=== PATIENT | female | born 1965 | race Caucasian/White ===

== ENCOUNTER 2019-04-05 12:36 | Observation (INO) | payer BC, SELFPAY | END 2019-04-06 22:50 | disposition home or self-care (01) | PROVIDERS: Admitting Provider Family Medicine; Emergency Provider Emergency Medicine; Family Provider Nurse Practitioner Family; Visit Provider Family Medicine | DX: I10 Essential (primary) hypertension (principal); J45.909 Unspecified asthma, uncomplicated; E78.5 Hyperlipidemia, unspecified; G47.00 Insomnia, unspecified; F17.210 Nicotine dependence, cigarettes, uncomplicated; R07.9 Chest pain, unspecified; E03.9 Hypothyroidism, unspecified; E11.42 Type 2 diabetes mellitus with diabetic polyneuropathy; Z79.4 Long term (current) use of insulin; K21.9 Gastro-esophageal reflux disease without esophagitis; Z95.1 Presence of aortocoronary bypass graft; Z95.0 Presence of cardiac pacemaker; Z95.820 Peripheral vascular angioplasty status with implants and grafts; Z82.49 Family history of ischemic heart disease and other diseases of the circulatory system; Z83.3 Family history of diabetes mellitus; E66.9 Obesity, unspecified; Z68.41 Body mass index [BMI] 40.0-44.9, adult; M19.90 Unspecified osteoarthritis, unspecified site | CPT/HCPCS: 36415 ×2; 36416 ×7; 71045; 78452; 80053 ×2; 80061; 80307; 81001; 82962 ×6; 83036; 83721; 84443; 84484 ×3; 85025 ×2; 90732; 93005 ×3; 93017; 93454; 96360; 96361; 99285; A9500; G0378 ×122; J1644; J2001; J2250 ×2; J2785; J3490; Q9967 ==

== ENCOUNTER → 2019-09-30 10:53 | Outpatient (BNVA) | payer BC, SELFPAY | PROVIDERS: Visit Provider Nurse Practitioner Family | DX: I50.9 Heart failure, unspecified (principal); J40 Bronchitis, not specified as acute or chronic | CPT/HCPCS: 71046 ==

== ENCOUNTER → 2019-10-31 09:46 | Outpatient (BNVA) | payer BC, SELFPAY | PROVIDERS: Visit Provider Family Medicine | DX: E03.9 Hypothyroidism, unspecified (principal); I10 Essential (primary) hypertension; E11.9 Type 2 diabetes mellitus without complications; E55.9 Vitamin D deficiency, unspecified | CPT/HCPCS: 80053; 80061; 82306; 83036; 84443; 85025 ==

== ENCOUNTER 2020-02-27 13:39 | Outpatient (CLI) | payer BC, SELFPAY ==
--- NOTE | 2020-02-27 13:46 | XR_ITS ---
WS: [id number] Right foot, 3 views, 02/27/2020 Clinical Data: foot pain Comparison: None. Findings: No fractures or dislocations are seen. No bone destruction or erosion is noted. The joint spaces and soft tissues are normal. XR/XR foot RT min 3V* [id number] Impression: Negative right foot.
--- NOTE | 2020-02-27 13:46 | XR_ITS ---
WS: [id number] Left foot, 3 views, 02/27/2020 Clinical Data: foot pain Comparison: Left foot, 03/01/2015. Findings: No fractures or dislocations are seen. No bone destruction or erosion is noted. The joint spaces and soft tissues are normal. XR/XR foot LT min 3V* [id number] Impression: Negative left foot.
== END 2020-02-27 13:40 | disposition home or self-care (01) ==
LOC: RAD 13:44
PROVIDERS: PCP Family Medicine; Visit Provider Podiatrist Foot & Ankle Surgery
DX: M79.672 Pain in left foot (principal); M79.671 Pain in right foot
CPT/HCPCS: 73630

== ENCOUNTER → 2020-05-24 12:10 | Outpatient (BNVA) | payer BC, OTHER, SELFPAY | PROVIDERS: PCP Family Medicine; Visit Provider Family Medicine | DX: M79.671 Pain in right foot (principal); Z12.31 Encounter for screening mammogram for malignant neoplasm of breast; Z23 Encounter for immunization; I10 Essential (primary) hypertension; E03.9 Hypothyroidism, unspecified; Z79.4 Long term (current) use of insulin; E11.65 Type 2 diabetes mellitus with hyperglycemia; E11.42 Type 2 diabetes mellitus with diabetic polyneuropathy; E78.5 Hyperlipidemia, unspecified | CPT/HCPCS: 73630; 80053; 80061; 83036; 84443 ==

== ENCOUNTER → 2020-06-08 11:55 | Outpatient (BNVA) | payer BC, OTHER, SELFPAY | PROVIDERS: PCP Family Medicine | DX: Z11.59 Encounter for screening for other viral diseases (principal); Z20.828 Contact with and (suspected) exposure to other viral communicable diseases | CPT/HCPCS: 87635 ==

== ENCOUNTER 2020-08-31 17:11 | Emergency (ER) | payer SELFPAY ==
[2020-08-31] VITALS (8 sets, daily range): BP systolic 113–143; BP diastolic 72–80; PULSE 67–88; RESP 17–19; TEMP 36.8; O2SAT 95–97; BMI 37.9
--- NOTE | 2020-08-31 17:22 | ECG_ITS ---
[facility] Test Date: 2020-08-31 Pat Name: Adriana Velasquez Department: Room: Gender: Female Admin Secretary: : 1965 Requested By: Isabela Ba Order Number: [id number] Tiara MD: Geri Díaz M.D. Measurements Intervals [place] Rate: 68 P: 52 WV: 175 QRS: 46 QRSD: 99 T: 50 QT: 387 QTc: 413 Interpretive Statements SINUS RHYTHM LOW QRS VOLTAGE IN PRECORDIAL LEADS [QRS DEFLECTION < 1.0 mV IN CHEST LEADS] Compared to ECG 04/05/2019 20:20:32 Sinus bradycardia no longer present Electronically Signed On 09-02-2020 9:14:33 ED EDUCATIONAL AIDE by Geri Díaz M.D. [id number]
--- NOTE | 2020-08-31 17:29 | W.ED.ABDPA2 ---
HPI - Abdominal Pain General: Chief Complaint: Abdominal Pain Stated Complaint: ABDOMINAL PAIN Time Seen by Provider: 08/31/20 17:12 History of Present Illness: HPI narrative: This patient is a 54-year-old female who presents today with left upper quadrant pain. She said she has been having abdominal pain off and on since before . Its not there every day. This episode started yesterday and has not gone away. It kept her up during the night last night. She said it gets worse when she eats. Nothing makes it better. She has not had any vomiting or diarrhea. She denies fevers. She does feel short of breath when the pain is severe because she cannot take a deep breath. She has a chronic cough. She has had a hysterectomy and a hernia repair surgery. She still has her appendix and gallbladder. She is diabetic, hypertensive. MD elicited complaint: abdominal pain Pertinent past history: none Onset (ago): month(s) (1) Pain Consistency: intermittent Location: LUQ Severity: severe Quality: cramping and sharp Radiation: none Migration to: no migration Exacerbating factors: eating Relieving factors: nothing Associated Symptoms: Denies change in bowel habits, constipation, diarrhea, dysuria and fever(s) Review of Systems General: Reports: 10 or more systems reviewed and unremarkable except in HPI and below Const: Denies: fever(s) Eyes: Denies: change in vision ENMT: Denies: odynophagia Card: Denies: chest pain or swelling of feet/ankles Resp: Denies: dyspnea, productive cough or non-productive cough GI: Denies: diarrhea, constipation or change in bowel habits : Denies: dysuria Musc: Denies: neck pain or back pain Skin/Breast: Denies: rash Neuro: Denies: headache(s), numbness in extremities or weakness in extremities Shreyas/Lymph: Denies: easy bruising or easy bleeding PFS ED PFSH: Medical History (Updated 08/31/20 @ 22:47 by Isabela Andres MD) Adult hypothyroidism Anxiety and depression Chronic migraine COPD (chronic obstructive pulmonary disease) CPAP (continuous positive airway pressure) dependence Diabetic neuropathy Dyslipidemia GERD (gastroesophageal reflux disease) Hypertension Narcolepsy Reflux esophagitis RLS (restless legs syndrome) Smoking Type 2 diabetes mellitus Vitamin D deficiency Surgical History History of back surgery Hx of hemorrhoidectomy Hx of hernia repair Hx of hysterectomy Hx of tonsillectomy Family History Other Diabetes Hypertension Social History Smoking and tobacco status: current every day smoker cigarettes Packs smoked per day: 1 Years cigarettes smoked: 35 Alcohol intake: never Lives independently: Yes Household members: family Marital status: Current occupational status: retired History of recent travel: No Current gender identity: Female Physical Exam Const: COMMON NORMALS: no acute distress, patient oriented x3, no limitations and alert GENERAL APPEARANCE: cooperative and comfortable HENMT: HEAD & SCALP: normal to inspection FACE & SINUS: normal facial exam Eye: GENERAL EYE: appearance normal, both eyes and all related structures Neck/C-Spine: COMMON NORMALS: supple, no meningeal signs and no JVD Chest: COMMONS NORMALS: normal inspection of the chest Resp: COMMON NORMALS: normal respiratory effort, No use of accessory muscles and clear to auscultation bilaterally AUSCULTATION: clear to auscultation bilaterally Cardio: COMMON NORMALS: no JVD, regular rate, regular rhythm and No murmurs present (Cardio) RATE: regular rate RHYTHM: regular rhythm GI: COMMON NORMALS: Normal to inspection, nondistended, normoactive bowel sounds present and No hepatosplenomegaly present INSPECTION: Yes normal to inspection and Yes striae AUSCULTATION: Yes normoactive bowel sounds PALPATION: Yes Tenderness to palpation present (GI) Details: LUQ and RUQ, Yes No hepatosplenomegaly present and No Rebound tenderness present PERCUSSION: normal to percussion Back/Pelvis: COMMON NORMALS: thoracic and lumbar spine normal to inspection Extremity: COMMON NORMALS: normal to inspection Neuro: COMMON NORMALS: patient oriented x3, moves all extremities, no focal motor deficits and no sensory deficits noted SENSORIUM/ORIENTATION: Yes alert MENINGEAL SIGNS: Yes no meningeal signs Psych: COMMON NORMALS: mental status grossly normal, cooperative and normal affect Skin: COMMON NORMALS: no rashes or lesions noted and turgor normal GENERAL SKIN EXAM: no rashes or lesions noted and turgor normal Course ED course: Patient was fairly comfortable when in the department. When I went back to reevaluate her after her CT she was sitting up on the bed, leaning forward and on her phone. The CT and labs were within normal limits. Her symptoms to me suggest possibly slow gastric emptying and I suggested we try some Reglan. She also could have gastritis or gastric ulcer disease. We will start some Pepcid. She has a primary care doctor and I suggested that she might follow-up with her given that her symptoms have been going on for a while. Vital Signs: Vital signs: Vital Signs Temperature 98.3 F 08/31/20 17:14 Pulse Rate 68 08/31/20 21:11 Respiratory Rate 17 08/31/20 21:11 Blood Pressure 124/72 08/31/20 21:11 Pulse Oximetry 96 08/31/20 21:11 MDM - Abdominal Pain MDM Narrative: Medical decision making narrative: Gastroparesis, slow gastric emptying, gastric ulcer disease, gastritis, colitis, renal disease. Lab Data: Labs: Lab Results 08/31/20 08/31/20 08/31/20 Range/Units 17:25 17:25 17:25 WBC 8.5 (4.0-10.0) 10^3/ uL RBC 4.95 (4.1-5.3) 10^6/u L Hgb 14.6 (11.5-15.3) g/dL Hct 44.7 (37.0-47.0) % MCV 90.3 (81-99) fL MCH 29.5 (28.0-34.0) pg MCHC 32.7 (30.0-36.0) g/dL RDW 12.6 (12.1-15.1) % Plt Count 229 (130-400) 10^3/c mm MPV 10.3 (7.4-10.4) fL Neut % (Auto) 58.7 % Lymph % (Auto) 33.4 % [place] % (Auto) 5.1 % Eos % (Auto) 2.0 % Baso % (Auto) 0.6 % Neut # (Auto) 4.98 (1.8-7.7) 10^3/u L Lymph # (Auto) 2.8 (0.8-4.8) 10^3/u L [place] # (Auto) 0.4 (0.2-0.9) 10^3/u L Eos # (Auto) 0.2 (0.0-0.8) 10^3/u L Baso # (Auto) 0.1 (0.0-0.1) 10^3/u L Nucleated RBC % (a uto) 0 % Nucleated RBCs # 0.0 /100WBC Sodium 142 (136-145) mmol/L Potassium 4.0 (3.5-5.1) mmol/L Chloride 103 (98-107) mmol/L Carbon Dioxide 30 H (22-29) mmol/L Anion Gap 13.0 (5-19) BUN 10 (6-20) mg/dL Creatinine 0.7 (0.5-0.9) mg/dL GFR Calculation 87.9 L (90-130) mL/min Glucose 160 H (65-115) mg/dL Calculated Osmolal ity 296 H (285-295) mOsm/k g Lactic Acid 1.6 (0.5-2.2) mmol/L Calcium 9.8 (8.5-10.5) mg/dL Total Bilirubin 0.4 (0.15-1.2) mg/dL AST 19 (0-32) U/L ALT 16 (0-33) U/L Alkaline Phosphata se 104 (35-105) IU/L Total Protein 6.9 (6.6-8.7) g/dL Albumin 4.2 (3.5-5.2) g/dL Globulin 2.7 (1.3-4.6) g/dL Lipase 45 (13-60) U/L Urine Color (Yellow) Urine Appearance (CLEAR) Urine pH (5-7) Ur Specific Gravit y (1.005-1.030) Urine Protein (Negative) Urine Glucose (UA) (Normal) Urine Ketones (Negative) Urine Blood (Negative) Urine Nitrate (Negative) Urine Bilirubin (Negative) Urine Urobilinogen (Negative) mg/dL Ur Leukocyte Brianne ase (Negative) 08/31/20 Range/Units 18:14 WBC (4.0-10.0) 10^3/ uL RBC (4.1-5.3) 10^6/u L Hgb (11.5-15.3) g/dL Hct (37.0-47.0) % MCV (81-99) fL MCH (28.0-34.0) pg MCHC (30.0-36.0) g/dL RDW (12.1-15.1) % Plt Count (130-400) 10^3/c mm MPV (7.4-10.4) fL Neut % (Auto) % Lymph % (Auto) % [place] % (Auto) % Eos % (Auto) % Baso % (Auto) % Neut # (Auto) (1.8-7.7) 10^3/u L Lymph # (Auto) (0.8-4.8) 10^3/u L [place] # (Auto) (0.2-0.9) 10^3/u L Eos # (Auto) (0.0-0.8) 10^3/u L Baso # (Auto) (0.0-0.1) 10^3/u L Nucleated RBC % (a uto) % Nucleated RBCs # /100WBC Sodium (136-145) mmol/L Potassium (3.5-5.1) mmol/L Chloride (98-107) mmol/L Carbon Dioxide (22-29) mmol/L Anion Gap (5-19) BUN (6-20) mg/dL Creatinine (0.5-0.9) mg/dL GFR Calculation (90-130) mL/min Glucose (65-115) mg/dL Calculated Osmolal ity (285-295) mOsm/k g Lactic Acid (0.5-2.2) mmol/L Calcium (8.5-10.5) mg/dL Total Bilirubin (0.15-1.2) mg/dL AST (0-32) U/L ALT (0-33) U/L Alkaline Phosphata se (35-105) IU/L Total Protein (6.6-8.7) g/dL Albumin (3.5-5.2) g/dL Globulin (1.3-4.6) g/dL Lipase (13-60) U/L Urine Color Yellow (Yellow) Urine Appearance Clear (CLEAR) Urine pH 5 (5-7) Ur Specific Gravit y 1.025 (1.005-1.030) Urine Protein Neg (Negative) Urine Glucose (UA) Norm (Normal) Urine Ketones Negative (Negative) Urine Blood Neg (Negative) Urine Nitrate Negative (Negative) Urine Bilirubin 1+ H (Negative) Urine Urobilinogen 4 H (Negative) mg/dL Ur Leukocyte Brianne ase Negative (Negative) Discharge Plan Discharge Patient Disposition: Home Clinical Impression: Abdominal pain Qualifiers: Abdominal location: left upper quadrant Qualified Code(s): R10.12 - Left upper quadrant pain Type 2 diabetes mellitus Qualifiers: 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 insulin use: unspecified care home insulin use status Diabetes mellitus complication status: with other specified complication Qualified Code(s): E11.69 - Type 2 diabetes mellitus with other specified complication Condition: Stable Prescriptions: New metoclopramide HCl 10 mg tablet 10 mg PO Q6H PRN (Reason: abdominal discomfort) Qty: 14 RF: 0 Pepcid 40 mg tablet 40 mg PO BID 56 Days Qty: 112 RF: 0 No Action albuterol sulfate 2.5 mg /3 mL (0.083 %) solution for nebulization 2.5 mg INHALATION Q4H PRN (Reason: Shortness Of Breath) RF: 0 Bevespi Aerosphere 9-4.8 mcg HFA aerosol inhaler 2 puff INHALATION Q12H PRN (Reason: Shortness Of Breath) RF: 0 rizatriptan [Maxalt] 10 mg tablet See Rx Instructions PO .COMPLEX Qty: 14 RF: 5 gabapentin 600 mg tablet 600 mg PO TID Qty: 90 RF: 1 Novolin R Regular U-100 Insuln 100 unit/mL solution See Rx Instructions SUBCUT .COMPLEX Qty: 10 RF: 2 amitriptyline 25 mg tablet 25 mg PO BEDTIME@20 RF: 0 metformin 1,000 mg tablet 1,000 mg PO BID@08,20 RF: 0 levothyroxine 125 mcg tablet 125 mcg PO DAILY@08 RF: 0 ropinirole 4 mg tablet 4 mg PO BEDTIME@20 RF: 0 metoprolol tartrate 25 mg tablet 25 mg PO Q12H RF: 0 fenofibrate 160 mg tablet 160 mg PO DAILY@08 RF: 0 cholecalciferol (vitamin D3) 3,000 unit tablet 6,000 unit PO DAILY@08 RF: 0 Aimovig Autoinjector 140 mg/mL auto-injector 140 mg SUBCUT Q30D RF: 0 Discharge Orders: Discharge ED (Routine); Ordered 08/31/20 Ordered By: Isabela Andres Referrals: Daksha Killian MD [Primary Care Provider] - Discharge Diet: Usual diet Discharge Activity: Resume usual activity Patient Instructions: Abdominal Pain (ED) Activity Restrictions/Additional Instructions: Try taking the metaclopramide before meals to see if it helps prevent the pain. Take the pepcid daily as prescribed. Follow up with your doctor. Coding Level of Care Code ED Audio Video Mechanic for Maddison Fwd Exam Comprehensive
[2020-08-31] MEDS: morphine 4 mg/mL SDV 1 mL IVP (17:49)
[2020-08-31] MEDS: ondansetron 2 mg/ML SDV 2 mL 4 MG IVP (17:49)
[2020-08-31 18:12] LABS: Basophils # 0.1 10^3/uL (0.0-0.1); Basophils % 0.6 %; Eosinophils # 0.2 10^3/uL (0.0-0.8); Hematocrit 44.7 % (37.0-47.0); Hemoglobin 14.6 g/dL (11.5-15.3); Lymphocytes # 2.8 10^3/uL (0.8-4.8); Lymphocytes % 33.4 %; Mean Corpuscular HGB Conc 32.7 g/dL (30.0-36.0); Mean Corpuscular Hemoglobin 29.5 pg (28.0-34.0); Mean Corpuscular Volume 90.3 fL (81-99); Mean Platelet Volume 10.3 fL (7.4-10.4); Monocytes # 0.4 10^3/uL (0.2-0.9); Monocytes % 5.1 %; Neutrophils # 4.98 10^3/uL (1.8-7.7); Neutrophils % 58.7 %; Nucleated Red Blood Cells % 0 %; Platelet Count 229 10^3/cmm (130-400); Red Blood Count 4.95 10^6/uL (4.1-5.3); Red Cell Distribution Width 12.6 % (12.1-15.1); White Blood Count 8.5 10^3/uL (4.0-10.0)
[2020-08-31 18:22] LABS: Add Urine Microscopic? NO
[2020-08-31 18:23] LABS: Lactic Sepsis W/Reflex 1.6 mmol/L (0.5-2.2)
[2020-08-31 18:25] LABS: Bilirubin Urine 1+ (Negative); Blood Urine Neg (Negative); Glucose Urine UA Norm (Normal); Ketones Urine Negative (Negative); Leukocyte Esterase Urine Negative (Negative); Nitrate Urine Negative (Negative); Protein Urine Neg (Negative); Specific Gravity, Urine 1.025 (1.005-1.030); Urine Appearance Clear (CLEAR); Urine Color Yellow (Yellow); Urobilinogen Urine 4 mg/dL (Negative); pH Urine 5 (5-7)
[2020-08-31 18:31] LABS: Alanine Aminotransferase 16 U/L (0-33); Albumin Level 4.2 g/dL (3.5-5.2); Alkaline Phosphatase 104 IU/L (35-105); Blood Urea Nitrogen 10 mg/dL (6-20); Calcium 9.8 mg/dL (8.5-10.5); Carbon Dioxide 30 mmol/L (22-29); Chloride 103 mmol/L (98-107); Globulin 2.7 g/dL (1.3-4.6); Glomerular Filtration Rate 87.9 mL/min (90-130); Glucose 160 mg/dL (65-115); Lipase 45 U/L (13-60); Osmolality Calculated 296 mOsm/kg (285-295); Sodium 142 mmol/L (136-145); Total Bilirubin 0.4 mg/dL (0.15-1.2); Total Protein 6.9 g/dL (6.6-8.7)
[2020-08-31 18:33] LABS: Aspartate Amino Transferase 19 U/L (0-32)
--- NOTE | 2020-08-31 19:13 | PC.NURSE ---
report received from Le BAUM, care transferred to BAUTISTA Aviles
--- NOTE | 2020-08-31 19:22 | CTR_ITS ---
PROCEDURE INFORMATION: Exam: CT Abdomen And Pelvis With Contrast Exam date and time: 08/31/2020 7:45 PM Age: 54 years old Clinical indication: Abdominal pain; Localized; Left upper quadrant (luq); Prior surgery; Surgery type: Hernia repair. Hysterectomy. ; Patient HX: Luq pain. ; Additional info: Abdominal pain, luq TECHNIQUE: Imaging protocol: Computed tomography of the abdomen and pelvis with intravenous contrast. Radiation optimization: All CT scans at this facility use at least one of these dose optimization techniques: automated exposure control; mA and/or kV adjustment per patient size (includes targeted exams where dose is matched to clinical indication); or iterative reconstruction. Contrast material: OMNI 300; Contrast volume: 95 ml; Contrast route: INTRAVENOUS (IV); COMPARISON: CR Hip 2-3v RIGHT wwo Pelv* [id number] 10/29/2018 4:36 PM RADIATION DOSE METRICS: Total DLP (mGy-cm): 1412.41 FINDINGS: Liver: Normal. No mass. Gallbladder and bile ducts: Normal. No calcified stones. No ductal dilation. Pancreas: Normal. No ductal dilation. Spleen: Normal. No splenomegaly. Adrenal glands: Normal. No mass. Kidneys and ureters: Normal. No hydronephrosis. Stomach and bowel: Unremarkable. No obstruction. No mucosal thickening. Appendix: The appendix is visualized and is normal. Intraperitoneal space: Unremarkable. No free air. No significant fluid collection. Vasculature: Unremarkable. No abdominal aortic aneurysm. Lymph nodes: Unremarkable. No enlarged lymph nodes. Urinary bladder: Unremarkable as visualized. Reproductive: The uterus and ovaries are absent. Bones/joints: Unremarkable. No acute fracture. Soft tissues: Unremarkable. CT/CT abdomen pelvis w con* [id number] IMPRESSION: 1. No acute abnormality identified in the abdomen or pelvis. Radiation Dose CTDIVOL = (mGy): DLP = 1412.41 (mGy-cm)
[2020-08-31] MEDS: iohexol 300 mg/mL 100 mL Btl IV (20:26)
== END 2020-08-31 23:22 | disposition home or self-care (01) ==
PROVIDERS: Emergency Provider Emergency Medicine; PCP Family Medicine
DX: R10.12 Left upper quadrant pain (principal); E11.69 Type 2 diabetes mellitus with other specified complication; Z79.4 Long term (current) use of insulin; J44.9 Chronic obstructive pulmonary disease, unspecified; E11.40 Type 2 diabetes mellitus with diabetic neuropathy, unspecified; E78.5 Hyperlipidemia, unspecified; I10 Essential (primary) hypertension; F17.210 Nicotine dependence, cigarettes, uncomplicated
CPT/HCPCS: 12345; 74177; 80053; 81003; 83605; 83690; 85025; 93005; 96374; 96375; 99282; 99283; J2270; J2405; Q9967

== ENCOUNTER 2020-10-09 20:18 | Emergency (ER) | payer OTHER, SELFPAY ==
[2020-10-09 20:27] VITALS: BP 175/102; PULSE 86; RESP 18; TEMP 36.8; O2SAT 96; BMI 38.0
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
[2020-10-09] MEDS: ibuprofen 800 mg tablet PO (22:14)
[2020-10-09 22:16] VITALS: BP 132/95; PULSE 86; RESP 16; O2SAT 97
[2020-10-09 23:00] VITALS: BP 134/95; PULSE 64; RESP 16; O2SAT 95
== END 2020-10-09 23:01 | disposition home or self-care (01) ==
PROVIDERS: Emergency Provider Family Medicine; PCP Family Medicine
DX: T14.8XXA Other injury of unspecified body region, initial encounter (principal); Y04.2XXA Assault by strike against or bumped into by another person, initial encounter; J44.9 Chronic obstructive pulmonary disease, unspecified; E11.40 Type 2 diabetes mellitus with diabetic neuropathy, unspecified; E78.5 Hyperlipidemia, unspecified; I10 Essential (primary) hypertension; F17.210 Nicotine dependence, cigarettes, uncomplicated; Z79.4 Long term (current) use of insulin
CPT/HCPCS: 70450; 71045; 71100; 72040; 73562; 99283

== ENCOUNTER → 2020-11-02 10:13 | Outpatient (BNVA) | payer OTHER, SELFPAY | PROVIDERS: PCP Family Medicine; Visit Provider Family Medicine | DX: E03.9 Hypothyroidism, unspecified (principal); E11.69 Type 2 diabetes mellitus with other specified complication; I10 Essential (primary) hypertension | CPT/HCPCS: 80053; 80061; 83036; 84443; 85025 ==

== ENCOUNTER → 2020-11-12 14:08 | Outpatient (BNVA) | payer OTHER, SELFPAY | PROVIDERS: PCP Family Medicine; Visit Provider Nurse Practitioner Family | DX: R30.0 Dysuria (principal); R31.29 Other microscopic hematuria; N39.0 Urinary tract infection, site not specified | CPT/HCPCS: 74018; 80053; 81003; 85025; 87077; 87086; 87184 ==

== ENCOUNTER → 2021-01-31 10:06 | Outpatient (BNVA) | payer OTHER, SELFPAY | PROVIDERS: PCP Family Medicine; Visit Provider Family Medicine | DX: M79.671 Pain in right foot (principal) | CPT/HCPCS: 73630 ==

== ENCOUNTER 2021-02-01 13:54 | Emergency (ER) | payer OTHER, SELFPAY ==
[2021-02-01 14:23] VITALS: BP 131/78; PULSE 78; RESP 18; TEMP 36.7; O2SAT 95; BMI 39.6
--- NOTE | 2021-02-01 14:46 | W.ED.EXTPRO ---
HPI - Extremity Problem General: Chief complaint: Extremity Problem,Nontraumatic Stated complaint: LLE swelling Time Seen by Provider: 02/01/21 14:28 History of Present Illness: HPI Narrative: Patient complains about right foot pain for the last couple days. Says his neuropathy is acting up. Said it hurts to put weight on. Denies any injury thinks it swells at times. Complaint: extremity pain Onset (ago): day(s) Pain Consistency: constant Location: right and lower extremity Quality: aching Radiation: proximal Relieving factors: immobilization Exacerbating factors: weight bearing Associated symptoms: Reports no associated symptoms; Deny chest pain, fever(s) or rash Review of Systems Const: Denies: fever(s), chills or body aches Eyes: Denies: change in vision or blurry vision ENMT: Denies: throat pain or nasal congestion Card: Denies: chest pain or dyspnea on exertion Resp: Denies: dyspnea, productive cough or non-productive cough GI: Denies: abdominal pain, nausea or vomiting Musc: Reports: extremity pain (Right foot is been painful for the last 2 or 3 days seen her primary care x); Denies: extremity swelling Skin/Breast: Denies: rash Neuro: Denies: headache(s) Psych: Denies: anxiety or depression Shreyas/Lymph: Denies: easy bruising PFSH ED PFSH: Medical History (Updated 02/01/21 @ 14:42 by KASANDRA Parada) Adult hypothyroidism Anxiety and depression Chronic migraine COPD (chronic obstructive pulmonary disease) CPAP (continuous positive airway pressure) dependence Diabetic neuropathy Dyslipidemia GERD (gastroesophageal reflux disease) Hypertension Narcolepsy Reflux esophagitis RLS (restless legs syndrome) Smoking Type 2 diabetes mellitus Vitamin D deficiency Surgical History History of back surgery Hx of hemorrhoidectomy Hx of hernia repair Hx of hysterectomy Hx of tonsillectomy Family History Other Diabetes Hypertension Social History Smoking and tobacco status: current every day smoker cigarettes Packs smoked per day: 1 Years cigarettes smoked: 35 Alcohol intake: never Lives independently: Yes Household members: family Marital status: Current occupational status: retired History of recent travel: No Current gender identity: Female Physical Exam Const: COMMON NORMALS: no acute distress Extremity: COMMON NORMALS: normal to inspection, capillary refill normal, no calf tenderness and no pedal edema RIGHT LOWER EXTREMITY: Yes foot & digits (Tender everywhere i touch, no erythema no swelling noted no calf tenderness) Psych: COMMON NORMALS: mental status grossly normal Course Vital Signs: Vital signs: Vital Signs Temperature 98.1 F 02/01/21 14:23 Pulse Rate 78 02/01/21 14:23 Respiratory Rate 18 02/01/21 14:23 Blood Pressure 131/78 02/01/21 14:23 Pulse Oximetry 95 02/01/21 14:23 MDM - Extremity (Nontraumatic) MDM Narrative: Medical decision making narrative: Foot appears normal exam calf is normal. Patient has a history neuropathy and feels maybe it is flaring up. Is allergic to a lot of the pain type medications. Patient instructed follow-up primary care provider try medication as prescribed Epson salt soaks might be of benefit. Discharge Plan Discharge Patient Disposition: Home Clinical Impression: Right foot pain Condition: Stable Prescriptions: New Celebrex 100 mg capsule 100 mg PO BID Qty: 20 RF: 0 Voltaren 1 % gel 4 g topical QID Qty: 100 RF: 0 Discontinued ibuprofen 600 mg tablet 600 mg PO Q6H PRN (Reason: pain) Qty: 30 RF: 0 No Action albuterol sulfate 2.5 mg /3 mL (0.083 %) solution for nebulization 2.5 mg INHALATION Q4H PRN (Reason: Shortness Of Breath) RF: 0 Bevespi Aerosphere 9-4.8 mcg HFA aerosol inhaler 2 puff INHALATION Q12H PRN (Reason: Shortness Of Breath) RF: 0 rizatriptan [Maxalt] 10 mg tablet See Rx Instructions PO .COMPLEX Qty: 14 RF: 5 amitriptyline 25 mg tablet 25 mg PO BEDTIME@20 Qty: 30 RF: 3 cholecalciferol (vitamin D3) 75 mcg (3,000 unit) tablet 6,000 unit PO DAILY@08 Qty: 30 RF: 3 Aimovig Autoinjector 140 mg/mL auto-injector 140 mg SUBCUT Q30D Qty: 1 RF: 4 gabapentin 600 mg tablet 600 mg PO TID Qty: 90 RF: 1 fenofibrate 160 mg tablet 160 mg PO DAILY@08 Qty: 30 RF: 4 levothyroxine 125 mcg tablet 125 mcg PO DAILY@08 Qty: 30 RF: 4 metformin 1,000 mg tablet 1,000 mg PO BID@08,20 Qty: 30 RF: 4 metoprolol tartrate 25 mg tablet 25 mg PO Q12H Qty: 60 RF: 3 ropinirole 4 mg tablet 4 mg PO BEDTIME@20 Qty: 30 RF: 4 Novolin R Regular U-100 Insuln 100 unit/mL solution See Rx Instructions SUBCUT .COMPLEX Qty: 10 RF: 2 metoclopramide HCl 10 mg tablet 10 mg PO Q6H PRN (Reason: abdominal discomfort) Qty: 14 RF: 0 Discharge Orders: Discharge ED (Routine); Ordered 02/01/21 Ordered By: Nathan Bahena Referrals: Daksha Killian MD [Primary Care Provider] - Discharge Diet: Usual diet Discharge Activity: Increase activity as tolerated Patient Instructions: Diabetic Neuropathy (ED) Activity Restrictions/Additional Instructions: Follow-up with medical provider as directed. Take medications as prescribed. Return to the ER or your medical provider if condition worsens. Please read and understand discharge instructions. If any questions ask please. Stand Alone Forms: Work/School Release Coding Level of Care Code ED Supervisor Model Making for Maddison Fwd Exam Expanded Problem Focused
== END 2021-02-01 15:05 | disposition home or self-care (01) ==
PROVIDERS: Emergency Provider Nurse Practitioner Family; PCP Family Medicine
DX: M79.671 Pain in right foot (principal); Z79.4 Long term (current) use of insulin; J44.9 Chronic obstructive pulmonary disease, unspecified; E11.40 Type 2 diabetes mellitus with diabetic neuropathy, unspecified; E78.5 Hyperlipidemia, unspecified; I10 Essential (primary) hypertension; F17.210 Nicotine dependence, cigarettes, uncomplicated
CPT/HCPCS: 99282

== ENCOUNTER 2021-03-29 10:17 | Outpatient (CLI) | payer MEDICAID, SELFPAY ==
--- NOTE | 2021-03-29 10:30 | MM_ITS ---
WS: [id number] Bilateral screening digital mammogram, 03/29/2021 Clinical Data: screening mammogram Comparison: [id number] 01/19/2015, 01/05/2015, 01/21/2012, 05/25/2008. Findings: The breast parenchymal pattern shows fibroglandular tissue No spiculated masses or clustered calcific ations are seen. There are no secondary signs of carcinoma. MM/[place] [id number] Impression: 1. Negative bilateral mammogram unchanged. 2. Recommend annual screening mammograms. BIRADS: 1-Negative FOLLOW UP: 1 Year Follow-up The CAD formula checker was used.
== END 2021-03-29 10:18 | disposition home or self-care (01) ==
LOC: RADSHAW 10:21
PROVIDERS: PCP Family Medicine; Visit Provider Family Medicine
DX: Z12.31 Encounter for screening mammogram for malignant neoplasm of breast (principal)
CPT/HCPCS: 77067

== ENCOUNTER 2021-03-30 15:26 | Emergency (ER) | payer MEDICAID, SELFPAY ==
[2021-03-30 15:40] VITALS: BP 126/79; PULSE 89; RESP 18; TEMP 37.5; O2SAT 97
--- NOTE | 2021-03-30 15:50 | XRR_ITS ---
PROCEDURE INFORMATION: Exam: XR Left Ankle Exam date and time: 03/30/2021 3:50 PM Age: 55 years old Clinical indication: Injury or trauma; Fall; Blunt trauma; Ankle; Left TECHNIQUE: Imaging protocol: XR Left ankle. Views: 3 or more views. COMPARISON: No relevant prior studies available. FINDINGS: Bones/joints: Normal. Soft tissues: Unremarkable. XR/XR ankle LT min 3V* [id number] IMPRESSION: No acute findings.
--- NOTE | 2021-03-30 15:50 | XRR_ITS ---
PROCEDURE INFORMATION: Exam: XR Left Foot Exam date and time: 03/30/2021 3:50 PM Age: 55 years old Clinical indication: Injury or trauma; Fall; Blunt trauma; Foot; Left TECHNIQUE: Imaging protocol: XR Left foot. Views: 3 or more views. COMPARISON: No relevant prior studies available. FINDINGS: Bones/joints: Normal. Soft tissues: Normal. XR/XR foot LT min 3V* [id number] IMPRESSION: No acute findings.
--- NOTE | 2021-03-30 15:50 | W.ED.EXTPRO ---
HPI - Extremity Problem General: Chief complaint: Extremity Injury, Lower Stated complaint: FALL LEFT FOOT INJURY BACK AND LEFT SHOULDER PAIN Time Seen by Provider: 03/30/21 15:46 History of Present Illness: HPI Narrative: Patient states she fell on some stairs last night landing on top of her left foot she has pain in her left foot with swelling. Also had pain in the left upper arm area but she is moving arm fine without any difficulty. Patient is able to ambulate MD Complaint: extremity pain and extremity swelling Onset (ago): day(s) Pain Consistency: constant Location: left and lower extremity Severity scale (1-10): 2 Quality: aching Radiation: none Relieving factors: immobilization Exacerbating factors: weight bearing Associated symptoms: Reports no associated symptoms; Deny chest pain, fever(s) or rash Review of Systems Const: Denies: fever(s), chills or body aches Eyes: Denies: change in vision or blurry vision ENMT: Denies: throat pain or nasal congestion Card: Denies: chest pain or dyspnea on exertion Resp: Denies: dyspnea, productive cough or non-productive cough GI: Denies: abdominal pain, nausea or vomiting Musc: Reports: extremity pain (Left foot and ankle and left upper arm) Skin/Breast: Denies: rash Neuro: Denies: headache(s) Psych: Denies: anxiety or depression Shreyas/Lymph: Denies: easy bruising PFSH ED PFSH: Medical History (Updated 02/01/21 @ 14:42 by KASANDRA Parada) Adult hypothyroidism Anxiety and depression Chronic migraine COPD (chronic obstructive pulmonary disease) CPAP (continuous positive airway pressure) dependence Diabetic neuropathy Dyslipidemia GERD (gastroesophageal reflux disease) Hypertension Narcolepsy Reflux esophagitis RLS (restless legs syndrome) Smoking Type 2 diabetes mellitus Vitamin D deficiency Surgical History History of back surgery Hx of hemorrhoidectomy Hx of hernia repair Hx of hysterectomy Hx of tonsillectomy Family History Other Diabetes Hypertension Social History Smoking and tobacco status: current every day smoker cigarettes Packs smoked per day: 1 Years cigarettes smoked: 35 Alcohol intake: never Lives independently: Yes Household members: family Marital status: Current occupational status: retired History of recent travel: No Current gender identity: Female Physical Exam Const: COMMON NORMALS: no acute distress, average body habitus and patient oriented x3 HENMT: COMMON NORMALS: normocephalic HEAD & SCALP: normal to inspection and normocephalic FACE & SINUS: normal facial exam Eye: COMMON NORMALS: conjunctivae normal GENERAL EYE: appearance normal, both eyes and all related structures CONJUNCTIVA: Yes conjunctivae normal Neck/C-Spine: COMMON NORMALS: no JVD Chest: COMMONS NORMALS: normal inspection of the chest Resp: COMMON NORMALS: normal respiratory effort and clear to auscultation bilaterally AUSCULTATION: clear to auscultation bilaterally Cardio: COMMON NORMALS: no JVD, regular rate and regular rhythm RATE: regular rate RHYTHM: regular rhythm GI: COMMON NORMALS: Normal to inspection, nondistended, normoactive bowel sounds present Extremity: COMMON NORMALS: normal to inspection and full ROM LEFT UPPER EXTREMITY: Yes shoulder joint (Appears okay full range of motion) and Yes upper arm (Tenderness to the upper part of the humerus but no swelling has full range ) LEFT LOWER EXTREMITY: Yes ankle joint (Swelling to the left lateral aspect of the ankle and to the midfoot. Neuro) and Yes foot & digits Neuro: COMMON NORMALS: patient oriented x3 Course Vital Signs: Vital signs: Vital Signs Temperature 99.5 F 03/30/21 15:40 Pulse Rate 89 03/30/21 15:40 Respiratory Rate 18 03/30/21 15:40 Blood Pressure 126/79 03/30/21 15:40 Pulse Oximetry 97 03/30/21 15:40 Discharge Plan Discharge Prescriptions: No Action albuterol sulfate 2.5 mg /3 mL (0.083 %) solution for nebulization 2.5 mg INHALATION Q4H PRN (Reason: Shortness Of Breath) RF: 0 Bevespi Aerosphere 9-4.8 mcg HFA aerosol inhaler 2 puff INHALATION Q12H PRN (Reason: Shortness Of Breath) RF: 0 rizatriptan [Maxalt] 10 mg tablet See Rx Instructions PO .COMPLEX Qty: 14 RF: 5 amitriptyline 25 mg tablet 25 mg PO BEDTIME@20 Qty: 30 RF: 3 cholecalciferol (vitamin D3) 75 mcg (3,000 unit) tablet 6,000 unit PO DAILY@08 Qty: 30 RF: 3 Aimovig Autoinjector 140 mg/mL auto-injector 140 mg SUBCUT Q30D Qty: 1 RF: 4 gabapentin 600 mg tablet 600 mg PO TID Qty: 90 RF: 1 fenofibrate 160 mg tablet 160 mg PO DAILY@08 Qty: 30 RF: 4 levothyroxine 125 mcg tablet 125 mcg PO DAILY@08 Qty: 30 RF: 4 metformin 1,000 mg tablet 1,000 mg PO BID@08,20 Qty: 30 RF: 4 metoprolol tartrate 25 mg tablet 25 mg PO Q12H Qty: 60 RF: 3 ropinirole 4 mg tablet 4 mg PO BEDTIME@20 Qty: 30 RF: 4 Novolin R Regular U-100 Insuln 100 unit/mL solution See Rx Instructions SUBCUT .COMPLEX Qty: 10 RF: 2 metoclopramide HCl 10 mg tablet 10 mg PO Q6H PRN (Reason: abdominal discomfort) Qty: 14 RF: 0 Celebrex 100 mg capsule 100 mg PO BID Qty: 20 RF: 0 Voltaren 1 % gel 4 g topical QID Qty: 100 RF: 0 Coding Level of Care Code ED Reliability Technicians for Chg Fwd
[2021-03-30 16:42] VITALS: BP 125/68; PULSE 90; RESP 16; O2SAT 98
== END 2021-03-30 16:43 | disposition home or self-care (01) ==
PROVIDERS: Emergency Provider Nurse Practitioner Family; PCP Family Medicine
DX: M79.672 Pain in left foot (principal); M25.512 Pain in left shoulder; R22.42 Localized swelling, mass and lump, left lower limb; E03.9 Hypothyroidism, unspecified; J44.9 Chronic obstructive pulmonary disease, unspecified; E11.40 Type 2 diabetes mellitus with diabetic neuropathy, unspecified; E78.5 Hyperlipidemia, unspecified; I10 Essential (primary) hypertension; F17.210 Nicotine dependence, cigarettes, uncomplicated; Z79.84 Long term (current) use of oral hypoglycemic drugs
CPT/HCPCS: 73610; 73630; 99282

== ENCOUNTER 2021-04-15 11:22 | Emergency (ER) | payer MEDICAID, SELFPAY ==
[2021-04-15 11:26] VITALS: BP 150/100; PULSE 100; RESP 18; TEMP 36.7; O2SAT 98; BMI 39.6
--- NOTE | 2021-04-15 11:57 | US_ITS ---
WS: [id number] ULTRASOUND SOFT TISSUES labia. HISTORY: R labial abscess COMPARISON: None available. TECHNIQUE: 2-D and color Doppler imaging is submitted. There is soft tissue edema through the RIGHT labia. There is no discrete well-formed abscess. Mild ph legmonous changes infiltrating the soft tissues. There are additional mildly prominent lymph nodes. T hese lymph nodes are at the RIGHT groin. US/US soft tissue/extremity [id number] IMPRESSION: Phlegmonous changes in the RIGHT labia. No discrete abscess.
--- NOTE | 2021-04-15 12:01 | ED_ITS ---
HPI - Skin/Abscess/Foreign Bdy General: Chief complaint: Skin/Abscess/Foreign Body Stated complaint: Bite on Vagina Time Seen by Provider: 04/15/21 11:33 History of Present Illness: HPI narrative: 55-year-old female who presents to the emergency room with complaint of a labial swelling and pain redness and erythema began over the last couple of days. On the labia majora on the right she had an area that became painful she expressed some purulent material from was continued to get more erythematous and inflamed. She is not had any fever sweats or chills. She does practice some personal shaving of the genitalia. MD complaint: abscess/boil Onset (ago): day(s) Tetanus up to date: no Location: genitals Severity: mild Quality: sharp Pain Consistency: constant Relieving factors: rest Exacerbating factors: movement Associated symptoms: Deny arthralgias, chills, cough, fever(s), itching, myalgias, nausea, rigidity, short of breath or vomiting Treatments prior to arrival: none Review of Systems Const: Denies: fever(s) or chills ENMT: Denies: throat pain, ear or mastoid pain, nasal discharge or nasal congestion Card: Denies: chest pain, edema, dyspnea on exertion or orthopnea Resp: Denies: dyspnea, productive cough or non-productive cough GI: Denies: nausea or vomiting : Denies: flank pain, difficulty voiding, dysuria, urinary frequency or u rinary urgency Skin/Breast: Denies: rash or pruritus PFSH ED PFSH: Medical History (Updated 04/15/21 @ 13:44 by Ulysses Peguero DO) Adult hypothyroidism Anxiety and depression Chronic migraine COPD (chronic obstructive pulmonary disease) CPAP (continuous positive airway pressure) dependence Diabetic neuropathy Dyslipidemia GERD (gastroesophageal reflux disease) Hypertension Narcolepsy Reflux esophagitis RLS (restless legs syndrome) Smoking Type 2 diabetes mellitus Vitamin D deficiency Surgical History History of back surgery Hx of hemorrhoidectomy Hx of hernia repair Hx of hysterectomy Hx of tonsillectomy Family History Other Diabetes Hypertension Social History Smoking and tobacco status: current every day smoker cigarettes Packs smoked per day: 1 Years cigarettes smoked: 35 Alcohol intake: never Lives independently: Yes Household members: family Marital status: Current occupational status: retired History of recent travel: No Current gender identity: Female Physical Exam Const: COMMON NORMALS: no acute distress GENERAL APPEARANCE: cooperative and comfortable ORIENTATION/CONSCIOUSNESS: Yes awake, Yes oriented to person, Yes oriented to place and Yes oriented to time HENMT: COMMON NORMALS: normocephalic, atraumatic and hearing grossly normal bilaterally HEAD & SCALP: normocephalic and atraumatic Neck/C-Spine: COMMON NORMALS: no JVD Resp: COMMON NORMALS: normal respiratory effort, No retractions, No use of accessory muscles and clear to auscultation bilaterally AUSCULTATION: clear to auscultation bilaterally Cardio: COMMON NORMALS: no JVD, regular rate, regular rhythm and No murmurs present (Cardio) RATE: regular rate RHYTHM: regular rhythm GI: COMMON NORMALS: Soft to palpation and No hepatosplenomegaly present AUSCULTATION: Yes normoactive bowel sounds PALPATION: Yes Soft to palpation, No Tenderness to palpation present (GI), No Guarding due to palpation present (GI) and Yes No hepatosplenomegaly present Extremity: COMMON NORMALS: normal to inspection, capillary refill normal, no clubbing, cyanosis or edema, no calf tenderness and no pedal edema Neuro: SENSORIUM/ORIENTATION: Yes oriented to person, Yes oriented to place and Yes oriented to time Course Vital Signs: Vital signs: Vital Signs Temperature 98.1 F 04/15/21 11:26 Pulse Rate 100 04/15/21 11:26 Respiratory Rate 18 04/15/21 11:26 Blood Pressure 150/100 04/15/21 11:26 Pulse Oximetry 98 04/15/21 11:26 MDM - Skin/Abscess/Foreign Bdy MDM Narrative: Medical decision making narrative: Labs and imaging reviewed with the patient. There is a phlegmon but no identifiable abscess to drain will start on oral antibiotics pain medications follow-up with [facility] neurosurgery in the next few days to reevaluate Lab Data: Labs: Lab Results 04/15/21 Range/Units 12:25 WBC 11.5 H (4.0-10.0) 10^3/ uL RBC 4.63 (4.1-5.3) 10^6/u L Hgb 13.5 (11.5-15.3) g/dL Hct 41.0 (37.0-47.0) % MCV 88.6 (81-99) fl MCH 29.2 (28.0-34.0) pg MCHC 32.9 (30.0-36.0) g/dL RDW 12.5 (12.1-15.1) % Plt Count 203 (130-400) 10^3/c mm MPV 9.8 (7.4-10.4) fL Neut % (Auto) 70.4 % Lymph % (Auto) 21.5 % [place] % (Auto) 5.9 % Eos % (Auto) 1.5 % Baso % (Auto) 0.4 % Neut # (Auto) 8.10 H (1.8-7.7) 10^3/u L Lymph # (Auto) 2.5 (0.8-4.8) 10^3/u L [place] # (Auto) 0.7 (0.2-0.9) 10^3/u L Eos # (Auto) 0.2 (0.0-0.8) 10^3/u L Baso # (Auto) 0.1 (0.0-0.1) 10^3/u L Nucleated RBC % (a uto) 0 % Nucleated RBCs # 0.0 /100WBC Discharge Plan Discharge Patient Disposition: Home Clinical Impression: Abscess of genital labia Condition: Stable Prescriptions: New Bactrim DS 800-160 mg tablet 1 tab PO BID Qty: 20 RF: 0 hydrocodone-acetaminophen 5-325 mg tablet 1 tab PO Q6H PRN (Reason: pain) Qty: 20 RF: 0 No Action albuterol sulfate 2.5 mg /3 mL (0.083 %) solution for nebulization 2.5 mg INHALATION Q4H PRN (Reason: Shortness Of Breath) RF: 0 amitriptyline 25 mg tablet 25 mg PO BEDTIME@20 Qty: 30 RF: 3 cholecalciferol (vitamin D3) 75 mcg (3,000 unit) tablet 6,000 unit PO DAILY@08 Qty: 30 RF: 3 gabapentin 600 mg tablet 600 mg PO TID Qty: 90 RF: 1 fenofibrate 160 mg tablet 160 mg PO DAILY@08 Qty: 30 RF: 4 levothyroxine 125 mcg tablet 125 mcg PO DAILY@08 Qty: 30 RF: 4 metformin 1,000 mg tablet 1,000 mg PO BID@08,20 Qty: 30 RF: 4 metoprolol tartrate 25 mg tablet 25 mg PO Q12H Qty: 60 RF: 3 ropinirole 4 mg tablet 4 mg PO BEDTIME@20 Qty: 30 RF: 4 Voltaren 1 % gel 4 g topical QID PRN (Reason: Pain) RF: 0 Aimovig Autoinjector 140 mg/mL auto-injector 140 mg SUBCUT Q30D RF: 0 ibuprofen 600 mg tablet 600 mg PO Q6H PRN (Reason: Pain) RF: 0 ProAir HFA 90 mcg/actuation Hfa Aerosol Inhaler 2 puff INHALATION Q4H PRN (Reason: Shortness Of Breath) RF: 0 Discharge Orders: Discharge ED (Routine); Ordered 04/15/21 Ordered By: Ulysses Peguero Referrals: Daksha Killian MD [Primary Care Provider] - Discharge Diet: Usual diet Discharge Activity: Limit activity as instructed Patient Instructions: Opioid Safety Activity Restrictions/Additional Instructions: Rustic Fence Builder will make arrangements for follow-up with gynecology or general surgery in 2 days Coding Level of Care Code ED Continuum Of Care Manager for Chg Fwd Exam Detailed
[2021-04-15] MEDS: HYDROcodone-acetaminophen 5-325 mg Tablet 1 TAB PO (12:06)
[2021-04-15] MEDS: diphenhydrAMINE 50 mg/mL SDV 1mL 25 MG IM (12:06)
[2021-04-15] MEDS: tetanus-dipt-pertussis 0.5 mL SDV IM (12:06)
[2021-04-15 12:39] LABS: Basophils # 0.1 10^3/uL (0.0-0.1); Basophils % 0.4 %; Eosinophils # 0.2 10^3/uL (0.0-0.8); Eosinophils % 1.5 %; Hemoglobin 13.5 g/dL (11.5-15.3); Lymphocytes # 2.5 10^3/uL (0.8-4.8); Lymphocytes % 21.5 %; Mean Corpuscular HGB Conc 32.9 g/dL (30.0-36.0); Mean Corpuscular Hemoglobin 29.2 pg (28.0-34.0); Mean Corpuscular Volume 88.6 fl (81-99); Mean Platelet Volume 9.8 fL (7.4-10.4); Monocytes # 0.7 10^3/uL (0.2-0.9); Monocytes % 5.9 %; Neutrophils % 70.4 %; Nucleated Red Blood Cells % 0 %; Platelet Count 203 10^3/cmm (130-400); Red Blood Count 4.63 10^6/uL (4.1-5.3); Red Cell Distribution Width 12.5 % (12.1-15.1); White Blood Count 11.5 10^3/uL (4.0-10.0)
--- NOTE | 2021-04-15 13:01 | PC.PHAR ---
pt states she takes care of her own medications-pt states she hasnt had the aimovig injection in 3-4 months-pt states she use to be on novolin r but states the dr green pt states she hasnt had in 5 months-notes are made in the pharmacy comments
== END 2021-04-15 13:50 | disposition home or self-care (01) ==
PROVIDERS: Emergency Provider Family Medicine; PCP Family Medicine
DX: N76.4 Abscess of vulva (principal); E03.9 Hypothyroidism, unspecified; J44.9 Chronic obstructive pulmonary disease, unspecified; E11.40 Type 2 diabetes mellitus with diabetic neuropathy, unspecified; E78.5 Hyperlipidemia, unspecified; I10 Essential (primary) hypertension; F17.210 Nicotine dependence, cigarettes, uncomplicated; Z79.84 Long term (current) use of oral hypoglycemic drugs
CPT/HCPCS: 76882; 85025; 87040; 90471; 90715; 96372; 99283; J1200

== ENCOUNTER 2021-04-17 22:28 | Emergency (ER) | payer MEDICAID, SELFPAY ==
[2021-04-17 22:36] VITALS: BP 110/69; PULSE 86; RESP 18; TEMP 36.9; O2SAT 94; BMI 39.6
--- NOTE | 2021-04-17 22:57 | ED_ITS ---
HPI - Skin/Abscess/Foreign Bdy General: Chief complaint: Skin/Abscess/Foreign Body Stated complaint: Pain on Absess or spider bite Time Seen by Provider: 04/17/21 22:32 History of Present Illness: HPI narrative: Patient is a 55-year-old female comes to the ED with abscess already draining. Patient was seen here in the ED on ThursdayApril 15 for same complaint. She was discharged home on some antibiotics and pain meds. Patient says the pain and swelling have gotten worse. Lesion on vagina started as a small sore red bump on right labia. She also reports some ulceration of the skin tissue as well around the right labia. She has been taking her prescribed antibiotics since yesterday. Denies any drainage. She rates the pain a 10 out of 10 and says it hurts for her to walk or move around due to be swelling and pressure down in her vagina. Associated symptoms: Deny chills, fever(s), nausea or vomiting Review of Systems Const: Denies: fever(s), chills or fatigue Eyes: Denies: change in vision or eye discomfort ENMT: Denies: throat pain, odynophagia, nasal discharge or nasal congestion Card: Denies: chest pain, palpitations, edema, swelling of feet/ankles, dyspnea on exertion or orthopnea Resp: Denies: dyspnea, productive cough or non-productive cough GI: Denies: abdominal pain, nausea, vomiting, diarrhea, constipation or hematochezia : Reports: genital lesions (Right labia swelling and ulcer); Denies: flank pain, dysuria or hematuria Musc: Denies: neck pain, back pain or extremity swelling Skin/Breast: Denies: rash or new lesions Neuro: Denies: headache(s), numbness in extremities or weakness in extremities PFS ED PFSH: Medical History Adult hypothyroidism Anxiety and depression Chronic migraine COPD (chronic obstructive pulmonary disease) CPAP (continuous positive airway pressure) dependence Diabetic neuropathy Dyslipidemia GERD (gastroesophageal reflux disease) Hypertension Narcolepsy Reflux esophagitis RLS (restless legs syndrome) Smoking Type 2 diabetes mellitus Vitamin D deficiency Surgical History History of back surgery Hx of hemorrhoidectomy Hx of hernia repair Hx of hysterectomy Hx of tonsillectomy Family History Other Diabetes Hypertension Social History Smoking and tobacco status: current every day smoker cigarettes Packs smoked per day: 1 Years cigarettes smoked: 35 Alcohol intake: never Lives independently: Yes Household members: family Marital status: Current occupational status: retired History of recent travel: No Current gender identity: Female Physical Exam Const: COMMON NORMALS: no acute distress, patient oriented x3 and alert GENERAL APPEARANCE: cooperative and comfortable NUTRITIONAL APPEARANCE: overweight HENMT: COMMON NORMALS: normocephalic HEAD & SCALP: normocephalic MOUTH: Normal oral and palatal mucosa present THROAT: posterior oropharynx normal and uvula midline Neck/C-Spine: COMMON NORMALS: supple GENERAL: Yes normal visual inspection Resp: COMMON NORMALS: normal respiratory effort, No retractions, No use of accessory muscles and clear to auscultation bilaterally AUSCULTATION: clear to auscultation bilaterally Cardio: COMMON NORMALS: regular rate, regular rhythm, S1 normal heart sound present, S2 normal heart sound present, No gallops present (Cardio), No clicks present (Cardio), No murmurs present (Cardio) and Peripheral pulses 2+ throughout RATE: regular rate RHYTHM: regular rhythm HEART SOUNDS: S1 normal heart sound present and S2 normal heart sound present PERIPHERAL PULSES: Peripheral pulses 2+ throughout GI: COMMON NORMALS: Normal to inspection, nondistended, normoactive bowel sounds present, Soft to palpation, non-tender and no masses PALPATION: Yes Soft to palpation : COMMON NORMALS: Yes no CVA tenderness BLADDER/KIDNEY EXAM: Yes no CVA tenderness EXTERNAL FEMALE EXAM: Yes erythema (right labia), Yes externally tender (right labia), Yes external swelling (right labia) and Yes lesion right labial nodule and ulcer 3 cm OTHER: External vaginal exam was done while female nurse Brittany was chaperoning in the room with me. Back/Pelvis: COMMON NORMALS: no CVA tenderness Extremity: COMMON NORMALS: normal to inspection Neuro: COMMON NORMALS: patient oriented x3 and moves all extremities SENSORIUM/ORIENTATION: Yes alert Skin: GENERAL SKIN EXAM: dry skin Procedures Abscess I/D Site: other (vagina-Right labia) Side (if applicable): right Local Anesthetic: lidocaine 1% and with epi Amount of anesthesia used (mL): 10 Technique: incised with #11 blade Amount of fluid expressed (mL): 1 (Bloody purulent drainage.) Irrigation: No Packing used?: none Complications: pain Course Vital Signs: Vital signs: Vital Signs Temperature 98.5 F 04/17/21 22:36 Pulse Rate 75 04/18/21 02:38 Respiratory Rate 20 H 04/18/21 02:38 Blood Pressure 115/73 04/18/21 02:38 Pulse Oximetry 96 04/18/21 02:38 MDM - Skin/Abscess/Foreign Bdy MDM Narrative: Medical decision making narrative: Patient is a 55-year-old female comes to the ED with right labial abscess. She was seen here in the ED for same complaint back on April 15. CBC, CMP and UA were unremarkable. CT abdomen pelvis showed some inflammatory soft tissue changes in the right labia with mild right inguinal and right external iliac chain lymphadenopathy. Here in the ED patient was given IV Rocephin and then lidocaine with epi was used then abscess I&D was performed. There was minimal bloody purulent drainage. Abscess culture was obtained. Patient was told to continue taking the previously prescribed Bactrim and hydrocodone for pain. I placed order with case management for patient referred to wound care clinic for further evaluation. She was also told to follow-up with her PCP in 3 to 5 days for reevaluation. Return to ED precautions given. Patient understood and agree with plan. Lab Data: Attestation: I reviewed the patient's lab results. Labs: Lab Results 04/18/21 04/18/21 04/18/21 Range/Units 00:20 00:20 00:20 WBC 10.7 H (4.0-10.0) 10^3/ uL RBC 4.44 (4.1-5.3) 10^6/u L Hgb 13.2 (11.5-15.3) g/dL Hct 39.3 (37.0-47.0) % MCV 88.5 (81-99) fl MCH 29.7 (28.0-34.0) pg MCHC 33.6 (30.0-36.0) g/dL RDW 12.6 (12.1-15.1) % Plt Count 245 (130-400) 10^3/c mm MPV 9.9 (7.4-10.4) fL Neut % (Auto) 66.4 % Lymph % (Auto) 23.8 % [place] % (Auto) 6.3 % Eos % (Auto) 2.5 % Baso % (Auto) 0.7 % Neut # (Auto) 7.11 (1.8-7.7) 10^3/u L Lymph # (Auto) 2.6 (0.8-4.8) 10^3/u L [place] # (Auto) 0.7 (0.2-0.9) 10^3/u L Eos # (Auto) 0.3 (0.0-0.8) 10^3/u L Baso # (Auto) 0.1 (0.0-0.1) 10^3/u L Nucleated RBC % (a uto) 0 % Nucleated RBCs # 0.0 /100WBC Sodium 138 (136-145) mmol/L Potassium 4.1 (3.5-5.1) mmol/L Chloride 100 (98-107) mmol/L Carbon Dioxide 26 (22-29) mmol/L Anion Gap 16.1 (5-19) BUN 9 (6-20) mg/dL Creatinine 0.7 (0.5-0.9) mg/dL GFR Calculation 87.5 L (90-130) mL/min Glucose 229 H (65-115) mg/dL Calculated Osmolal ity 292 (285-295) mOsm/k g Calcium 9.4 (8.5-10.5) mg/dL Total Bilirubin 0.3 (0.15-1.2) mg/dL AST 19 (0-32) U/L ALT 16 (0-33) U/L Alkaline Phosphata se 101 (35-105) IU/L Total Protein 6.5 L (6.6-8.7) g/dL Albumin 3.9 (3.5-5.2) g/dL Globulin 2.6 (1.3-4.6) g/dL Urine Color Yellow (Yellow) Urine Appearance Clear (CLEAR) Urine pH 5 (5-7) Ur Specific Gravit y 1.020 (1.005-1.030) Urine Protein Neg (Negative) Urine Glucose (UA) 1+ H (Normal) Urine Ketones Negative (Negative) Urine Blood 2+ H (Negative) Urine Nitrate Negative (Negative) Urine Bilirubin 1+ H (Negative) Urine Urobilinogen 4 H (Negative) mg/dL Ur Leukocyte Brianne ase Trace H (Negative) Urine RBC 5-10 H (0-2) /hpf Urine WBC 0-4 H (0-5) /hpf Ur Squamous Epith Cells 0-4 H (0-5) /hpf Amorphous Sediment 1+ /hpf Urine Bacteria Trace (NONE) /hpf Urine Mucus 3+ /hpf Imaging Data^: CT Abd/Pel: Attestation: I personally reviewed and interpreted this imaging study as follows: Radiologist's impression: Radiology report?inflammatory soft tissue changes in the right labia. Some fluid in superficial soft tissues. Mild right inguinal and right external iliac chain lymphadenopathy. Discharge Plan Discharge Patient Disposition: Home Clinical Impression: Abscess of genital labia Condition: Stable Prescriptions: No Action albuterol sulfate 2.5 mg /3 mL (0.083 %) solution for nebulization 2.5 mg INHALATION Q4H PRN (Reason: Shortness Of Breath) RF: 0 amitriptyline 25 mg tablet 25 mg PO BEDTIME@20 Qty: 30 RF: 3 cholecalciferol (vitamin D3) 75 mcg (3,000 unit) tablet 6,000 unit PO DAILY@08 Qty: 30 RF: 3 gabapentin 600 mg tablet 600 mg PO TID Qty: 90 RF: 1 fenofibrate 160 mg tablet 160 mg PO DAILY@08 Qty: 30 RF: 4 levothyroxine 125 mcg tablet 125 mcg PO DAILY@08 Qty: 30 RF: 4 metformin 1,000 mg tablet 1,000 mg PO BID@08,20 Qty: 30 RF: 4 metoprolol tartrate 25 mg tablet 25 mg PO Q12H Qty: 60 RF: 3 ropinirole 4 mg tablet 4 mg PO BEDTIME@20 Qty: 30 RF: 4 Voltaren 1 % gel 4 g topical QID PRN (Reason: Pain) RF: 0 Aimovig Autoinjector 140 mg/mL auto-injector 140 mg SUBCUT Q30D RF: 0 ibuprofen 600 mg tablet 600 mg PO Q6H PRN (Reason: Pain) RF: 0 ProAir HFA 90 mcg/actuation Hfa Aerosol Inhaler 2 puff INHALATION Q4H PRN (Reason: Shortness Of Breath) RF: 0 Bactrim DS 800-160 mg tablet 1 tab PO BID Qty: 20 RF: 0 hydrocodone-acetaminophen 5-325 mg tablet 1 tab PO Q6H PRN (Reason: pain) Qty: 20 RF: 0 Discharge Orders: Discharge ED (Routine); Ordered 04/18/21 Ordered By: Sinan Gregg Referrals: Daksha Killian MD [Primary Care Provider] - Discharge Diet: Regular Discharge Activity: Increase activity as tolerated Patient Instructions: Abscess (ED), Opioid Safety Activity Restrictions/Additional Instructions: Follow-up with PCP as directed in 3 to 5 days for reevaluation. Case management should be contacting you in the next several days to set up an appointment with wound care. Take medications as prescribed. Return to the ER or your medical provider if condition worsens. Please read and understand discharge instructions. Thank you for choosing [facility] for your healthcare needs today. Please realize this is an emergency room and that we are providing you with a medical screening exam and this may not be complete and all inclusive of all the testing and or work up that you may need to determine your ailment or severity of your illness. It is very important that you follow up as instructed or that you return to the Emergency Department should you have concerns or if your condition changes or worsens in any way. Stand Alone Forms: Work/School Release Coding Level of Care Code ED Sole Conditioner for Maddison Fwd Exam Comprehensive
--- NOTE | 2021-04-18 | CTR_ITS ---
PROCEDURE INFORMATION: Exam: CT Abdomen And Pelvis With Contrast Exam date and time: 04/18/2021 12:00 AM Age: 55 years old Clinical indication: Other: Abcess on right labia; Prior surgery; Surgery type: Hyst, hernia; Additional info: Abscess on right labia TECHNIQUE: Imaging protocol: Computed tomography of the abdomen and pelvis with contrast. Radiation optimization: All CT scans at this facility use at least one of these dose optimization techniques: automated exposure control; mA and/or kV adjustment per patient size (includes targeted exams where dose is matched to clinical indication); or iterative reconstruction. Contrast material: OMNI 300; Contrast volume: 95 ml; Contrast route: INTRAVENOUS (IV); COMPARISON: CT abdomen pelvis w con* [id number] 08/31/2020 8:11 PM RADIATION DOSE METRICS: Total DLP (mGy-cm): 2248.53 FINDINGS: Liver: Normal. No mass. Gallbladder and bile ducts: Normal. No calcified stones. No ductal dilation. Pancreas: Normal. No ductal dilation. Spleen: Normal. No splenomegaly. Adrenal glands: Normal. No mass. Kidneys and ureters: Normal. No hydronephrosis. Stomach and bowel: Unremarkable. No obstruction. No mucosal thickening. Appendix: Normal appendix. Intraperitoneal space: Unremarkable. No free air. No significant fluid collection. Vasculature: Vascular structures are patent. Scattered atherosclerosis. No aneurysm. Lymph nodes: Mild severity reactive right inguinal lymphadenopathy. Mildly enlarged right external iliac chain lymph node measures 2.5 cm x 1.8 cm. Urinary bladder: Unremarkable as visualized. Reproductive: Hysterectomy. Bones/joints: Unremarkable. No acute fracture. Soft tissues: Inflammatory soft tissue changes of the right labia. Generalized soft tissue edema and some fluid in superficial soft tissues. No soft tissue gas. Ventral abdominal wall hernia repair in the upper abdomen stable in appearance from prior. CT/CT abdomen pelvis w con* [id number] IMPRESSION: 1. Inflammatory soft tissue changes of the right labia. 2. Mild right inguinal and right external iliac chain lymphadenopathy. Radiation Dose CTDIVOL = (mGy): DLP = 2248.53 (mGy-cm)
[2021-04-18 00:27] VITALS: BP 130/86; PULSE 89; RESP 21; O2SAT 93
[2021-04-18] MEDS: iohexol 300 mg/mL 100 mL Btl IV (00:36)
[2021-04-18 00:42] LABS: Basophils # 0.1 10^3/uL (0.0-0.1); Basophils % 0.7 %; Eosinophils # 0.3 10^3/uL (0.0-0.8); Eosinophils % 2.5 %; Hematocrit 39.3 % (37.0-47.0); Hemoglobin 13.2 g/dL (11.5-15.3); Lymphocytes # 2.6 10^3/uL (0.8-4.8); Lymphocytes % 23.8 %; Mean Corpuscular HGB Conc 33.6 g/dL (30.0-36.0); Mean Corpuscular Hemoglobin 29.7 pg (28.0-34.0); Mean Corpuscular Volume 88.5 fl (81-99); Mean Platelet Volume 9.9 fL (7.4-10.4); Monocytes # 0.7 10^3/uL (0.2-0.9); Monocytes % 6.3 %; Neutrophils # 7.11 10^3/uL (1.8-7.7); Neutrophils % 66.4 %; Nucleated Red Blood Cells % 0 %; Platelet Count 245 10^3/cmm (130-400); Red Blood Count 4.44 10^6/uL (4.1-5.3); Red Cell Distribution Width 12.6 % (12.1-15.1); White Blood Count 10.7 10^3/uL (4.0-10.0)
[2021-04-18 00:46] LABS: Bilirubin Urine 1+ (Negative); Blood Urine 2+ (Negative); Glucose Urine UA 1+ (Normal); Ketones Urine Negative (Negative); Leukocyte Esterase Urine Trace (Negative); Nitrate Urine Negative (Negative); Protein Urine Neg (Negative); Urine Appearance Clear (CLEAR); Urine Color Yellow (Yellow); Urobilinogen Urine 4 mg/dL (Negative); pH Urine 5 (5-7)
[2021-04-18 00:47] LABS: Add Urine Culture? No; Amorphous Sediment Urine 1+ /hpf; Bacteria Urine TRACE /hpf; Mucus Urine 3+ /hpf; Squamous Epithelial Cell Urine 0-4 /hpf (0-5); WBC Urine 0-4 /hpf (0-5)
[2021-04-18 01:00] LABS: Alanine Aminotransferase 16 U/L (0-33); Albumin Level 3.9 g/dL (3.5-5.2); Alkaline Phosphatase 101 IU/L (35-105); Anion Gap 16.1 (5-19); Aspartate Amino Transferase 19 U/L (0-32); Blood Urea Nitrogen 9 mg/dL (6-20); Calcium 9.4 mg/dL (8.5-10.5); Carbon Dioxide 26 mmol/L (22-29); Chloride 100 mmol/L (98-107); Globulin 2.6 g/dL (1.3-4.6); Glomerular Filtration Rate 87.5 mL/min (90-130); Glucose 229 mg/dL (65-115); Osmolality Calculated 292 mOsm/kg (285-295); Potassium 4.1 mmol/L (3.5-5.1); Sodium 138 mmol/L (136-145); Total Bilirubin 0.3 mg/dL (0.15-1.2); Total Protein 6.5 g/dL (6.6-8.7)
[2021-04-18] MEDS: sodium chloride 0.9% 500 ML 999 ML IV (01:06)
[2021-04-18] MEDS: cefTRIAXone 1,000 MG in sodium chloride 0.9% (plus) 50 ML 100 MG IV (01:44)
[2021-04-18] MEDS: diphenhydrAMINE 50 mg/mL SDV 1mL 25 MG IVP (01:59)
[2021-04-18 02:00] VITALS: RESP 18; O2SAT 93
[2021-04-18] MEDS: HYDROmorphone 1 mg/mL INJ 1 mL IVP (02:00)
[2021-04-18 02:38] VITALS: BP 115/73; PULSE 75; RESP 20; O2SAT 96
--- NOTE | 2021-04-18 02:39 | PC.NURSE ---
Patient placed on O2 nasal cannula 2L Patient's O2 dropped to 88% on room air while sleeping. Patient stated that she wears a Cpap at home at night.
[2021-04-18 03:09] VITALS: BP 115/73; PULSE 83; O2SAT 96
--- NOTE | 2021-04-24 09:34 | DCPLANNER ---
trade manager had message to schedule a follow up appointment for patient with Wound Care. trade manager called the Wound Care clinic, spoke with Dot, gave clinic patients information. A follow up appointment is scheduled for , April 25, 2021 at 10:[address] Woods. Clinic will call patient with appointment information.
--- NOTE | 2021-05-10 08:30 | DCPLANNER ---
Patient had a follow up appointment scheduled for 04.25.21 with Wound Care - patient did attend appointment.
== END 2021-04-18 03:05 | disposition home or self-care (01) ==
PROVIDERS: Emergency Provider Physician Assistant; PCP Family Medicine
DX: N76.4 Abscess of vulva (principal); Z79.84 Long term (current) use of oral hypoglycemic drugs; J44.9 Chronic obstructive pulmonary disease, unspecified; E11.40 Type 2 diabetes mellitus with diabetic neuropathy, unspecified; E78.5 Hyperlipidemia, unspecified; I10 Essential (primary) hypertension; F17.210 Nicotine dependence, cigarettes, uncomplicated
CPT/HCPCS: 56405; 74177; 80053; 81001; 85025; 87040; 96365; 96375; 99284; J0696; J1170; J1200; J7040; Q9967

== ENCOUNTER 2021-04-25 09:06 | Outpatient (CLI) | payer MEDICAID, SELFPAY | END 2021-04-25 09:07 | disposition home or self-care (01) | LOC: WOUND 09:07 | PROVIDERS: PCP Family Medicine; Visit Provider Emergency Medicine | DX: N76.4 Abscess of vulva (principal); F17.210 Nicotine dependence, cigarettes, uncomplicated; E11.9 Type 2 diabetes mellitus without complications | CPT/HCPCS: 11042; 87070; 87176; 87205; G0463 ==

== ENCOUNTER 2021-05-06 10:52 | Outpatient (CLI) | payer MEDICAID, SELFPAY | END 2021-05-06 10:53 | disposition home or self-care (01) | LOC: WOUND 10:52 | PROVIDERS: PCP Family Medicine; Visit Provider Emergency Medicine | DX: Z09 Encounter for follow-up examination after completed treatment for conditions other than malignant neoplasm (principal); F17.210 Nicotine dependence, cigarettes, uncomplicated | CPT/HCPCS: 99212 ==

== ENCOUNTER 2021-07-21 15:02 | Observation (INO) | payer MEDICAID, SELFPAY ==
[2021-07-21] VITALS (10 sets, daily range): BP systolic 92–127; BP diastolic 49–82; PULSE 68–81; RESP 16–19; TEMP 36.4–37.1; O2SAT 83–95; BMI 47.6; BMI 32.0
--- NOTE | 2021-07-21 15:41 | ECG_ITS ---
[facility] Test Date: 2021-07-21 Pat Name: Adriana Velasquez Department: Room: Gender: Female Nanotechnology Engineering Technician: : 1965 Requested By: Adán Soliman Order Number: [id number] Tiara MD: Pancho Vega M.D. Measurements Intervals [place] Rate: 77 P: 62 WA: 189 QRS: 53 QRSD: 102 T: 50 QT: 396 QTc: 449 Interpretive Statements SINUS RHYTHM LOW QRS VOLTAGE IN PRECORDIAL LEADS [QRS DEFLECTION < 1.0 mV IN CHEST LEADS] Compared to ECG 08/31/2020 17:47:09 No significant changes Electronically Signed On 07-22-2021 16:59:55 MOBILE LAB TECHNICIAN by Pancho Vega M.D. [id number]
--- NOTE | 2021-07-21 15:41 | XRR_ITS ---
PROCEDURE INFORMATION: Exam: XR Chest Exam date and time: 07/21/2021 3:41 PM Age: 55 years old Clinical indication: Pain; Left-sided; Patient HX: C/O L sided cp; Additional info: Chest pain TECHNIQUE: Imaging protocol: XR of the chest. Views: 1 view. COMPARISON: CR XR chest 1V portable [id number] 10/09/2020 9:59 PM FINDINGS: Lungs: Unremarkable. No consolidation. Pleural spaces: Unremarkable. No pleural effusion. No pneumothorax. Heart/Mediastinum: Unremarkable. No cardiomegaly. Bones/joints: Unremarkable. XR/XR chest 1V portable [id number] IMPRESSION: No acute findings. Radiation Dose CTDIVOL = (mGy): DLP = (mGy-cm)
--- NOTE | 2021-07-21 15:42 | W.ED.GENADLT ---
HPI - General Adult General: Chief complaint: General Medical Stated complaint: JOLT THRU HEAD 2 DAYS AGO/NOW PAIN ACROSS UPPER Time Seen by Provider: 07/21/21 15:24 History of Present Illness: HPI narrative: CC: Chest Pain HPI: This is a [54] yo patient hx of DM, HTN, smoking presenting to the ED complaining of acute sudden onset intermittent b/l chest pressure and arm pressure x 2 days. Tells me that she has been feeling more short of breath for the last 3 days. Yesterday, patient noticed tingling pressure and numbness in the right arm that has been progressed to the right chest and later today to the left chest and left arm. Patient says that she felt lightheaded during this episode of chest pressure lasting for a few minutes at a time. Pain is not tearing in nature and does not radiate to the back. Pain not associated with vomiting or PO intake. Denies any recent sympathomimetic drug use. Patient denies any cough. Denies palpitations, dysphagia, diaphoresis, radiation of pain to bilateral arms, jaw. Denies F/N/V/D. Patient denies any recent immobility, surgery, unilateral leg swelling, or prior PE. Patient denies any orthopnea. Onset: 2 days of chest pressures Duration: ongoing for the last 2 days Location: home Severity: mild/moderate Review of Systems Narrative: Constitutional: No fever, no chills. HEENT: No vision changes, no sore throat. CV: +chest pain, no palpitations. PULM: No cough, +dyspnea. GI: No abdominal pain, no N/V/D. : No dysuria, no frequency, no hematuria. MSKEL: No arthralgias, no edema. SKIN: No new rashes, no lesions. NEURO: No headache, no focal weakness. HEME: No easy bleeding or bruising. PSYCH: No change in mood or affect. COUNTS INCLUDE 234 BEDS AT THE [facility] ED PFSH: Medical History (Updated 07/23/21 @ 00:01 by ) Adult hypothyroidism Anxiety and depression Arm numbness Bronchitis Chronic migraine COPD (chronic obstructive pulmonary disease) CPAP (continuous positive airway pressure) dependence Diabetic foot Diabetic neuropathy Diabetic peripheral neuropathy associated with type 2 diabetes mellitus Dyslipidemia GERD (gastroesophageal reflux disease) Hypertension Narcolepsy Reflux esophagitis Right foot pain RLS (restless legs syndrome) Smoking Type 2 diabetes mellitus Vitamin D deficiency Surgical History History of back surgery Hx of hemorrhoidectomy Hx of hernia repair Hx of hysterectomy Hx of tonsillectomy Family History Other Diabetes Hypertension Social History Smoking and tobacco status: current every day smoker cigarettes Packs smoked per day: 1 Years cigarettes smoked: 35 Alcohol intake: never Lives independently: Yes Household members: family Marital status: Current occupational status: retired History of recent travel: No Current gender identity: Female Physical Exam Narrative: EXAM NARRATIVE: Head: Atraumatic, normocephalic Eyes: PERRL, EOMI, conjunctiva without injection ENT: Throat without erythema, lesions or exudate, MMM NECK: Supple, trachea midline, no JVD LUNGS: LCTA CV: RRR, S1,S2, no murmurs, rubs, gallops. 2+ peripheral pulses in UEs ABDOMEN: Soft, nontender, nondistended, BS x4, no rigidity, no guarding, no rebound EXTREMITY: Normal ROM, no pitting edema, no calf tenderness to palpation SKIN: No rash or erythema NEURO: Awake and alert. No focal motor deficits. PSYCH: Normal mood and affect. Course Vital Signs: Vital signs: Vital Signs Temperature 98.5 F 07/22/21 15:19 Pulse Rate 77 07/22/21 17:48 Respiratory Rate 16 07/22/21 17:48 Blood Pressure 135/81 07/22/21 15:19 Pulse Oximetry 97 07/22/21 17:48 MDM - General Adult MDM Narrative: Medical decision making narrative: [55]yo patient w/ hx of smoking, DM, HTN presenting to the ED with evaluation of new onset of chest pressure x 2 days. HDS, pulse 2+ radially bilaterally, no signs of fluid overload, AAOx3, neuro exam intact. Given History and Exam today I have no suspicion for ACS, Pneumothorax, Pneumonia, Pulmonary Embolus, Tamponade, Aortic Dissection or other emergent problems as a cause for this presentation. Workup: ECG, CXR, CBC, BMP, Troponin Interventions: ASA, nitro Findings: ECG: No overt evidence of STEMI, hyperacute T waves, localizable STD or T wave inversions. No evidence of Brugada?s sign, delta wave, epsilon wave, significantly prolonged QTc, or malignant arrhythmia. No Q waves. Other Labs unremarkable for emergent problems. CXR: Without PTX, PNA, or widened mediastinum Last Stress Test: never Last Heart Catheterization: never HEART Score: 4 [4:30pm] Given elevated heart score and pressure like chest pressure, patient will be admitted for chest pain workup. Disposition: Admisiosn Lab Data: Labs: Lab Results 07/21/21 07/21/21 07/21/21 15:30 15:30 15:30 WBC 8.6 10^3/uL 10^3/ uL (4.0-10.0) RBC 4.62 10^6/uL 10^6 /uL (4.1-5.3) Hgb 13.6 g/dL g/dL (11.5-15.3) Hct 41.1 % % (37.0-47.0) MCV 89.0 fl fl (81-99) MCH 29.4 pg pg (28.0-34.0) MCHC 33.1 g/dL g/dL (30.0-36.0) RDW 12.7 % % (12.1-15.1) Plt Count 194 10^3/cmm 10^3 /cmm (130-400) MPV 10.6 fL H fL (7.4-10.4) Neut % (Auto) 58.4 % % Lymph % (Auto) 32.4 % % Long % (Auto) 5.9 % % Eos % (Auto) 2.3 % % Baso % (Auto) 0.7 % % Neut # (Auto) 5.04 10^3/uL 10^3 /uL (1.8-7.7) Lymph # (Auto) 2.8 10^3/uL 10^3/ uL (0.8-4.8) Long # (Auto) 0.5 10^3/uL 10^3/ uL (0.2-0.9) Eos # (Auto) 0.2 10^3/uL 10^3/ uL (0.0-0.8) Baso # (Auto) 0.1 10^3/uL 10^3/ uL (0.0-0.1) Nucleated RBC % (a uto) 0 % % Nucleated RBCs # 0.0 /100WBC /100W BC D-Dimer Sodium 143 mmol/L mmol/L (136-145) Potassium 3.8 mmol/L mmol/L (3.5-5.1) Chloride 104 mmol/L mmol/L (98-107) Carbon Dioxide 25 mmol/L mmol/L (22-29) Anion Gap 17.8 (5-19) BUN 13 mg/dL mg/dL (6-20) Creatinine 0.8 mg/dL mg/dL (0.5-0.9) GFR Calculation 75.0 mL/min L mL/ min (90-130) Glucose 239 mg/dL H mg/dL (65-115) Calculated Osmolal ity 304 mOsm/kg H mOs m/kg (285-295) Calcium 9.1 mg/dL mg/dL (8.5-10.5) Iron TIBC % Saturation Unsat Iron Binding Troponin T Baselin e 6 ng/L ng/L (0-10) NT-Pro-B Natriuret Pep TSH 07/21/21 07/21/21 07/21/21 15:30 15:30 15:30 WBC RBC Hgb Hct MCV MCH MCHC RDW Plt Count MPV Neut % (Auto) Lymph % (Auto) Long % (Auto) Eos % (Auto) Baso % (Auto) Neut # (Auto) Lymph # (Auto) Long # (Auto) Eos # (Auto) Baso # (Auto) Nucleated RBC % (a uto) Nucleated RBCs # D-Dimer 0.29 ug/mIFEU ug/ mIFEU (0-0.59) Sodium Potassium Chloride Carbon Dioxide Anion Gap BUN Creatinine GFR Calculation Glucose Calculated Osmolal ity Calcium Iron 62 ug/dL ug/dL (37-145) TIBC 293 mcg/dl mcg/dl % Saturation 21.1 % % (20-50) Unsat Iron Binding 231 ug/dL ug/dL (112-347) Troponin T Baselin e NT-Pro-B Natriuret Pep 42 pg/mL pg/mL (0-125) TSH 2.23 uIU/mL uIU/m L (0.27-4.20) Imaging Data^: Other Imaging: Radiologist's impression: [address] [id number] ReportSigned Patient: Adriana Velasquez #: [id number]: 1965Acct#:[id number]/Sex: 55 / FADM Date: 07/21/21Loc: ERRoom/Bed:Attending Dr: Ordering Provider/Ordering MD: Adán Soliman MD Date of Service: 07/21/21 Procedure(s): XR chest 1V portable [id number] Accession Number(s): [id number] Report Number: [id number] PROCEDURE INFORMATION: Exam: XR Chest Exam date and time: 07/21/2021 3:41 PM Age: 55 years old Clinical indication: Pain; Left-sided; Patient HX: C/O L sided cp; Additional info: Chest pain TECHNIQUE: Imaging protocol: XR of the chest. Views: 1 view. COMPARISON: CR XR chest 1V portable [id number] 10/09/2020 9:59 PM FINDINGS: Lungs: Unremarkable. No consolidation. Pleural spaces: Unremarkable. No pleural effusion. No pneumothorax. Heart/Mediastinum: Unremarkable. No cardiomegaly. Bones/joints: Unremarkable. XR/XR chest 1V portable [id number] IMPRESSION: No acute findings. Radiation Dose CTDIVOL = (mGy): DLP = (mGy-cm) Dictated By:Maikol Murray DOSigned By:Maikol Murray DOSigned Date/Time:07/21/21 1626DD/ 1541 Discharge Plan Discharge Patient Disposition: Admitted As Inpatient Admit Provider: Timur Price Clinical Impression: Chest pain, Chest heaviness, Arm numbness Condition: Stable Discharge Diet: Cardiac Discharge Activity: Increase activity as tolerated Coding Level of Care Code ED Photo Tube Assembler for Maddison Martinez
[2021-07-21 16:12] LABS: Troponin(5th) Baseline 6 ng/L (0-10)
[2021-07-21] MEDS: aspirin 325 mg Tablet PO (16:12)
[2021-07-21] MEDS: nitroglycerin 0.4 mg sublingual Tablet SUBLINGUAL (16:14)
[2021-07-21 16:27] LABS: Basophils # 0.1 10^3/uL (0.0-0.1); Basophils % 0.7 %; Eosinophils # 0.2 10^3/uL (0.0-0.8); Eosinophils % 2.3 %; Hematocrit 41.1 % (37.0-47.0); Hemoglobin 13.6 g/dL (11.5-15.3); Lymphocytes # 2.8 10^3/uL (0.8-4.8); Lymphocytes % 32.4 %; Mean Corpuscular HGB Conc 33.1 g/dL (30.0-36.0); Mean Corpuscular Hemoglobin 29.4 pg (28.0-34.0); Mean Platelet Volume 10.6 fL (7.4-10.4); Monocytes # 0.5 10^3/uL (0.2-0.9); Monocytes % 5.9 %; Neutrophils # 5.04 10^3/uL (1.8-7.7); Neutrophils % 58.4 %; Nucleated Red Blood Cells % 0 %; Platelet Count 194 10^3/cmm (130-400); Red Blood Count 4.62 10^6/uL (4.1-5.3); Red Cell Distribution Width 12.7 % (12.1-15.1); White Blood Count 8.6 10^3/uL (4.0-10.0)
[2021-07-21 16:35] LABS: Anion Gap 17.8 (5-19); Blood Urea Nitrogen 13 mg/dL (6-20); Calcium 9.1 mg/dL (8.5-10.5); Carbon Dioxide 25 mmol/L (22-29); Chloride 104 mmol/L (98-107); Glucose 239 mg/dL (65-115); Osmolality Calculated 304 mOsm/kg (285-295); Potassium 3.8 mmol/L (3.5-5.1); Sodium 143 mmol/L (136-145)
--- NOTE | 2021-07-21 16:38 | PC.NURSE ---
Pt stated she is not allergic to Dilualid and wants Dilualid instead of Morphine. Notified provider, received Verbal order for Dilualid IVP 0.5mg now
--- NOTE | 2021-07-21 17:01 | PM.HP ---
Providers/Chief Complaint Primary Care Provider: Daksha Killian MD Chief Complaint: JOLT THRU HEAD 2 DAYS AGO/NOW PAIN ACROSS UPPER History of Present Illness Adriana Velasquez is a 55 year old female mellitus, hypothyroidism, hypertension, active smoker, neuropathy secondary to type 2 diabetes mellitus, restless leg syndrome presented to the ED complaining of acute sudden onset intermittent b/l chest pressure and arm pressure x 2 days. Yesterday, patient noticed tingling pressure and numbness in the right arm that has been progressed to the right chest and later today to the left chest and left arm. Patient says that she felt lightheaded during this episode of chest pressure lasting for a few minutes at a time Hospital service was requested for admission for echocardiogram. Blood work in the ER showed a white count of 8.6, hemoglobin of 13.6, platelet of 194, chemistry showing a sodium 143, creatinine of 0.8, blood glucose of 239. Review of Systems General: Reports: 10 or more systems reviewed and unremarkable except in HPI and below Const: Denies: fever(s), chills, body aches, change in appetite, change in weight, malaise, night sweats, diaphoresis, change in sleep pattern, daytime sleepiness or snoring Eyes: Denies: change in vision, blurry vision, photophobia, eye discomfort or eye discharge ENMT: Denies: throat pain, enlarged tonsils, hoarseness, mouth pain, oral sores, dry mouth, tinnitus, nasal congestion or post nasal drip Card: Denies: chest pain, palpitations, irregular heart rhythm, edema, swelling of feet/ankles, lightheadedness, syncope, pre-syncope, dyspnea on exertion, orthopnea, leg pain with exertion or acrocyanosis Resp: Denies: dyspnea, productive cough, non-productive cough, wheezing, stridor, pain on inspiration, change in phlegm color, hemoptysis or chest congestion GI: Denies: abdominal pain, nausea, vomiting, hematemesis, coffee ground emesis, dysphagia, heartburn, diarrhea, constipation, bloating, GI cramping, change in bowel habits, pain on defecation, hematochezia or melena : Denies: flank pain, dysuria, urinary frequency, urinary urgency, urinary hesitancy, nocturia or hematuria Musc: Denies: neck pain, back pain, extremity pain, joint pain, joint swelling, joint redness, joint stiffness or limited range of motion Neuro: Denies: headache(s), numbness in extremities, weakness in extremities, sensory changes, lack of coordination, difficulty walking, frequent falls, dizziness, vertigo, confusion, Slurred speech present, difficulty communicating thoughts or seizure-like activity Psych: Denies: anxiety, depression, mood swings, panic attacks, hopelessness or irritability Endo: Denies: polyuria, polydipsia, tired all the time, cold intolerance, excessive sweating, flushing or heat intolerance Shreyas/Lymph: Denies: easy bruising or easy bleeding All/Imm: Denies: tongue swelling, facial swelling or acute wheezing Medications/Allergies Home Medications Medication Instructions Recorded Confirmed Last Taken Type albuterol sulfate 2.5 mg INHALATION Q4H PRN 09/06/19 07/21/21 Unknown History amitriptyline 25 mg tablet 25 mg PO BEDTIME@20 #30 tab 01/31/21 07/21/21 07/20/21 Rx cholecalciferol (vitamin D3) 75 6,000 unit PO DAILY@08 #30 tab 01/31/21 07/21/21 07/20/21 Rx mcg (3,000 unit) tablet fenofibrate 160 mg tablet 160 mg PO DAILY@08 #30 tab 01/31/21 07/21/21 07/21/21 Rx levothyroxine 125 mcg tablet 125 mcg PO DAILY@08 #30 tab 01/31/21 07/21/21 07/21/21 Rx metformin 1,000 mg tablet 1,000 mg PO BID@08,20 #30 tab 01/31/21 07/21/21 07/21/21 Rx metoprolol tartrate 25 mg tablet 25 mg PO Q12H #60 tab 01/31/21 07/21/21 07/21/21 Rx diclofenac sodium [Voltaren] 4 g TOPICAL QID PRN 04/15/21 07/21/21 Unknown History ibuprofen 600 mg PO Q6H PRN 04/15/21 07/21/21 Unknown History gabapentin See Rx Instructions .ROUTE .COMPLEX 07/21/21 07/21/21 07/21/21 History ropinirole 4 mg PO BEDTIME PRN 07/21/21 07/21/21 Unknown History Allergies Allergy/AdvReac Type Severity Reaction Status Date / Time acetaminophen [From [place]] Allergy Unknown Verified 07/21/21 15:21 aspirin Allergy Unknown Verified 07/21/21 15:21 codeine Allergy ADR-Itching Verified 07/21/21 15:21 hydrocodone [From [place]] Allergy Unknown Verified 07/21/21 15:21 morphine Allergy Unknown Verified 07/21/21 15:21 oxycodone Allergy Unknown Verified 07/21/21 15:21 tetracycline Allergy Unknown Verified 07/21/21 15:21 topiramate [From Topamax] Allergy ADR-Itching Verified 07/21/21 15:21 tramadol [From Ultram] Allergy Unknown Verified 07/21/21 15:21 PFSH Acute PFSH: Medical History (Updated 07/21/21 @ 17:03 by Timur Price MD) Adult hypothyroidism Anxiety and depression Arm numbness Bronchitis Chronic migraine COPD (chronic obstructive pulmonary disease) CPAP (continuous positive airway pressure) dependence Diabetic foot Diabetic neuropathy Diabetic peripheral neuropathy associated with type 2 diabetes mellitus Dyslipidemia GERD (gastroesophageal reflux disease) Hypertension Narcolepsy Reflux esophagitis Right foot pain RLS (restless legs syndrome) Smoking Type 2 diabetes mellitus Vitamin D deficiency Surgical History History of back surgery Hx of hemorrhoidectomy Hx of hernia repair Hx of hysterectomy Hx of tonsillectomy Family History Other Diabetes Hypertension Social History Smoking and tobacco status: current every day smoker cigarettes Packs smoked per day: 1 Years cigarettes smoked: 35 Alcohol intake: never Lives independently: Yes Household members: family Marital status: Current occupational status: retired History of recent travel: No Current gender identity: Female Vitals/I&O/Wt Last Vital Signs Temp 98.7 F 07/21/21 15:21 Pulse 81 07/21/21 16:00 Resp 18 07/21/21 16:00 BP 127/78 07/21/21 16:00 Pulse Ox 95 07/21/21 16:00 Weight last 48 hrs Weight 122.016 kg Physical Exam Narrative: EXAM NARRATIVE: General: No acute distress, AO x3, morbidly obese HEENT: PERRLA, pupils bilaterally equal and reactive Chest: Normal vesicular breath sounds, no added sounds, equal good air entry bilaterally CVS: S1-S2 regular, no murmurs, no tachycardia, no gallops, no rubs Abdomen: Soft, nontender, no organomegaly, bowel sounds present Neuro: No focal deficits, no facial deformity, AO x3, power 5/5 in all limbs Data : 07/21/21 15:30 07/21/21 15:30 Other Labs: Laboratory Results WBC 8.6 10^3/uL (4.0-10.0) 07/21/21 15:30 RBC 4.62 10^6/uL (4.1-5.3) 07/21/21 15:30 Hgb 13.6 g/dL (11.5-15.3) 07/21/21 15:30 Hct 41.1 % (37.0-47.0) 07/21/21 15:30 MCV 89.0 fl (81-99) 07/21/21 15:30 MCH 29.4 pg (28.0-34.0) 07/21/21 15:30 MCHC 33.1 g/dL (30.0-36.0) 07/21/21 15:30 RDW 12.7 % (12.1-15.1) 07/21/21 15:30 Plt Count 194 10^3/cmm (130-400) 07/21/21 15:30 MPV 10.6 fL (7.4-10.4) H 07/21/21 15:30 Neut % (Auto) 58.4 % 07/21/21 15:30 Lymph % (Auto) 32.4 % 07/21/21 15:30 [place] % (Auto) 5.9 % 07/21/21 15:30 Eos % (Auto) 2.3 % 07/21/21 15:30 Baso % (Auto) 0.7 % 07/21/21 15:30 Neut # (Auto) 5.04 10^3/uL (1.8-7.7) 07/21/21 15:30 Lymph # (Auto) 2.8 10^3/uL (0.8-4.8) 07/21/21 15:30 [place] # (Auto) 0.5 10^3/uL (0.2-0.9) 07/21/21 15:30 Eos # (Auto) 0.2 10^3/uL (0.0-0.8) 07/21/21 15:30 Baso # (Auto) 0.1 10^3/uL (0.0-0.1) 07/21/21 15:30 Nucleated RBC % (auto) 0 % 07/21/21 15:30 Nucleated RBCs # 0.0 /100WBC 07/21/21 15:30 Sodium 143 mmol/L (136-145) 07/21/21 15:30 Potassium 3.8 mmol/L (3.5-5.1) 07/21/21 15:30 Chloride 104 mmol/L (98-107) 07/21/21 15:30 Carbon Dioxide 25 mmol/L (22-29) 07/21/21 15:30 Anion Gap 17.8 (5-19) 07/21/21 15:30 BUN 13 mg/dL (6-20) 07/21/21 15:30 Creatinine 0.8 mg/dL (0.5-0.9) 07/21/21 15:30 GFR Calculation 75.0 mL/min (90-130) L 07/21/21 15:30 Glucose 239 mg/dL (65-115) H 07/21/21 15:30 Calculated Osmolality 304 mOsm/kg (285-295) H 07/21/21 15:30 Calcium 9.1 mg/dL (8.5-10.5) 07/21/21 15:30 Troponin T Baseline 6 ng/L (0-10) 07/21/21 15:30 Impressions Chest X-Ray 07/21/21 15:41 IMPRESSION: No acute findings. 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 Pt does have h/o diabetic neuropathy and rest less leg syndrome Status: Acute Additional A&P Information Chest discomfort under evaluation: History of diabetes, chronic smoker, hypertension. Patient is at high risk for CAD. Check HbA1c, lipid panel, D-dimer. If D-dimer elevated will do CTA. Aspirin, statin, beta-lisa. Morphine 1 mg as needed every 4 hours for pain. Could be secondary to mild COPD exacerbation. DuoNebs every 6 hour. Continue with home dose of fenofibrate. Hypertension: Goal blood pressure less than 140/90 mmHg. Continue other chronic medications. Full code. SCDs. Famotidine for PUD prophylaxis. Attestations Medical Necessity Statement*: Under observation for management and evaluation of chest discomfort and rule out CAD Time Spent in Patient Care: Greater than 35 minutes (>than 50% of time spent in counselling and/or direct pt care on unit). Coding Level of Care Code Acute Salon Designer for Maddison Fwd Diagnoses Chest heaviness R07.89 Hypertension I10 Hypertension type: essential hypertension Type 2 diabetes mellitus E11.69 Diabetes mellitus complication status: with other specified complication Diabetes mellitus [facility] insulin use: unspecified [facility] insulin use status COPD (chronic obstructive pulmonary disease) J44.9 Adult hypothyroidism E03.9 Smoking F17.200 Arm numbness R20.0
[2021-07-21 17:15] LABS: D Dimer 0.29 ug/mIFEU (0-0.59)
--- NOTE | 2021-07-21 17:19 | XRR_ITS ---
PROCEDURE INFORMATION: Exam: XR Spine; Cervical Exam date and time: 07/21/2021 5:19 PM Age: 55 years old Clinical indication: Pain: Jolt thru my head, pain down RT side of head and RT shoulder; Additional info: Arm radiculopathy TECHNIQUE: Imaging protocol: XR of the spine. Exam focused on the cervical spine. Views: 1 view. COMPARISON: CR XR cervical spine 3V* [id number] 10/09/2020 9:59 PM FINDINGS: Bones/joints: Normal. No acute fracture. Normal alignment. Soft tissues: Normal. XR/XR cervical spine 1V [id number] IMPRESSION: No acute findings. Radiation Dose CTDIVOL = (mGy): DLP = (mGy-cm)
[2021-07-21] MEDS: HYDROmorphone 1 mg/mL INJ 1 mL 0.5 MG IVP (17:24)
[2021-07-21] MEDS: famotidine 20 mg Tablet PO (17:24)
[2021-07-21 17:41] LABS: Iron 62 ug/dL (37-145); NT Pro B Type Natriuretic Pept 42 pg/mL (0-125); Percent Saturation 21.1 % (20-50); Total Iron Binding Capacity 293 mcg/dl; Unsaturated Iron Binding 231 ug/dL (112-347)
--- NOTE | 2021-07-21 17:41 | ECG_ITS ---
[facility] Test Date: 2021-07-21 Pat Name: Adriana Velasquez Department: Room: 276 Gender: Female Privacy Officer: : 1965 Requested By: Adán Soliman Order Number: [id number] Tiara MD: Pancho Vega M.D. Measurements Intervals Cost Rate: 69 P: 64 IA: 164 QRS: 61 QRSD: 95 T: 60 QT: 399 QTc: 430 Interpretive Statements SINUS RHYTHM LOW QRS VOLTAGE IN PRECORDIAL LEADS [QRS DEFLECTION < 1.0 mV IN CHEST LEADS] Compared to ECG 07/21/2021 15:57:21 No significant changes Electronically Signed On 07-22-2021 17:10:45 INFORMATION CLERK by Pancho Vega M.D. [id number]
[2021-07-21 17:47] LABS: Thyroid Stimulating Hormone 2.23 uIU/mL (0.27-4.20)
[2021-07-21 18:25] LABS: Troponin 5 2HR Delta 0 ABS# (0-10)
--- NOTE | 2021-07-21 18:36 | ECG_ITS ---
[facility] Test Date: 2021-07-22 Pat Name: Adriana Velasquez Department: Room: 276 Gender: Female Make Ready Mechanic: : 1965 Requested By: Timur Price Order Number: [id number] Tiara MD: Pancho Vega M.D. Interpretive Statements NAME OF STUDY: LEXISCAN SESTAMIBI STRESS TEST INDICATION: [Chest Pain] Procedure: At the baseline, the blood pressure was 121/91 mmHg with a heart rate of 53 bpm. The electrocardiogram showed normal sinus rhythm, normal axis with normal ST and T's. The Lexiscan was infused over a period of 20 seconds. A total of 0.4 mg of Lexiscan was infused. The stress phase was continued for a total of 5 minutes. Heart rate was at the end of stress phase was 91 bpm and a blood pressure of 137/89 mmHg. The EKG at the peak infusion revealed normal sinus rhythm with no significant ST-T wave changes. Sestamibi was injected 20 seconds after the Lexiscan infusion. Blood pressure at the end of recovery phase was 120/82 mmHg with a heart rate of 80 bpm. Conclusion: 1. Normal EKG response to Lexiscan infusion 2. No Lexiscan induced chest pain or cardiac arrhythmia. 3. Normal blood pressure and heart rate response. 4. Sestamibi/sestamibi perfusion scan pending; see separate report. Electronically Signed On 08-10-2021 12:34:00 HAND TIRE TRIMMER by Pancho Vega M.D. [id number]
[2021-07-21 18:44] LABS: Glucose Point of Care 260 mg/dL (70-110)
[2021-07-21] MEDS: insulin lispro 100 unit/1 mL SUBCUT ×2 (19:31→21:39)
[2021-07-21 20:33] LABS: Glucose Point of Care 281 mg/dL (70-110)
[2021-07-21] MEDS: ipratropium-albuterol 3 mL Neb INHALATION (21:20)
[2021-07-21] MEDS: ropinirole 2 mg Tablet 4 MG PO (21:39)
[2021-07-21] MEDS: gabapentin 300 mg Capsule 600 MG PO (21:39)
[2021-07-21] MEDS: atorvastatin 40 mg Tablet PO (21:39)
--- NOTE | 2021-07-21 21:41 | ECG_ITS ---
[facility] Test Date: 2021-07-21 Pat Name: Adriana Velasquez Department: Room: 276 Gender: Female Atmospheric Physicist: : 1965 Requested By: Adán Soliman Order Number: [id number] Tiara MD: Pancho Vega M.D. Measurements Intervals Anna Rate: 60 P: 53 MT: 184 QRS: 49 QRSD: 104 T: 49 QT: 414 QTc: 416 Interpretive Statements SINUS RHYTHM WITH SINUS ARRHYTHMIA Compared to ECG 07/21/2021 17:37:34 No significant changes Electronically Signed On 07-22-2021 17:07:29 PUNCH OPERATOR by Pancho Vega M.D. [id number]
[2021-07-21 21:42] LABS: Troponin 5 6HR Delta 0 ng/L (0-12)
[2021-07-22] VITALS (13 sets, daily range): BP systolic 111–135; BP diastolic 69–82; PULSE 60–80; RESP 16–20; TEMP 36.6–36.9; O2SAT 88–97
[2021-07-22] MEDS: acetaminophen 325 mg Tablet 650 MG PO ×2 (00:04→15:45)
[2021-07-22] MEDS: ipratropium-albuterol 3 mL Neb INHALATION ×3 (02:29→15:20)
[2021-07-22 03:10] LABS: Basophils # 0.1 10^3/uL (0.0-0.1); Basophils % 0.8 %; Eosinophils # 0.3 10^3/uL (0.0-0.8); Eosinophils % 3.6 %; Hematocrit 39.3 % (37.0-47.0); Lymphocytes # 2.8 10^3/uL (0.8-4.8); Lymphocytes % 38.3 %; Mean Corpuscular HGB Conc 33.1 g/dL (30.0-36.0); Mean Corpuscular Hemoglobin 29.7 pg (28.0-34.0); Mean Corpuscular Volume 89.9 fl (81-99); Mean Platelet Volume 9.8 fL (7.4-10.4); Monocytes # 0.5 10^3/uL (0.2-0.9); Monocytes % 6.4 %; Neutrophils # 3.68 10^3/uL (1.8-7.7); Neutrophils % 50.5 %; Nucleated Red Blood Cells % 0 %; Platelet Count 157 10^3/cmm (130-400); Red Blood Count 4.37 10^6/uL (4.1-5.3); Red Cell Distribution Width 12.7 % (12.1-15.1); White Blood Count 7.3 10^3/uL (4.0-10.0)
[2021-07-22 03:32] LABS: Alanine Aminotransferase 30 U/L (0-33); Albumin Level 3.9 g/dL (3.5-5.2); Alkaline Phosphatase 83 IU/L (35-105); Anion Gap 14.8 (5-19); Aspartate Amino Transferase 37 U/L (0-32); Blood Urea Nitrogen 12 mg/dL (6-20); Calcium 8.5 mg/dL (8.5-10.5); Carbon Dioxide 25 mmol/L (22-29); Chloride 105 mmol/L (98-107); Chol HDL Ratio 6.44 mg/dL (0.0-4.40); Cholesterol 161 mg/dL (0-200); Glomerular Filtration Rate 104.6 mL/min (90-130); Glucose 165 mg/dL (65-115); HDL Cholesterol 25 mg/dL (60-100); LDL Cholesterol Calculated 92 mg/dL (50-129); LDL HDL Ratio 3.68 RATIO (0.00-3.22); Osmolality Calculated 295 mOsm/kg (285-295); Potassium 3.8 mmol/L (3.5-5.1); Sodium 141 mmol/L (136-145); Total Bilirubin 0.4 mg/dL (0.15-1.2); Total Protein 5.9 g/dL (6.6-8.7); Triglycerides 221 mg/dL (0-150)
[2021-07-22 03:34] LABS: Estmated Average Glucose 200; Hemoglobin A1C 8.6 % (4.0-6.0)
[2021-07-22 06:42] LABS: Glucose Point of Care 213 mg/dL (70-110)
[2021-07-22] MEDS: regadenoson 0.4 Mg/5 ml Syringe IVP (07:53)
[2021-07-22] MEDS: aspirin 81 mg EC Tablet PO (09:19)
[2021-07-22] MEDS: gabapentin 300 mg Capsule 600 MG PO ×2 (09:19→15:45)
[2021-07-22] MEDS: metoprolol tartrate 25 mg Tablet PO (09:19)
[2021-07-22] MEDS: famotidine 20 mg Tablet PO (09:20)
[2021-07-22] MEDS: levothyroxine 125 mcg Tablet PO (09:20)
[2021-07-22] MEDS: insulin lispro 100 unit/1 mL SUBCUT ×2 (09:20→13:06)
--- NOTE | 2021-07-22 10:06 | PC.CHAP ---
Pastoral Care Encounter/Spiritual Assessment Type of Contact [] Declined turret press operator visit [] Patient/Family/Request visit [] Outpatient visit [] Follow-up visit [] Physician referral [] Code/Alert [x] Routine visit [] Staff referral [] Actively dying [] Patient sleeping [] Family support [] [] Out of room [] Palliative care [] [] Receiving care in room [] Pre-surgical visit [] Trauma [] Long length of stay [] ICU visit [] Other: Relational/Emotional Strength [x] Patient feels connected with others/family/visitors/staff [x] Distress [] Loneliness/isolation [] Abandonment Spirituality of Patient [x] Person of Nita [] Attends Confucianism of their Nita [x Believes in Prayer [] Reads Bible or Judaism materials [] There are Spiritual issues to be addressed Tiger Machine Operator Interventions []x Prayer [x] Active listening [] Non-anxious presence [x] Spiritual/emotional support [] Crisis/trauma care [x] Spiritual counseling [] Bereavement support [] Provided bereavement packet [] Provided Bible/devotional materials [] Provided toy/stuffed animal, coloring book to patient or family member [] Provided Communion [] Anointing/Pennock [] Salvation [x] Completed spiritual assessment [] Other: Impact on Illness or Injury [] Angry [] Fearful [] Anxious [] Often cries [] Exhaustion [] Unable to work [] Unable to attend voodoo [] Unable to walk/stand [] Unable to read [] Unable to drive [] Unable to eat/drink [] Unable to sleep [] Unable to be with family [] Patient intubated [] Other: Summary Time spent with patient 15 min
[2021-07-22 11:09] LABS: Glucose Point of Care 272 mg/dL (70-110)
--- NOTE | 2021-07-22 15:37 | P.DS_ITS ---
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: unspecified [facility] insulin use status Diabetes mellitus complication status: with other specified complication Qualified Code(s): E11.69 - Type 2 diabetes mellitus with other specified complication (4) COPD (chronic obstructive pulmonary disease): Status: Acute (5) Adult hypothyroidism: Status: Acute (6) Smoking: Status: Acute (7) Arm numbness: Status: Acute Reason for Visit Reason for Visit: JOLT THRU HEAD 2 DAYS AGO/NOW PAIN ACROSS UPPER Hospital Course Hospital Course Pleasant 55-year-old lady with history of diabetes, hypertension, current smoker, HLD, among other conditions, was hospitalized for assessment due to chest heaviness, as well as numbness of the right arm, progressed to the right chest, later left chest and left arm. At presentation troponin series and EKG not suggestive of acute [place]. D-dimer normal. With cardiovascular risk factors underwent additional assessment by stress testing which showed small area of ischemia in apical inferior wall, attenuation artifact of anterior wall, no ischemia anterior wall present. She is currently pain-free. She is counseled on close management of cardiovascular risk factors. We discussed smoking cessation for 4 minutes, she states she is feeling well not smoking in the hospital and intends not to smoke any further. Declines nicotine patches or other aids. Discussed continue optimization of control of diabetes, hypertension, HLD. Discussed with her statin, and as per discussion we will change for now from fenofibrate to atorvastatin. She is not aware of statin intolerance. She is asked to further discuss the change with her primary doctor. We will continue on aspirin, beta- lisa. Nitroglycerin as needed. Of note she is also complaining of left upper quadrant discomfort which has been going on for possibly a year. She occasionally takes ibuprofen for headaches. Also has diclofenac gel listed. Discussed with her to avoid NSAIDs. She has had previous endoscopy although none recently, given persistent dyspepsia discussed with her to further seek referral for endoscopic evaluation to exclude malignancy or other causes of dyspepsia and left upper quadrant pain. She is started on PPI. Again emphasized importance of stopping smoking. She does get intermittent neck pain as well, and with numbness of her arms, discussed with her in case of recurrence may benefit from additional assessment by MRI of the neck. Cervical spine x-ray was nonacute. Physical Exam Const: COMMON NORMALS: no acute distress, patient oriented x3 and alert GENERAL APPEARANCE: cooperative and comfortable ORIENTATION/CONSCIOUSNESS: Yes awake OTHER: Denies current pain or discomfort apart from leg cramping she had at night. HENMT: COMMON NORMALS: oropharynx normal Neck/C-Spine: COMMON NORMALS: no JVD Resp: COMMON NORMALS: normal respiratory effort and clear to auscultation bilaterally AUSCULTATION: clear to auscultation bilaterally Cardio: COMMON NORMALS: no JVD, regular rhythm, S1 normal heart sound present, S2 normal heart sound present and No murmurs present (Cardio) RHYTHM: regular rhythm HEART SOUNDS: S1 normal heart sound present and S2 normal heart sound present GI: COMMON NORMALS: Normal to inspection, nondistended, normoactive bowel sounds present, Soft to palpation and non-tender PALPATION: Yes Soft to palpation Extremity: COMMON NORMALS: no joint enlargement and no pedal edema Neuro: COMMON NORMALS: patient oriented x3 and moves all extremities SENSORIUM/ORIENTATION: Yes alert Skin: COMMON NORMALS: no rashes or lesions noted GENERAL SKIN EXAM: no rashes or lesions noted Discharge Data Data Completed and Pending: Completed Studies During Hospitalization Category Date Time Status Sestamibi Stress Test Request Karen ne Exams 07/21/21 18:36 Draft XR cervical spine 1V [id number] Routine Exams 07/21/21 17:19 Completed XR chest 1V prabha ble [id number] Urgent Exams 07/21/21 15:41 Completed NM renetta perf SPECT r/s* [id number] Routin e Nuc Med 07/22/21 18:36 Completed Labs from last 24 hours 07/22/21 07/22/21 07/22/21 10:52 06:33 02:57 WBC RBC Hgb Hct MCV MCH MCHC RDW Plt Count MPV Neut % (Auto) Lymph % (Auto) [place] % (Auto) Eos % (Auto) Baso % (Auto) Neut # (Auto) Lymph # (Auto) [place] # (Auto) Eos # (Auto) Baso # (Auto) Nucleated RBC % (a uto) Nucleated RBCs # D-Dimer Sodium Potassium Chloride Carbon Dioxide Anion Gap BUN Creatinine GFR Calculation Glucose POC Glucose 272 H 213 H Estimat Average Gl ucose 200 Hemoglobin A1c 8.6 H Calculated Osmolal ity Calcium Iron TIBC % Saturation Unsat Iron Binding Total Bilirubin AST ALT Alkaline Phosphata se Troponin T Baselin e Troponin T 120 Min [place] Delta Troponin T Troponin T Hi Sens 6Hr Troponin T Hi Sens 6Hr Delta NT-Pro-B Natriuret Pep Total Protein Albumin Globulin Triglycerides Cholesterol LDL Cholesterol, C alc HDL Cholesterol LDL/HDL Ratio Cholesterol/HDL Ra willian TSH 07/22/21 07/22/21 07/22/21 02:57 02:57 02:57 WBC 7.3 RBC 4.37 Hgb 13.0 Hct 39.3 MCV 89.9 MCH 29.7 MCHC 33.1 RDW 12.7 Plt Count 157 MPV 9.8 Neut % (Auto) 50.5 Lymph % (Auto) 38.3 [place] % (Auto) 6.4 Eos % (Auto) 3.6 Baso % (Auto) 0.8 Neut # (Auto) 3.68 Lymph # (Auto) 2.8 [place] # (Auto) 0.5 Eos # (Auto) 0.3 Baso # (Auto) 0.1 Nucleated RBC % (a uto) 0 Nucleated RBCs # 0.0 D-Dimer Sodium Cancelled 141 Potassium Cancelled 3.8 Chloride Cancelled 105 Carbon Dioxide Cancelled 25 Anion Gap Cancelled 14.8 BUN Cancelled 12 Creatinine Cancelled 0.6 GFR Calculation Cancelled 104.6 Glucose Cancelled 165 H POC Glucose Estimat Average Gl ucose Hemoglobin A1c Calculated Osmolal ity Cancelled 295 Calcium Cancelled 8.5 Iron TIBC % Saturation Unsat Iron Binding Total Bilirubin Cancelled 0.4 AST Cancelled 37 H ALT Cancelled 30 Alkaline Phosphata se Cancelled 83 Troponin T Baselin e Troponin T 120 Min [place] Delta Troponin T Troponin T Hi Sens 6Hr Troponin T Hi Sens 6Hr Delta NT-Pro-B Natriuret Pep Total Protein Cancelled 5.9 L Albumin Cancelled 3.9 Globulin Cancelled 2.0 Triglycerides 221 H Cholesterol 161 LDL Cholesterol, C alc 92 HDL Cholesterol 25 L LDL/HDL Ratio 3.68 H Cholesterol/HDL Ra willian 6.44 H TSH 07/21/21 07/21/21 07/21/21 21:16 20:26 18:41 WBC RBC Hgb Hct MCV MCH MCHC RDW Plt Count MPV Neut % (Auto) Lymph % (Auto) [place] % (Auto) Eos % (Auto) Baso % (Auto) Neut # (Auto) Lymph # (Auto) [place] # (Auto) Eos # (Auto) Baso # (Auto) Nucleated RBC % (a uto) Nucleated RBCs # D-Dimer Sodium Potassium Chloride Carbon Dioxide Anion Gap BUN Creatinine GFR Calculation Glucose POC Glucose 281 H 260 H Estimat Average Gl ucose Hemoglobin A1c Calculated Osmolal ity Calcium Iron TIBC % Saturation Unsat Iron Binding Total Bilirubin AST ALT Alkaline Phosphata se Troponin T Baselin e Troponin T 120 Min [place] Delta Troponin T Troponin T Hi Sens 6Hr 6.00 Troponin T Hi Sens 6Hr Delta 0 NT-Pro-B Natriuret Pep Total Protein Albumin Globulin Triglycerides Cholesterol LDL Cholesterol, C alc HDL Cholesterol LDL/HDL Ratio Cholesterol/HDL Ra willian TSH 07/21/21 07/21/21 07/21/21 17:38 15:30 15:30 WBC RBC Hgb Hct MCV MCH MCHC RDW Plt Count MPV Neut % (Auto) Lymph % (Auto) [place] % (Auto) Eos % (Auto) Baso % (Auto) Neut # (Auto) Lymph # (Auto) [place] # (Auto) Eos # (Auto) Baso # (Auto) Nucleated RBC % (a uto) Nucleated RBCs # D-Dimer 0.29 Sodium Potassium Chloride Carbon Dioxide Anion Gap BUN Creatinine GFR Calculation Glucose POC Glucose Estimat Average Gl ucose Hemoglobin A1c Calculated Osmolal ity Calcium Iron TIBC % Saturation Unsat Iron Binding Total Bilirubin AST ALT Alkaline Phosphata se Troponin T Baselin e Troponin T 120 Min [place] 6.00 Delta Troponin T 0 Troponin T Hi Sens 6Hr Troponin T Hi Sens 6Hr Delta NT-Pro-B Natriuret Pep Total Protein Albumin Globulin Triglycerides Cholesterol LDL Cholesterol, C alc HDL Cholesterol LDL/HDL Ratio Cholesterol/HDL Ra willian TSH 2.23 07/21/21 07/21/21 07/21/21 15:30 15:30 15:30 WBC 8.6 RBC 4.62 Hgb 13.6 Hct 41.1 MCV 89.0 MCH 29.4 MCHC 33.1 RDW 12.7 Plt Count 194 MPV 10.6 H Neut % (Auto) 58.4 Lymph % (Auto) 32.4 [place] % (Auto) 5.9 Eos % (Auto) 2.3 Baso % (Auto) 0.7 Neut # (Auto) 5.04 Lymph # (Auto) 2.8 [place] # (Auto) 0.5 Eos # (Auto) 0.2 Baso # (Auto) 0.1 Nucleated RBC % (a uto) 0 Nucleated RBCs # 0.0 D-Dimer Sodium 143 Potassium 3.8 Chloride 104 Carbon Dioxide 25 Anion Gap 17.8 BUN 13 Creatinine 0.8 GFR Calculation 75.0 L Glucose 239 H POC Glucose Estimat Average Gl ucose Hemoglobin A1c Calculated Osmolal ity 304 H Calcium 9.1 Iron 62 TIBC 293 % Saturation 21.1 Unsat Iron Binding 231 Total Bilirubin AST ALT Alkaline Phosphata se Troponin T Baselin e Troponin T 120 Min [place] Delta Troponin T Troponin T Hi Sens 6Hr Troponin T Hi Sens 6Hr Delta NT-Pro-B Natriuret Pep 42 Total Protein Albumin Globulin Triglycerides Cholesterol LDL Cholesterol, C alc HDL Cholesterol LDL/HDL Ratio Cholesterol/HDL Ra willian TSH 07/21/21 15:30 WBC RBC Hgb Hct MCV MCH MCHC RDW Plt Count MPV Neut % (Auto) Lymph % (Auto) [place] % (Auto) Eos % (Auto) Baso % (Auto) Neut # (Auto) Lymph # (Auto) [place] # (Auto) Eos # (Auto) Baso # (Auto) Nucleated RBC % (a uto) Nucleated RBCs # D-Dimer Sodium Potassium Chloride Carbon Dioxide Anion Gap BUN Creatinine GFR Calculation Glucose POC Glucose Estimat Average Gl ucose Hemoglobin A1c Calculated Osmolal ity Calcium Iron TIBC % Saturation Unsat Iron Binding Total Bilirubin AST ALT Alkaline Phosphata se Troponin T Baselin e 6 Troponin T 120 Min [place] Troponin T Troponin T Hi Sens 6Hr Troponin T Hi Sens 6Hr [place] NT-Pro-B Natriuret Pep Total Protein Albumin Globulin Triglycerides Cholesterol LDL Cholesterol, C alc HDL Cholesterol LDL/HDL Ratio Cholesterol/HDL Ra willian TSH Vitals: Last Vital Signs Temp 98.5 F 07/22/21 15:19 Pulse 77 07/22/21 15:30 Resp 16 07/22/21 15:30 BP 135/81 07/22/21 15:19 Pulse Ox 97 07/22/21 15:30 Discharge Plan Discharge Patient Disposition: Home Condition: Stable Prescriptions: New aspirin 81 mg Tablet,Delayed Release (Dr/Ec) 81 mg PO DAILY Qty: 90 RF: 0 nitroglycerin 0.4 mg Tablet, Sublingual 0.4 mg sublingual Q5M PRN (Reason: Chest Pain) Qty: 25 RF: 0 pantoprazole 40 mg tablet,delayed release (DR/EC) 40 mg PO DAILY 42 Days Qty: 45 RF: 0 atorvastatin 40 mg Tablet 40 mg PO BEDTIME Qty: 90 RF: 0 Continued albuterol sulfate 2.5 mg /3 mL (0.083 %) solution for nebulization 2.5 mg INHALATION Q4H PRN (Reason: Shortness Of Breath) RF: 0 amitriptyline 25 mg tablet 25 mg PO BEDTIME@20 Qty: 30 RF: 3 cholecalciferol (vitamin D3) 75 mcg (3,000 unit) tablet 6,000 unit PO DAILY@08 Qty: 30 RF: 3 fenofibrate 160 mg tablet 160 mg PO DAILY@08 Qty: 30 RF: 4 levothyroxine 125 mcg tablet 125 mcg PO DAILY@08 Qty: 30 RF: 4 metformin 1,000 mg tablet 1,000 mg PO BID@08,20 Qty: 30 RF: 4 metoprolol tartrate 25 mg tablet 25 mg PO Q12H Qty: 60 RF: 3 gabapentin 600 mg tablet See Rx Instructions .ROUTE .COMPLEX RF: 0 ropinirole 4 mg tablet 4 mg PO BEDTIME PRN (Reason: RESTLESS LEG SYNDROME) RF: 0 Discontinued diclofenac sodium [Voltaren] 1 % gel 4 g topical QID PRN (Reason: Pain) RF: 0 ibuprofen 600 mg tablet 600 mg PO Q6H PRN (Reason: Pain) RF: 0 Referrals: Daksha Killian MD [Primary Care Provider] - 4-7 days Discharge Diet: Cardiac Discharge Activity: Increase activity as tolerated Patient Instructions: Atorvastatin (By mouth), Coronary Artery Disease (GEN), How to Stop Smoking (GEN), Cigarette Smoking and Your Health (GEN), Opioid Safety Activity Restrictions/Additional Instructions: Please note small area of ischemia noted in the apical inferior wall, not large enough at this time for intervention, however, in case you experience recurrence of chest pain and gets no relief from nitroglycerin, please seek medical atte ntion immediately. Additionally attenuation artifact of anterior wall is seen without ischemia seen in the anterior wall. Please work with your primary doctor to continue to optimize risk factors of cardiovascular disease which exposes to risk of heart attack, stroke, etc. Please stop smoking. Continue to optimize diabetes control. Please note that we are changing from fenofibrate to atorvastatin to help reduce your cardiovascular risk. Continue to monitor blood pressures closely, target blood pressure 120/80 if possible. Write down blood pressures to bring to your appointment. Please discuss further with your primary doctor. Please discuss with your primary doctor referral for endoscopic evaluation due to dyspepsia, with history of smoking elevated risk of gastric cancer, requiring assessment to exclude concerning findings or other causes of dyspepsia like gastritis, or ulcer. Please avoid ibuprofen or other NSAIDs. In case of recurrence of tingling in your arm, neck pain, please discuss with your primary doctor referral for MRI of your neck. 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
[2021-07-22 17:47] LABS: Glucose Point of Care 184 mg/dL (70-110)
--- NOTE | 2021-07-22 18:36 | NMCV_ITS ---
NM renetta perf SPECT r/s* [id number] Adriana Velasquez Age: 55 Gender: F : 1965 Exam Date: 07/22/2021 18:36 Ordering Phys: Timur Price MD Technologist: DUC Watkins Exam Location: [facility] Indications: CHEST PAIN STRESS TEST [facility] IMAGE PROTOCOL Rest/Stress 1 Lexiscan Day Radiopharmaceutical Dose (mCi) Administration Site Administered by Rest: Tc-99m 10.8 IV DUC Cui Sestamibi Stress:Tc-99m 32.7 IV DUC Cui Sestamibi Rest: 22-Jul-2021 60 Discovery 630 Stress: 22-Jul-2021 30 Discovery 630 0.4mg Lexiscan. Images obtained in supine and prone position. SPECT RESULTS Technical Quality: Excellent Raw Data Analysis: Normal Image Corrections: No attenuation or motion correction applied Summed Stress Score: 1 Summed Rest Score: 3 Summed Difference Score: 1 PERFUSION FINDINGS There is decreased radiotracer uptake in the anterior wall that improves on stress. Likely secondary to attenuation artifact. Small area of reversible perfusion defect in apical inferior wall. This may represent small area of ischemia. FUNCTIONAL RESULTS (calculated via Gated SPECT) Stress Image LV EF (%): 69 Stress EDV (mL):103 TID: 1.12 Stress ESV (mL):32 FUNCTIONAL FINDINGS: There is normal left ventricular systolic function. IMPRESSIONS 1. Small area of ischemia is noted in apical inferior wall. Attenuation artifact of anterior wall is noted. No ischemia of anterior wall present. 2. LV systolic function is normal. Pancho Vega MD (Electronically Signed) Final Date: 22 July 2021 12:41 S
--- NOTE | 2021-07-24 14:37 | PC.SOCIAL ---
discharge follow up call made to patient. pt is currently caring for her elderly mother. pt seems stressed due to having to care for her mother. she reports she can't get any rest due to caring for her mother. discussed options of HH with her mother. pt states she is unable to get HH due to insurance. offered [facility] number for [facility], pt declined. states she has tried everything. writers number provided incase pt changes her mind.
== END 2021-07-22 17:49 | disposition home or self-care (01) ==
LOC: ER 16:56 → MEDSURG 17:07
PROVIDERS: Admitting Provider Student in an Organized Health Care Education/Training Program; Emergency Provider Emergency Medicine; PCP Family Medicine; Visit Provider Internal Medicine
DX: R07.89 Other chest pain (principal); I10 Essential (primary) hypertension; E11.69 Type 2 diabetes mellitus with other specified complication; J44.9 Chronic obstructive pulmonary disease, unspecified; E03.9 Hypothyroidism, unspecified; R20.0 Anesthesia of skin; F17.200 Nicotine dependence, unspecified, uncomplicated; Z79.84 Long term (current) use of oral hypoglycemic drugs
CPT/HCPCS: 36415; 36416; 71045; 72020; 78452; 80048; 80053; 80061; 82962; 83036; 83540; 83550; 83880; 84443; 84484; 85025; 85378; 93005; 93017; 94640; 96372; 96374; 99285; A9500; G0378; J1170; J1815; J2785

== ENCOUNTER → 2021-09-16 11:15 | Outpatient (BNVA) | payer MEDICAID, SELFPAY | PROVIDERS: PCP Family Medicine; Visit Provider Nurse Practitioner | DX: R10.12 Left upper quadrant pain (principal); G43.709 Chronic migraine without aura, not intractable, without status migrainosus | CPT/HCPCS: 82150; 83690 ==

== ENCOUNTER → 2021-10-24 08:01 | Outpatient (BNVA) | payer MEDICAID, SELFPAY | PROVIDERS: PCP Family Medicine; Visit Provider Nurse Practitioner | DX: E03.9 Hypothyroidism, unspecified (principal); E11.65 Type 2 diabetes mellitus with hyperglycemia | CPT/HCPCS: 80053; 80061; 83036; 84443 ==

== ENCOUNTER → 2021-12-12 14:55 | Outpatient (BNVA) | payer MEDICAID, SELFPAY | PROVIDERS: PCP Family Medicine; Visit Provider Nurse Practitioner Family | DX: R42 Dizziness and giddiness (principal) | CPT/HCPCS: 80053; 82962; 85025 ==

== ENCOUNTER → 2022-01-20 10:47 | Outpatient (BNVA) | payer MEDICAID, SELFPAY | PROVIDERS: PCP Family Medicine; Visit Provider Nurse Practitioner | DX: E11.65 Type 2 diabetes mellitus with hyperglycemia (principal); Z79.4 Long term (current) use of insulin; G47.10 Hypersomnia, unspecified; E55.9 Vitamin D deficiency, unspecified; E11.40 Type 2 diabetes mellitus with diabetic neuropathy, unspecified; E03.9 Hypothyroidism, unspecified; I10 Essential (primary) hypertension; G25.81 Restless legs syndrome; L29.9 Pruritus, unspecified | CPT/HCPCS: 80053; 83036 ==

== ENCOUNTER → 2022-02-03 11:14 | Outpatient (BNVA) | payer MEDICAID, SELFPAY | PROVIDERS: PCP Family Medicine; Visit Provider Nurse Practitioner Family | DX: Z20.822 Contact with and (suspected) exposure to COVID-19 (principal); R11.2 Nausea with vomiting, unspecified | CPT/HCPCS: 87635 ==

== ENCOUNTER → 2022-02-26 15:24 | Outpatient (BNVA) | payer MEDICAID, SELFPAY | PROVIDERS: PCP Family Medicine; Visit Provider Nurse Practitioner | DX: M25.562 Pain in left knee (principal); M54.2 Cervicalgia; R20.0 Anesthesia of skin; M25.561 Pain in right knee; G89.29 Other chronic pain; M17.12 Unilateral primary osteoarthritis, left knee | CPT/HCPCS: 72040; 73562 ==

== ENCOUNTER 2022-03-05 22:50 | Emergency (ER) | payer MEDICAID, SELFPAY ==
[2022-03-05 22:58] VITALS: BP 153/97; PULSE 96; RESP 16; TEMP 37.1; O2SAT 96; BMI 38.0
--- NOTE | 2022-03-05 23:43 | ED_ITS ---
HPI - Back Pain/Injury General: Chief Complaint: Back Pain/Injury Stated Complaint: back pain Time Seen by Provider: 03/05/22 23:43 History of Present Illness: 56-year-old female comes in today with complaints of low back pain on both sides of the lower back increased on the right. Maria Dolores durán reports about 1 week ago she had slid off the side of her bed after falling asleep while sitting on the side. Patient had no significant pain after the injury but 2 days later she started having some increasing back discomfort. Patient appears nontoxic. Patient appears in moderate pain. Review of Systems General: Reports: 10 or more systems reviewed and unremarkable except in HPI and below Musc: Reports: back pain PFSH ED PFSH: Medical History (Updated 03/05/22 @ 23:54 by KASANDRA Jerome) Adult hypothyroidism Anxiety and depression Arm numbness Bronchitis Chronic migraine COPD (chronic obstructive pulmonary disease) CPAP (continuous positive airway pressure) dependence Diabetes mellitus with hyperglycemia, with long-term current use of insulin Diabetic foot Diabetic neuropathy Diabetic peripheral neuropathy associated with type 2 diabetes mellitus Dyslipidemia GERD (gastroesophageal reflux disease) Hypertension Narcolepsy Reflux esophagitis Right foot pain RLS (restless legs syndrome) Smoking Type 2 diabetes mellitus Vitamin D deficiency Surgical History History of back surgery Hx of hemorrhoidectomy Hx of hernia repair Hx of hysterectomy Hx of tonsillectomy Family History Other Diabetes Hypertension Social History Smoking and tobacco status: current every day smoker cigarettes Packs smoked per day: 1 Years cigarettes smoked: 35 Second hand smoke exposure: No Smoking risk assessment/counseling performed?: Yes Alcohol intake: unknown Desire information about alcohol rehabilitation?: No Counseling given: No Desire information about substance/drug rehabilitation?: No Counseling given: No Adopted: No Caregiver/support person: No Lives independently: Yes Household members: family Marital status: Number of children: 5 service: No Current occupational status: unemployed Current occupational exposures/hazards: No Pets and animals: Yes History of recent travel: No Current gender identity: Female Physical Exam Const: COMMON NORMALS: alert HENMT: COMMON NORMALS: atraumatic HEAD & SCALP: atraumatic Neck/C-Spine: COMMON NORMALS: full ROM Resp: COMMON NORMALS: normal respiratory effort and clear to auscultation bilaterally AUSCULTATION: clear to auscultation bilaterally Cardio: COMMON NORMALS: regular rate RATE: regular rate Back/Pelvis: THORACIC SPINE/UPPER BACK: No thoracic spinal tenderness LUMBAR SPINE/LOWER BACK: Yes paraspinal muscle tenderness Lumbar paraspinal muscle tenderness: bilateral Extremity: COMMON NORMALS: full ROM Neuro: SENSORIUM/ORIENTATION: Yes alert Skin: COMMON NORMALS: no rashes or lesions noted GENERAL SKIN EXAM: no rashes or lesions noted Course Vital Signs: Vital signs: Vital Signs Temperature 98.7 F 03/05/22 22:58 Pulse Rate 96 03/05/22 22:58 Respiratory Rate 16 03/05/22 22:58 Blood Pressure 153/97 03/05/22 22:58 Pulse Oximetry 96 03/05/22 22:58 MDM - Back Pain/Injury Medical Decision Making 56-year-old female comes in today with complaints of low back pain. On exam patient has muscle tenderness in bilateral low back increased on the right ve rsus the left. No midline pain is noted. Patient moves slowly. No CVA tenderness. Vital signs are normal. Differential diagnosis includes intervertebral disc disease, facet arthropathy, lumbar strain. No sign of cauda equina syndrome noted. Patient was given a dose of Toradol IM along with orphenadrine for acute pain. Patient was continued on Celebrex and methocarbamol for further pain relief. Recommended patient follow-up with primary care for further instruction and return to ER for worsening symptoms or new concerns. Discharge Plan Discharge Patient Disposition: Home Clinical Impression: Low back pain Qualifiers: Chronicity: acute Back pain laterality: unspecified Sciatica presence: without sciatica Qualified Code(s): M54.50 - Low back pain, unspecified Condition: Stable Prescriptions: New Celebrex 200 mg capsule 200 mg PO BID Qty: 20 0RF methocarbamol 750 mg tablet 750 mg PO Q6H PRN (Reason: back pain) Qty: 30 0RF No Action (DME) pen needle, diabetic 33 gauge x 5/32 needle See Rx Instructions .ROUTE .MEDSUPPLY Qty: 100 5RF Rx Instructions: 4 time day (DME) blood-glucose meter [OneTouch Ultra2 Meter] Kit See Rx Instructions .Route Qty: 1 0RF Rx Instructions: As directed (DME) OneTouch Ultra Test Strip See Rx Instructions .Route Qty: 100 0RF Rx Instructions: use 3 times day Ozempic 0.25 mg or 0.5 mg(2 mg/1.5 mL) pen injector 0.25 mg SUBCUT .weekly Qty: 1.5 2RF atorvastatin 40 mg tablet 40 mg PO BEDTIME Qty: 90 0RF cholecalciferol (vitamin D3) 75 mcg (3,000 unit) tablet 6,000 unit PO DAILY@08 Qty: 60 2RF gabapentin 600 mg tablet See Rx Instructions .ROUTE .COMPLEX Qty: 90 2RF Rx Instructions: TAKE 600 MG IN THE MORNING/ 1200 MG IN THE EVENING; insulin aspart U-100 [Novolog Flexpen U-100 Insulin] 100 unit/mL (3 mL) insulin pen See Rx Instructions SUBCUT TID Qty: 15 2RF Rx Instructions: 3-24 U SUBCUT three times daily; Sliding Scale 110-129= 3U 130-150= 6U 151-200= 9U 201-250= 12U 251-300=15U 301-350=18U 351-400=21U >400=24U Levemir FlexTouch U-100 Insuln 100 unit/mL (3 mL) insulin pen 35 unit SUBCUT DAILY Qty: 15 2RF levothyroxine 125 mcg tablet 125 mcg PO DAILY@08 Qty: 30 2RF metoprolol tartrate 25 mg tablet 25 mg PO Q12H Qty: 60 2RF Rx Instructions: at 0800,2000 ropinirole 4 mg tablet 4 mg PO BEDTIME Qty: 30 2RF triamcinolone acetonide 0.1 % cream 1 applic topical BID Qty: 30 0RF meclizine 25 mg tablet 25 mg PO TID Qty: 21 0RF sucralfate [Carafate] 1 gram tablet 1 g PO TID Qty: 90 1RF Zenpep 3,000-10,000 -14,000-unit capsule,delayed release(DR/EC) 2 cap PO TID Qty: 180 1RF Rx Instructions: do not exceed 10,000 unit/kg lipase per 24 hrs aspirin 81 mg Tablet,Delayed Release (Dr/Ec) 81 mg PO DAILY Qty: 90 0RF nitroglycerin 0.4 mg Tablet, Sublingual 0.4 mg sublingual Q5M PRN (Reason: Chest Pain) Qty: 25 0RF Discharge Orders: Discharge ED (Routine); Ordered 03/05/22 Ordered By: Brandon Norwood Referrals: Daksha Killian MD [Primary Care Provider] - Discharge Diet: Usual diet Discharge Activity: Increase activity as tolerated Patient Instructions: Back Pain (ED) Activity Restrictions/Additional Instructions: Increase activity as tolerated. Use Celebrex 200 mg 2 times a day for 10 days for pain and inflammation. Use acetaminophen for further pain relief. Use methocarbamol as needed for severe muscle pain or spasm. Follow-up with primary care in 1 week for recheck. Return to ER for new concerns or worsening symptoms. Stand Alone Forms: Work/School Release Coding Level of Care Code ED Electric Furnace Operator for Maddison Martinez
[2022-03-06] MEDS: orphenadrine 30 mg/mL Inj 2 mL 60 MG IM
[2022-03-06] MEDS: ketorolac 30 mg/mL INJ IM
== END 2022-03-06 00:06 | disposition home or self-care (01) ==
PROVIDERS: Emergency Provider Nurse Practitioner Family; PCP Family Medicine
DX: M54.50 Low back pain, unspecified (principal); Z79.4 Long term (current) use of insulin; Z79.82 Long term (current) use of aspirin; J44.9 Chronic obstructive pulmonary disease, unspecified; E11.9 Type 2 diabetes mellitus without complications; E78.5 Hyperlipidemia, unspecified; I10 Essential (primary) hypertension; F17.210 Nicotine dependence, cigarettes, uncomplicated
CPT/HCPCS: 96372; 99284; J1885; J2360

== ENCOUNTER → 2022-03-07 10:20 | Outpatient (BNVA) | payer MEDICAID, SELFPAY | PROVIDERS: PCP Family Medicine; Visit Provider Orthopaedic Surgery | DX: M25.562 Pain in left knee (principal); M25.561 Pain in right knee; G89.29 Other chronic pain | CPT/HCPCS: 99203 ==

== ENCOUNTER 2022-04-07 11:25 | Outpatient (CLI) | payer MEDICAID, SELFPAY ==
--- NOTE | 2022-04-07 11:29 | MM_ITS ---
WS: [id number] BILATERAL SCREENING DIGITAL TOMOSYNTHESIS MAMMOGRAM WITH CAD HISTORY: SCREENING COMPARISON: 03/29/2021 and 04/02/2019 Bilateral CC and MLO views with tomosynthesis and synthetic mammography submitted. Computer aided det ection analyzed. Breast composition: There are scattered areas of fibroglandular density. No suspicious masses, microc alcifications or architectural distortion. MM/[place] [id number] IMPRESSION: BI-RADS: 1-Negative FOLLOW UP: 1 Year Follow-up
== END 2022-04-07 11:26 | disposition home or self-care (01) ==
PROVIDERS: PCP Family Medicine; Visit Provider Nurse Practitioner
DX: Z12.31 Encounter for screening mammogram for malignant neoplasm of breast (principal)
CPT/HCPCS: 77063; 77067

== ENCOUNTER 2022-04-18 21:40 | Emergency (ER) | payer MEDICAID, SELFPAY ==
[2022-04-18 21:44] VITALS: BP 143/78; PULSE 93; RESP 16; TEMP 36.1; O2SAT 96
--- NOTE | 2022-04-18 22:29 | XRR_ITS ---
PROCEDURE INFORMATION: Exam: XR Abdomen Exam date and time: 04/18/2022 10:40 PM Age: 56 years old Clinical indication: Abdominal pain; Additional info: Abdominal pain; Constipation TECHNIQUE: Imaging protocol: Radiologic exam of the abdomen. Views: 2 Views. Upright and supine views. COMPARISON: CT abdomen pelvis w con* [id number] 04/18/2021 12:31 AM FINDINGS: Gastrointestinal tract: Constipation without bowel dilation to indicate obstruction. Intraperitoneal space: Normal. No free air. Bones/joints: Unremarkable for age. XR/XR abdomen min 2V [id number] IMPRESSION: Constipation without bowel dilation to indicate obstruction.
[2022-04-18 22:46] LABS: Basophils # 0.1 10^3/uL (0.0-0.1); Basophils % 0.5 %; Eosinophils # 0.2 10^3/uL (0.0-0.8); Hematocrit 43.2 % (37.0-47.0); Hemoglobin 14.4 g/dL (11.5-15.3); Lymphocytes # 3.5 10^3/uL (0.8-4.8); Mean Corpuscular HGB Conc 33.3 g/dL (30.0-36.0); Mean Corpuscular Hemoglobin 29.4 pg (28.0-34.0); Mean Corpuscular Volume 88.3 fl (81-99); Mean Platelet Volume 9.4 fL (7.4-10.4); Monocytes # 0.5 10^3/uL (0.2-0.9); Monocytes % 4.3 %; Neutrophils # 6.59 10^3/uL (1.8-7.7); Neutrophils % 60.8 %; Nucleated Red Blood Cells % 0 %; Platelet Count 222 10^3/cmm (130-400); Red Blood Count 4.89 10^6/uL (4.1-5.3); Red Cell Distribution Width 12.9 % (12.1-15.1); White Blood Count 10.8 10^3/uL (4.0-10.0)
[2022-04-18 23:06] LABS: Alanine Aminotransferase 26 U/L (0-33); Albumin Level 3.9 g/dL (3.5-5.2); Alkaline Phosphatase 91 U/L (35-105); Anion Gap 12.7 (5-19); Aspartate Amino Transferase 16 U/L (0-32); Blood Urea Nitrogen 11 mg/dL (6-20); Calcium 9.3 mg/dL (8.5-10.5); Carbon Dioxide 31 mmol/L (22-29); Chloride 100 mmol/L (98-107); Globulin 2.1 g/dL (1.3-4.6); Glomerular Filtration Rate 87.2 mL/min (90-130); Glucose 149 mg/dL (65-115); Lipase 57 U/L (13-60); Osmolality Calculated 292 mOsm/kg (285-295); Potassium 3.7 mmol/L (3.5-5.1); Sodium 140 mmol/L (136-145); Total Bilirubin 0.4 mg/dL (0.15-1.2)
--- NOTE | 2022-04-18 23:31 | ED_ITS ---
Documented by User: RASHAAD Dotson 04/19/22 01:39 HPI - Nausea/Vomiting/Diarrhea General: Chief complaint: Nausea/Vomiting/Diarrhea Stated complaint: Dizzy\N\Headache Time Seen by Provider: 04/18/22 22:20 History of Present Illness: 56-year-old female in today reporting that she has been feeling bad for months. She reports that she has been seeing a couple of doctors regarding headaches and migraines. She reports that she has been having ongoing nausea and sometimes vomiting. She reports that this has been going on for a while but today she actually felt nauseous and shaky and dizzy so she decided to come to the ER. She denies any fever, chills. She denies any chest pain or shortness of breath. Patient also reports that she has an infected scab on her bottom Associated nausea: Yes Associated symtoms: Reports nausea; Denies chest pain, dysuria or palpitations Review of Systems Const: Denies: fever(s), chills or body aches ENMT: Reports: nasal congestion; Denies: throat pain Card: Denies: chest pain, palpitations or irregular heart rhythm Resp: Denies: dyspnea, productive cough or non-productive cough GI: Reports: abdominal pain (Generalized abdominal tenderness intermittent.), nausea, vomiting and constipation : Denies: flank pain, difficulty voiding, dysuria, urinary frequency, urinary urgency or urinary hesitancy Skin/Breast: Reports: sores (On her buttocks) [facility] ED PFSH: Medical History Adult hypothyroidism Anxiety and depression Arm numbness Bronchitis Chronic migraine COPD (chronic obstructive pulmonary disease) CPAP (continuous positive airway pressure) dependence Diabetes mellitus with hyperglycemia, with long-term current use of insulin Diabetic foot Diabetic neuropathy Diabetic peripheral neuropathy associated with type 2 diabetes mellitus Dyslipidemia GERD (gastroesophageal reflux disease) Hypertension Narcolepsy Reflux esophagitis Right foot pain RLS (restless legs syndrome) Smoking Type 2 diabetes mellitus Vitamin D deficiency Surgical History History of back surgery Hx of hemorrhoidectomy Hx of hernia repair Hx of hysterectomy Hx of tonsillectomy Family History Other Diabetes Hypertension Social History Smoking and tobacco status: current every day smoker cigarettes Packs smoked per day: 1 Years cigarettes smoked: 35 Second hand smoke exposure: No Smoking risk assessment/counseling performed?: Yes Alcohol intake: unknown Desire information about alcohol rehabilitation?: No Counseling given: No Desire information about substance/drug rehabilitation?: No Counseling given: No Adopted: No Caregiver/support person: No Lives independently: Yes Household members: family Marital status: Number of children: 5 service: No Current occupational status: unemployed Current occupational exposures/hazards: No Pets and animals: Yes History of recent travel: No Current gender identity: Female Physical Exam Const: COMMON NORMALS: no acute distress, patient oriented x3 and alert NUTRITIONAL APPEARANCE: obese HENMT: THROAT: posterior oropharynx normal and postnasal drainage Resp: COMMON NORMALS: normal respiratory effort, No retractions, No use of accessory muscles and clear to auscultation bilaterally AUSCULTATION: clear to auscultation bilaterally Cardio: COMMON NORMALS: regular rate, regular rhythm, S1 normal heart sound present and S2 normal heart sound present RATE: regular rate RHYTHM: regular rhythm HEART SOUNDS: S1 normal heart sound present and S2 normal heart sound present GI: INSPECTION: Yes normal to inspection AUSCULTATION: Yes Hypoactive bowel sounds present PALPATION: Yes Tenderness to palpation present (GI) (Generalized tenderness without guarding) : COMMON NORMALS: Yes no CVA tenderness BLADDER/KIDNEY EXAM: Yes no CVA tenderness Back/Pelvis: COMMON NORMALS: no CVA tenderness Extremity: COMMON NORMALS: no pedal edema Neuro: COMMON NORMALS: patient oriented x3 SENSORIUM/ORIENTATION: Yes alert Skin: NARRATIVE SKIN EXAM: Patient has scabbed lesions at the gluteal cleft which have minimal surrounding erythema. No abscess or drainage appreciated Course Vital Signs: Vital signs: Vital Signs Temperature 97.0 F L 04/18/22 21:44 Pulse Rate 93 04/18/22 21:44 Respiratory Rate 16 04/18/22 21:44 Blood Pressure 143/78 04/18/22 21:44 Pulse Oximetry 96 04/18/22 21:44 Oxygen Delivery Me thod 04/18/22 21:44 MDM - Nausea/Vomiting/Diarrhea Medical Decision Making This is a 56-year-old female who is in tonight for seemingly chronic complaint of intermittent nausea and vomiting. She does report she has not had a bowel movement in 6 days. She denies any urinary symptoms. She does have her gallbladder and her appendix. Her abdominal exam revealed generalized tenderness without any guarding or rebound tenderness. Slightly more tender in the left lower quadrant abdomen. Labs reveal a minimally elevated white blood cell count, ALT and ALT and lipase within normal limits. Lactate within normal limits. X-ray shows moderate constipation without obstruction. UA dip normal. I discussed with patient at that we have hydrated her and I will treat her for constipation. I would like her to follow-up with her primary care provider on the longstanding intermittent nausea and vomiting as she may need further evaluation of her gallbladder. I did advise that she is not demonstrating any signs of gallbladder obstruction or infection at this time. Outpatient follow- up is appropriate. Advised patient to return to the ER for any new or worsening symptoms, increased pain, inability to hold down p.o. intake, inability to have a bowel movement despite MiraLAX, fever, chills. Lab Data : 04/18/22 22:40 04/18/22 22:40 Radiology Impressions Abdomen X-Ray 04/18/22 22:29 IMPRESSION: Constipation without bowel dilation to indicate obstruction. Laboratory Results WBC 10.8 10^3/uL (4.0-10.0) H 04/18/22 22:40 RBC 4.89 10^6/uL (4.1-5.3) 04/18/22 22:40 Hgb 14.4 g/dL (11.5-15.3) 04/18/22 22:40 Hct 43.2 % (37.0-47.0) 04/18/22 22:40 MCV 88.3 fl (81-99) 04/18/22 22:40 MCH 29.4 pg (28.0-34.0) 04/18/22 22:40 MCHC 33.3 g/dL (30.0-36.0) 04/18/22 22:40 RDW 12.9 % (12.1-15.1) 04/18/22 22:40 Plt Count 222 10^3/cmm (130-400) 04/18/22 22:40 MPV 9.4 fL (7.4-10.4) 04/18/22 22:40 Neut % (Auto) 60.8 % 04/18/22 22:40 Lymph % (Auto) 32.0 % 04/18/22 22:40 [place] % (Auto) 4.3 % 04/18/22 22:40 Eos % (Auto) 2.0 % 04/18/22 22:40 Baso % (Auto) 0.5 % 04/18/22 22:40 Neut # (Auto) 6.59 10^3/uL (1.8-7.7) 04/18/22 22:40 Lymph # (Auto) 3.5 10^3/uL (0.8-4.8) 04/18/22 22:40 [place] # (Auto) 0.5 10^3/uL (0.2-0.9) 04/18/22 22:40 Eos # (Auto) 0.2 10^3/uL (0.0-0.8) 04/18/22 22:40 Baso # (Auto) 0.1 10^3/uL (0.0-0.1) 04/18/22 22:40 Nucleated RBC % (auto) 0 % 04/18/22 22:40 Nucleated RBCs # 0.0 /100WBC 04/18/22 22:40 Sodium 140 mmol/L (136-145) 04/18/22 22:40 Potassium 3.7 mmol/L (3.5-5.1) 04/18/22 22:40 Chloride 100 mmol/L (98-107) 04/18/22 22:40 Carbon Dioxide 31 mmol/L (22-29) H 04/18/22 22:40 Anion Gap 12.7 (5-19) 04/18/22 22:40 BUN 11 mg/dL (6-20) 04/18/22 22:40 Creatinine 0.7 mg/dL (0.5-0.9) 04/18/22 22:40 GFR Calculation 87.2 mL/min (90-130) L 04/18/22 22:40 Glucose 149 mg/dL (65-115) H 04/18/22 22:40 Calculated Osmolality 292 mOsm/kg (285-295) 04/18/22 22:40 Lactate 2.0 mmol/L (0.5-2.2) 04/18/22 22:40 Calcium 9.3 mg/dL (8.5-10.5) 04/18/22 22:40 Total Bilirubin 0.4 mg/dL (0.15-1.2) 04/18/22 22:40 AST 16 U/L (0-32) 04/18/22 22:40 ALT 26 U/L (0-33) 04/18/22 22:40 Alkaline Phosphatase 91 U/L (35-105) 04/18/22 22:40 Total Protein 6.0 g/dL (6.6-8.7) L 04/18/22 22:40 Albumin 3.9 g/dL (3.5-5.2) 04/18/22 22:40 Globulin 2.1 g/dL (1.3-4.6) 04/18/22 22:40 Lipase 57 U/L (13-60) 04/18/22 22:40 Urine Color Yellow (Yellow) 04/18/22 23:50 Urine Appearance Clear (CLEAR) 04/18/22 23:50 Urine pH 6 (5-7) 04/18/22 23:50 Ur Specific [place] 1.020 (1.005-1.030) 04/18/22 23:50 Urine Protein Neg (Negative) 04/18/22 23:50 Urine Glucose (UA) Norm (Normal) 04/18/22 23:50 Urine Ketones Negative (Negative) 04/18/22 23:50 Urine Blood Neg (Negative) 04/18/22 23:50 Urine Nitrate Negative (Negative) 04/18/22 23:50 Urine Bilirubin Neg (Negative) 04/18/22 23:50 Urine Urobilinogen Neg mg/dL (Negative) 04/18/22 23:50 Ur Leukocyte Esterase Negative (Negative) 04/18/22 23:50 Discharge Plan Discharge Patient Disposition: Home Clinical Impression: Constipation, Nausea & vomiting, Skin lesion, infected Condition: Stable Prescriptions: New Miralax 17 gram powder in packet 17 g PO DAILY PRN (Reason: constipation) Qty: 14 0RF mupirocin 2 % ointment 1 applic topical BID Qty: 22 0RF No Action (DME) pen needle, diabetic 33 gauge x 5/32 needle See Rx Instructions .ROUTE .MEDSUPPLY Qty: 100 5RF Rx Instructions: 4 time day (DME) blood-glucose meter [OneTouch Ultra2 Meter] Kit See Rx Instructions .Route Qty: 1 0RF Rx Instructions: As directed (DME) OneTouch Ultra Test Strip See Rx Instructions .Route Qty: 100 0RF Rx Instructions: use 3 times day Ozempic 0.25 mg or 0.5 mg(2 mg/1.5 mL) pen injector 0.25 mg SUBCUT .weekly Qty: 1.5 2RF atorvastatin 40 mg tablet 40 mg PO BEDTIME Qty: 90 0RF cholecalciferol (vitamin D3) 75 mcg (3,000 unit) tablet 6,000 unit PO DAILY@08 Qty: 60 2RF gabapentin 600 mg tablet See Rx Instructions .ROUTE .COMPLEX Qty: 90 2RF Rx Instructions: TAKE 600 MG IN THE MORNING/ 1200 MG IN THE EVENING; insulin aspart U-100 [Novolog Flexpen U-100 Insulin] 100 unit/mL (3 mL) insulin pen See Rx Instructions SUBCUT TID Qty: 15 2RF Rx Instructions: 3-24 U SUBCUT three times daily; Sliding Scale 110-129= 3U 130-150= 6U 151-200= 9U 201-250= 12U 251-300=15U 301-350=18U 351-400=21U >400=24U Levemir FlexTouch U-100 Insuln 100 unit/mL (3 mL) insulin pen 35 unit SUBCUT DAILY Qty: 15 2RF levothyroxine 125 mcg tablet 125 mcg PO DAILY@08 Qty: 30 2RF metoprolol tartrate 25 mg tablet 25 mg PO Q12H Qty: 60 2RF Rx Instructions: at 0800,2000 ropinirole 4 mg tablet 4 mg PO BEDTIME Qty: 30 2RF triamcinolone acetonide 0.1 % cream 1 applic topical BID Qty: 30 0RF meclizine 25 mg tablet 25 mg PO TID Qty: 21 0RF prednisone 10 mg tablets,dose pack See Rx Instructions PO PER PKG DIR Qty: 21 0RF Rx Instructions: PO PER PKG DIR may use loose pills sucralfate [Carafate] 1 gram tablet 1 g PO TID Qty: 90 1RF Zenpep 3,000-10,000 -14,000-unit capsule,delayed release(DR/EC) 2 cap PO TID Qty: 180 1RF Rx Instructions: do not exceed 10,000 unit/kg lipase per 24 hrs aspirin 81 mg Tablet,Delayed Release (Dr/Ec) 81 mg PO DAILY Qty: 90 0RF nitroglycerin 0.4 mg Tablet, Sublingual 0.4 mg sublingual Q5M PRN (Reason: Chest Pain) Qty: 25 0RF Celebrex 200 mg capsule 200 mg PO BID Qty: 20 0RF methocarbamol 750 mg tablet 750 mg PO Q6H PRN (Reason: back pain) Qty: 30 0RF Discharge Orders: Discharge ED (Routine); Ordered 04/19/22 Ordered By: Eva Bond Referrals: Daksha Killian MD [Primary Care Provider] - Discharge Diet: Advance as tolerated Discharge Activity: Resume usual activity Patient Instructions: Constipation - Adult Activity Restrictions/Additional Instructions: Your x-ray tonight showed moderate constipation without any obstruction. Increase your oral water intake, use MiraLAX as needed. Follow-up with your primary care provider next week for reevaluation. Return to the ED as needed fo r any new or worsening symptoms Coding Level of Care Code ED [employer] Operator for Chg Fwd Exam Detailed Documented by User: Ulysses Peguero DO 04/19/22 06:31 HPI - Nausea/Vomiting/Diarrhea General: Chief complaint: Nausea/Vomiting/Diarrhea Stated complaint: Dizzy\N\Headache Time Seen by Provider: 04/18/22 22:20 PFSH ED PFSH: Medical History Adult hypothyroidism Anxiety and depression Arm numbness Bronchitis Chronic migraine COPD (chronic obstructive pulmonary disease) CPAP (continuous positive airway pressure) dependence Diabetes mellitus with hyperglycemia, with long-term current use of insulin Diabetic foot Diabetic neuropathy Diabetic peripheral neuropathy associated with type 2 diabetes mellitus Dyslipidemia GERD (gastroesophageal reflux disease) Hypertension Narcolepsy Reflux esophagitis Right foot pain RLS (restless legs syndrome) Smoking Type 2 diabetes mellitus Vitamin D deficiency Surgical History History of back surgery Hx of hemorrhoidectomy Hx of hernia repair Hx of hysterectomy Hx of tonsillectomy Family History Other Diabetes Hypertension Social History Smoking and tobacco status: current every day smoker cigarettes Packs smoked per day: 1 Years cigarettes smoked: 35 Second hand smoke exposure: No Smoking risk assessment/counseling performed?: Yes Alcohol intake: unknown Desire information about alcohol rehabilitation?: No Counseling given: No Desire information about substance/drug rehabilitation?: No Counseling given: No Adopted: No Caregiver/support person: No Lives independently: Yes Household members: family Marital status: Number of children: 5 service: No Current occupational status: unemployed Current occupational exposures/hazards: No Pets and animals: Yes History of recent travel: No Current gender identity: Female Course Vital Signs: Vital signs: Vital Signs Temperature 97.0 F L 04/18/22 21:44 Pulse Rate 93 04/18/22 21:44 Respiratory Rate 16 04/18/22 21:44 Blood Pressure 143/78 04/18/22 21:44 Pulse Oximetry 96 04/18/22 21:44 Oxygen Delivery Me thod 04/18/22 21:44 MDM - Nausea/Vomiting/Diarrhea Medical Decision Making This is a 56-year-old female who is in tonight for seemingly chronic complaint of intermittent nausea and vomiting. She does report she has not had a bowel movement in 6 days. She denies any urinary symptoms. She does have her gallbladder and her appendix. Her abdominal exam revealed generalized tenderness without any guarding or rebound tenderness. Slightly more tender in the left lower quadrant abdomen. Labs reveal a minimally elevated white blood cell count, ALT and ALT and lipase within normal limits. Lactate within normal limits. X-ray shows moderate constipation without obstruction. UA dip normal. I discussed with patient at that we have hydrated her and I will treat her for constipation. I would like her to follow-up with her primary care provider on the longstanding intermittent nausea and vomiting as she may need further evaluation of her gallbladder. I did advise that she is not demonstrating any signs of gallbladder obstruction or infection at this time. Outpatient follow- up is appropriate. Advised patient to return to the ER for any new or worsening symptoms, increased pain, inability to hold down p.o. intake, inability to have a bowel movement despite MiraLAX, fever, chills. Chart reviewed and patient discussed with midlevel. Agree with assessment and plan. Lab Data : 04/18/22 22:40 04/18/22 22:40 Radiology Impressions Abdomen X-Ray 04/18/22 22:29 IMPRESSION: Constipation without bowel dilation to indicate obstruction. Laboratory Results WBC 10.8 10^3/uL (4.0-10.0) H 04/18/22 22:40 RBC 4.89 10^6/uL (4.1-5.3) 04/18/22 22:40 Hgb 14.4 g/dL (11.5-15.3) 04/18/22 22:40 Hct 43.2 % (37.0-47.0) 04/18/22 22:40 MCV 88.3 fl (81-99) 04/18/22 22:40 MCH 29.4 pg (28.0-34.0) 04/18/22 22:40 MCHC 33.3 g/dL (30.0-36.0) 04/18/22 22:40 RDW 12.9 % (12.1-15.1) 04/18/22 22:40 Plt Count 222 10^3/cmm (130-400) 04/18/22 22:40 MPV 9.4 fL (7.4-10.4) 04/18/22 22:40 Neut % (Auto) 60.8 % 04/18/22 22:40 Lymph % (Auto) 32.0 % 04/18/22 22:40 [place] % (Auto) 4.3 % 04/18/22 22:40 Eos % (Auto) 2.0 % 04/18/22 22:40 Baso % (Auto) 0.5 % 04/18/22 22:40 Neut # (Auto) 6.59 10^3/uL (1.8-7.7) 04/18/22 22:40 Lymph # (Auto) 3.5 10^3/uL (0.8-4.8) 04/18/22 22:40 [place] # (Auto) 0.5 10^3/uL (0.2-0.9) 04/18/22 22:40 Eos # (Auto) 0.2 10^3/uL (0.0-0.8) 04/18/22 22:40 Baso # (Auto) 0.1 10^3/uL (0.0-0.1) 04/18/22 22:40 Nucleated RBC % (auto) 0 % 04/18/22 22:40 Nucleated RBCs # 0.0 /100WBC 04/18/22 22:40 Sodium 140 mmol/L (136-145) 04/18/22 22:40 Potassium 3.7 mmol/L (3.5-5.1) 04/18/22 22:40 Chloride 100 mmol/L (98-107) 04/18/22 22:40 Carbon Dioxide 31 mmol/L (22-29) H 04/18/22 22:40 Anion Gap 12.7 (5-19) 04/18/22 22:40 BUN 11 mg/dL (6-20) 04/18/22 22:40 Creatinine 0.7 mg/dL (0.5-0.9) 04/18/22 22:40 GFR Calculation 87.2 mL/min (90-130) L 04/18/22 22:40 Glucose 149 mg/dL (65-115) H 04/18/22 22:40 Calculated Osmolality 292 mOsm/kg (285-295) 04/18/22 22:40 Lactate 2.0 mmol/L (0.5-2.2) 04/18/22 22:40 Calcium 9.3 mg/dL (8.5-10.5) 04/18/22 22:40 Total Bilirubin 0.4 mg/dL (0.15-1.2) 04/18/22 22:40 AST 16 U/L (0-32) 04/18/22 22:40 ALT 26 U/L (0-33) 04/18/22 22:40 Alkaline Phosphatase 91 U/L (35-105) 04/18/22 22:40 Total Protein 6.0 g/dL (6.6-8.7) L 04/18/22 22:40 Albumin 3.9 g/dL (3.5-5.2) 04/18/22 22:40 Globulin 2.1 g/dL (1.3-4.6) 04/18/22 22:40 Lipase 57 U/L (13-60) 04/18/22 22:40 Urine Color Yellow (Yellow) 04/18/22 23:50 Urine Appearance Clear (CLEAR) 04/18/22 23:50 Urine pH 6 (5-7) 04/18/22 23:50 Ur Specific [place] 1.020 (1.005-1.030) 04/18/22 23:50 Urine Protein Neg (Negative) 04/18/22 23:50 Urine Glucose (UA) Norm (Normal) 04/18/22 23:50 Urine Ketones Negative (Negative) 04/18/22 23:50 Urine Blood Neg (Negative) 04/18/22 23:50 Urine Nitrate Negative (Negative) 04/18/22 23:50 Urine Bilirubin Neg (Negative) 04/18/22 23:50 Urine Urobilinogen Neg mg/dL (Negative) 04/18/22 23:50 Ur Leukocyte Esterase Negative (Negative) 04/18/22 23:50 Discharge Plan Discharge Patient Disposition: Home Clinical Impression: Constipation, Nausea & vomiting, Skin lesion, infected Condition: Stable Prescriptions: New Miralax 17 gram powder in packet 17 g PO DAILY PRN (Reason: constipation) Qty: 14 0RF mupirocin 2 % ointment 1 applic topical BID Qty: 22 0RF No Action (DME) pen needle, diabetic 33 gauge x 5/32 needle See Rx Instructions .ROUTE .MEDSUPPLY Qty: 100 5RF Rx Instructions: 4 time day (DME) blood-glucose meter [OneTouch Ultra2 Meter] Kit See Rx Instructions .Route Qty: 1 0RF Rx Instructions: As directed (DME) OneTouch Ultra Test Strip See Rx Instructions .Route Qty: 100 0RF Rx Instructions: use 3 times day Ozempic 0.25 mg or 0.5 mg(2 mg/1.5 mL) pen injector 0.25 mg SUBCUT .weekly Qty: 1.5 2RF atorvastatin 40 mg tablet 40 mg PO BEDTIME Qty: 90 0RF cholecalciferol (vitamin D3) 75 mcg (3,000 unit) tablet 6,000 unit PO DAILY@08 Qty: 60 2RF gabapentin 600 mg tablet See Rx Instructions .ROUTE .COMPLEX Qty: 90 2RF Rx Instructions: TAKE 600 MG IN THE MORNING/ 1200 MG IN THE EVENING; insulin aspart U-100 [Novolog Flexpen U-100 Insulin] 100 unit/mL (3 mL) insulin pen See Rx Instructions SUBCUT TID Qty: 15 2RF Rx Instructions: 3-24 U SUBCUT three times daily; Sliding Scale 110-129= 3U 130-150= 6U 151-200= 9U 201-250= 12U 251-300=15U 301-350=18U 351-400=21U >400=24U Levemir FlexTouch U-100 Insuln 100 unit/mL (3 mL) insulin pen 35 unit SUBCUT DAILY Qty: 15 2RF levothyroxine 125 mcg tablet 125 mcg PO DAILY@08 Qty: 30 2RF metoprolol tartrate 25 mg tablet 25 mg PO Q12H Qty: 60 2RF Rx Instructions: at 0800,2000 ropinirole 4 mg tablet 4 mg PO BEDTIME Qty: 30 2RF triamcinolone acetonide 0.1 % cream 1 applic topical BID Qty: 30 0RF meclizine 25 mg tablet 25 mg PO TID Qty: 21 0RF prednisone 10 mg tablets,dose pack See Rx Instructions PO PER PKG DIR Qty: 21 0RF Rx Instructions: PO PER PKG DIR may use loose pills sucralfate [Carafate] 1 gram tablet 1 g PO TID Qty: 90 1RF Zenpep 3,000-10,000 -14,000-unit capsule,delayed release(DR/EC) 2 cap PO TID Qty: 180 1RF Rx Instructions: do not exceed 10,000 unit/kg lipase per 24 hrs aspirin 81 mg Tablet,Delayed Release (Dr/Ec) 81 mg PO DAILY Qty: 90 0RF nitroglycerin 0.4 mg Tablet, Sublingual 0.4 mg sublingual Q5M PRN (Reason: Chest Pain) Qty: 25 0RF Celebrex 200 mg capsule 200 mg PO BID Qty: 20 0RF methocarbamol 750 mg tablet 750 mg PO Q6H PRN (Reason: back pain) Qty: 30 0RF Discharge Orders: Discharge ED (Routine); Ordered 04/19/22 Ordered By: Eva Bond Referrals: Daksha Killian MD [Primary Care Provider] - Discharge Diet: Advance as tolerated Discharge Activity: Resume usual activity Patient Instructions: Constipation - Adult Activity Restrictions/Additional Instructions: Your x-ray tonight showed moderate constipation without any obstruction. Increase your oral water intake, use MiraLAX as needed. Follow-up with your primary care provider next week for reevaluation. Return to the ED as needed for any new or worsening symptoms Coding Level of Care Code ED [employer] Operator for Maddison Martinez Exam Detailed
[2022-04-18] MEDS: ondansetron 2 mg/ML SDV 2 mL 4 MG IVP (23:50)
[2022-04-18] MEDS: sodium chloride 0.9% 1,000 ML 999 ML IV (23:50)
[2022-04-19 00:25] LABS: Add Urine Microscopic? NO; Charge for UA Resulting for Rev
[2022-04-19 00:27] LABS: Bilirubin Urine Neg (Negative); Blood Urine Neg (Negative); Glucose Urine UA Norm (Normal); Ketones Urine Negative (Negative); Leukocyte Esterase Urine Negative (Negative); Nitrate Urine Negative (Negative); Protein Urine Neg (Negative); Urine Appearance Clear (CLEAR); Urine Color Yellow (Yellow); Urobilinogen Urine Neg (Negative); pH Urine 6 (5-7)
== END 2022-04-19 01:33 | disposition home or self-care (01) ==
PROVIDERS: Emergency Provider Nurse Practitioner Family; PCP Family Medicine
DX: K59.00 Constipation, unspecified (principal); R11.2 Nausea with vomiting, unspecified; L98.9 Disorder of the skin and subcutaneous tissue, unspecified; L08.9 Local infection of the skin and subcutaneous tissue, unspecified; Z79.4 Long term (current) use of insulin; Z79.82 Long term (current) use of aspirin; J44.9 Chronic obstructive pulmonary disease, unspecified; E11.9 Type 2 diabetes mellitus without complications; E78.5 Hyperlipidemia, unspecified; I10 Essential (primary) hypertension; F17.210 Nicotine dependence, cigarettes, uncomplicated
CPT/HCPCS: 74019; 80053; 81003; 83605; 83690; 85025; 96361; 96374; 99284; J2405; J7030

== ENCOUNTER → 2022-05-09 10:53 | Outpatient (BNVA) | payer MEDICAID, SELFPAY | PROVIDERS: PCP Family Medicine; Visit Provider Nurse Practitioner | DX: E11.65 Type 2 diabetes mellitus with hyperglycemia (principal); Z79.4 Long term (current) use of insulin | CPT/HCPCS: 80053; 80061; 83036; 84443 ==

== ENCOUNTER 2022-08-07 20:49 | Observation (INO) | payer MEDICAID, SELFPAY ==
[2022-08-07 20:53] VITALS: BP 138/79; PULSE 85; RESP 18; TEMP 36.8; O2SAT 96; BMI 35.2
--- NOTE | 2022-08-07 20:53 | CTR_ITS ---
PROCEDURE INFORMATION: Exam: CT Abdomen And Pelvis Without Contrast Exam date and time: 08/07/2022 9:07 PM Age: 56 years old Clinical indication: Abdominal pain; Localized; Prior surgery; Surgery type: Hernia repair. Hysterectomy; Patient HX: C/O lower abd pain TECHNIQUE: Imaging protocol: Computed tomography of the abdomen and pelvis without contrast. Radiation optimization: All CT scans at this facility use at least one of these dose optimization techniques: automated exposure control; mA and/or kV adjustment per patient size (includes targeted exams where dose is matched to clinical indication); or iterative reconstruction. COMPARISON: CT abdomen pelvis w con* [id number] 04/18/2021 12:31 AM RADIATION DOSE METRICS: Total DLP (mGy-cm): 1016.53 FINDINGS: Limitations: The absence of intravenous contrast lessens the sensitivity of this study for solid organ abnormalities. Lungs: There is dependent atelectasis at the lung bases. Liver: There is a diffuse decrease in hepatic parenchymal density, consistent with mild fatty infiltration. There is no focal abnormality within the liver. There is mild enlargement of the liver. Liver is 21 cm in height. Gallbladder and bile ducts: The gallbladder is normal. Pancreas: The pancreas is normal. Spleen: The spleen is normal. Adrenal glands: The adrenal glands are normal. Kidneys and ureters: The left kidney is normal. There is no evidence of hydronephrosis. There is no evidence of renal or ureteral calcifications. There is an 11 mm benign-appearing simple cyst arising from the lower pole of the right kidney not significantly changed. Stomach and bowel: There is no evidence of colitis/diverticulitis. There is no evidence of intestinal obstruction. Appendix: There is an appendicoliths in the proximal appendix. The appendix is enlarged and thickened measuring up to 12 mm and there is stranding in the periappendiceal fat. These findings are worrisome for acute appendicitis without complication. No abscess is demonstrated. Intraperitoneal space: There is no evidence of free intraperitoneal fluid. Vasculature: The aorta demonstrates mild atherosclerotic calcification. There is no evidence of an abdominal aortic aneurysm. Lymph nodes: There is no evidence of lymphadenopathy. Urinary bladder: Unremarkable as visualized. Reproductive: There has been a hysterectomy. Bones/joints: Unremarkable. No acute fracture. Soft tissues: Unremarkable. CT/CT abdomen pelvis wo con [id number] IMPRESSION: Acute appendicitis.
--- NOTE | 2022-08-07 20:53 | XRR_ITS ---
PROCEDURE INFORMATION: Exam: XR Chest Exam date and time: 08/07/2022 9:00 PM Age: 56 years old Clinical indication: Angina; Additional info: Cp TECHNIQUE: Imaging protocol: Radiologic exam of the chest. Views: 1 view. COMPARISON: CR XR chest 1V portable [id number] 07/21/2021 3:52 PM FINDINGS: Lungs: Visualized portions of the lungs are clear. There is no pulmonary vascular congestion. Pleural spaces: Unremarkable. No pleural effusion. No pneumothorax. Heart/Mediastinum: Heart is within normal limits of size. Bones/joints: Unremarkable. XR/XR chest 1V portable [id number] IMPRESSION: No acute infiltrate.
--- NOTE | 2022-08-07 20:56 | W.ED.ABDPA2 ---
HPI - Abdominal Pain General: Chief Complaint: Abdominal Pain Stated Complaint: ABD Pain Time Seen by Provider: 08/07/22 20:50 Source: patient and EMS Mode of arrival: EMS Limitations: no limitations History of Present Illness: 56-year-old female who is here by EMS she states that she started having abdominal pain this morning her pain is under left upper quadrant and right lower quadrant states she does have some chronic abdominal pain but is worsened today she had nausea she made herself vomit as well states she is also had some chest pain and back pain she denies any fevers she denies any worsening improving factors. Associated Symptoms: Reports nausea and vomiting; Denies chills, dysuria and fever(s) Review of Systems Const: Denies: fever(s), chills, body aches or change in appetite Eyes: Denies: blurry vision or eye discomfort ENMT: Denies: throat pain or dental pain Card: Reports: chest pain Resp: Denies: dyspnea GI: Reports: abdominal pain, nausea and vomiting : Denies: dysuria Musc: Denies: neck pain or back pain Skin/Breast: Denies: rash Neuro: Denies: headache(s) Psych: Denies: depression Shreyas/Lymph: Denies: easy bruising All/Imm: Denies: urticaria PFSH ED PFSH: Medical History Adult hypothyroidism Anxiety and depression Arm numbness Bronchitis Chronic migraine COPD (chronic obstructive pulmonary disease) CPAP (continuous positive airway pressure) dependence Diabetes mellitus with hyperglycemia, with long-term current use of insulin Diabetic foot Diabetic neuropathy Diabetic peripheral neuropathy associated with type 2 diabetes mellitus Dyslipidemia GERD (gastroesophageal reflux disease) Hypertension Narcolepsy Reflux esophagitis Right foot pain RLS (restless legs syndrome) Smoking Type 2 diabetes mellitus Vitamin D deficiency Surgical History History of back surgery Hx of hemorrhoidectomy Hx of hernia repair Hx of hysterectomy Hx of tonsillectomy Family History Other Diabetes Hypertension Social History Smoking and tobacco status: current every day smoker cigarettes Packs smoked per day: 1 Years cigarettes smoked: 35 Second hand smoke exposure: No Smoking risk assessment/counseling performed?: Yes Alcohol intake: unknown Desire information about alcohol rehabilitation?: No Counseling given: No Desire information about substance/drug rehabilitation?: No Counseling given: No Adopted: No Caregiver/support person: No Lives independently: Yes Household members: family Marital status: Number of children: 5 service: No Current occupational status: unemployed Current occupational exposures/hazards: No Pets and animals: Yes History of recent travel: No Current gender identity: Female Physical Exam Const: COMMON NORMALS: no acute distress, patient oriented x3 and healthy appearing HENMT: COMMON NORMALS: normocephalic and atraumatic HEAD & SCALP: normocephalic and atraumatic Eye: COMMON NORMALS: Equal, round and reactive pupils present and EOMs intact bilaterally PUPIL: Yes Equal, round and reactive pupils present Neck/C-Spine: COMMON NORMALS: full ROM and supple Chest: COMMONS NORMALS: normal inspection of the chest and normal palpation of entire chest wall Resp: COMMON NORMALS: normal respiratory effort, No retractions, No use of accessory muscles and clear to auscultation bilaterally AUSCULTATION: clear to auscultation bilaterally Cardio: COMMON NORMALS: regular rate, regular rhythm and No murmurs present (Cardio) RATE: regular rate RHYTHM: regular rhythm GI: COMMON NORMALS: Normal to inspection, nondistended, normoactive bowel sounds present, Soft to palpation and no masses PALPATION: Yes Soft to palpation and Yes Tenderness to palpation present (GI) Details: RLQ Extremity: COMMON NORMALS: normal to inspection and full ROM Neuro: COMMON NORMALS: patient oriented x3, moves all extremities and no focal motor deficits Psych: COMMON NORMALS: mental status grossly normal, Normal thought process present and cooperative THOUGHT PROCESS: Normal thought process present Skin: COMMON NORMALS: no rashes or lesions noted and no wounds GENERAL SKIN EXAM: no rashes or lesions noted Course Vital Signs: Vital signs: Vital Signs Temperature 98.3 F 08/07/22 20:53 Pulse Rate 85 08/07/22 20:53 Respiratory Rate 18 08/07/22 21:03 Blood Pressure 138/79 08/07/22 20:53 Pulse Oximetry 96 08/07/22 20:53 Oxygen Delivery Me thod 08/07/22 20:53 Oxygen Flow Rate 2 08/07/22 20:53 MDM - Abdominal Pain Medical Decision Making Patient presents with abdominal pain CT did show appendicitis we will start on IV antibiotics I spoke to surgeon Dr. Duncan along with hospitalist will admit at this time for her appendicitis. Lab Data 08/07/22 20:55 08/07/22 20:55 Labs/Radiology: Radiology Impressions Abdomen/Pelvis CT 08/07/22 20:53 IMPRESSION: Acute appendicitis. ADDENDUM: 08/07/222133 Addendum: THIS REPORT CONTAINS FINDINGS THAT MAY BE CRITICAL TO PATIENT CARE. The findings were verbally communicated via telephone conference with ANTOLIN MORALES at 9:32 PM MAGNETIC OBSERVER on 08/07/2022. The findings were acknowledged and understood. Chest X-Ray 08/07/22 20:53 IMPRESSION: No acute infiltrate. Laboratory Results WBC 13.0 10^3/uL (4.0-10.0) H 08/07/22 20:55 RBC 5.10 10^6/uL (4.1-5.3) 08/07/22 20:55 Hgb 15.2 g/dL (11.5-15.3) 08/07/22 20:55 Hct 46.2 % (37.0-47.0) 08/07/22 20:55 MCV 90.6 fl (81-99) 08/07/22 20:55 MCH 29.8 pg (28.0-34.0) 08/07/22 20:55 MCHC 32.9 g/dL (30.0-36.0) 08/07/22 20:55 RDW 12.3 % (12.1-15.1) 08/07/22 20:55 Plt Count 211 10^3/cmm (130-400) 08/07/22 20:55 MPV 9.8 fL (7.4-10.4) 08/07/22 20:55 Neut % (Auto) 79.7 % 08/07/22 20:55 Lymph % (Auto) 14.5 % 08/07/22 20:55 [place] % (Auto) 4.1 % 08/07/22 20:55 Eos % (Auto) 0.8 % 08/07/22 20:55 Baso % (Auto) 0.5 % 08/07/22 20:55 Neut # (Auto) 10.36 10^3/uL (1.8-7.7) H 08/07/22 20:55 Lymph # (Auto) 1.9 10^3/uL (0.8-4.8) 08/07/22 20:55 [place] # (Auto) 0.5 10^3/uL (0.2-0.9) 08/07/22 20:55 Eos # (Auto) 0.1 10^3/uL (0.0-0.8) 08/07/22 20:55 Baso # (Auto) 0.1 10^3/uL (0.0-0.1) 08/07/22 20:55 Nucleated RBC % (auto) 0 % 08/07/22 20:55 Nucleated RBCs # 0.0 /100WBC 08/07/22 20:55 PT 13.60 SECONDS (12.1-14.9) 08/07/22 20:55 INR 1.01 (0.8-1.2) 08/07/22 20:55 Sodium 140 mmol/L (136-145) 08/07/22 20:55 Potassium 4.0 mmol/L (3.5-5.1) 08/07/22 20:55 Chloride 103 mmol/L (98-107) 08/07/22 20:55 Carbon Dioxide 26 mmol/L (22-29) 08/07/22 20:55 Anion Gap 15.0 (5-19) 08/07/22 20:55 BUN 9 mg/dL (6-20) 08/07/22 20:55 Creatinine 0.7 mg/dL (0.5-0.9) 08/07/22 20:55 GFR Calculation 87.2 mL/min (90-130) L 08/07/22 20:55 Glucose 184 mg/dL (65-115) H 08/07/22 20:55 Calculated Osmolality 293 mOsm/kg (285-295) 08/07/22 20:55 Calcium 9.5 mg/dL (8.5-10.5) 08/07/22 20:55 Total Bilirubin 0.5 mg/dL (0.15-1.2) 08/07/22 20:55 AST 25 U/L (0-32) 08/07/22 20:55 ALT 24 U/L (0-33) 08/07/22 20:55 Alkaline Phosphatase 104 U/L (35-105) 08/07/22 20:55 Troponin T Baseline 6 ng/L (0-10) 08/07/22 20:55 Total Protein 7.1 g/dL (6.6-8.7) 08/07/22 20:55 Albumin 4.3 g/dL (3.5-5.2) 08/07/22 20:55 Globulin 2.8 g/dL (1.3-4.6) 08/07/22 20:55 Lipase 29 U/L (13-60) 08/07/22 20:55 Discharge Plan Discharge Patient Disposition: Admitted As Inpatient Clinical Impression: Acute appendicitis Condition: Stable Coding Level of Care Code ED Industrial Electrical Engineer for Maddison Fwministerio Exam Comprehensive
--- NOTE | 2022-08-07 20:59 | ECG_ITS ---
[facility] Test Date: 2022-08-07 Pat Name: Adriana Velasquez Department: Room: Gender: Female Rn Social Services: : 1965 Requested By: Lsi Chacon Order Number: [id number] Tiara MD: Pancho Vega M.D. Measurements Intervals [place] Rate: 52 P: 49 MO: 165 QRS: 42 QRSD: 98 T: 54 QT: 436 QTc: 408 Interpretive Statements SINUS BRADYCARDIA LOW QRS VOLTAGE IN PRECORDIAL LEADS [QRS DEFLECTION < 1.0 mV IN CHEST LEADS] Compared to ECG 07/21/2021 23:40:24 Low QRS voltage now present Sinus rhythm no longer present Sinus arrhythmia no longer present Electronically Signed On 08-08-2022 7:54:38 DRAFTER SEISMOGRAPH by Pancho Vega M.D. [id number]
[2022-08-07] MEDS: ondansetron 2 mg/ML SDV 2 mL 4 MG IVP (21:02)
[2022-08-07 21:03] VITALS: RESP 18
[2022-08-07] MEDS: HYDROmorphone 1 mg/mL INJ 1 mL IVP (21:03)
[2022-08-07 21:14] LABS: INR 1.01 (0.8-1.2)
[2022-08-07 21:22] LABS: Troponin(5th) Baseline 6 ng/L (0-10)
[2022-08-07 21:23] LABS: Basophils # 0.1 10^3/uL (0.0-0.1); Basophils % 0.5 %; Eosinophils # 0.1 10^3/uL (0.0-0.8); Eosinophils % 0.8 %; Hematocrit 46.2 % (37.0-47.0); Hemoglobin 15.2 g/dL (11.5-15.3); Lymphocytes # 1.9 10^3/uL (0.8-4.8); Lymphocytes % 14.5 %; Mean Corpuscular HGB Conc 32.9 g/dL (30.0-36.0); Mean Corpuscular Hemoglobin 29.8 pg (28.0-34.0); Mean Corpuscular Volume 90.6 fl (81-99); Mean Platelet Volume 9.8 fL (7.4-10.4); Monocytes # 0.5 10^3/uL (0.2-0.9); Monocytes % 4.1 %; Neutrophils # 10.36 10^3/uL (1.8-7.7); Neutrophils % 79.7 %; Nucleated Red Blood Cells % 0 %; Platelet Count 211 10^3/cmm (130-400); Red Cell Distribution Width 12.3 % (12.1-15.1)
[2022-08-07 21:25] LABS: Alanine Aminotransferase 24 U/L (0-33); Albumin Level 4.3 g/dL (3.5-5.2); Alkaline Phosphatase 104 U/L (35-105); Aspartate Amino Transferase 25 U/L (0-32); Blood Urea Nitrogen 9 mg/dL (6-20); Calcium 9.5 mg/dL (8.5-10.5); Carbon Dioxide 26 mmol/L (22-29); Chloride 103 mmol/L (98-107); Globulin 2.8 g/dL (1.3-4.6); Glomerular Filtration Rate 87.2 mL/min (90-130); Glucose 184 mg/dL (65-115); Lipase 29 U/L (13-60); Osmolality Calculated 293 mOsm/kg (285-295); Sodium 140 mmol/L (136-145); Total Bilirubin 0.5 mg/dL (0.15-1.2); Total Protein 7.1 g/dL (6.6-8.7)
--- NOTE | 2022-08-07 21:46 | P.HP_ITS ---
Providers/Chief Complaint Primary Care Provider: Daksha Killian MD Chief Complaint: ABD Pain History of Present Illness Adriana Velasquez is a 56 year old female who presented today with chief complaint of worsening abdominal pain. Patient is stating that she has chronic left-sided pain for pancreatitis which was recently checked she did not have any active flare, today she was at [facility] in the morning when she started experiencing excruciating pain right lower quadrant and at that time she knew her appendix was acting up she decided not to come to the ER she went back to her mother's place. Because of worsening of her symptoms dry heaves, worsening abdominal pain she decided to come to the hospital for further evaluation in the ER she has been diagnosed with appendicitis.. She smokes half a pack a day, uses 2 L of oxygen at nighttime with her CPAP Dr. Arora has been consulted, hospitalist will admit and consult Dr. Duncan. Review of Systems Const: Reports: chills, body aches and fatigue; Denies: fever(s) Eyes: Denies: change in vision ENMT: Denies: throat pain Card: Denies: chest pain Resp: Denies: dyspnea GI: Reports: abdominal pain and nausea : Denies: flank pain Musc: Denies: neck pain Skin/Breast: Denies: rash Neuro: Denies: headache(s) Psych: Denies: anxiety Endo: Denies: polyuria Shreyas/Lymph: Denies: easy bruising All/Imm: Denies: urticaria Medications/Allergies Home Medications Medication Instructions Recorded Confirmed Last Taken Type aspirin 81 mg tablet,delayed 81 mg PO DAILY #90 tabs 07/22/21 06/06/22 Unknown Rx release nitroglycerin 0.4 mg sublingual 0.4 mg sublingual Q5M PRN Chest 07/22/21 06/06/22 Unknown Rx tablet Pain #25 tabs blood-glucose meter (OneTouch #1 ea 10/25/21 06/06/22 Unknown Rx Ultra2 Meter kit) pen needle, diabetic 33 gauge x #100 ea 10/25/21 06/06/22 Unknown Rx insulin aspart U-100 100 unit/mL See Rx Instructions SUBCUT TID #15 01/20/22 06/06/22 Unknown Rx (3 mL) subcutaneous pen (Novolog mL Flexpen U-100 Insulin aspart) triamcinolone acetonide 0.1 % 1 applic topical BID #30 grams 01/20/22 06/06/22 Unknown Rx topical cream mupirocin 2 % topical ointment 1 applic topical BID #22 grams 04/19/22 06/06/22 Unknown Rx polyethylene glycol 3350 17 gram 17 g PO DAILY PRN constipation #14 04/19/22 06/06/22 Unknown Rx oral powder packet (Miralax) ea Diabetic Shoes with 3 pairs of #1 ea 05/06/22 06/06/22 Unknown Rx inserts atorvastatin 40 mg tablet 40 mg PO BEDTIME #90 tabs 05/14/22 06/06/22 Unknown Rx blood sugar diagnostic (OneTouch #100 ea 05/14/22 06/06/22 Unknown Rx Ultra Test strips) cholecalciferol (vitamin D3) 75 6,000 unit PO DAILY@08 #60 tabs 05/14/22 06/06/22 Unknown Rx mcg (3,000 unit) tablet dapagliflozin 10 mg tablet 10 mg PO QAM #30 tabs 05/14/22 06/06/22 Unknown Rx (Farxiga) gabapentin 600 mg tablet See Rx Instructions .Route 05/14/22 06/06/22 Unknown Rx .COMPLEX #90 tabs levothyroxine 125 mcg tablet 125 mcg PO DAILY@08 #30 tabs 05/14/22 06/06/22 Unknown Rx vzngxi-ymyrpheb-crbtxjv 2 cap PO TID #180 caps 05/14/22 06/06/22 Unknown Rx 3,000-10,000-14,000 unit capsule,delayed rel (Zenpep) metoprolol tartrate 25 mg tablet 25 mg PO Q12H #60 tabs 05/14/22 06/06/22 Unknown Rx ropinirole 4 mg tablet 4 mg PO BEDTIME RESTLESS LEG 05/14/22 06/06/22 Unknown Rx SYNDROME #30 tabs semaglutide 0.25 mg or 0.5 mg (2 0.25 mg (0.2 mL) SUBCUT .weekly 05/14/22 06/06/22 Unknown Rx mg/1.5 mL) subcutaneous pen #1.5 mL injector (Ozempic) sucralfate 1 gram tablet (Carafate) 1 g PO TID #90 tabs 05/14/22 06/06/22 Unknown Rx insulin detemir U-100 100 unit/mL 35 unit (0.35 mL) SUBCUT DAILY #15 06/03/22 06/06/22 Unknown Rx (3 mL) subcutaneous pen (Levemir mL FlexTouch U-100 Insulin) rizatriptan 10 mg tablet (Maxalt) See Rx Instructions PO .COMPLEX 06/06/22 06/06/22 Unknown Rx #14 tabs Allergies Allergy/AdvReac Type Severity Reaction Status Date / Time acetaminophen [From Morven] Allergy Unknown Verified 08/07/22 20:56 aspirin Allergy Unknown Verified 08/07/22 20:56 codeine Allergy ADR-Itching Verified 08/07/22 20:56 hydrocodone [From Morven] Allergy Unknown Verified 08/07/22 20:56 morphine Allergy Unknown Verified 08/07/22 20:56 oxycodone Allergy Unknown Verified 08/07/22 20:56 tetracycline Allergy Unknown Verified 08/07/22 20:56 topiramate [From Topamax] Allergy ADR-Itching Verified 08/07/22 20:56 tramadol [From Ultram] Allergy Unknown Verified 08/07/22 20:56 PFSH Acute PFSH: Medical History Adult hypothyroidism Anxiety and depression Arm numbness Bronchitis Chronic migraine COPD (chronic obstructive pulmonary disease) CPAP (continuous positive airway pressure) dependence Diabetes mellitus with hyperglycemia, with long-term current use of insulin Diabetic foot Diabetic neuropathy Diabetic peripheral neuropathy associated with type 2 diabetes mellitus Dyslipidemia GERD (gastroesophageal reflux disease) Hypertension Narcolepsy Reflux esophagitis Right foot pain RLS (restless legs syndrome) Smoking Type 2 diabetes mellitus Vitamin D deficiency Surgical History History of back surgery Hx of hemorrhoidectomy Hx of hernia repair Hx of hysterectomy Hx of tonsillectomy Family History Other Diabetes Hypertension Social History Smoking and tobacco status: current every day smoker cigarettes Packs smoked per day: 1 Years cigarettes smoked: 35 Second hand smoke exposure: No Smoking risk assessment/counseling performed?: Yes Alcohol intake: unknown Desire information about alcohol rehabilitation?: No Counseling given: No Desire information about substance/drug rehabilitation?: No Counseling given: No Adopted: No Caregiver/support person: No Lives independently: Yes Household members: family Marital status: Number of children: 5 service: No Current occupational status: unemployed Current occupational exposures/hazards: No Pets and animals: Yes History of recent travel: No Current gender identity: Female Vitals/I&O/Wt Last Vital Signs Temp 98.3 F 08/07/22 20:53 Pulse 85 08/07/22 20:53 Resp 18 08/07/22 21:03 BP 138/79 08/07/22 20:53 Pulse Ox 96 08/07/22 20:53 O2 Del Method 08/07/22 20:53 O2 Flow Rate 2 08/07/22 20:53 Weight last 48 hrs Weight 90.265 kg Physical Exam Narrative: Patient is awake and alert Sitting in her bed Asking for ice chips Morbidly obese No excruciating pain at the time of my evaluation Abdomen tender right lower quadrant Clinically patient looks dehydrated Dry mucous membrane Cushingoid appearance Currently on 2 L of oxygen No acute respite distress or chest pain Awake and alert Nonfocal neuro exam Data 08/07/22 20:55 08/07/22 20:55 A&P Assessment and plan (1) Acute appendicitis: (2) Hypersomnia: (3) Vitamin D deficiency: (4) Diabetic neuropathy: (5) Diabetes mellitus with hyperglycemia, with long-term current use of insulin: Qualifiers: Diabetes mellitus type: type 2 Qualified Code(s): E11.65 - Type 2 diabetes mellitus with hyperglycemia; Z79.4 - [facility] (current) use of insulin (6) Hypertension: Qualifiers: Hypertension type: essential hypertension Qualified Code(s): I10 - Esse ntial (primary) hypertension (7) Adult hypothyroidism: Plan Acute appendicitis N.p.o. Start Zosyn Start IV fluids Patient is diabetic Avoid long-acting insulin would use sliding scale for now Full code She uses CPAP at night for sleep apnea along 2 L of oxygen Smokes half a pack a day I would continue her metoprolol and levothyroxine DVT prophylaxis: With SCDs until surgery Respiratory therapy to assess overnight Patient currently is hemodynamically stable Considering urgent nature of the surgery no preoperative cardiac work-up is needed at this point Attestations Medical Necessity Statement*: More than 2 midnights anticipated for management of appendicitis Time Spent in Patient Care: 40 Coding Level of Care Code Acute Program Director/Air Personality for Elielg Fwd Diagnoses Acute appendicitis K35.80 Hypersomnia G47.10 Vitamin D deficiency E55.9 Diabetic neuropathy E11.40 Diabetes mellitus with hyperglycemia, with long-term current use of insulin E11.65; Z79.4 Diabetes mellitus type: type 2 Hypertension I10 Hypertension type: essential hypertension Adult hypothyroidism E03.9
[2022-08-07] MEDS: piperacillin-tazobactam 3.375 GM in sodium chloride 0.9% (plus) 50 ML IV (21:47)
[2022-08-07 22:34] VITALS: BP 153/97; PULSE 96; RESP 18; O2SAT 98
[2022-08-07 22:43] LABS: Troponin 5 2HR 6.15 ng/L (0-10); Troponin 5 2HR Delta 0.15 ABS# (0-10)
[2022-08-07 23:34] LABS: Glucose Point of Care 165 mg/dL (70-110)
[2022-08-07] MEDS: sodium chloride 0.9% 1,000 ML 75 ML IV (23:35)
[2022-08-07 23:36] VITALS: BP 148/81; PULSE 78; RESP 15; TEMP 36.6; O2SAT 95
[2022-08-07] MEDS: metoprolol tartrate 25 mg Tablet PO (23:36)
[2022-08-08] VITALS (16 sets, daily range): BP systolic 85–121; BP diastolic 53–76; PULSE 54–88; RESP 14–18; TEMP 36.1–37.1; O2SAT 86–100
[2022-08-08 03:41] LABS: Basophils % 0.3 %; Eosinophils # 0.1 10^3/uL (0.0-0.8); Eosinophils % 0.9 %; Hematocrit 45.9 % (37.0-47.0); Lymphocytes # 2.8 10^3/uL (0.8-4.8); Lymphocytes % 20.3 %; Mean Corpuscular HGB Conc 32.7 g/dL (30.0-36.0); Mean Corpuscular Hemoglobin 29.4 pg (28.0-34.0); Mean Platelet Volume 9.5 fL (7.4-10.4); Monocytes # 0.8 10^3/uL (0.2-0.9); Monocytes % 5.5 %; Neutrophils # 10.17 10^3/uL (1.8-7.7); Neutrophils % 72.8 %; Nucleated Red Blood Cells % 0 %; Platelet Count 216 10^3/cmm (130-400); Red Cell Distribution Width 12.4 % (12.1-15.1)
[2022-08-08 04:04] LABS: Anion Gap 13.3 (5-19); Blood Urea Nitrogen 9 mg/dL (6-20); C Reactive Protein 11.6 mg/L (0.0-4.9); Calcium 9.3 mg/dL (8.5-10.5); Carbon Dioxide 29 mmol/L (22-29); Chloride 104 mmol/L (98-107); Glomerular Filtration Rate 87.2 mL/min (90-130); Glucose 146 mg/dL (65-115); Magnesium 1.8 mg/dL (1.7-2.3); Osmolality Calculated 295 mOsm/kg (285-295); Potassium 4.3 mmol/L (3.5-5.1); Sodium 142 mmol/L (136-145)
[2022-08-08 04:47] LABS: Troponin 5 6HR Delta -0.15 ng/L (0-12)
[2022-08-08] MEDS: piperacillin-tazobactam 3.375 GM in sodium chloride 0.9% (plus) 50 ML IV ×3 (05:18→16:01)
--- NOTE | 2022-08-08 05:34 | P.CONIM_ITS ---
Providers/Reason For Consult Consulting Physician/Specialty*: Jigar Duncan MD Reason for Consult*: Acute appendicitis Requesting Physician: Dr. Chacon Attending Physician: Jigar Duncan MD Primary Care Provider: Daksha Killian MD History of Present Illness History of Present Illness Ms. Adriana Velasquez is a pleasant 56 year old female patient presented to the emergency department with worsening abdominal pain. That started yesterday morning at the right lower quadrant, nothing seems to make it better or worse and is not being referred and has been sharp/dull aching. Further work-up in the ER was done and showed leukocytosis and a CT scan of the abdomen and pelvis that showed acute appendicitis with appendicoliths in the proximal appendix. There is an appendicoliths in the proximal appendix. The appendix is enlarged and thickened measuring up to 12 mm and there is stranding in the periappendiceal fat. These findings are worrisome for acute appendicitis without complication. No abscess is demonstrated. Patient has history of diabetes mellitus type 2 in addition to being on CPAP and has been a smoker. Was admitted to the hospitalist service and general surgery was consulted for further evaluation management. Review of Systems General: Reports: 10 or more systems reviewed and unremarkable except in HPI and below Medications/Allergies Home Medications Medication Instructions Recorded Confirmed Last Taken Type aspirin 81 mg tablet,delayed 81 mg PO DAILY #90 tabs 07/22/21 06/06/22 Unknown Rx release nitroglycerin 0.4 mg sublingual 0.4 mg sublingual Q5M PRN Chest 07/22/21 06/06/22 Unknown Rx tablet Pain #25 tabs blood-glucose meter (OneTouch #1 ea 10/25/21 06/06/22 Unknown Rx Ultra2 Meter kit) pen needle, diabetic 33 gauge x #100 ea 10/25/21 06/06/22 Unknown Rx insulin aspart U-100 100 unit/mL See Rx Instructions SUBCUT TID #15 01/20/22 06/06/22 Unknown Rx (3 mL) subcutaneous pen (Novolog mL Flexpen U-100 Insulin aspart) triamcinolone acetonide 0.1 % 1 applic topical BID #30 grams 01/20/22 06/06/22 Unknown Rx topical cream mupirocin 2 % topical ointment 1 applic topical BID #22 grams 04/19/22 06/06/22 Unknown Rx polyethylene glycol 3350 17 gram 17 g PO DAILY PRN constipation #14 04/19/22 06/06/22 Unknown Rx oral powder packet (Miralax) ea Diabetic Shoes with 3 pairs of #1 ea 05/06/22 06/06/22 Unknown Rx inserts atorvastatin 40 mg tablet 40 mg PO BEDTIME #90 tabs 05/14/22 06/06/22 Unknown Rx blood sugar diagnostic (OneTouch #100 ea 05/14/22 06/06/22 Unknown Rx Ultra Test strips) cholecalciferol (vitamin D3) 75 6,000 unit PO DAILY@08 #60 tabs 05/14/22 06/06/22 Unknown Rx mcg (3,000 unit) tablet dapagliflozin 10 mg tablet 10 mg PO QAM #30 tabs 05/14/22 06/06/22 Unknown Rx (Farxiga) gabapentin 600 mg tablet See Rx Instructions .Route 05/14/22 06/06/22 Unknown Rx .COMPLEX #90 tabs levothyroxine 125 mcg tablet 125 mcg PO DAILY@08 #30 tabs 05/14/22 06/06/22 Unknown Rx rugwhy-lythuhul-emhzvjk 2 cap PO TID #180 caps 05/14/22 06/06/22 Unknown Rx 3,000-10,000-14,000 unit capsule,delayed rel (Zenpep) metoprolol tartrate 25 mg tablet 25 mg PO Q12H #60 tabs 05/14/22 06/06/22 Unknown Rx ropinirole 4 mg tablet 4 mg PO BEDTIME RESTLESS LEG 05/14/22 06/06/22 Unknown Rx SYNDROME #30 tabs semaglutide 0.25 mg or 0.5 mg (2 0.25 mg (0.2 mL) SUBCUT .weekly 05/14/22 06/06/22 Unknown Rx mg/1.5 mL) subcutaneous pen #1.5 mL injector (Ozempic) sucralfate 1 gram tablet (Carafate) 1 g PO TID #90 tabs 05/14/22 06/06/22 Unknown Rx insulin detemir U-100 100 unit/mL 35 unit (0.35 mL) SUBCUT DAILY #15 06/03/22 06/06/22 Unknown Rx (3 mL) subcutaneous pen (Levemir mL FlexTouch U-100 Insulin) rizatriptan 10 mg tablet (Maxalt) See Rx Instructions PO .COMPLEX 06/06/22 06/06/22 Unknown Rx #14 tabs Allergies Allergy/AdvReac Type Severity Reaction Status Date / Time acetaminophen [From [place]] Allergy Unknown Verified 08/08/22 05:37 aspirin Allergy Unknown Verified 08/08/22 05:37 codeine Allergy ADR-Itching Verified 08/08/22 05:37 hydrocodone [From [place]] Allergy Unknown Verified 08/08/22 05:37 morphine Allergy Unknown Verified 08/08/22 05:37 oxycodone Allergy Unknown Verified 08/08/22 05:37 tetracycline Allergy Unknown Verified 08/08/22 05:37 topiramate [From Topamax] Allergy ADR-Itching Verified 08/08/22 05:37 tramadol [From Ultram] Allergy Unknown Verified 08/08/22 05:37 Current Medications Generic Name Dose Route Start Last Admin Trade Name Freq PRN Reason Stop Dose Admin Sodium Chloride 1,000 mls @ 75 mls/hr 08/07/22 23:14 08/07/22 23:35 Sodium Chloride 0.9% IV 75 mls/hr .[id number] RUBIO Administration Piperacillin Sod/Tazobactam 50 mls @ 100 mls/hr 08/08/22 06:00 08/08/22 05:18 Sod 3.375 gm/ Sodium Chloride IV 100 mls/hr Q8H RUIBO Administration Protocol Metoprolol Tartrate 25 mg 08/07/22 23:14 08/07/22 23:36 Metoprolol Tartrate 25 Mg Tablet PO 25 mg Q12H RUBIO Administration PFSH Acute PFSH: Medical History Adult hypothyroidism Anxiety and depression Arm numbness Bronchitis Chronic migraine COPD (chronic obstructive pulmonary disease) CPAP (continuous positive airway pressure) dependence Diabetes mellitus with hyperglycemia, with long-term current use of insulin Diabetic foot Diabetic neuropathy Diabetic peripheral neuropathy associated with type 2 diabetes mellitus Dyslipidemia GERD (gastroesophageal reflux disease) Hypertension Narcolepsy Reflux esophagitis Right foot pain RLS (restless legs syndrome) Smoking Type 2 diabetes mellitus Vitamin D deficiency Surgical History History of back surgery Hx of hemorrhoidectomy Hx of hernia repair Hx of hysterectomy Hx of tonsillectomy Family History Other Diabetes Hypertension Social History Smoking and tobacco status: current every day smoker cigarettes Packs smoked per day: 1 Years cigarettes smoked: 35 Second hand smoke exposure: No Smoking risk assessment/counseling performed?: Yes Alcohol intake: unknown Desire information about alcohol rehabilitation?: No Counseling given: No Desire information about substance/drug rehabilitation?: No Counseling given: No Adopted: No Caregiver/support person: No Lives independently: Yes Household members: family Marital status: Number of children: 5 service: No Current occupational status: unemployed Current occupational exposures/hazards: No Pets and animals: Yes History of recent travel: No Current gender identity: Female Vitals/I&O/Wt Last Vital Signs Temp 98.2 F 08/08/22 03:36 Pulse 80 08/08/22 03:36 Resp 15 08/08/22 03:36 BP 121/73 08/08/22 03:36 Pulse Ox 89 L 08/08/22 03:36 O2 Del Method 08/08/22 03:36 O2 Flow Rate 2 08/07/22 20:53 08/07/22 08/07/22 08/08/22 14:59 22:59 06:59 Intake Total 50 / 50 Balance 50 / 50 Weight last 48 hrs Weight 199 lb Physical Exam Narrative: Patient is conscious alert oriented X3 No apparent distress BMI 35.3 Head and neck examination PERRLA no masses no cervical lymphadenopathy no jaundice Cardiac examination audible S1-S2 no murmurs no gallops no arrhythmias Chest is clear bilateral,abscence of Rhonchi or wheezes,no surgical emphysema Abdomen nontender soft of the right lower quadrant that shows localized guarding and maximal tenderness at McBurney's point nondistended soft no organomegaly guarding or rigidity/no signs of peritonitis Extremities no cyanosis no clubbing no edema Data 08/08/22 03:13 08/08/22 03:13 A&P Assessment and plan (1) Acute appendicitis: After thorough history physical examination and reviewing the chart and images with my personal interpretion of the CT of the abdomen pelvis, I counseled the patient for laparoscopic appendectomy possible open. Indications, risks, benefits and alternatives were all discussed with the patient and did agree to proceed. Rationale was carefully and clearly discussed with the patient.Appropriate in formed consent have been reviewed and signed. I do appreciate hospitalist's input Consult Attestations Medical Necessity Statement: Per admitting service Coding Level of Care Code Acute Harvest Supervisor for [facility] Fwd Diagnoses Acute appendicitis K35.80
[2022-08-08 06:45] LABS: Glucose Point of Care 144 mg/dL (70-110)
[2022-08-08] MEDS: heparin 5,000 unit/mL INJ 1 mL 3000 UNIT SUBCUT (06:46)
[2022-08-08] MEDS: sodium chloride 0.9% 1,000 ML 30 ML IV (06:53)
--- NOTE | 2022-08-08 07:00 | ANES.PREANE2 ---
Pre-Anesthetic Assessment Height/Weight: Height 1.6 m Weight 90.265 kg Temp Pulse Resp BP Pulse Ox O2 Del Method O2 Flow Rate 98.2 F 80 15 121/73 89 L 2 08/08/22 03:36 08/08/22 03:36 08/08/22 03:36 08/08/22 03:36 08/08/22 03:36 08/08/22 03:36 08/07/22 20:53 Preop Diagnosis: Acute appendicitis Operation Date: 08/08/22 07:00 Proposed Procedures p Laparoscopic Appendectomy(Not Applicable) - Jigar Duncan MD Familial anesthetic complications: none Was Beta Alexandru taken within 24 hours: Yes Was Clonidine taken within 24 hours: N/A Social Tobacco and No alcohol Exam alert, oriented x 3 and regular rate & rhythm rhonchi Airway Submandibular: within normal limits Cervical ROM: within normal limits Mallampati: Class II Dentition: false Pulmonary Chronic Obstructive Pulmonary Disease CV/HEM Hypertension GI Gastroesophageal Reflux Disease Metabolic Diabetes Mellitus, Hyperlipidemia, Morbid Obesity and Thyroid Disease Neuropsych Neuropathy Anesthetic Plan ASA status: 3 Anesthesia: General Medications/Allergies Home Medications Medication Instructions Recorded Confirmed Last Taken Type aspirin 81 mg tablet,delayed 81 mg PO DAILY #90 tabs 07/22/21 06/06/22 Unknown Rx release nitroglycerin 0.4 mg sublingual 0.4 mg sublingual Q5M PRN Chest 07/22/21 06/06/22 Unknown Rx tablet Pain #25 tabs blood-glucose meter (OneTouch #1 ea 10/25/21 06/06/22 Unknown Rx Ultra2 Meter kit) pen needle, diabetic 33 gauge x #100 ea 10/25/21 06/06/22 Unknown Rx insulin aspart U-100 100 unit/mL See Rx Instructions SUBCUT TID #15 01/20/22 06/06/22 Unknown Rx (3 mL) subcutaneous pen (Novolog mL Flexpen U-100 Insulin aspart) triamcinolone acetonide 0.1 % 1 applic topical BID #30 grams 01/20/22 06/06/22 Unknown Rx topical cream mupirocin 2 % topical ointment 1 applic topical BID #22 grams 04/19/22 06/06/22 Unknown Rx polyethylene glycol 3350 17 gram 17 g PO DAILY PRN constipation #14 04/19/22 06/06/22 Unknown Rx oral powder packet (Miralax) ea Diabetic Shoes with 3 pairs of #1 ea 05/06/22 06/06/22 Unknown Rx inserts atorvastatin 40 mg tablet 40 mg PO BEDTIME #90 tabs 05/14/22 06/06/22 Unknown Rx blood sugar diagnostic (OneTouch #100 ea 05/14/22 06/06/22 Unknown Rx Ultra Test strips) cholecalciferol (vitamin D3) 75 6,000 unit PO DAILY@08 #60 tabs 05/14/22 06/06/22 Unknown Rx mcg (3,000 unit) tablet dapagliflozin 10 mg tablet 10 mg PO QAM #30 tabs 05/14/22 06/06/22 Unknown Rx (Farxiga) gabapentin 600 mg tablet See Rx Instructions .Route 05/14/22 06/06/22 Unknown Rx .COMPLEX #90 tabs levothyroxine 125 mcg tablet 125 mcg PO DAILY@08 #30 tabs 05/14/22 06/06/22 Unknown Rx fwdlfl-zlcicosy-qwfajsv 2 cap PO TID #180 caps 05/14/22 06/06/22 Unknown Rx 3,000-10,000-14,000 unit capsule,delayed rel (Zenpep) metoprolol tartrate 25 mg tablet 25 mg PO Q12H #60 tabs 05/14/22 06/06/22 Unknown Rx ropinirole 4 mg tablet 4 mg PO BEDTIME RESTLESS LEG 05/14/22 06/06/22 Unknown Rx SYNDROME #30 tabs semaglutide 0.25 mg or 0.5 mg (2 0.25 mg (0.2 mL) SUBCUT .weekly 05/14/22 06/06/22 Unknown Rx mg/1.5 mL) subcutaneous pen #1.5 mL injector (Ozempic) sucralfate 1 gram tablet (Carafate) 1 g PO TID #90 tabs 05/14/22 06/06/22 Unknown Rx insulin detemir U-100 100 unit/mL 35 unit (0.35 mL) SUBCUT DAILY #15 06/03/22 06/06/22 Unknown Rx (3 mL) subcutaneous pen (Levemir mL FlexTouch U-100 Insulin) rizatriptan 10 mg tablet (Maxalt) See Rx Instructions PO .COMPLEX 06/06/22 06/06/22 Unknown Rx #14 tabs Allergies Allergy/AdvReac Type Severity Reaction Status Date / Time acetaminophen [From [place]] Allergy Unknown Verified 08/08/22 05:37 aspirin Allergy Unknown Verified 08/08/22 05:37 codeine Allergy ADR-Itching Verified 08/08/22 05:37 hydrocodone [From [place]] Allergy Unknown Verified 08/08/22 05:37 morphine Allergy Unknown Verified 08/08/22 05:37 oxycodone Allergy Unknown Verified 08/08/22 05:37 tetracycline Allergy Unknown Verified 08/08/22 05:37 topiramate [From Topamax] Allergy ADR-Itching Verified 08/08/22 05:37 tramadol [From Ultram] Allergy Unknown Verified 08/08/22 05:37 Current Medications Generic Name Dose Route Start Last Admin Trade Name Freq PRN Reason Stop Dose Admin Sodium Chloride 1,000 mls @ 75 mls/hr 08/07/22 23:14 08/07/22 23:35 Sodium Chloride 0.9% IV 75 mls/hr .[id number] RUBIO Administration Piperacillin Sod/Tazobactam 50 mls @ 100 mls/hr 08/08/22 06:00 08/08/22 05:18 Sod 3.375 gm/ Sodium Chloride IV 100 mls/hr Q8H RUBIO Administration Protocol Sodium Chloride 1,000 mls @ 30 mls/hr 08/08/22 06:45 08/08/22 06:53 Sodium Chloride 0.9% IV 30 mls/hr .Q24H RUBIO Administration Metoprolol Tartrate 25 mg 08/07/22 23:14 08/07/22 23:36 Metoprolol Tartrate 25 Mg Tablet PO 25 mg Q12H RUBIO Administration PFSH Anesthesia Medical History Adult hypothyroidism Anxiety and depression Arm numbness Bronchitis Chronic migraine COPD (chronic obstructive pulmonary disease) CPAP (continuous positive airway pressure) dependence Diabetes mellitus with hyperglycemia, with long-term current use of insulin Diabetic foot Diabetic neuropathy Diabetic peripheral neuropathy associated with type 2 diabetes mellitus Dyslipidemia GERD (gastroesophageal reflux disease) Hypertension Narcolepsy Reflux esophagitis Right foot pain RLS (restless legs syndrome) Smoking Type 2 diabetes mellitus Vitamin D deficiency Surgical History History of back surgery Hx of hemorrhoidectomy Hx of hernia repair Hx of hysterectomy Hx of tonsillectomy Family History Other Diabetes Hypertension Social History Smoking and tobacco status: current every day smoker cigarettes Packs smoked per day: 1 Years cigarettes smoked: 35 Second hand smoke exposure: No Smoking risk assessment/counseling performed?: Yes Alcohol intake: unknown Desire information about alcohol rehabilitation?: No Counseling given: No Desire information about substance/drug rehabilitation?: No Counseling given: No Adopted: No Caregiver/support person: No Lives independently: Yes Household members: family Marital status: Number of children: 5 service: No Current occupational status: unemployed Current occupational exposures/hazards: No Pets and animals: Yes History of recent travel: No Current gender identity: Female Data Anesthesia 08/08/22 03:13 08/08/22 03:13 Short CBC 08/07/22 08/08/22 Range/Units 20:55 03:13 WBC 13.0 H 14.0 H (4.0-10.0) 10^3/uL Hgb 15.2 15.0 (11.5-15.3) g/dL Hct 46.2 45.9 (37.0-47.0) % MCV 90.6 90.0 (81-99) fl Plt Count 211 216 (130-400) 10^3/cmm Neut % (Auto) 79.7 72.8 % Neut # (Auto) 10.36 H 10.17 H (1.8-7.7) 10^3/uL BMP 08/07/22 08/08/22 20:55 03:13 Sodium 140 142 Potassium 4.0 4.3 Chloride 103 104 Carbon Dioxide 26 29 BUN 9 9 Creatinine 0.7 0.7 Glucose 184 H 146 H Calcium 9.5 9.3 Cardiac Enzymes 08/07/22 08/07/22 08/08/22 Range/Units 20:55 22:23 03:13 Troponin T Baseline 6 (0-10) ng/L Troponin T 120 Minute 6.15 (0-10) ng/L Delta Troponin T 0.15 (0-10) ABS# Troponin T Hi Sens 6Hr 6.00 (0-10) ng/L Troponin T Hi Sens 6Hr Delta -0.15 L (0-12) ng/L Liver Function 08/07/22 Range/Units 20:55 Total Bilirubin 0.5 (0.15-1.2) mg/dL AST 25 (0-32) U/L ALT 24 (0-33) U/L Alkaline Phosphatase 104 (35-105) U/L Albumin 4.3 (3.5-5.2) g/dL Coags 08/07/22 08/08/22 20:55 03:13 PT 13.60 INR 1.01 C-Reactive Protein 11.6 H Cardiac Studies: Sestamibi Stress Test (Cardiology) 07/21/21
--- NOTE | 2022-08-08 07:21 | PC.NURSE ---
late entry:0620. Patient transported to outpt surgery via stretcher.
--- NOTE | 2022-08-08 08:33 | SUR.PREOP ---
0832-patient transported to OB on [facility] to use the OB OR room
[2022-08-08] MEDS: lidocaine 2% INJ 20 mL INJECTION (09:14)
--- NOTE | 2022-08-08 09:52 | PM.OP ---
Operative Report Date of procedure: August 08, 2022 Pre-op diagnosis: Preop Diagnosis Acute appendicitis Post-op findings: Acute appendicitis with suppuration Procedure done: Laparoscopic appendectomy and umbilical hernia repair Specimens removed/disposition: Umbilical hernia Appendix Surgeon: Jigar Duncan MD Field Ring Assembler: Surgical becky Larson Circulating nurse Lashay Pereira Anesthesia: General (TANK TRUCK ENGINE MECHANIC Thomas) Estimated blood loss (mL): 20 IV fluids (mL): 850 Procedure: Patient after being identified in the holding area and asked to void urine, and informed consent per chart ,patient was then taken back to the OR placed in supine position got intubated by anesthesia left arm was tucked tucked ,Timeout was done verifying the patient's name/date of /planned procedure and destination after the procedure, all were in agreement., preoperative antibiotics administered per protocol. prep and drape of the abdomen was done under the usual sterile technique. Started by longitudinal skin incision, it was noticed to have an umbilical hernia that was dissected and umbilical content was sent for pathology in the form of preperitoneal fat, following that a Max trocar technique safe entry to the abdominal cavity was achieved verified by using 10 mm zero degree laparoscopy, switched to a 30? scope under direct visualization a suprapubic 5 mm trocar was inserted followed by another 5 mm trocar inserted in the left lower quadrant, I was able to position the patient in an T Banerjee and left side down, dissection of the prececal acutely inflamed appendix there was some adhesions towards the lateral pelvic wall that was taken down by sharp and blunt dissection, attention was deviated to the healthy base of the appendix where I had to switch the camera to 5 mm 30? scope got introduced through the left lower quadrant and through the Max trocar under direct visualization a GI stapler 45 mm blue load was applied at the healthy part of the base of the appendix, and an Endoloop PDS was applied onto the mesoappendix for control yet it was not enough because the mesoappendix was bulky and thick so I elected to apply a vascular load 45 mm to have a better control of the mesoappendix, the appendix was then retrieved in an Endo Catch bag, final survey was done of the abdomen and pelvis , irrigation with warm saline, and suction was obtained, were mercury fluid like in the pelvis due to reaction from the inflamed appendix. Multiple 5 mm clips were applied onto the mesoappendix as well as the appendectomy staple line and a right lateral pelvic wall for minimal oozing. Final look laparoscopy was done showing no other abnormalities or injuries or bleeding, all trocars were taken out under direct visualization after the supraumblical trocar site was closed by #1 PDS sutures under direct vision using fascial closure device(the original umbilical defect was about half an inch in diameter), deep subdermal 2-0 Vicryl ,followed by skin closure using skin areli of all trocar site incisions. infiltration of local lidocaine 2% was done to all incision sites.Dry dressing was applied. Count was completed at the end of the procedure for [place],sponges and instruments Patient tolerated the procedure well and was transferred to the recovery area after extubation. I was present for the whole entire procedure
--- NOTE | 2022-08-08 10:47 | ANE.PACU2 ---
Inpatient post-anesthesia follow up: Airway intact: Yes Vital signs: Temperature 97.8 F Pulse Rate 63 Respiratory Rate 18 Blood Pressure 89/53 Pulse Oximetry 100 Oxygen Delivery Me thod Room Air Oxygen Flow Rate 10 Fraction of Inspir ed Oxygen Hydration adequate: Yes Nausea and vomiting: No Pain level: 3 Mental status: Baseline
[2022-08-08 10:51] LABS: Glucose Point of Care 179 mg/dL (70-110)
[2022-08-08] MEDS: sodium chloride 0.9% 1,000 ML 100 ML IV ×2 (11:45→22:32)
[2022-08-08] MEDS: insulin lispro 100 unit/1 mL SUBCUT ×2 (13:58→17:41)
--- NOTE | 2022-08-08 16:57 | PC.PHAR ---
PT IN SURGERY WHEN I WENT TO FLOOR
[2022-08-08 17:12] LABS: Glucose Point of Care 236 mg/dL (70-110)
[2022-08-08] MEDS: pantoprazole 40 mg SDV IVP (17:26)
[2022-08-08] MEDS: heparin 5,000 unit/mL INJ 1 mL 5000 UNIT SUBCUT (17:42)
--- NOTE | 2022-08-08 17:49 | P.PN_ITS ---
Subjective Subjective: Patient was seen and examined this morning, complaining of mild abdominal pain.Currently tolerating clear liquid consistent carbohydrate diet. Medications: Medication Review Details: Generic Name Dose Route Start Last Admin Trade Name Marcq PRN Reason Stop Dose Admin Heparin Sodium (Po rcine) 5,000 unit 08/08/22 17:00 08/08/22 17:42 Heparin 5,000 Un it/Ml Inj 1 Ml SUBCUT 5,000 unit Q8H RUBIO Administration Hydromorphone HCl 2 mg 08/08/22 09:56 08/08/22 15:47 Hydromorphone 4 Mg Tablet PO 2 mg Q6H PRN Administration PAIN Sodium Chloride 1,000 mls @ 100 m ls/hr 08/08/22 10:15 08/08/22 11:45 Sodium Chloride 0.9% IV 08/09/22 10:14 100 mls/hr .Q10H RUBIO Administration Piperacillin Sod/T azobactam 50 mls @ 12.5 mls /hr 08/08/22 16:00 08/08/22 16:01 Sod 3.375 gm/ So dium Chloride IV 12.5 mls/hr Q8H RUBIO Administration Protocol Insulin Human Lisp ro 0 unit 08/08/22 08:00 08/08/22 17:41 Insulin Lispro 1 00 Unit/1 Ml SUBCUT 6 unit TIDWM RUBIO Administration Protocol Metoprolol Tartrat e 25 mg 08/07/22 23:14 08/08/22 11:45 Metoprolol Tartr ate 25 Mg Tablet PO Not Given Q12H RUBIO Pantoprazole Sodiu m 40 mg 08/08/22 09:00 08/08/22 17:26 Pantoprazole 40 Mg Sdv IVP 40 mg BID RUBIO Administration Vitals/I&O/Wt Last Vital Signs Temp 97.9 F 08/08/22 13:55 Pulse 62 08/08/22 15:55 Resp 17 08/08/22 15:55 BP 107/74 08/08/22 15:55 Pulse Ox 95 08/08/22 15:55 O2 Del Method 08/08/22 15:55 O2 Flow Rate 10 08/08/22 10:20 FiO2 2 08/08/22 11:34 08/08/22 08/08/22 08/08/22 06:59 14:59 22:59 Intake Total 1291.25 / 1291.25 50 / 1341.25 Output Total 25 / 25 Balance 1266.25 / 1266.25 50 / 1316.25 Weight last 48 hrs Weight 90.265 kg Physical Exam HENMT: COMMON NORMALS: normocephalic and atraumatic HEAD & SCALP: normocephalic and atraumatic Cardio: COMMON NORMALS: regular rate, regular rhythm, S1 normal heart sound present, S2 normal heart sound present, No gallops present (Cardio), No murmurs present (Cardio), No rub (Cardio) and Peripheral pulses 2+ throughout RATE: regular rate RHYTHM: regular rhythm HEART SOUNDS: S1 normal heart sound present and S2 normal heart sound present PERIPHERAL PULSES: Peripheral pulses 2+ throughout GI: AUSCULTATION: Yes normoactive bowel sounds RECTAL EXAM: deferred OTHER: Mild abdominal tenderness at incision site Data 08/08/22 03:13 08/08/22 03:13 A&P Assessment and plan (1) Acute appendicitis: (2) Hypersomnia: (3) Vitamin D deficiency: (4) Diabetic neuropathy: (5) Diabetes mellitus with hyperglycemia, with long-term current use of insulin: Qualifiers: Diabetes mellitus type: type 2 Qualified Code(s): E11.65 - Type 2 diabetes mellitus with hyperglycemia; Z79.4 - FPC (current) use of insulin (6) Hypertension: Qualifiers: Hypertension type: essential hypertension Qualified Code(s): I10 - Essential (primary) hypertension (7) Adult hypothyroidism: Plan 56-year-old female with past medical history of hypothyroidism COPD diabetes, hypertension, came in with chief complaint of severe right lower quadrant abdominal pain. She was admitted for the management of Assessment: Acute appendicitis Diabetes COPD Hypothyroidism Hypertension Plan: S/p laparoscopic appendectomy with umbilical hernia repair Currently on Zosyn ldssi, monitor fingerstick glucose Continue metoprolol Continue levothyroxine Continue Protonix On subcu heparin for DVT prophylaxis Attestations Medical Necessity Statement*: Patient is still in hospital for management of acute appendicitis. Coding Level of Care Code Acute [employer]p [employer] [place] for [facility] Juan Diagnoses Acute appendicitis K35.80 Hypersomnia G47.10 Vitamin D deficiency E55.9 Diabetic neuropathy E11.40 Diabetes mellitus with hyperglycemia, with long-term current use of insulin E11.65; Z79.4 Diabetes mellitus type: type 2 Hypertension I10 Hypertension type: essential hypertension Adult hypothyroidism E03.9
[2022-08-08 20:39] LABS: Glucose Point of Care 249 mg/dL (70-110)
[2022-08-08] MEDS: metoprolol tartrate 25 mg Tablet PO (22:35)
[2022-08-09] MEDS: heparin 5,000 unit/mL INJ 1 mL 5000 UNIT SUBCUT ×2 (00:48→08:47)
[2022-08-09] MEDS: piperacillin-tazobactam 3.375 GM in sodium chloride 0.9% (plus) 50 ML IV ×2 (00:49→08:47)
[2022-08-09 03:54] VITALS: BP 97/60; PULSE 57; RESP 16; TEMP 36.8; O2SAT 95
[2022-08-09 05:23] LABS: Basophils % 0.1 %; Hemoglobin 12.9 g/dL (11.5-15.3); Lymphocytes % 14.6 %; Mean Corpuscular HGB Conc 32.3 g/dL (30.0-36.0); Mean Corpuscular Hemoglobin 29.5 pg (28.0-34.0); Mean Corpuscular Volume 91.5 fl (81-99); Mean Platelet Volume 9.9 fL (7.4-10.4); Monocytes # 0.6 10^3/uL (0.2-0.9); Monocytes % 4.4 %; Neutrophils # 11.01 10^3/uL (1.8-7.7); Neutrophils % 80.3 %; Nucleated Red Blood Cells % 0 %; Platelet Count 198 10^3/cmm (130-400); Red Blood Count 4.37 10^6/uL (4.1-5.3); Red Cell Distribution Width 12.3 % (12.1-15.1); White Blood Count 13.7 10^3/uL (4.0-10.0)
[2022-08-09 05:45] LABS: Anion Gap 11.2 (5-19); Blood Urea Nitrogen 9 mg/dL (6-20); Calcium 8.5 mg/dL (8.5-10.5); Carbon Dioxide 27 mmol/L (22-29); Chloride 103 mmol/L (98-107); Glomerular Filtration Rate 104.2 mL/min (90-130); Glucose 170 mg/dL (65-115); Osmolality Calculated 287 mOsm/kg (285-295); Potassium 4.2 mmol/L (3.5-5.1); Sodium 137 mmol/L (136-145)
--- NOTE | 2022-08-09 06:09 | PM.PN ---
Subjective Subjective: Patient overall has been doing well, tolerating p.o. intake and has been passing gas. Pain is under control. Adequate urine output. Trending down of leukocytosis. Medications: Reviewed: Yes Vitals/I&O/Wt Last Vital Signs Temp 98.3 F 08/09/22 03:54 Pulse 57 L 08/09/22 03:54 Resp 16 08/09/22 03:54 BP 97/60 08/09/22 03:54 Pulse Ox 95 08/09/22 03:54 O2 Del Method 08/09/22 03:54 O2 Flow Rate 2 08/09/22 03:54 FiO2 2 08/08/22 11:34 08/08/22 08/08/22 08/09/22 14:59 22:59 06:59 Intake Total 1291.25 / 1291.25 1340 / 2631.25 50 / 2681.25 Output Total / Balance 1266.25 / 1266.25 1340 / 2606.25 50 / 2656.25 Weight last 48 hrs Weight 199 lb Physical Exam Narrative: Patient is conscious alert oriented X3 No apparent distress BMI 35.3 Head and neck examination PERRLA no masses no cervical lymphadenopathy no jaundice Abdomen nontender except slightly at the incision sites nondistended soft no organomegaly guarding or rigidity/no signs of peritonitis. Dressing in place. Umbilical incision has dried bloody scab will clean with ChloraPrep and reapply a fresh dressing otherwise skin areli in place. Data 08/09/22 05:00 08/09/22 05:00 A&P Assessment and plan (1) Acute appendicitis: Assessment: 56 years old female patient status post laparoscopic appendectomy 08/08/2022 Plan: From surgical standpoint of view we can advance diet as tolerated and Patient can be discharged home(providing being appropriate for discharge from hospitalist's side) on oral antimicrobial therapy in the form of Augmentin 875 mg twice daily for 5 days. Hydromorphone (Dilaudid) p.o. 2 mg p.o. every 6 hours as needed total of 20 tablets no refill/also patient can use Tylenol as as needed patient reported that she does not have allergies to Tylenol per se. Return to surgery office this coming 08/14/2022 certified surgical technician Assurance and education All questions have been answered and all concerns have been addressed to patient's satisfaction. Attestations Medical Necessity Statement*: Per admitting service Coding Level of Care Code Acute [employer] Operator for [facility] Fwd Diagnoses Acute appendicitis K35.80
[2022-08-09 06:43] LABS: Glucose Point of Care 161 mg/dL (70-110)
[2022-08-09 07:42] VITALS: BP 109/72; PULSE 59; RESP 18; TEMP 36.7; O2SAT 90
[2022-08-09] MEDS: pantoprazole 40 mg SDV IVP (08:27)
[2022-08-09 08:32] VITALS: PULSE 62; RESP 18; O2SAT 92
[2022-08-09] MEDS: insulin lispro 100 unit/1 mL SUBCUT ×2 (08:47→12:50)
[2022-08-09] MEDS: levothyroxine 125 mcg Tablet PO (08:47)
[2022-08-09] MEDS: sodium chloride 0.9% 1,000 ML 100 ML IV (08:48)
[2022-08-09 10:59] LABS: Glucose Point of Care 195 mg/dL (70-110)
--- NOTE | 2022-08-09 11:09 | P.DS_ITS ---
Discharge Providers Date of Admission: 08/07/22 22:19 Date of Discharge: August 09, 2022 Attending Provider at Admission: Quinn Atkinson MD Attending Provider at Discharge: Jigar Duncan MD Primary Care Provider: Daksha Killian MD Diagnoses at Discharge Discharge Diagnosis (1) Acute appendicitis: Status: Resolved Reason for Visit Reason for Visit: ABD Pain Hospital Course Hospital Course 56-year-old female with past medical history of hypothyroidism COPD diabetes, hypertension, came in with chief complaint of severe right lower quadrant abdominal pain.? She was admitted for the management of Management of Acute appendicitis s/p aparoscopic appendectomy with umbilical hernia repair, during the hospital stay she was kept on Zosyn, discharged on p.o. Augmentin for 5 days.She was also managed for Other comorbid conditions which includes Diabetes, COPD, Hypothyroidism, Hypertension. At the time of discharge she was hemodynamically stable, she was discharged home to follow surgery as outpatient. Physical Exam HENMT: COMMON NORMALS: normocephalic and atraumatic HEAD & SCALP: normocephalic and atraumatic Cardio: COMMON NORMALS: regular rate, regular rhythm, S1 normal heart sound present, S2 normal heart sound present, No gallops present (Cardio), No murmurs present (Cardio), No rub (Cardio) and Peripheral pulses 2+ throughout RATE: regular rate RHYTHM: regular rhythm HEART SOUNDS: S1 normal heart sound present and S2 normal heart sound present PERIPHERAL PULSES: Peripheral pulses 2+ throughout GI: AUSCULTATION: Yes normoactive bowel sounds RECTAL EXAM: deferred OTHER: Mild abdominal tenderness at incision site Discharge Data Studies Completed and Pending Completed Studies During Hospitalization Category Date Time Status CT abdomen pelvis con [id number] Stat Cat Scan 08/07/22 20:53 Completed XR chest 1V portable [id number] Stat Exams 08/07/22 20:53 Completed Pending at discharge Category Date Time Status ES surgery / GI images Routine Exams 08/08/22 Taken Pathology: Surgical [PTH] Routine Pth 08/08/22 09:46 Received Radiology Impressions Abdomen/Pelvis CT 08/07/22 20:53 IMPRESSION: Acute appendicitis. ADDENDUM: 08/07/222133 Addendum: THIS REPORT CONTAINS FINDINGS THAT MAY BE CRITICAL TO PATIENT CARE. The findings were verbally communicated via telephone conference with ANTOLIN MORALES at 9:32 PM ELECTRONICS MANUFACTURER on 08/07/2022. The findings were acknowledged and understood. Chest X-Ray 08/07/22 20:53 IMPRESSION: No acute infiltrate. Laboratory Results WBC 13.7 10^3/uL (4.0-10.0) H 08/09/22 05:00 RBC 4.37 10^6/uL (4.1-5.3) 08/09/22 05:00 Hgb 12.9 g/dL (11.5-15.3) 08/09/22 05:00 Hct 40.0 % (37.0-47.0) 08/09/22 05:00 MCV 91.5 fl (81-99) 08/09/22 05:00 MCH 29.5 pg (28.0-34.0) 08/09/22 05:00 MCHC 32.3 g/dL (30.0-36.0) 08/09/22 05:00 RDW 12.3 % (12.1-15.1) 08/09/22 05:00 Plt Count 198 10^3/cmm (130-400) 08/09/22 05:00 MPV 9.9 fL (7.4-10.4) 08/09/22 05:00 Neut % (Auto) 80.3 % 08/09/22 05:00 Lymph % (Auto) 14.6 % 08/09/22 05:00 Clare % (Auto) 4.4 % 08/09/22 05:00 Eos % (Auto) 0.0 % 08/09/22 05:00 Baso % (Auto) 0.1 % 08/09/22 05:00 Neut # (Auto) 11.01 10^3/uL (1.8-7.7) H 08/09/22 05:00 Lymph # (Auto) 2.0 10^3/uL (0.8-4.8) 08/09/22 05:00 Clare # (Auto) 0.6 10^3/uL (0.2-0.9) 08/09/22 05:00 Eos # (Auto) 0.0 10^3/uL (0.0-0.8) 08/09/22 05:00 Baso # (Auto) 0.0 10^3/uL (0.0-0.1) 08/09/22 05:00 Nucleated RBC % (auto) 0 % 08/09/22 05:00 Nucleated RBCs # 0.0 /100WBC 08/09/22 05:00 PT 13.60 SECONDS (12.1-14.9) 08/07/22 20:55 INR 1.01 (0.8-1.2) 08/07/22 20:55 Sodium 137 mmol/L (136-145) 08/09/22 05:00 Potassium 4.2 mmol/L (3.5-5.1) 08/09/22 05:00 Chloride 103 mmol/L (98-107) 08/09/22 05:00 Carbon Dioxide 27 mmol/L (22-29) 08/09/22 05:00 Anion Gap 11.2 (5-19) 08/09/22 05:00 BUN 9 mg/dL (6-20) 08/09/22 05:00 Creatinine 0.6 mg/dL (0.5-0.9) 08/09/22 05:00 GFR Calculation 104.2 mL/min (90-130) 08/09/22 05:00 Glucose 170 mg/dL (65-115) H 08/09/22 05:00 POC Glucose 195 mg/dL (70-110) H 08/09/22 10:44 Calculated Osmolality 287 mOsm/kg (285-295) 08/09/22 05:00 Calcium 8.5 mg/dL (8.5-10.5) 08/09/22 05:00 Phosphorus 3.0 mg/dL (2.5-4.5) 08/08/22 03:13 Magnesium 1.8 mg/dL (1.7-2.3) 08/08/22 03:13 Total Bilirubin 0.5 mg/dL (0.15-1.2) 08/07/22 20:55 AST 25 U/L (0-32) 08/07/22 20:55 ALT 24 U/L (0-33) 08/07/22 20:55 Alkaline Phosphatase 104 U/L (35-105) 08/07/22 20:55 Troponin T Baseline 6 ng/L (0-10) 08/07/22 20:55 Troponin T 120 Minute 6.15 ng/L (0-10) 08/07/22 22:23 Delta Troponin T 0.15 ABS# (0-10) 08/07/22 22:23 Troponin T Hi Sens 6Hr 6.00 ng/L (0-10) 08/08/22 03:13 Troponin T Hi Sens 6Hr Delta -0.15 ng/L (0-12) L 08/08/22 03:13 C-Reactive Protein 11.6 mg/L (0.0-4.9) H 08/08/22 03:13 Total Protein 7.1 g/dL (6.6-8.7) 08/07/22 20:55 Albumin 4.3 g/dL (3.5-5.2) 08/07/22 20:55 Globulin 2.8 g/dL (1.3-4.6) 08/07/22 20:55 Lipase 29 U/L (13-60) 08/07/22 20:55 Vitals Last Vital Signs Temp 98.1 F 08/09/22 07:42 Pulse 62 08/09/22 08:32 Resp 18 08/09/22 08:32 BP 109/72 08/09/22 07:42 Pulse Ox 92 08/09/22 08:32 O2 Del Method 08/09/22 08:32 O2 Flow Rate 2 08/09/22 08:00 FiO2 2 08/08/22 11:34 Discharge Plan Discharge Patient Disposition: Home Condition: Stable Prescriptions: New amoxicillin-pot clavulanate 875-125 mg tablet 1 tab PO Q12H Qty: 10 0RF Dilaudid 2 mg tablet 2 mg PO Q6H PRN (Reason: pain) Qty: 28 0RF Rx Instructions: Patient received Dilaudid po with no issues, Patient s allergic to most narcotics. Continued (DME) pen needle, diabetic 33 gauge x 5/32 needle See Rx Instructions .ROUTE .MEDSUPPLY Qty: 100 5RF Rx Instructions: 4 time day (DME) blood-glucose meter [OneTouch Ultra2 Meter] Kit See Rx Instructions .Route Qty: 1 0RF Rx Instructions: As directed insulin aspart U-100 [Novolog Flexpen U-100 Insulin] 100 unit/mL (3 mL) insulin pen See Rx Instructions SUBCUT TID Qty: 15 2RF Hold Instructions: Patient No Longer Taking Rx Instructions: 3-24 U SUBCUT three times daily; Sliding Scale 110-129= 3U 130-150= 6U 151-200= 9U 201-250= 12U 251-300=15U 301-350=18U 351-400=21U >400=24U triamcinolone acetonide 0.1 % cream 1 applic topical BID Qty: 30 0RF (DME) Diabetic Shoes with 3 pairs of inserts See Rx Instructions .Route .MEDSUPPLY Qty: 1 0RF Rx Instructions: As directed by JUSTYNA&O atorvastatin 40 mg tablet 40 mg PO BEDTIME Qty: 90 0RF (DME) OneTouch Ultra Test Strip See Rx Instructions .Route Qty: 100 0RF Rx Instructions: use 3 times day cholecalciferol (vitamin D3) 75 mcg (3,000 unit) tablet 6,000 unit PO DAILY@08 Qty: 60 2RF gabapentin 600 mg tablet See Rx Instructions .ROUTE .COMPLEX Qty: 90 2RF Rx Instructions: TAKE 600 MG IN THE MORNING/ 1200 MG IN THE EVENING; levothyroxine 125 mcg tablet 125 mcg PO DAILY@08 Qty: 30 2RF Zenpep 3,000-10,000 -14,000-unit capsule,delayed release(DR/EC) 2 cap PO TID Qty: 180 0RF Rx Instructions: do not exceed 10,000 unit/kg lipase per 24 hrs metoprolol tartrate 25 mg tablet 25 mg PO Q12H Qty: 60 2RF Rx Instructions: at 0800,2000 Farxiga 10 mg tablet 10 mg PO QAM Qty: 30 2RF ropinirole 4 mg tablet 4 mg PO BEDTIME Qty: 30 2RF Ozempic 0.25 mg or 0.5 mg(2 mg/1.5 mL) pen injector 0.25 mg SUBCUT .weekly Qty: 1.5 2RF sucralfate [Carafate] 1 gram tablet 1 g PO TID Qty: 90 2RF rizatriptan [Maxalt] 10 mg tablet See Rx Instructions PO .COMPLEX Qty: 14 5RF Rx Instructions: take 1 tab at onset of headache; if no relief may repeat 1 tab after at least 2 hrs; max = 3 tabs/24 hr PO Levemir FlexTouch U-100 Insuln 100 unit/mL (3 mL) insulin pen 35 unit SUBCUT DAILY Qty: 15 2RF aspirin 81 mg Tablet,Delayed Release (Dr/Ec) 81 mg PO DAILY Qty: 90 0RF nitroglycerin 0.4 mg Tablet, Sublingual 0.4 mg sublingual Q5M PRN (Reason: Chest Pain) Qty: 25 0RF Miralax 17 gram powder in packet 17 g PO DAILY PRN (Reason: constipation) Qty: 14 0RF mupirocin 2 % ointment 1 applic topical BID Qty: 22 0RF Discharge Orders: Discharge Order (Routine); Ordered 08/09/22 Ordered By: Quinn Atkinson Referrals: Jigar Duncan MD [Physician] - (Return to surgery office , 14 August 2022. Call office for exact appointment) Daksha Killian MD [Primary Care Provider] - (Please call Thursday to schedule your appointment with Daksha Killian.) Discharge Diet: Advance as tolerated and Diabetic Discharge Activity: Limit activity as instructed Patient Instructions: Diabetes and Diet, Amoxicillin/Clavulanate Potassium (By mouth), Hydromorphone (By mouth), Appendicitis (GEN), Cigarette Smoking and Your Health (GEN), Obesity (GEN), Opioid Safety, Post Anesthesia Care Activity Restrictions/Additional Instructions: 1. Patient can shower after 48 hours from surgery 2. Remove secondary dressing can take down after 48 hours from surgery, otherwise leave incisions open to air.. 3. Up and walking as tolerated 4. Do lift more than 5 pounds first 2 weeks after surgery and not more than 25 pounds 6 to 8 weeks after surgery. 5. Do not operate heavy machinery or drive while using pain medications. 6.Contact the office or return to the ER for worsening nausea vomiting fevers or chills, or noticing any redness around incision sites or discharge. Discharge Attestations Time Spent in Discharge Care*: less than 30 min Quality Metrics Clinical Quality Measures [ No reported AMI, CVA or VTE this stay] Coding Level of Care Code Acute Chg FW DC note Diagnoses Acute appendicitis K35.80
[2022-08-09 11:41] VITALS: BP 97/54; PULSE 82; RESP 18; TEMP 36.7; O2SAT 87
== END 2022-08-09 14:29 | disposition home or self-care (01) ==
LOC: ER 21:52 → MEDSURG 22:35
PROVIDERS: Internal Medicine; Admitting Provider Internal Medicine; Emergency Provider Emergency Medicine; PCP Family Medicine; Visit Provider Surgery
PROC: 0DTJ4ZZ Resection of Appendix, Percutaneous Endoscopic Approach (ICD-10-PCS; CPT 44970; principal; 2022-08-08 07:00)
DX: K35.33 Acute appendicitis with perforation, localized peritonitis, and gangrene, with abscess (principal); K42.9 Umbilical hernia without obstruction or gangrene; E03.9 Hypothyroidism, unspecified; J44.9 Chronic obstructive pulmonary disease, unspecified; I10 Essential (primary) hypertension; E55.9 Vitamin D deficiency, unspecified; E11.40 Type 2 diabetes mellitus with diabetic neuropathy, unspecified; G47.10 Hypersomnia, unspecified; E11.65 Type 2 diabetes mellitus with hyperglycemia; Z79.4 Long term (current) use of insulin
CPT/HCPCS: 44970; 36415; 36416; 71045; 74176; 80048; 80053; 82962; 83690; 83735; 84100; 84484; 85025; 85610; 86140; 88302; 88304; 93005; 94660; 94664; 96365; 96372; 96375; 99285; C9113; G0378; J1100; J1170; J1200; J1644; J1815; J2250; J2370; J2405; J2543; J2704; J2710; J3010; J3490; J7030

== ENCOUNTER → 2022-08-20 10:09 | Outpatient (BNVA) | payer MEDICAID, SELFPAY | PROVIDERS: PCP Family Medicine; Visit Provider Nurse Practitioner | DX: E11.9 Type 2 diabetes mellitus without complications (principal); Z79.4 Long term (current) use of insulin | CPT/HCPCS: 80053; 80061; 83036; 84443 ==

== ENCOUNTER → 2022-11-04 16:38 | Outpatient (BNVA) | payer MEDICAID, SELFPAY | PROVIDERS: PCP Nurse Practitioner; Visit Provider Nurse Practitioner Family | DX: E11.65 Type 2 diabetes mellitus with hyperglycemia (principal); Z79.4 Long term (current) use of insulin; R05.8 Other specified cough; R11.0 Nausea | CPT/HCPCS: 87400 ==

== ENCOUNTER 2022-11-17 13:20 | Outpatient (CLI) | payer MEDICAID, SELFPAY ==
--- NOTE | 2022-11-17 13:45 | MR_ITS ---
WS: [id number] MRI LEFT KNEE NONCONTRAST TECHNIQUE: Axial PD, coronal PD fat sat, coronal PD, sagittal PD, and sagittal PD fat-sat images obta ined. CLINICAL INFORMATION: E11.22 - Type 2 diabetes mellitus with diabetic chronic k... COMPARISON: MRI 2008 FINDINGS: Moderate tricompartmental arthritis is progressed compared to 2008. Distal quadriceps and patella ten dons are intact. Moderate suprapatellar effusion with synovial thickening. Lobulated popliteal cyst m easuring 3.6 x 1.7 x 3.9 CM. ACL is not visualized likely chronically torn. Normal PCL. Chronic thinn ing of the medial and lateral meniscus. Blunting of the posterior horn medial meniscus with complex t ear extending to the peripheral free edge and meniscal root with blunting. This appears new from prev ious. Peripheral extrusion of the medial meniscus. Normal MCL and LCL Multilobulated synovial, parameniscal or ganglion cyst measuring 4.3 x 1.8 cm extends to the medial j oint capsule. Grade IV chondromalacia involving the medial joint compartment with subchondral edema. Advanced chondromalacia patella with full-thickness cartilage defect. No significant subchondral alejandra a. MR/MR knee LT wo con* [id number] IMPRESSION: 1. ACL not visualized likely chronically torn. 2. Normal PCL. 3. Tear of the posterior horn medial meniscus with blunting is new from previo us. 4. Advanced joint space narrowing medial joint compartment with grade IV chond romalacia and subchondral edema. 5. Advanced chondromalacia patella with full-thickness cartilage defect. 6. Lobulated popliteal cyst. Additional multiseptated ganglion, para meniscal, or synovial cyst extending to the medial joint line. Outbridge grading: grade IV: full-thickness cartilage loss with underlying bone reactive changes
== END 2022-11-17 13:21 | disposition home or self-care (01) ==
PROVIDERS: PCP Nurse Practitioner; Visit Provider Nurse Practitioner
DX: E11.22 Type 2 diabetes mellitus with diabetic chronic kidney disease (principal); M71.22 Synovial cyst of popliteal space [Baker], left knee; M22.42 Chondromalacia patellae, left knee; S83.242A Other tear of medial meniscus, current injury, left knee, initial encounter; X58.XXXA Exposure to other specified factors, initial encounter
CPT/HCPCS: 73721

== ENCOUNTER → 2022-11-28 10:20 | Outpatient (BNVA) | payer MEDICAID, SELFPAY | PROVIDERS: PCP Nurse Practitioner; Visit Provider Nurse Practitioner | DX: E11.65 Type 2 diabetes mellitus with hyperglycemia (principal); Z79.4 Long term (current) use of insulin; E55.9 Vitamin D deficiency, unspecified | CPT/HCPCS: 80053; 80061; 81000; 82043; 82306; 83036; 84443 ==

== ENCOUNTER → 2022-12-08 10:49 | Outpatient (BNVA) | payer MEDICAID, SELFPAY | PROVIDERS: PCP Nurse Practitioner; Visit Provider Orthopaedic Surgery | DX: M17.12 Unilateral primary osteoarthritis, left knee (principal); I10 Essential (primary) hypertension | CPT/HCPCS: 80048; 85025 ==

== ENCOUNTER 2022-12-24 07:41 | Outpatient (CLI) | payer MEDICAID, SELFPAY ==
--- NOTE | 2022-12-24 07:30 | CT_ITS ---
WS: [id number] CT LEFT KNEE, NONCONTRAST TECHNIQUE: Noncontrast CT of the LEFT knee to include the LEFT hip and ankle. [facility] CLINICAL INFORMATION: pre op planning COMPARISON: None. DLP: 942.[address] scans at [facility] use at least one of these dose optimization techniques: automated e xposure control; mA and/or kV adjustment per patient size (includes targeted exams where dose is matc hed to clinical indication); or iterative reconstruction. FINDINGS: Moderate tricompartmental arthritis LEFT knee. Hypertrophic changes along the joint line. Joint space narrowing patellofemoral articulation. Slightly hypertrophic patella. Small to moderate suprapatella r effusion. Lobulated popliteal cyst. Mild degenerative arthritis both hips. CT/CT knee LT wo con* [id number] IMPRESSION: Images obtained for preoperative purposes.
== END 2022-12-24 07:42 | disposition home or self-care (01) ==
PROVIDERS: PCP Nurse Practitioner; Visit Provider Orthopaedic Surgery
DX: M17.12 Unilateral primary osteoarthritis, left knee (principal)
CPT/HCPCS: 73700

== ENCOUNTER 2022-12-29 11:03 | Outpatient (CLI) | payer MEDICAID, SELFPAY | END 2022-12-29 11:04 | disposition home or self-care (01) | LOC: RT 01-05 11:03 | PROVIDERS: PCP Nurse Practitioner; Visit Provider Orthopaedic Surgery | DX: Z01.810 Encounter for preprocedural cardiovascular examination (principal) | CPT/HCPCS: 93005 ==

== ENCOUNTER 2023-01-05 09:38 | Observation (INO) | payer MEDICAID, SELFPAY ==
--- NOTE | 2022-12-29 09:39 | ECG_ITS ---
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 Measurements Intervals [place] Rate: 72 P: 39 IN: 157 QRS: 14 QRSD: 96 T: 33 QT: 396 QTc: 436 Interpretive Statements SINUS RHYTHM Compared to ECG 08/07/2022 20:59:35 Sinus bradycardia no longer present Electronically Signed On 12-30-2022 0:26:44 CDT by Geri Díaz M.D. [email or web address] health allen hospitalGenable [id number]
[2022-12-29 09:52] LABS: Basophils # 0.1 10^3/uL (0.0-0.1); Basophils % 0.7 %; Eosinophils # 0.2 10^3/uL (0.0-0.8); Eosinophils % 2.4 %; Hematocrit 44.3 % (37.0-47.0); Hemoglobin 14.8 g/dL (11.5-15.3); Lymphocytes # 2.4 10^3/uL (0.8-4.8); Lymphocytes % 30.1 %; Mean Corpuscular HGB Conc 33.4 g/dL (30.0-36.0); Mean Corpuscular Hemoglobin 28.7 pg (28.0-34.0); Mean Corpuscular Volume 85.9 fl (81-99); Mean Platelet Volume 9.6 fL (7.4-10.4); Monocytes # 0.5 10^3/uL (0.2-0.9); Monocytes % 5.8 %; Neutrophils # 4.89 10^3/uL (1.8-7.7); Neutrophils % 60.8 %; Nucleated Red Blood Cells % 0 %; Platelet Count 208 10^3/cmm (130-400); Red Blood Count 5.16 10^6/uL (4.1-5.3); Red Cell Distribution Width 13.2 % (12.1-15.1); White Blood Count 8.1 10^3/uL (4.0-10.0)
--- NOTE | 2022-12-29 09:55 | ANES.PREANE2 ---
Pre-Anesthetic Assessment Height/Weight: Height 1.6 m Weight 104.326 kg Operation Date: 01/05/23 07:00 Proposed Procedures p left total knee makoplasty/ 90703,M17.?12(Left) - Pedro Mitchell MD Familial anesthetic complications: None Social Tobacco and No alcohol Exam alert, oriented x 3, clear to auscultation bilaterally and regular rate & rhythm Airway Mallampati: Class III Dentition: false Pulmonary Chronic Obstructive Pulmonary Disease and Sleep Apnea CV/HEM Hypertension GI Gastroesophageal Reflux Disease Metabolic Diabetes Mellitus, Morbid Obesity and Thyroid Disease Neuropsych narcolepsy Anesthetic Plan ASA status: 3 Anesthesia: Regional (specify below) (spinal + adducctor) Risk of > 500 ml blood loss (7ml/kg in children): No Medications/Allergies Home Medications Medication Instructions Recorded Confirmed Last Taken Type nitroglycerin 0.4 mg sublingual 0.4 mg sublingual Q5M PRN Chest 07/22/21 12/29/22 Unknown Rx tablet Pain #25 tabs blood-glucose meter (OneTouch #1 ea 10/25/21 12/16/22 Unknown Rx Ultra2 Meter kit) pen needle, diabetic 33 gauge x #100 ea 10/25/21 12/02/22 Unknown Rx 5/32 Diabetic Shoes with 3 pairs of #1 ea 05/06/22 12/02/22 Unknown Rx inserts blood sugar diagnostic (OneTouch #100 ea 05/14/22 12/16/22 Unknown Rx Ultra Test strips) rizatriptan 10 mg tablet (Maxalt) See Rx Instructions PO .COMPLEX 06/06/22 12/29/22 12/22/22 Rx #14 tabs atorvastatin 40 mg tablet 40 mg PO BEDTIME #90 tabs 11/28/22 12/29/22 12/28/22 Rx dapagliflozin 10 mg tablet 10 mg PO QAM #30 tabs 11/28/22 12/29/22 12/29/22 Rx (Farxiga) gabapentin 600 mg tablet See Rx Instructions .Route 11/28/22 12/29/22 12/29/22 Rx .COMPLEX #90 tabs insulin detemir U-100 100 unit/mL 15 unit (0.15 mL) SUBCUT DAILY #15 11/28/22 12/29/22 12/29/22 Rx (3 mL) subcutaneous pen (Levemir mL FlexTouch U-100 Insulin) levothyroxine 125 mcg tablet 125 mcg PO DAILY@08 #30 tabs 11/28/22 12/29/22 12/29/22 Rx metoprolol tartrate 25 mg tablet 25 mg PO Q12H #60 tabs 11/28/22 12/29/22 12/29/22 Rx sucralfate 1 gram tablet (Carafate) 1 g PO TID #90 tabs 11/28/22 12/29/22 Unknown Rx tizanidine 4 mg tablet (Zanaflex) 4 mg PO BID muscle spasticity #60 11/28/22 12/29/22 12/29/22 Rx tabs liraglutide 0.6 mg/0.1 mL (18 mg/3 See Rx Instructions SUBCUT 12/11/22 12/29/22 12/15/22 Rx mL) subcutaneous pen injector .COMPLEX #9 mL (Victoza 3-Marco) Allergies Allergy/AdvReac Type Severity Reaction Status Date / Time aspirin Allergy Unknown Verified 12/29/22 09:12 codeine Allergy ADR-Itching Verified 12/29/22 09:12 oxycodone Allergy Unknown Verified 12/29/22 09:12 tetracycline Allergy Unknown Verified 12/29/22 09:12 topiramate [From Topamax] Allergy ADR-Itching Verified 12/29/22 09:12 tramadol [From Ultram] Allergy Unknown Verified 12/29/22 09:12 [facility] Anesthesia Medical History (Updated 12/16/22 @ 10:50 by Chad Turner NP) Adult hypothyroidism Anxiety and depression Arm numbness Bronchitis Chronic migraine COPD (chronic obstructive pulmonary disease) CPAP (continuous positive airway pressure) dependence Diabetes mellitus with hyperglycemia, with long-term current use of insulin Diabetic foot Diabetic neuropathy Diabetic peripheral neuropathy associated with type 2 diabetes mellitus 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 Dyslipidemia GERD (gastroesophageal reflux disease) Hypersomnia Hypertension Narcolepsy Reflux esophagitis Right foot pain RLS (restless legs syndrome) Smoking Type 2 diabetes mellitus Vitamin D deficiency Surgical History History of back surgery History of laparoscopic appendectomy 08/08/22 Hx of hemorrhoidectomy Hx of hernia repair Hx of hysterectomy Hx of tonsillectomy Hx of umbilical hernia repair 08/08/22 Dr. Duncan Family History Other Diabetes Hypertension Social History Smoking and tobacco status: current every day smoker cigarettes Packs smoked per day: 1 Years cigarettes smoked: 35 Second hand smoke exposure: No Smoking risk assessment/counseling performed?: Yes Alcohol intake: unknown Desire information about alcohol rehabilitation?: No Counseling given: No Substance/Drug Use: unknown Desire information about substance/drug rehabilitation?: No Counseling given: No Adopted: No Caregiver/support person: No Lives independently: Yes Household members: family Marital status: Number of children: 5 service: No Current occupational status: unemployed Current occupational exposures/hazards: No Pets and animals: Yes Do you think of yourself as: Straight/Heterosexual Current gender identity: Female Data Anesthesia 12/29/22 09:30 12/29/22 09:30 Short CBC 12/29/22 Range/Units 09:30 WBC 8.1 (4.0-10.0) 10^3/uL Hgb 14.8 (11.5-15.3) g/dL Hct 44.3 (37.0-47.0) % MCV 85.9 (81-99) fl Plt Count 208 (130-400) 10^3/cmm Neut % (Auto) 60.8 % Neut # (Auto) 4.89 (1.8-7.7) 10^3/uL Cardiac Studies: Sestamibi Stress Test (Cardiology) 07/21/21
[2022-12-29 10:10] LABS: Anion Gap 14.6 (5-19); Blood Urea Nitrogen 11 mg/dL (6-20); Calcium 9.4 mg/dL (8.5-10.5); Carbon Dioxide 26 mmol/L (22-29); Chloride 104 mmol/L (98-107); Glomerular Filtration Rate 86.9 mL/min (90-130); Glucose 163 mg/dL (65-115); Osmolality Calculated 295 mOsm/kg (285-295); Potassium 3.6 mmol/L (3.5-5.1); Sodium 141 mmol/L (136-145)
[2022-12-29 10:40] LABS: Add Urine Microscopic? YES; Bilirubin Urine Neg (Negative); Blood Urine Neg (Negative); Glucose Urine UA 4+ (Normal); Ketones Urine Negative (Negative); Leukocyte Esterase Urine 1+ (Negative); Nitrate Urine Negative (Negative); Protein Urine Trace (Negative); Urine Appearance Clear (CLEAR); Urine Color Yellow (Yellow); Urobilinogen Urine Norm (Negative); pH Urine 5 (5-7)
[2022-12-29 10:41] LABS: Add Urine Culture? No; Bacteria Urine 2+ /hpf
[2023-01-05] VITALS (24 sets, daily range): BP systolic 96–142; BP diastolic 58–83; PULSE 50–103; RESP 16–21; TEMP 36.1–36.8; O2SAT 90–99; BMI 40.7
[2023-01-05] MEDS: sodium chloride 0.9% 1,000 ML 30 ML IV (06:15)
[2023-01-05] MEDS: CELEcoxib 200 mg Capsule 400 MG PO (06:15)
[2023-01-05] MEDS: gabapentin 300 mg Capsule PO (06:16)
[2023-01-05] MEDS: acetaminophen 500 mg Tablet 1000 MG PO ×3 (06:16→22:08)
[2023-01-05 06:19] LABS: Glucose Point of Care 252 mg/dL (70-110)
[2023-01-05] MEDS: insulin regular-human 100 units/1 mL 10 UNIT IVP (07:01)
--- NOTE | 2023-01-05 07:01 | W.PM.OPSFHP ---
Same Day Surgery H&P Indication for Procedure/HPI DATE OF PROCEDURE: January 05, 2023 CHIEF COMPLAINT/INDICATIONFOR SURGICAL PROCEDURE: Osteoarthritis left knee here for left total knee arthroplasty PREOP DIAGNOSIS: Osteoarthritis Left knee PLANNED PROCEDURE: Operation Date: 01/05/23 07:00 Proposed Procedures p left total knee makoplasty/ 93164,M17.?12(Left) - Pedro Mitchell MD She has a long history of pain knee.? She underwent arthroscopy 3 years ago with little improvement.? She has tried Celebrex without help.? She states the pain is worse some days than others.? It is nearly always present a 2/10 intensity.? She states on some days is so severe she can barely get to the front door.? 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 She states the job allows her to sit for large portions of the day but on some days it is even difficult for her to get to work.? She feels the pain is increased to the point where she must get something done.? She is concerned about her ability to work.? An MRI was obtained revealing severe medial joint space and patellofemoral joint space narrowing. She is here for elective left total knee arthroplasty. Medications/Allergies* Allergies/Adverse Reactions Allergy/AdvReac Type Severity Reaction Status Date / Time aspirin Allergy Unknown Verified 12/29/22 09:12 codeine Allergy ADR-Itching Verified 12/29/22 09:12 oxycodone Allergy Unknown Verified 12/29/22 09:12 tetracycline Allergy Unknown Verified 12/29/22 09:12 topiramate [From Topamax] Allergy ADR-Itching Verified 12/29/22 09:12 tramadol [From Ultram] Allergy Unknown Verified 12/29/22 09:12 Current Medications: Generic Name Dose Route Start Last Admin Trade Name Freq PRN Reason Stop Dose Admin Sodium Chloride 1,000 mls @ 30 mls/hr 01/05/23 05:45 01/05/23 06:15 Sodium Chloride 0.9% IV 01/06/23 05:44 30 mls/hr .Q24H RUBIO Administration Pertinent History/Comorbid Conditions* Medical History (Updated 12/16/22 @ 10:50 by Chad Turner NP) Adult hypothyroidism Anxiety and depression Arm numbness Bronchitis Chronic migraine COPD (chronic obstructive pulmonary disease) CPAP (continuous positive airway pressure) dependence Diabetes mellitus with hyperglycemia, with long-term current use of insulin Diabetic foot Diabetic neuropathy Diabetic peripheral neuropathy associated with type 2 diabetes mellitus 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 Dyslipidemia GERD (gastroesophageal reflux disease) Hypersomnia Hypertension Narcolepsy Reflux esophagitis Right foot pain RLS (restless legs syndrome) Smoking Type 2 diabetes mellitus Vitamin D deficiency Surgical History (Updated 09/24/22 @ 13:45 by Ramirez Cheatham DO) History of back surgery History of laparoscopic appendectomy 08/08/22 Hx of hemorrhoidectomy Hx of hernia repair Hx of hysterectomy Hx of tonsillectomy Hx of umbilical hernia repair 08/08/22 Dr. Duncan Family History (Updated 09/06/19 @ 07:59 by Indiana Desouza LPN) Diabetes Hypertension Social History Smoking and tobacco status: current every day smoker cigarettes Packs smoked per day: 1 Years cigarettes smoked: 35 Second hand smoke exposure: No Smoking risk assessment/counseling performed?: Yes Alcohol intake: unknown Desire information about alcohol rehabilitation?: No Counseling given: No Substance/Drug Use: unknown Desire information about substance/drug rehabilitation?: No Counseling given: No Adopted: No Caregiver/support person: No Lives independently: Yes Household members: family Marital status: Number of children: 5 service: No Current occupational status: unemployed Current occupational exposures/hazards: No Pets and animals: Yes Do you think of yourself as: Straight/Heterosexual Current gender identity: Female Pertinent Exam Findings alert, oriented x 3, clear to auscultation bilaterally, regular rate & rhythm and operative site marked Adriana is a bit heavy but in no obvious distress.? She is pleasant and answers questions appropriately. She has mild swelling about the left knee Motion is from 10 degrees short of full extension to 110 degrees. Patella tracks well. Sharp tenderness over medial joint line. Strong dorsalis pedis pulses. MOTOR: Strong quadriceps hamstrings tibialis anterior and extensor houses longus strength SENSATION: Intact to light touch Recommendations Surgery/Procedure today Coding Level of Care Code Acute Code for Chg Fwd Diagnoses
[2023-01-05] MEDS: ceFAZolin 2,000 MG in sodium chloride 0.9% (plus) 50 ML 100 MG IV ×3 (07:05→22:09)
[2023-01-05] MEDS: tranexamic acid 1,000 mg/10mL SDV 1000 MG IV (07:30)
[2023-01-05] MEDS: tranexamic acid 1,000 mg/10mL SDV 1000 MG XX (08:10)
[2023-01-05] MEDS: ketorolac 30 mg/mL INJ XX (08:10)
[2023-01-05] MEDS: EPINEPHrine 1 mg/mL INJ XX (08:10)
[2023-01-05] MEDS: sodium chloride 0.9% 100 mL Bag XX (08:15)
--- NOTE | 2023-01-05 09:10 | XRR_ITS ---
PROCEDURE INFORMATION: Exam: XR Right Knee Exam date and time: 01/05/2023 9:28 AM Age: 57 years old Clinical indication: Device placement; Joint replacement hardware; Prior surgery; Surgery date: Post-operative (0-2 days); Surgery type: Tka; Additional info: Right total knee arthroplasty TECHNIQUE: Imaging protocol: Radiologic exam of the right knee. Views: 1 or 2 views. COMPARISON: CR XR knee RT 3V* [id number] 10/29/2018 4:36 PM FINDINGS: Bones/joints: Total knee arthroplasty noted. Good bone implant interface identified. No fracture or dislocation. Soft tissues: Expected postsurgical subcutaneous emphysema noted. Other findings: Flabella noted. XR/XR knee RT 1-2V [id number] IMPRESSION: Postoperative expected changes related to total knee arthroplasty.
--- NOTE | 2023-01-05 09:38 | P.OP_ITS ---
Operative Report Date of procedure: January 05, 2023 Pre-op diagnosis: Preop Diagnosis Osteoarthritis Left knee Post-op diagnosis: same Post-op diagnosis: Same Post-op findings: Same Procedure done: Left total knee arthroplasty Implants: Philpot Triathalon total knee arthroplasty components were used includin) Size 4 triathalon cruciate retaining femoral component 2) Size 4 Tritanium tibial component 3) Size 4/9mm thickness CS tibial bearing insert Pathology: none sent Surgeon: Pedro Mitchell Occupational Therapy Department Chair: Sixto Bocanegra Occupational Therapy Department Chair: The nurse practitioner the nurse practitioner assisted with critical portions of the case including positioning, draping, exposure, component implantation, closure and dressing application and is present through the entirety of the case. Anesthesia: Nerve Block (Spinal, adductor canal block) Estimated blood loss (mL): 100 Findings: The patient eburnated bone over the medial femoral condyle and medial tibial plateau. There was minimal patellar chondromalacia and the patella articulated well with the trochlea Condition: stable Disposition: PACU Procedure: The patient was taken to the operating room. Patient was given 1 g of tranexamic acid and 2 g of Ancef. The above anesthesia provided by the anesthesia service. A timeout was performed. The patient was prepped and draped in the usual fashion with the lower extremity exposed. A anterior incision was made, midline, from a point proximal to the patella to the distal tibial tubercle. The knee was entered through a medial parapatellar approach. The patella could be displaced laterally and the knee flexed. The patellar fat pad was resected to provide better visibility. Retractors were placed medially and laterally adjacent to the tibial plateau. At a point approximately 8 cm above the patella, 2 small incisions were made wi th a scalpel blade and 2 long threaded pins were placed into the anterior medial femur engaging both cortices. The femoral arrays were placed over these pins and secured. At a point 8 cm distal to the tibial tubercle. 2 shorter bicortical threaded pins were placed across the anterior medial tibia and the tibial arrays placed. A checkpoint was made just proximal and medial to the medial femoral condyle and just medial to the tibial plateau. Small osteotomes were placed in the joint in both flexion and extension to determine ligamentous laxity. []. The [employer] robot was then introduced to the field and the femur and tibia cut in accordance with our plan. Lecture cautery was then applied across the posterior capsule for additional hemostasis. he posterior capsule and collateral ligaments were then injected with a solution of 100 mL of 0.2% ropivacaine, 1 mL of a 1:1000 epinephrine solution, 30 mg of Toradol, and 1 g of tranexamic acid. FA trial with the above components provided excellent stability and full range of motion. A gentamicin irrigation solution was used during cutting and to irrigate surfaces before implantation of components. The femur was then prepared for the femoral pegs of the component in the tibia for the tibial component. The femur and tibia were then press-fit into place. An osteotome was used to remove the lateral 8 mm of the patella to minimize chances of later impingement. A neurectomy was accomplished circumferentially about the patella with electrocautery and lateral osteophytes removed. Surfaces were cleaned with a gentamicin solution. The femur and tibia were then press-fit into place. Tinal polyethylene component was then snapped into place into the tibia. The knee was then soaked in a 0.35% Betadine solution. Excessive betadine was removed with suction. The extensor retinaculum was closed with a running 1 Stratafix interrupted 1 Ethibond. The subcutaneous tissues were closed with 2-0 Vicryl and the skin was closed with a running 4-0 Stratafix. The wound was covered with a Dermabond Prineo dressing. It was covered with 4xrs and a compressive Tubigauze was applied. The patient was taken to recovery room in stable condition.
--- NOTE | 2023-01-05 09:55 | P.ANESUD_ITS ---
Pre-Anesthetic Update Pre-Anesthetic Assessment: Date of Surgery/Procedure: 01/05/23 Preop [place] gnosis: Osteoarthritis Left knee Proposed Procedure: Operation Date: 01/05/23 07:00 Proposed Procedures p left total knee makoplasty/ 81170,M17.?12(Left) - Pedro Mitchell MD Any changes to Pre-Anesthetic Assessment?: No Last Intake: Intake Last Liquid Date 01/04/23 Last Liquid Time 00:00 Last Solid Date 01/04/23 Last Solid Time 21:00 Vitals: Temperature 98.0 F 01/05/23 09:44 Temperature Source Temporal Artery S can 01/05/23 09:44 Pulse Rate 89 01/05/23 09:44 Respiratory Rate 17 01/05/23 09:44 Blood Pressure 108/66 01/05/23 09:44 Blood Pressure Stefanie n 80 01/05/23 09:44 Pulse Oximetry 94 01/05/23 09:44 Oxygen Delivery Me thod Nasal Cannula 01/05/23 09:44 Oxygen Flow Rate 3 01/05/23 09:44 Exam: Pre-Anes Outpt Exam: alert, oriented x 3, clear to auscultation bilaterally and regular rate & rhythm Cardiac Studies: Sestamibi Stress Test (Cardiology) 07/21 Anesthesia Procedures Nerve Block: Nerve Block 1: Main Anesthesia: spinal anesthesia block Time Out Performed: Yes Consent: requested by attending/covering physician, from patient, risks and benefits reviewed and patient agrees to proceed Nerve block location: adductor canal (left) Anesthesia monitors applied: pulse oximetry, EKG, BP cuff and oxygen Nerve block position: supine Anesthetic Used: ropivicaine 0.5% Amount of anesthesia used (mL): 20 Ultrasound used to: recognize landmarks Nerve Stimulator Used?: No Interscalene/Femoral BLK: 4 stimuplex 21 g needle used for position and inplane approach Injection: neg aspiration of heme Patient Tolerated Procedure: well Complications: none
[2023-01-05] MEDS: morphine 4 mg/mL SDV 1 mL 2 MG IVP (11:00)
[2023-01-05 11:12] LABS: Glucose Point of Care 220 mg/dL (70-110)
[2023-01-05] MEDS: sodium chloride 0.9% 1,000 ML 100 ML IV ×2 (12:30→20:21)
--- NOTE | 2023-01-05 13:41 | ANE.PACU2 ---
Inpatient post-anesthesia follow up: Airway intact: Yes Vital signs: Temperature 97.4 F Pulse Rate 70 Respiratory Rate 16 Blood Pressure 105/67 Pulse Oximetry 93 Oxygen Delivery Me thod Nasal Cannula Oxygen Flow Rate 3 Fraction of Inspir ed Oxygen Hydration adequate: Yes Nausea and vomiting: No Pain level: 1 Mental status: Baseline
[2023-01-05 14:26] LABS: Glucose Point of Care 211 mg/dL (70-110)
[2023-01-05] MEDS: sucralfate 1 gm Tablet PO ×2 (16:06→20:18)
[2023-01-05 16:27] LABS: Glucose Point of Care 213 mg/dL (70-110)
[2023-01-05] MEDS: sennosides-docusate Tablet 2 TAB PO (17:42)
[2023-01-05] MEDS: CELEcoxib 200 mg Capsule PO (17:42)
[2023-01-05] MEDS: insulin lispro 100 unit/1 mL SUBCUT ×2 (17:42→22:05)
[2023-01-05] MEDS: atorvastatin 40 mg Tablet PO (20:18)
[2023-01-05] MEDS: gabapentin 400 mg Capsule 1200 MG PO (20:18)
[2023-01-05] MEDS: tizanidine 4 mg Tablet PO (20:18)
[2023-01-05 22:09] LABS: Glucose Point of Care 178 mg/dL (70-110)
[2023-01-06 03:59] VITALS: BP 146/77; PULSE 78; RESP 18; TEMP 37; O2SAT 97
[2023-01-06] MEDS: acetaminophen 500 mg Tablet 1000 MG PO (06:05)
[2023-01-06] MEDS: CELEcoxib 200 mg Capsule PO (06:06)
[2023-01-06] MEDS: ceFAZolin 2,000 MG in sodium chloride 0.9% (plus) 50 ML 100 MG IV (06:06)
[2023-01-06] MEDS: sodium chloride 0.9% 1,000 ML 100 ML IV (06:08)
[2023-01-06 06:11] VITALS: RESP 17
[2023-01-06 06:26] LABS: Hemoglobin 13.4 g/dL (11.5-15.3)
[2023-01-06 06:45] LABS: Glucose Point of Care 196 mg/dL (70-110)
--- NOTE | 2023-01-06 08:17 | PC.OT ---
OT evaluation attempted at 0805. Pt. participating in PT at this time. OT evaluation to be attempted later in the day.
[2023-01-06 08:26] VITALS: BP 136/84; PULSE 91; RESP 17; TEMP 36.9; O2SAT 93
[2023-01-06 08:33] VITALS: PULSE 90; O2SAT 94
[2023-01-06] MEDS: sucralfate 1 gm Tablet PO (08:55)
[2023-01-06] MEDS: insulin lispro 100 unit/1 mL SUBCUT (08:55)
[2023-01-06] MEDS: tizanidine 4 mg Tablet PO (08:56)
[2023-01-06] MEDS: sennosides-docusate Tablet 2 TAB PO (08:56)
[2023-01-06] MEDS: levothyroxine 125 mcg Tablet PO (08:57)
[2023-01-06] MEDS: metoprolol tartrate 25 mg Tablet PO (08:57)
--- NOTE | 2023-01-06 10:11 | PC.CHAP ---
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 visit [] Patient/Family/Request visit [] Outpatient visit [] Follow-up visit [] Physician referral [] Code/Alert [] Routine visit [] Staff referral [] Actively dying [] Patient sleeping [] Family support [] [] Out of room [] Palliative care [] [] Receiving care in room [] Pre-surgical visit [] Trauma [] Long length of stay [] ICU visit [] Other: Relational/Emotional Strength [] Patient feels connected with others/family/visitors/staff [] Distress [] Loneliness/isolation [] Abandonment Spirituality of Patient [] Person of Nita [] Attends Druze of their Nita [] Believes in Prayer [] Reads Bible or Synagogue materials [x] There are Spiritual issues to be addressed Intervention Analyst Interventions [] Prayer [] Active listening [] Non-anxious presence [] Spiritual/emotional support [] Crisis/trauma care [] Spiritual counseling [] Bereavement support [] Provided bereavement packet [] Provided Bible/devotional materials [] Provided toy/stuffed animal, coloring book to patient or family member [] Provided Communion [] Anointing/[place] [] Salvation [] Completed spiritual assessment [] Other: Impact on Illness or Injury [] Angry [] Fearful [] Anxious [] Often cries [] Exhaustion [] Unable to work [] Unable to attend yarsani [] Unable to walk/stand [] Unable to read [] Unable to drive [] Unable to eat/drink [] Unable to sleep [] Unable to be with family [] Patient intubated [] Other: Summary Time spent with patient
[2023-01-06 10:47] VITALS: RESP 18
--- NOTE | 2023-01-06 10:48 | P.DS_ITS ---
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 She failed a reasonable conservative program including anti-inflammatories. She was admitted for elective left total knee arthroplasty Hospital Course Hospital Course The patient tolerated surgery well. They remained hemodynamically stable. They was begun on aspirin and foot pumps for DVT prophylaxis. Patient had multiple allergies to medications particularly pain medications but could be successfully managed with Dilaudid. The patient was mobilized with therapy beginning the day of surgery and by the first postoperative day independent with the walker. As the pain was adequately controlled and they were fully mobile they were discharged home. Physical Exam Narrative: On the day of discharge the knee incision was clean. They had no drainage. There is minimal swelling in the thigh and knee and the calf. No distal neurovascular deficits were noted Discharge Data Studies Completed and Pending Completed Studies During Hospitalization Category Date Time Status XR knee RT 1-2V [id number] Routine Exams 01/05/23 09:10 Completed Radiology Impressions Knee X-Ray 01/05/23 09:10 IMPRESSION: Postoperative expected changes related to total knee arthroplasty. Laboratory Results WBC 8.1 10^3/uL (4.0-10.0) 12/29/22 09:30 RBC 5.16 10^6/uL (4.1-5.3) 12/29/22 09:30 Hgb 13.4 g/dL (11.5-15.3) 01/06/23 06:15 Hct 44.3 % (37.0-47.0) 12/29/22 09:30 MCV 85.9 fl (81-99) 12/29/22 09:30 MCH 28.7 pg (28.0-34.0) 12/29/22 09:30 MCHC 33.4 g/dL (30.0-36.0) 12/29/22 09:30 RDW 13.2 % (12.1-15.1) 12/29/22 09:30 Plt Count 208 10^3/cmm (130-400) 12/29/22 09:30 MPV 9.6 fL (7.4-10.4) 12/29/22 09:30 Neut % (Auto) 60.8 % 12/29/22 09:30 Lymph % (Auto) 30.1 % 12/29/22 09:30 [place] % (Auto) 5.8 % 12/29/22 09:30 Eos % (Auto) 2.4 % 12/29/22 09:30 Baso % (Auto) 0.7 % 12/29/22 09:30 Neut # (Auto) 4.89 10^3/uL (1.8-7.7) 12/29/22 09:30 Lymph # (Auto) 2.4 10^3/uL (0.8-4.8) 12/29/22 09:30 [place] # (Auto) 0.5 10^3/uL (0.2-0.9) 12/29/22 09:30 Eos # (Auto) 0.2 10^3/uL (0.0-0.8) 12/29/22 09:30 Baso # (Auto) 0.1 10^3/uL (0.0-0.1) 12/29/22 09:30 Nucleated RBC % (auto) 0 % 12/29/22 09:30 Nucleated RBCs # 0.0 /100WBC 12/29/22 09:30 Sodium 141 mmol/L (136-145) 12/29/22 09:30 Potassium 3.6 mmol/L (3.5-5.1) 12/29/22 09:30 Chloride 104 mmol/L (98-107) 12/29/22 09:30 Carbon Dioxide 26 mmol/L (22-29) 12/29/22 09:30 Anion Gap 14.6 (5-19) 12/29/22 09:30 BUN 11 mg/dL (6-20) 12/29/22 09:30 Creatinine 0.7 mg/dL (0.5-0.9) 12/29/22 09:30 GFR Calculation 86.9 mL/min (90-130) L 12/29/22 09:30 Glucose 163 mg/dL (65-115) H 12/29/22 09:30 POC Glucose 196 mg/dL (70-110) H 01/06/23 06:33 Calculated Osmolality 295 mOsm/kg (285-295) 12/29/22 09:30 Calcium 9.4 mg/dL (8.5-10.5) 12/29/22 09:30 Urine Color Yellow (Yellow) 12/29/22 09:30 Urine Appearance Clear (CLEAR) 12/29/22 09:30 Urine pH 5 (5-7) 12/29/22 09:30 Ur Specific [place] 1.020 (1.005-1.030) 12/29/22 09:30 Urine Protein Trace (Negative) 12/29/22 09:30 Urine Glucose (UA) 4+ (Normal) H 12/29/22 09:30 Urine Ketones Negative (Negative) 12/29/22 09:30 Urine Blood Neg (Negative) 12/29/22 09:30 Urine Nitrate Negative (Negative) 12/29/22 09:30 Urine Bilirubin Neg (Negative) 12/29/22 09:30 Urine Urobilinogen Norm mg/dL (Negative) 12/29/22 09:30 Ur Leukocyte Esterase 1+ (Negative) H 12/29/22 09:30 Urine RBC None /hpf (0-2) 12/29/22 09:30 Urine WBC 10-15 /hpf (0-5) H 12/29/22 09:30 Ur Squamous Epith Cells 10-15 /hpf (0-5) H 12/29/22 09:30 Amorphous Sediment Not Reportable 12/29/22 09:30 Urine Bacteria 2+ /hpf (NONE) H 12/29/22 09:30 Vitals Last Vital Signs Temp 98.5 F 01/06/23 08:26 Pulse 90 01/06/23 08:33 Resp 18 01/06/23 10:47 BP 136/84 01/06/23 08:26 Pulse Ox 94 01/06/23 08:33 O2 Del Method Room Air 01/06/23 08:33 O2 Flow Rate 2 01/06/23 08:00 FiO2 28 01/05/23 21:21 Discharge Plan Discharge Patient Disposition: Home Condition: Stable Prescriptions: New celecoxib 200 mg Capsule 200 mg PO Q12H 14 Days Qty: 28 0RF aspirin 325 mg Tablet,Delayed Release (Dr/Ec) 325 mg PO DAILY 30 Days Qty: 30 0RF hydromorphone 4 mg Tablet 4 mg PO Q6H PRN (Reason: Moderate Pain) 7 Days Qty: 30 0RF acetaminophen 500 mg Tablet 1,000 mg PO Q8H 14 Days Qty: 84 0RF [place] [place], diabetic 33 gauge x 5/32 needle See Rx Instructions .ROUTE .MEDSUPPLY Qty: 100 5RF Rx Instructions: 4 time day [place] blood-glucose meter [OneTouch Ultra2 Meter] Kit See Rx Instructions .Route Qty: 1 0RF Rx Instructions: [place] directed [place] [place] Diabetic Shoes with 3 pairs of inserts See Rx Instructions .Route .MEDSUPPLY Qty: 1 0RF Rx Instructions: As directed by JUSTYNA&O [place] [place] OneTouch Ultra Test Strip See Rx Instructions .Route Qty: 100 0RF Rx Instructions: use 3 times day rizatriptan [Maxalt] 10 mg tablet See Rx Instructions PO .COMPLEX Qty: 14 5RF Rx Instructions: take 1 tab at onset of headache; if no relief may repeat 1 tab after at least 2 hrs; max = 3 tabs/24 hr PO atorvastatin 40 mg tablet 40 mg PO BEDTIME Qty: 90 0RF Farxiga 10 mg tablet 10 mg PO QAM Qty: 30 2RF gabapentin 600 mg tablet See Rx Instructions .ROUTE .COMPLEX Qty: 90 2RF Rx Instructions: TAKE 600 MG IN THE MORNING/ 1200 MG IN THE EVENING; Levemir FlexTouch U-100 Insuln 100 unit/mL (3 mL) insulin pen 15 unit SUBCUT DAILY Qty: 15 2RF levothyroxine 125 mcg tablet 125 mcg PO DAILY@08 Qty: 30 2RF metoprolol tartrate 25 mg tablet 25 mg PO Q12H Qty: 60 2RF Rx Instructions: at 0800,2000 sucralfate [Carafate] 1 gram tablet 1 g PO TID Qty: 90 2RF tizanidine [Zanaflex] 4 mg tablet 4 mg PO BID Qty: 60 2RF Rx Instructions: muscle pain Victoza 3-Marco 0.6 mg/0.1 mL (18 mg/3 mL) pen injector See Rx Instructions SUBCUT .COMPLEX Qty: 9 2RF Rx Instructions: inject 0.6mg subcutaneously once daily x 7 days; then 1.2mg daily for week, not to exceed 1.8mg/day SUBCUT nitroglycerin 0.4 mg Tablet, Sublingual 0.4 mg sublingual Q5M PRN (Reason: Chest Pain) Qty: 25 0RF Discharge Orders: Discharge Order (Routine); Ordered 01/06/23 Ordered By: Pedro Jung Referrals: Pedro Jung MD [Physician] - 01/20/23 1:15 pm Discharge Diet: Advance as tolerated Discharge Activity: Limit activity as instructed Patient Instructions: Aspirin (By mouth), Hydromorphone (By mouth), Celecoxib (By mouth), Knee Replacement (GEN), Opioid Safety Activity Restrictions/Additional Instructions: Okay to shower Keep Tubigauze sleeve in place for swelling. Okay to remove for hygiene. Apply FirstIce up to 20 min/hr for pain and swelling Take Celebrex twice a day for the next 15 days for pain , discontinue other anti-inflammatories Take Tylenol 500mg (2 tabs) as needed 3 times a day for mild pain take Dilaudid for breakthrough pain. Exercises per physical therapy. May weight-bear as tolerated on total knee arthroplasty IF HAVE ANY PROBLEMS OR QUESTIONS CALL HOSPITAL MICRO PALEONTOLOGIST AT AND ASK TO HAVE DR. JUNG PAGED. 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
[2023-01-06 11:00] VITALS: BP 122/84; PULSE 64; RESP 20; TEMP 37.2
[2023-01-06 11:54] LABS: Glucose Point of Care 222 mg/dL (70-110)
== END 2023-01-06 11:50 | disposition home or self-care (01) ==
LOC: MEDSURG 09:38
PROVIDERS: Admitting Provider Orthopaedic Surgery; PCP Nurse Practitioner; Visit Provider Orthopaedic Surgery
PROC: 8E0Y0CZ Robotic Assisted Procedure of Lower Extremity, Open Approach (ICD-10-PCS; CPT 27447; principal; 2023-01-05 07:00)
DX: M17.12 Unilateral primary osteoarthritis, left knee (principal); E11.22 Type 2 diabetes mellitus with diabetic chronic kidney disease; N18.2 Chronic kidney disease, stage 2 (mild); Z79.85 Long-term (current) use of injectable non-insulin antidiabetic drugs; E11.65 Type 2 diabetes mellitus with hyperglycemia; Z79.4 Long term (current) use of insulin; J44.9 Chronic obstructive pulmonary disease, unspecified; G47.30 Sleep apnea, unspecified; I12.9 Hypertensive chronic kidney disease with stage 1 through stage 4 chronic kidney disease, or unspecified chronic kidney disease; K21.9 Gastro-esophageal reflux disease without esophagitis; E66.01 Morbid (severe) obesity due to excess calories; Z68.41 Body mass index [BMI] 40.0-44.9, adult; E78.5 Hyperlipidemia, unspecified; F17.210 Nicotine dependence, cigarettes, uncomplicated; E03.9 Hypothyroidism, unspecified
CPT/HCPCS: 27447; 36415; 36416; 73560; 80048; 81001; 82962; 85018; 85025; 94660; 96372; 97110; 97116; 97161; 97165; C1776; G0378; J0171; J0690; J1580; J1815; J1885; J2250; J2270; J2704; J2795; J3010; J7030

== ENCOUNTER → 2023-01-20 13:21 | Outpatient (BNVA) | payer MEDICAID, SELFPAY | PROVIDERS: PCP Nurse Practitioner; Visit Provider Orthopaedic Surgery | DX: Z98.890 Other specified postprocedural states (principal); Z96.652 Presence of left artificial knee joint | CPT/HCPCS: 73560; 73565 ==

== ENCOUNTER → 2023-02-06 08:30 | Outpatient (BNVA) | payer MEDICAID, SELFPAY | PROVIDERS: PCP Nurse Practitioner; Visit Provider Nurse Practitioner Family | DX: Z98.890 Other specified postprocedural states (principal); Z96.652 Presence of left artificial knee joint | CPT/HCPCS: 73560; 73565 ==

== ENCOUNTER → 2023-02-18 08:51 | Outpatient (BNVA) | payer MEDICAID, SELFPAY | PROVIDERS: PCP Nurse Practitioner; Visit Provider Nurse Practitioner | DX: E11.65 Type 2 diabetes mellitus with hyperglycemia (principal); Z79.4 Long term (current) use of insulin | CPT/HCPCS: 80053; 80061; 83036; 83721; 84443 ==

== ENCOUNTER → 2023-02-20 09:14 | Outpatient (BNVA) | payer MEDICAID, SELFPAY | PROVIDERS: PCP Nurse Practitioner; Visit Provider Nurse Practitioner | DX: E11.22 Type 2 diabetes mellitus with diabetic chronic kidney disease (principal); N18.2 Chronic kidney disease, stage 2 (mild) | CPT/HCPCS: 81000 ==

== ENCOUNTER → 2023-03-09 11:19 | Outpatient (BNVA) | payer MEDICAID, SELFPAY | PROVIDERS: PCP Nurse Practitioner; Visit Provider Nurse Practitioner Family | DX: Z98.890 Other specified postprocedural states (principal); Z96.652 Presence of left artificial knee joint | CPT/HCPCS: 73560; 73565 ==

== ENCOUNTER → 2023-05-12 14:39 | Outpatient (BNVA) | payer MEDICAID, SELFPAY | PROVIDERS: PCP Nurse Practitioner; Visit Provider Physician Assistant | DX: Z96.652 Presence of left artificial knee joint (principal) | CPT/HCPCS: 73560; 73565 ==

== ENCOUNTER → 2023-06-03 16:02 | Outpatient (BNVA) | payer MEDICAID, SELFPAY | PROVIDERS: PCP Nurse Practitioner; Visit Provider Nurse Practitioner | DX: E11.65 Type 2 diabetes mellitus with hyperglycemia (principal); Z79.4 Long term (current) use of insulin; E55.9 Vitamin D deficiency, unspecified | CPT/HCPCS: 80053; 82306; 83036; 84443 ==

== ENCOUNTER → 2023-06-04 08:27 | Outpatient (BNVA) | payer MEDICAID, SELFPAY | PROVIDERS: PCP Nurse Practitioner; Visit Provider Nurse Practitioner | DX: M25.562 Pain in left knee; Z96.652 Presence of left artificial knee joint; W19.XXXA Unspecified fall, initial encounter | CPT/HCPCS: 73560; 73565 ==

== ENCOUNTER → 2023-07-13 09:24 | Outpatient (BNVA) | payer MEDICAID, SELFPAY | PROVIDERS: PCP Nurse Practitioner; Visit Provider Nurse Practitioner | DX: M25.562 Pain in left knee (principal); G89.29 Other chronic pain; Z96.652 Presence of left artificial knee joint; W19.XXXD Unspecified fall, subsequent encounter | CPT/HCPCS: 73560; 73565 ==

== ENCOUNTER 2023-07-24 10:59 | Outpatient (RCR) | payer MEDICAID, SELFPAY | END 2023-08-16 23:59 | disposition home or self-care (01) | LOC: APT 10:59 | PROVIDERS: Visit Provider Nurse Practitioner | DX: M25.562 Pain in left knee (principal); G89.29 Other chronic pain | CPT/HCPCS: 97162 ==

== ENCOUNTER → 2023-08-26 15:36 | Outpatient (BNVA) | payer MEDICAID, SELFPAY | PROVIDERS: Visit Provider Nurse Practitioner | DX: E11.9 Type 2 diabetes mellitus without complications (principal) | CPT/HCPCS: 80053; 81000; 82607; 83036 ==

== ENCOUNTER → 2023-09-09 08:37 | Outpatient (BNVA) | payer MEDICAID, SELFPAY | PROVIDERS: PCP Nurse Practitioner; Visit Provider Nurse Practitioner | DX: M17.12 Unilateral primary osteoarthritis, left knee; R29.6 Repeated falls; Z96.652 Presence of left artificial knee joint | CPT/HCPCS: 73560; 73565 ==

== ENCOUNTER 2023-09-14 06:00 | Outpatient (RCR) | payer MEDICAID, SELFPAY | END 2023-09-16 23:59 | disposition home or self-care (01) | LOC: APT 06:00 | PROVIDERS: Visit Provider Nurse Practitioner | DX: M23.52 Chronic instability of knee, left knee (principal); M25.562 Pain in left knee | CPT/HCPCS: 97161 ==

== ENCOUNTER → 2023-10-28 15:45 | Outpatient (BNVA) | payer MEDICAID, SELFPAY | PROVIDERS: PCP Nurse Practitioner; Visit Provider Nurse Practitioner Family | DX: R10.13 Epigastric pain (principal); K21.9 Gastro-esophageal reflux disease without esophagitis | CPT/HCPCS: 80053; 82150; 83690; 85025 ==

== ENCOUNTER → 2023-11-11 08:10 | Outpatient (BNVA) | payer OTHER, MEDICAID, SELFPAY | PROVIDERS: PCP Nurse Practitioner; Visit Provider Nurse Practitioner | DX: M25.562 Pain in left knee (principal); G89.29 Other chronic pain; Z96.652 Presence of left artificial knee joint; W19.XXXA Unspecified fall, initial encounter | CPT/HCPCS: 73560; 73565 ==

== ENCOUNTER 2023-11-22 14:12 | Inpatient (IN) | payer OTHER, MEDICAID, SELFPAY ==
[2023-11-22] VITALS (12 sets, daily range): BP systolic 111–146; BP diastolic 69–82; PULSE 82–126; RESP 17–36; TEMP 36.6–36.9; O2SAT 91–97; BMI 38.9
--- NOTE | 2023-11-22 14:30 | ED_ITS ---
HPI - Nausea/Vomiting/Diarrhea 2 General: Chief complaint: Weakness Stated complaint: WEAKNESS Time Seen by Provider: 11/22/23 14:20 Source: patient and EMS Mode of arrival: EMS Limitations: no limitations History of Present Illness: Patient is a 58-year-old female with a history of GERD, HTN, dyslipidemia COPD on CPAP, and diabetes here via EMS for complaints of nausea and diarrhea over the past 2 to 3 days. Denies sick contacts or poor food exposures. Patient reports diffuse body aches. No specific abdominal pain but does reports intermittent cramping. She states she has been incredibly weak secondary to the vomiting and diarrhea and has been unable to care for herself at home. She does have a daughter that has helped care for her. She states she cannot ambulate secondary to weakness. Patient states her blood sugars at home have been running normal in the mid 100s. She arrives weak appearing and tachycardic in the 120s. Remainder of vitals are stable. Denies bloody stools or emesis. MD elicited complaint: nausea, vomiting and diarrhea Onset (ago): day(s) Description of diarrhea: watery Associated nausea: Yes Location of pain: Diffuse Pain consistency: intermittent Severity: moderate Quality: cramping Exacerbating factors: eating Relieving factors: none Associated symtoms: Reports nausea; Denies chest pain, dizziness, dysuria, fatigue, headache(s) or malaise Review of Systems 2 Const: Denies: fever(s), chills, body aches, fatigue or malaise Card: Denies: chest pain Resp: Denies: dyspnea GI: Reports: abdominal pain, nausea, vomiting and diarrhea; Denies: hematemesis : Denies: flank pain, difficulty voiding, dysuria, urinary frequency, urinary urgency or urinary hesitancy Musc: Denies: neck pain, back pain, extremity pain or joint pain Skin/Breast: Denies: rash Neuro: Denies: headache(s), numbness in extremities, weakness in extremities, sensory changes or dizziness PFSH ED 2 PFSH: Medical History Chronic pain of left knee 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 Hypersomnia Diabetes mellitus with hyperglycemia, with long-term current use of insulin Arm numbness Right foot pain Diabetic foot Diabetic peripheral neuropathy associated with type 2 diabetes mellitus COPD (chronic obstructive pulmonary disease) Reflux esophagitis Diabetic neuropathy CPAP (continuous positive airway pressure) dependence Anxiety and depression Dyslipidemia GERD (gastroesophageal reflux disease) Vitamin D deficiency Chronic migraine Narcolepsy Adult hypothyroidism Smoking Hypertension Type 2 diabetes mellitus RLS (restless legs syndrome) Bronchitis Surgical History History of laparoscopic appendectomy 08/08/22 Hx of umbilical hernia repair 08/08/22 Dr. Duncan Hx of hysterectomy Hx of tonsillectomy Hx of hernia repair History of back surgery Hx of hemorrhoidectomy Family History Other Diabetes Hypertension Social History Smoking and tobacco/nicotine status: current every day tobacco/nicotine user cigarettes Packs smoked per day: 1 Years cigarettes smoked: 35 Second hand smoke exposure: No Alcohol intake: unknown Substance/Drug Use: unknown Adopted: No Caregiver/support person: No Lives independently: Yes Household members: family Marital status: Number of children: 5 service: No Current occupational status: unemployed Current occupational exposures/hazards: No Pets and animals: Yes Do you think of yourself as: Straight/Heterosexual Current gender identity: Female Physical Exam 2 Const: COMMON NORMALS: average body habitus, patient oriented x3, no limitations, alert and well nourished GENERAL APPEARANCE: cooperative, in distress (weak appearing) and ill appearing ORIENTATION/CONSCIOUSNESS: Yes awake, Yes oriented to person, Yes oriented to place and Yes oriented to time HENMT: COMMON NORMALS: normocephalic and atraumatic HEAD & SCALP: n ormocephalic and atraumatic Resp: COMMON NORMALS: normal respiratory effort and clear to auscultation bilaterally AUSCULTATION: clear to auscultation bilaterally Cardio: COMMON NORMALS: regular rate RATE: regular rate and tachycardic GI: COMMON NORMALS: Normal to inspection, nondistended, normoactive bowel sounds present, Soft to palpation, No hepatosplenomegaly present and no masses INSPECTION: Yes normal to inspection AUSCULTATION: Yes normoactive bowel sounds PALPATION: Yes Soft to palpation, Yes Tenderness to palpation present (GI) (mild discomfort diffusely-non surgical exam), No Guarding due to palpation present (GI), No Rigid due to palpation and Yes No hepatosplenomegaly present : COMMON NORMALS: Yes no CVA tenderness BLADDER/KIDNEY EXAM: Yes no CVA tenderness Back/Pelvis: COMMON NORMALS: no CVA tenderness Extremity: GENERAL: Yes normal exam except as noted Neuro: JOHN COMA SCALE: document GCS findings John coma scale eye opening: Spontaneous John coma scale verbal response: Orientated John coma scale motor response: Obey commands John coma scale total score: 15 COMMON NORMALS: patient oriented x3, moves all extremities, no focal motor deficits and no sensory deficits noted SENSORIUM/ORIENTATION: Yes alert, Yes oriented to person, Yes oriented to place and Yes oriented to time GAIT: Yes Unable to assess gait Skin: COMMON NORMALS: no rashes or lesions noted GENERAL SKIN EXAM: no rashes or lesions noted Course 2 Vital Signs: Vital signs: Vital Signs Temperature 98.5 F 11/22/23 14:14 Pulse Rate 126 H 11/22/23 14:14 Respiratory Rate 17 11/22/23 14:14 Blood Pressure 142/79 11/22/23 14:14 Pulse Oximetry 94 11/22/23 14:14 Oxygen Delivery Me thod Room Air 11/22/23 14:14 MDM - Nausea/Vomiting/Diarrhea Medical Decision Making Patient here for diarrhea and weakness over the past 3 days or so. Clinically she is weak and ill-appearing. She arrives to the ED with stable vitals apart from tachycardia. Blood work shows a potassium of 2.4. Mag is normal. Elevated gap and lactic acid. She will require hospitalization. She has fluids and IV potassium running. EKG showing sinus tachycardia-does have some flattening/depression of ST segments consistent with hypokalemia. Have spoken to Dr. Chacon who agrees with need for admission. I spoke to hospitalist Dr. Hurt who will admit. He is recommending CT abdomen/pelvis as well as respiratory viral panel. I also added stool cultures. Lab Data 11/22/23 15:05 11/22/23 15:05 Laboratory Results WBC 6.10 10^3/uL (3.29-11.43) 11/22/23 15:05 RBC 6.03 10^6/uL (3.85-5.65) H 11/22/23 15:05 Hgb 17.90 g/dL (11.27-16.99) H 11/22/23 15:05 Hct 50.9 % (36-47) H 11/22/23 15:05 MCV 84.4 fl (85-98) L 11/22/23 15:05 MCH 29.7 pg (27-33) 11/22/23 15:05 MCHC 35.2 g/dL (30-55) 11/22/23 15:05 RDW 13.5 % (12.1-15.1) 11/22/23 15:05 Plt Count 147 10^3/cmm (157-399) L 11/22/23 15:05 MPV 10.0 fL (7.4-10.4) 11/22/23 15:05 Neut % (Auto) 80.0 % 11/22/23 15:05 Lymph % (Auto) 12.5 % 11/22/23 15:05 [place] % (Auto) 5.6 % 11/22/23 15:05 Eos % (Auto) 0.3 % 11/22/23 15:05 Baso % (Auto) 1.1 % 11/22/23 15:05 Neut # (Auto) 4.88 10^3/uL (1.8-7.7) 11/22/23 15:05 Lymph # (Auto) 0.8 10^3/uL (0.8-4.8) 11/22/23 15:05 [place] # (Auto) 0.3 10^3/uL (0.2-0.9) 11/22/23 15:05 Eos # (Auto) 0.0 10^3/uL (0.0-0.8) 11/22/23 15:05 Baso # (Auto) 0.1 10^3/uL (0.0-0.1) 11/22/23 15:05 Nucleated RBC % (auto) 0 % 11/22/23 15:05 Nucleated RBCs # 0.0 /100WBC 11/22/23 15:05 Specimen Type Arterial 11/22/23 15:24 Sample Site Radial, right 11/22/23:24 ABG pH 7.44 (7.35-7.45) 11/22/23: ABG pCO2 26.0 mmHg (35-45) L 11/22/23:24 ABG pO2 64.8 mmHg (80.0-100.0) L 11/22/23 15:24 ABG PO2/FiO2 Ratio 0 11/22/23 15:24 ABG HCO3 17.7 mmol/L (22-26) L 11/22/23 15:24 ABG O2 Saturation 95.1 11/22/23 15:24 ABG Base Excess -4.1 mmol/L (-2.0-2.0) L 11/22/23 15:24 Tyrese Test Pos 11/22/23 15:24 A-a O2 Gradient 6.5 mmHg (5-10) 11/22/23 15:24 Hematocrit 61.5 % (37-47) H 11/22/23 15:24 Hgb O2 Saturation 94.4 % (95-100) L 11/22/23 15:24 Carboxyhemoglobin 0.6 %THgb (0.4-20.1) 11/22/23 15:24 Methemoglobin 0.1 % (0.4-1.5) L 11/22/23 15:24 Total Hemoglobin 20.1 g/dL (12-16) H 11/22/23 15:24 Sodium 131.0 mmol/L (131-143) 11/22/23 15:24 Potassium 2.2 mmol/L (3.5-5.0) L 11/22/23 15:24 Glucose 234.0 mg/dL (70-115) H 11/22/23 15:24 Ionized Calcium 1.3 mmol/L (1.1-1.4) 11/22/23 15:24 O2 Delivery Device Room air 11/22/23 15:24 FiO2 21.0 % 11/22/23 15:24 Advertising Operations Manager ID glc 11/22/23 15:24 Sodium 131 mmol/L (136-145) L 11/22/23 15:05 Potassium 2.4 mmol/L (3.5-5.1) L* 11/22/23 15:05 Chloride 94 mmol/L (98-107) L 11/22/23 15:05 Carbon Dioxide 18 mmol/L (22-29) L 11/22/23 15:05 Anion Gap 21.4 (5-19) H 11/22/23 15:05 BUN 20 mg/dL (6-20) 11/22/23 15:05 Creatinine 1.0 mg/dL (0.5-0.9) H 11/22/23 15:05 GFR Calculation 57.4 mL/min (90-130) L 11/22/23 15:05 Glucose 253 mg/dL (65-115) H 11/22/23 15:05 Calculated Osmolality 283 mOsm/kg (285-295) L 11/22/23 15:05 Lactic Acid 3.5 mmol/L (0.5-2.2) H 11/22/23 15:05 Calcium 9.5 mg/dL (8.5-10.5) 11/22/23 15:05 Magnesium 1.7 mg/dL (1.7-2.3) 11/22/23 15:05 Total Bilirubin 1.0 mg/dL (0.15-1.2) 11/22/23 15:05 AST 23 U/L (0-32) 11/22/23 15:05 ALT 16 U/L (0-33) 11/22/23 15:05 Alkaline Phosphatase 94 U/L (35-105) 11/22/23 15:05 Creatine Kinase 81 U/L (26-192) 11/22/23 15:05 Total Protein 7.6 g/dL (6.6-8.7) 11/22/23 15:05 Albumin 3.8 g/dL (3.5-5.2) 11/22/23 15:05 Globulin 3.8 g/dL (1.3-4.6) 11/22/23 15:05 Lipase 25 U/L (13-60) 11/22/23 15:05 Urine Color Dark yellow (Yellow) 11/22/23 14:51 Urine Appearance Hazy (CLEAR) A 11/22/23 14:51 Urine pH 6 (5-7) 11/22/23 14:51 Ur Specific [place] 1.025 (1.005-1.030) 11/22/23 14:51 Urine Protein 3+ (Negative) H 11/22/23 14:51 Urine Glucose (UA) 1+ (Normal) H 11/22/23 14:51 Urine Ketones 2+ (Negative) H 11/22/23 14:51 Urine Blood 3+ (Negative) H 11/22/23 14:51 Urine Nitrate Negative (Negative) 11/22/23 14:51 Urine Bilirubin 1+ (Negative) H 11/22/23 14:51 Urine Urobilinogen Norm mg/dL (Negative) 11/22/23 14:51 Ur Leukocyte Esterase Trace (Negative) H 11/22/23 14:51 Urine RBC 5-10 /hpf (0-2) H 11/22/23 14:51 Urine WBC 5-10 /hpf (0-5) H 11/22/23 14:51 Ur Squamous Epith Cells 10-15 /hpf (0-5) H 11/22/23 14:51 Amorphous Sediment 1+ /hpf 11/22/23 14:51 Urine Bacteria 2+ /hpf (NONE) H 11/22/23 14:51 Coarse Granular Casts 15-25 /lpf H 11/22/23 14:51 Urine Mucus Trace /hpf 11/22/23 14:51 Serum Ketones Negative (Negative) 11/22/23 15:05 XR interpretation done by ED provider, pending radiology final review Discharge Plan Discharge Patient Disposition: Admitted As Inpatient Clinical Impression: Acute hypokalemia, Diabetes Diarrhea Qualifiers: Diarrhea type: unspecified type Qualified Code(s): R19.7 - Diarrhea, unspecified Condition: Stable Coding Level of Care Code ED Pluck Trimmer for Maddison Martinez
[2023-11-22 15:17] LABS: Basophils # 0.1 10^3/uL (0.0-0.1); Basophils % 1.1 %; Eosinophils % 0.3 %; Hematocrit 50.9 % (36-47); Lymphocytes # 0.8 10^3/uL (0.8-4.8); Lymphocytes % 12.5 %; Mean Corpuscular HGB Conc 35.2 g/dL (30-55); Mean Corpuscular Hemoglobin 29.7 pg (27-33); Mean Corpuscular Volume 84.4 fl (85-98); Monocytes # 0.3 10^3/uL (0.2-0.9); Monocytes % 5.6 %; Neutrophils # 4.88 10^3/uL (1.8-7.7); Nucleated Red Blood Cells % 0 %; Platelet Count 147 10^3/cmm (157-399); Red Blood Count 6.03 10^6/uL (3.85-5.65); Red Cell Distribution Width 13.5 % (12.1-15.1)
[2023-11-22] MEDS: sodium chloride 0.9% 1,000 ML 999 ML IV (15:17)
[2023-11-22 15:22] LABS: Blood Urine 3+ (Negative); Glucose Urine UA 1+ (Normal); Ketones Urine 2+ (Negative); Nitrate Urine Negative (Negative); Protein Urine 3+ (Negative); Specific Gravity, Urine 1.025 (1.005-1.030); Urine Appearance Hazy (CLEAR); Urine Color Dark Yellow (Yellow); pH Urine 6 (5-7)
[2023-11-22 15:23] LABS: Add Urine Microscopic? YES; Bilirubin Urine 1+ (Negative); Leukocyte Esterase Urine Trace (Negative); Urobilinogen Urine Norm (Negative)
[2023-11-22 15:24] LABS: Amorphous Sediment Urine 1+ /hpf; Bacteria Urine 2+ /hpf; Mucus Urine TRACE /hpf
[2023-11-22 15:25] LABS: Add Urine Culture? No; Coarse Granular Casts Urine 15-25 /lpf
[2023-11-22 15:34] LABS: ABG PH Result 7.44 (7.35-7.45); Alveolar-Arterial Oxygen Gradi 6.5 mmHg (5-10); Arterial Blood Gas Hematocrit 61.5 % (37-47); Base Excess ABG -4.1 mmol/L (-2.0-2.0); Blood Gas Allen Test Pos; Blood Gas Operator Identificat glc; Blood Gas Sample Site Radial, right; Blood Gas Sample Type Arterial; Carboxyhemoglobin 0.6 %THgb (0.4-20.1); HCO3 ABG 17.7 mmol/L (22-26); HGB O2 Sat 94.4 % (95-100); Ionized Calcium Level - ABG 1.3 mmol/L (1.1-1.4); Methemoglobin 0.1 % (0.4-1.5); Oxygen Device ROOM AIR; Oxygen Saturation ABG 95.1; PO2 ABG 64.8 mmHg (80.0-100.0); PO2 FiO2 Ratio Arterial Blood 0; Potassium Level - ABG 2.2 mmol/L (3.5-5.0); Total Hemoglobin 20.1 g/dL (12-16)
[2023-11-22 15:36] LABS: Ketone (Acetest) Serum Negative (Negative)
[2023-11-22 15:38] LABS: Alanine Aminotransferase 16 U/L (0-33); Albumin Level 3.8 g/dL (3.5-5.2); Alkaline Phosphatase 94 U/L (35-105); Anion Gap 21.4 (5-19); Aspartate Amino Transferase 23 U/L (0-32); Blood Urea Nitrogen 20 mg/dL (6-20); Calcium 9.5 mg/dL (8.5-10.5); Carbon Dioxide 18 mmol/L (22-29); Chloride 94 mmol/L (98-107); Globulin 3.8 g/dL (1.3-4.6); Glomerular Filtration Rate 57.4 mL/min (90-130); Glucose 253 mg/dL (65-115); Lipase 25 U/L (13-60); Osmolality Calculated 283 mOsm/kg (285-295); Sodium 131 mmol/L (136-145); Total Protein 7.6 g/dL (6.6-8.7)
[2023-11-22 15:39] LABS: Creatinine Clr Calc Pharmacy 70.7614; Lactic Sepsis W/Reflex 3.5 mmol/L (0.5-2.2)
[2023-11-22 15:40] LABS: Potassium 2.4 mmol/L (3.5-5.1)
--- NOTE | 2023-11-22 15:49 | CTR_ITS ---
PROCEDURE INFORMATION: Exam: CT Abdomen And Pelvis With Contrast Exam date and time: 11/22/2023 4:48 PM Age: 58 years old Clinical indication: Other: Diarrhea; Abdominal pain; Prior surgery; Surgery date: 6+ months; Surgery type: Hysto, hernia TECHNIQUE: Imaging protocol: Computed tomography of the abdomen and pelvis with contrast. Radiation optimization: All CT scans at this facility use at least one of these dose optimization techniques: automated exposure control; mA and/or kV adjustment per patient size (includes targeted exams where dose is matched to clinical indication); or iterative reconstruction. Contrast material: OMNI 350; Contrast volume: 100 ml; Contrast route: INTRAVENOUS (IV); COMPARISON: CT abdomen pelvis wo con [id number] 08/07/2022 9:07 PM RADIATION DOSE METRICS: Total DLP (mGy-cm): 989.61 FINDINGS: Lungs: Lung bases are clear. No pleural effusion. Liver: Normal. No mass. Gallbladder and bile ducts: Normal. No calcified stones. No ductal dilation. Pancreas: Normal. No ductal dilation. Spleen: Normal. No splenomegaly. Adrenal glands: Normal. No mass. Kidneys and ureters: Normal. No hydronephrosis. Stomach and bowel: There are multiple loops of minimally distended, fluid-filled small bowel and liquid stool is noted throughout the colon. Appendix: No evidence of appendicitis. Intraperitoneal space: Unremarkable. No free air. No significant fluid collection. Vasculature: Unremarkable. No abdominal aortic aneurysm. Lymph nodes: Unremarkable. No enlarged lymph nodes. Urinary bladder: Unremarkable as visualized. Reproductive: Unremarkable as visualized. Bones/joints: Unremarkable. No acute fracture. Soft tissues: Unremarkable. CT/CT abdomen pelvis w con* [id number] IMPRESSION: Enterocolitis
--- NOTE | 2023-11-22 15:55 | ECG_ITS ---
[facility] Test Date: 2023-11-22 Pat Name: Adriana Velasquez Department: Room: Gender: Female Tyre Retreader: : 1965 Requested By: Gale Brito Order Number: [id number] Menjivar MD: Pancho Vega M.D. Measurements Intervals [place] Rate: 108 P: 25 [place]: 124 QRS: 29 QRSD: 105 T: 18 QT: 372 QTc: 501 Interpretive Statements SINUS TACHYCARDIA POSSIBLE LEFT ATRIAL ENLARGEMENT [-0.1mV P-WAVE IN V1/V2] MODERATE ST DEPRESSION [0.05+ mV ST DEPRESSION] Compared to ECG 12/29/2022 09:50:16 ST (T wave) deviation now present Sinus rhythm no longer present Electronically Signed On 11-23-2023 13:22:17 CDT by Pancho Vega M.D. [email or web address]
[2023-11-22 16:00] LABS: Creatine Phosphokinase 81 U/L (26-192); Magnesium 1.7 mg/dL (1.7-2.3)
[2023-11-22] MEDS: lidocaine 1% 5 ML in potassium chloride premix 100 ML 26.25 ML IV (16:07)
[2023-11-22] MEDS: potassium chloride ER 20 mEq Tablet 40 MEQ PO ×2 (16:08→19:13)
[2023-11-22] MEDS: iohexol 350 mg/mL 500 mL Btl (per mL) IV (16:51)
--- NOTE | 2023-11-22 16:54 | XRR_ITS ---
PROCEDURE INFORMATION: Exam: XR Chest Exam date and time: 11/22/2023 4:49 PM Age: 58 years old Clinical indication: Other: Weakness n/v TECHNIQUE: Imaging protocol: Radiologic exam of the chest. Views: 1 view. COMPARISON: CR XR chest 1V portable [id number] 08/07/2022 9:00 PM FINDINGS: Lungs: Pulmonary vascularity is accentuated or mildly prominent bilaterally. No focal infiltrate or consolidation. Pleural spaces: No pleural effusion or pneumothorax. Heart/Mediastinum: Mild left ventricular prominence. Bones/joints: Visualized osseous structures show no acute abnormality. Other findings: Slight rotation with today's exam. XR/XR chest 1V portable [id number] IMPRESSION: Mild accentuation or prominence of pulmonary vascularity with today's exam in relation to prior exam. Some difference may be related to difference in technique though consider mild pulmonary vascular congestion. No overt pulmonary edema. No consolidation or effusion.
[2023-11-22 16:57] LABS: Reflex Lactate Order REFLEX LACTIC ORDERD
[2023-11-22 18:02] LABS: Adenovirus Not Detected (NOT DETECT); Chlamydia Pneumoniae Not Detected (NOT DETECT); Coronavirus 229E,HKU1,NL63,OC4 Not Detected (NOT DETECT); Human Metapneumovirus Not Detected (NOT DETECT); Human Rhinovirus/Enterovirus Not Detected (NOT DETECT); Influenza A Not Detected (NOT DETECT); Influenza A H1 Not Detected (NOT DETECT); Influenza A H1-2009 Not Detected (NOT DETECT); Influenza A H3 Not Detected (NOT DETECT); Influenza B Not Detected (NOT DETECT); Mycoplasma Pneumoniae Not Detected (NOT DETECT); Parainfluenza Virus Type 1 Not Detected (NOT DETECT); Parainfluenza Virus Type 2 Not Detected (NOT DETECT); Parainfluenza Virus Type 3 Not Detected (NOT DETECT); Parainfluenza Virus Type 4 Not Detected (NOT DETECT); Respiratory Syncytial Virus A Not Detected (NOT DETECT); Respiratory Syncytial Virus B Not Detected (NOT DETECT); SARS-COV-2 Not Detected (NOT DETECT)
[2023-11-22 18:09] LABS: Lactic Acid level (Lactate) 2.8 mmol/L (0.5-2.2)
--- NOTE | 2023-11-22 18:19 | P.HP_ITS ---
Providers/Chief Complaint 2 Admitting Physician: Timur Price MD Primary Care Provider: Christina Arnold, KASANDRA-C Chief Complaint: WEAKNESS History of Present Illness Adriana Velasquez is a 58 year old female with past medical history of hypothyroidism, hypertension, type 2 diabetes mellitus, COPD, narcolepsy, GERD presented to the ER today because of worsening nausea and diarrhea over the last 3 days associated with weakness and dizziness complicated by unsteadiness on her feet today. As per patient she has had multiple episodes of diarrhea which is watery, foul-smelling not blood-tinged. In the ER she was found to be severely dehydrated with lab work showing potassium of 2.4, creatinine of 1, sodium 131 lactate of 3.5 trending to 2.8 in 2 hours. Review of Systems 2 General: Reports: 10 or more systems reviewed and unremarkable except in HPI and below Const: Denies: fever(s), chills, body aches, change in appetite, change in weight, malaise, night sweats, diaphoresis, change in sleep pattern, daytime sleepiness or snoring Eyes: Denies: change in vision, blurry vision, photophobia, eye discomfort or eye discharge ENMT: Denies: throat pain, enlarged tonsils, hoarseness, mouth pain, oral sores, dry mouth, tinnitus, nasal congestion or post nasal drip Card: Denies: chest pain, palpitations, irregular heart rhythm, edema, swelling of feet/ankles, lightheadedness, syncope, pre-syncope, dyspnea on exertion, orthopnea, leg pain with exertion or acrocyanosis Resp: Denies: dyspnea, productive cough, non-productive cough, wheezing, stridor, pain on inspiration, change in phlegm color, hemoptysis or chest congestion GI: Denies: abdominal pain, nausea, vomiting, hematemesis, coffee ground emesis, dysphagia, heartburn, diarrhea, constipation, bloating, GI cramping, change in bowel habits, pain on defecation, hematochezia or melena : Denies: flank pain, dysuria, urinary frequency, urinary urgency, urinary hesitancy, nocturia or hematuria Musc: Denies: neck pain, back pain, extremity pain, joint pain, joint swelling, joint redness, joint stiffness or limited range of motion Neuro: Denies: headache(s), numbness in extremities, weakness in extremities, sensory changes, lack of coordination, difficulty walking, frequent falls, dizziness, vertigo, confusion, Slurred speech present, difficulty communicating thoughts or seizure-like activity Psych: Denies: anxiety, depression, mood swings, panic attacks, hopelessness or irritability Endo: Denies: polyuria, polydipsia, tired all the time, cold intolerance, excessive sweating, flushing or heat intolerance Shreyas/Lymph: Denies: easy bruising or easy bleeding All/Imm: Denies: tongue swelling, facial swelling or acute wheezing Medications/Allergies Home Medications Medication Instructions Recorded Confirmed Last Taken Type nitroglycerin 0.4 mg sublingual 0.4 mg sublingual Q5M PRN Chest 07/22/21 11/11/23 01/03/23 Rx tablet Pain #25 tabs blood-glucose meter (OneTouch #1 ea 10/25/21 11/11/23 Unknown Rx Ultra2 Meter kit) pen needle, diabetic 33 gauge x #100 ea 10/25/21 11/11/23 Unknown Rx 5/32 Diabetic Shoes with 3 pairs of #1 ea 05/06/22 11/11/23 Unknown Rx inserts blood sugar diagnostic (OneTouch #100 ea 05/14/22 11/11/23 Unknown Rx Ultra Test strips) Hinged knee brace #1 ea 06/04/23 11/11/23 Unknown Rx rizatriptan 10 mg tablet (Maxalt) See Rx Instructions PO .COMPLEX #8 06/08/23 11/11/23 Unknown Rx tabs meloxicam 15 mg tablet 15 mg PO DAILY #90 tabs 07/13/23 11/11/23 Unknown Rx acarbose 50 mg tablet 50 mg PO TID #90 tabs 08/26/23 11/11/23 Unknown Rx atorvastatin 40 mg tablet 40 mg PO BEDTIME #90 tabs 08/26/23 11/11/23 Unknown Rx dapagliflozin propanediol 10 mg 10 mg PO QAM #30 tabs 08/26/23 11/11/23 Unknown Rx tablet (Farxiga) dulaglutide 1.5 mg/0.5 mL 1.5 mg (0.5 mL) SUBCUT .weekly #2 08/26/23 11/11/23 Unknown Rx subcutaneous pen injector mL ([facility]) gabapentin 600 mg tablet See Rx Instructions .Route 08/26/23 11/11/23 Unknown Rx .COMPLEX #90 tabs insulin detemir U-100 100 unit/mL 30 unit (0.3 mL) SUBCUT DAILY #15 08/26/23 11/11/23 Unknown Rx (3 mL) subcutaneous pen mL levothyroxine 125 mcg tablet See Rx Instructions PO DAILY@08 08/26/23 11/11/23 Unknown Rx #34 tabs metoprolol tartrate 25 mg tablet 25 mg PO Q12H #60 tabs 08/26/23 11/11/23 Unknown Rx tizanidine 4 mg tablet (Zanaflex) 4 mg PO BID muscle spasticity #60 08/26/23 11/11/23 Unknown Rx tabs venlafaxine 75 mg capsule,extended 75 mg PO QAM #30 caps 08/26/23 11/11/23 Unknown Rx release 24 hr (Effexor XR) pantoprazole 40 mg tablet,delayed 40 mg PO DAILY #30 tabs 10/28/23 11/11/23 Unknown Rx release (Protonix) sucralfate 1 gram tablet (Carafate) 1 g PO TID #90 tabs 10/28/23 11/11/23 Unknown Rx dulaglutide 0.75 mg/0.5 mL 0.75 mg (0.5 mL) SUBCUT .weekly #2 11/10/23 11/11/23 Unknown Rx subcutaneous pen injector mL (Trulicity) hinged knee brace #1 ea 11/11/23 11/11/23 Unknown Rx Allergies Allergy/AdvReac Type Severity Reaction Status Date / Time aspirin Allergy Unknown Verified 11/11/23 08:03 codeine Allergy ADR-Itching Verified 11/11/23 08:03 oxycodone Allergy Unknown Verified 11/11/23 08:03 tetracycline Allergy Unknown Verified 11/11/23 08:03 topiramate [From Topamax] Allergy ADR-Itching Verified 11/11/23 08:03 tramadol [From Ultram] Allergy Unknown Verified 11/11/23 08:03 metformin AdvReac Severe ADR-Gastrointestinal Verified 11/11/23 08:03 Upset PFSH Acute 2 PFSH: Medical History Chronic pain of left knee 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 Hypersomnia Diabetes mellitus with hyperglycemia, with long-term current use of insulin Arm numbness Right foot pain Diabetic foot Diabetic peripheral neuropathy associated with type 2 diabetes mellitus COPD (chronic obstructive pulmonary disease) Reflux esophagitis Diabetic neuropathy CPAP (continuous positive airway pressure) dependence Anxiety and depression Dyslipidemia GERD (gastroesophageal reflux disease) Vitamin D deficiency Chronic migraine Narcolepsy Adult hypothyroidism Smoking Hypertension Type 2 diabetes mellitus RLS (restless legs syndrome) Bronchitis Surgical History History of laparoscopic appendectomy 08/08/22 Hx of umbilical hernia repair 08/08/22 Dr. Duncan Hx of hysterectomy Hx of tonsillectomy Hx of hernia repair History of back surgery Hx of hemorrhoidectomy Family History Other Diabetes Hypertension Social History Smoking and tobacco/nicotine status: current every day tobacco/nicotine user cigarettes Packs smoked per day: 1 Years cigarettes smoked: 35 Second hand smoke exposure: No Alcohol intake: unknown Substance/Drug Use: unknown Adopted: No Caregiver/support person: No Lives independently: Yes Household members: family Marital status: Number of children: 5 service: No Current occupational status: unemployed Current occupational exposures/hazards: No Pets and animals: Yes Do you think of yourself as: Straight/Heterosexual Current gender identity: Female Vitals/I&O/Wt Last Vital Signs Temp 98.5 F 11/22/23 14:14 Pulse 119 H 11/22/23 16:40 Resp 24 H 11/22/23 16:40 BP 146/80 11/22/23 16:45 Pulse Ox 97 11/22/23 16:40 O2 Del Method Nasal Cannula 11/22/23 16:30 O2 Flow Rate 3 11/22/23 16:30 11/22/23 11/22/23 11/22/23 06:59 14:59 22:59 Intake Total 1000 / 1000 Balance 1000 / 1000 Weight last 48 hrs Weight 97.522 kg Weight 99.79 kg Physical Exam 2 Narrative: General: No acute distress, AO x3 dehydrated HEENT: PERRLA, pupils bilaterally equal and reactive Chest: Normal vesicular breath sounds, no added sounds, equal good air entry bilaterally CVS: S1-S2 regular, no murmurs, no tachycardia, no gallops, no rubs Abdomen: Soft, nontender, no organomegaly, bowel sounds present Neuro: No focal deficits, no facial deformity, AO x3, power 5/5 in all limbs Data 11/22/23 15:05 11/22/23 15:05 Micro: Microbiology 11/22/23 17:42 Stool Lactoferrin - Final Stool Occult Blood (FIT) - Final A&P Assessment and plan (1) Colitis: Seen on CT abdomen pelvis. Associated with diarrhea and nausea. Acute severe hypokalemia. Normal saline with potassium 40 mEq at 100 cc/h. Repeat 80 mg of potassium extra. Received 80 mg in the ER. Repeat BMP in evening. Stool studies. Once C. difficile is ruled out can plan for Imodium. IV ciprofloxacin and Flagyl for now. Clear liquid diet. (2) Acute hypokalemia: In setting of diarrhea. Treatment as above. (3) Dehydration: (4) Hypertension: Goal blood pressure less than 140/90 MAG. Continue with home dose of metoprolol. Will hold off on all other antihypertensives. Monitor blood pressures and restart accordingly. Qualifiers: Hypertension type: essential hypertension Qualified Code(s): I10 - Essential (primary) hypertension (5) Diabetes mellitus with hyperglycemia, with long-term current use of insulin: Check A1c. Sliding scale low-dose protocol ACHS. Patient also takes long-acting 30 units nightly. For now we will start on 15 units as patient's oral intake will be low. Qualifiers: Diabetes mellitus type: type 2 Qualified Code(s): E11.65 - Type 2 diabetes mellitus with hyperglycemia; Z79.4 - intermodal customer service (current) use of insulin (6) Adult hypothyroidism: Continue with home dose of levothyroxine. Check TSH. (7) Diarrhea: Qualifiers: Diarrhea type: unspecified type Qualified Code(s): R19.7 - Diarrhea, unspecified Plan Full code Liquid diet carb consistent Protonix for PUD prophylaxis Heparin 5000 every 8 hourly for DVT prophylaxis Attestations 2 Medical Necessity Statement*: Admission for more than 2 midnights for management of severe dehydration and hypokalemia in setting of diarrhea from colitis Diagnoses Colitis K52.9 Acute hypokalemia E87.6 Dehydration E86.0 Essential hypertension I10 Hypertension type: essential hypertension Type 2 diabetes mellitus with hyperglycemia, with long-term current use of insulin E11.65; Z79.4 Diabetes mellitus type: type 2 Adult hypothyroidism E03.9 Diarrhea R19.7 Diarrhea type: unspecified type
[2023-11-22 18:39] LABS: C.Diff PCR (Lab) NEGATIVE (Negative)
[2023-11-22] MEDS: sodium chlor 0.9% + KCl 40 mEq 40 MEQ/1,000 ML BAG 100 MEQ IV (19:10)
[2023-11-22] MEDS: pantoprazole 40 mg SDV IVP (19:12)
[2023-11-22] MEDS: heparin 5,000 unit/mL INJ 1 mL 5000 UNIT SUBCUT (19:13)
[2023-11-22 19:21] LABS: Procalcitonin 0.88 ng/mL (0-0.5); Thyroid Stimulating Hormone 0.65 uIU/mL (0.27-4.20); Vitamin B12 405 pg/mL (232-1245)
[2023-11-22 19:32] LABS: Iron 17 ug/dL (37-145); Percent Saturation 8.4 % (20-50); Total Iron Binding Capacity 201 mcg/dl; Unsaturated Iron Binding 184 ug/dL (112-347)
[2023-11-22] MEDS: atorvastatin 40 mg Tablet PO (20:07)
[2023-11-22] MEDS: sucralfate 1 gm Tablet PO (20:08)
[2023-11-22] MEDS: gabapentin 400 mg Capsule 1200 MG PO (20:08)
[2023-11-22] MEDS: metoprolol tartrate 25 mg Tablet PO (20:08)
[2023-11-22 20:46] LABS: Glucose Point of Care 207 mg/dL (70-110)
[2023-11-22] MEDS: insulin glargine 100 units/1 mL 15 UNIT SUBCUT (20:56)
[2023-11-22] MEDS: insulin lispro 100 unit/1 mL SUBCUT (20:56)
[2023-11-22 22:28] LABS: Blood Urea Nitrogen 15 mg/dL (6-20); Calcium 9.1 mg/dL (8.5-10.5); Carbon Dioxide 20 mmol/L (22-29); Chloride 100 mmol/L (98-107); Creatinine Clr Calc Pharmacy 87.3272; Glomerular Filtration Rate 74.2 mL/min (90-130); Glucose 178 mg/dL (65-115); Osmolality Calculated 281 mOsm/kg (285-295); Sodium 133 mmol/L (136-145)
[2023-11-22 22:48] LABS: Amphetamines Screen Urine Positive (Negative); Barbiturates Screen Urine Negative (Negative); Benzodiazepines Screen Urine Negative (Negative); Cocaine Screen Urine Negative (Negative); Opiate Screen Urine Negative (Negative); PCP Screen Urine Negative (Negative); THC Screen Urine Negative (Negative)
[2023-11-23] VITALS (8 sets, daily range): BP systolic 80–113; BP diastolic 50–68; PULSE 54–113; RESP 16–18; TEMP 36.4–36.8; O2SAT 91–97
[2023-11-23] MEDS: heparin 5,000 unit/mL INJ 1 mL 5000 UNIT SUBCUT ×3 (02:22→18:18)
[2023-11-23 03:32] LABS: Basophils % 0.7 %; Hematocrit 48.2 % (36-47); Lymphocytes # 0.7 10^3/uL (0.8-4.8); Lymphocytes % 13.2 %; Mean Corpuscular HGB Conc 35.1 g/dL (30-55); Mean Corpuscular Hemoglobin 29.5 pg (27-33); Mean Corpuscular Volume 84.3 fl (85-98); Mean Platelet Volume 10.1 fL (7.4-10.4); Monocytes # 0.3 10^3/uL (0.2-0.9); Neutrophils # 4.35 10^3/uL (1.8-7.7); Neutrophils % 79.7 %; Nucleated Red Blood Cells % 0 %; Platelet Count 142 10^3/cmm (157-399); Red Blood Count 5.72 10^6/uL (3.85-5.65); Red Cell Distribution Width 13.6 % (12.1-15.1); White Blood Count 5.46 10^3/uL (3.29-11.43)
[2023-11-23 03:43] LABS: Estmated Average Glucose 154
[2023-11-23 03:52] LABS: Chol HDL Ratio 6.73 mg/dL (0.0-4.40); Cholesterol 148 mg/dL (0-200); HDL Cholesterol 22 mg/dL (60-100); LDL Cholesterol Calculated 89 mg/dL (50-129); LDL HDL Ratio 4.05 RATIO (0.00-3.22); Triglycerides 183 mg/dL (0-150)
[2023-11-23 03:53] LABS: Alanine Aminotransferase 16 U/L (0-33); Albumin Level 3.7 g/dL (3.5-5.2); Alkaline Phosphatase 83 U/L (35-105); Anion Gap 15.1 (5-19); Aspartate Amino Transferase 24 U/L (0-32); Blood Urea Nitrogen 16 mg/dL (6-20); Calcium 9.1 mg/dL (8.5-10.5); Carbon Dioxide 19 mmol/L (22-29); Chloride 106 mmol/L (98-107); Creatinine Clr Calc Pharmacy 78.5039; Globulin 2.6 g/dL (1.3-4.6); Glomerular Filtration Rate 64.8 mL/min (90-130); Glucose 180 mg/dL (65-115); Magnesium 1.8 mg/dL (1.7-2.3); Osmolality Calculated 290 mOsm/kg (285-295); Potassium 3.1 mmol/L (3.5-5.1); Sodium 137 mmol/L (136-145); Total Bilirubin 0.9 mg/dL (0.15-1.2); Total Protein 6.3 g/dL (6.6-8.7)
[2023-11-23 04:00] LABS: Phosphorus 0.8 mg/dL (2.5-4.5)
[2023-11-23 04:05] LABS: Folate Level 18.7 ng/mL (4.8-37.3)
[2023-11-23] MEDS: sodium chlor 0.9% + KCl 40 mEq 40 MEQ/1,000 ML BAG 100 MEQ IV ×2 (04:46→19:32)
[2023-11-23] MEDS: venlafaxine ER (24HR) 75 mg Capsule PO (05:01)
[2023-11-23 06:26] LABS: Glucose Point of Care 174 mg/dL (70-110)
[2023-11-23] MEDS: phosphorus 250 mg Tablet PO ×2 (07:09→18:17)
[2023-11-23] MEDS: tizanidine 4 mg Tablet PO ×2 (08:52→18:17)
[2023-11-23] MEDS: levothyroxine 125 mcg Tablet 187.5 MCG PO (08:52)
[2023-11-23] MEDS: gabapentin 300 mg Capsule 600 MG PO ×2 (08:52→20:19)
[2023-11-23] MEDS: sucralfate 1 gm Tablet PO ×3 (08:52→20:19)
[2023-11-23] MEDS: insulin lispro 100 unit/1 mL SUBCUT ×4 (08:53→21:23)
--- NOTE | 2023-11-23 10:10 | PC.CHAP ---
Pastoral Care Encounter/Spiritual Assessment Type of Contact [] Declined retail pharmacy manager visit [] Patient/Family/Request visit [] Outpatient visit [] Follow-up visit [] Physician referral [] Code/Alert [X] Routine visit [] Staff referral [] Actively dying [] Patient sleeping [] Family support [] [] Out of room [] Palliative care [] [] Receiving care in room [] Pre-surgical visit [] Trauma [] Long length of stay [] ICU visit [] Other: Relational/Emotional Strength [] Patient feels connected with others/family/visitors/staff [] Distress [] Loneliness/isolation [] Abandonment Spirituality of Patient [X] Person of Nita [] Attends Protestant of their Nita [X] Believes in Prayer [] Reads Bible or Jain materials [] There are Spiritual issues to be addressed Print Finisher Interventions [X] Prayer [X] Active listening [] Non-anxious presence [] Spiritual/emotional support [] Crisis/trauma care [] Spiritual counseling [] Bereavement support [] Provided bereavement packet [] Provided Bible/devotional materials [] Provided toy/stuffed animal, coloring book to patient or family member [] Provided Communion [] Anointing/[place] [] Salvation [X] Completed spiritual assessment [] Other: Impact on Illness or Injury [] Angry [] Fearful [] Anxious [] Often cries [] Exhaustion [] Unable to work [] Unable to attend anglican [] Unable to walk/stand [] Unable to read [] Unable to drive [] Unable to eat/drink [] Unable to sleep [] Unable to be with family [] Patient intubated [] Other: Summary Time spent with patient 5 MIN
[2023-11-23 10:46] LABS: Glucose Point of Care 282 mg/dL (70-110)
--- NOTE | 2023-11-23 14:30 | P.PN_ITS ---
Subjective 2 Subjective: Patient seen this morning still complaining of watery loose stools and severe weakness. Denies any episodes of vomiting. Medications: Reviewed: Yes Vitals/I&O/Wt Last Vital Signs Temp 98.3 F 11/23/23 12:00 Pulse 64 11/23/23 12:00 Resp 16 11/23/23 12:00 BP 84/62 11/23/23 12:00 Pulse Ox 91 11/23/23 12:00 O2 Del Method Room Air 11/23/23 12:00 O2 Flow Rate 3 11/22/23 16:30 11/22/23 11/23/23 11/23/23 22:59 06:59 14:59 Intake Total 1345 / 1345 1920 / 3265 360 / 360 Balance 1345 / 1345 1920 / 3265 360 / 360 Weight last 48 hrs Weight 99.518 kg Weight 97.522 kg Weight 99.79 kg Physical Exam 2 Narrative: She is alert awake oriented x 3 obese Chest clear to auscultation bilaterally Cardiovascular normal heart sounds no murmurs Abdomen soft nontender mildly distended. Hyperactive bowel sounds Extremities no edema noted bilaterally Data 11/23/23 03:20 11/23/23 03:20 Micro: Microbiology 11/22/23 17:42 Stool Lactoferrin - Final Stool Occult Blood (FIT) - Final A&P Assessment and plan (1) Dehydration: (2) Colitis: (3) Diabetes: (4) Diarrhea: Qualifiers: Diarrhea type: unspecified type Qualified Code(s): R19.7 - Diarrhea, unspecified (5) Acute hypokalemia: Plan (1) Colitis: Seen on CT abdomen pelvis. Acute severe hypokalemia. Normal saline with potassium 40 mEq at 100 cc/h. Stool studies pending. Once C. difficile is ruled out can plan for Imodium. IV ciprofloxacin and Flagyl for now. Clear liquid diet. (2) Acute hypokalemia: In setting of diarrhea. Treatment as above. (3) Dehydration: (4) Hypertension: Goal blood pressure less than 140/90 MAG. Continue with home dose of metoprolol. (5) Diabetes mellitus with hyperglycemia, with long-term current use of insulin: Sliding scale low-dose protocol ACHS. Continue 15 units of Lantus (6) Adult hypothyroidism: Continue with home dose of levothyroxine. Full code Liquid diet carb consistent Protonix for PUD prophylaxis Heparin 5000 every 8 hourly for DVT prophylaxis Attestations 2 Medical Necessity Statement*: She needs continued hospitalization for dehydration and acute colitis with IV fluids and antibiotics. Time Spent in Patient Care: 30 minutes Coding Level of Care Code Acute Code for Chg Fwd Moderate MDM includes number and complexity of problems actively addressed during encounter as documented Diagnoses Dehydration E86.0 Colitis K52.9 Diabetes E11.9 Diarrhea R19.7 Diarrhea type: unspecified type Acute hypokalemia E87.6 Time Spent (min) 30
[2023-11-23 16:44] LABS: Glucose Point of Care 165 mg/dL (70-110)
[2023-11-23] MEDS: acetaminophen 325 mg Tablet 650 MG PO (16:47)
[2023-11-23] MEDS: pantoprazole 40 mg SDV IVP (18:24)
[2023-11-23] MEDS: sodium chloride 0.9% 500 ML 999 ML IV (20:16)
[2023-11-23] MEDS: atorvastatin 40 mg Tablet PO (20:19)
[2023-11-23 20:50] LABS: Glucose Point of Care 298 mg/dL (70-110)
[2023-11-23] MEDS: insulin glargine 100 units/1 mL 15 UNIT SUBCUT (21:23)
[2023-11-24] VITALS (10 sets, daily range): BP systolic 91–115; BP diastolic 52–71; PULSE 55–76; RESP 16–20; TEMP 36.3–36.9; O2SAT 94–99
[2023-11-24] MEDS: acetaminophen 325 mg Tablet 650 MG PO (02:36)
[2023-11-24] MEDS: heparin 5,000 unit/mL INJ 1 mL 5000 UNIT SUBCUT ×3 (02:37→17:34)
[2023-11-24] MEDS: sodium chlor 0.9% + KCl 40 mEq 40 MEQ/1,000 ML BAG 100 MEQ IV ×2 (04:41→15:55)
[2023-11-24] MEDS: phosphorus 250 mg Tablet PO ×2 (06:25→17:34)
[2023-11-24] MEDS: venlafaxine ER (24HR) 75 mg Capsule PO (06:27)
[2023-11-24 06:28] LABS: Glucose Point of Care 128 mg/dL (70-110)
[2023-11-24] MEDS: gabapentin 300 mg Capsule 600 MG PO (09:24)
[2023-11-24] MEDS: levothyroxine 125 mcg Tablet PO (09:24)
[2023-11-24] MEDS: tizanidine 4 mg Tablet PO ×2 (09:24→17:33)
[2023-11-24] MEDS: sucralfate 1 gm Tablet PO ×3 (09:24→20:28)
[2023-11-24 10:47] LABS: Glucose Point of Care 219 mg/dL (70-110)
[2023-11-24] MEDS: insulin lispro 100 unit/1 mL SUBCUT ×2 (12:17→20:28)
[2023-11-24 12:34] LABS: Anion Gap 13.9 (5-19); Blood Urea Nitrogen 13 mg/dL (6-20); Calcium 8.7 mg/dL (8.5-10.5); Carbon Dioxide 18 mmol/L (22-29); Chloride 106 mmol/L (98-107); Creatinine Clr Calc Pharmacy 101.2322; Glomerular Filtration Rate 86.6 mL/min (90-130); Glucose 204 mg/dL (65-115); Magnesium 1.8 mg/dL (1.7-2.3); Osmolality Calculated 286 mOsm/kg (285-295); Sodium 135 mmol/L (136-145)
[2023-11-24 12:37] LABS: Potassium 2.9 mmol/L (3.5-5.1)
--- NOTE | 2023-11-24 13:24 | P.PN_ITS ---
Subjective 2 Subjective: No acute overnight events noted. She looks comfortable lying in bed. Still complaining of watery diarrhea and nausea. Medications: Reviewed: Yes Vitals/I&O/Wt Last Vital Signs Temp 98.4 F 11/24/23 11:16 Pulse 63 11/24/23 11:16 Resp 16 11/24/23 11:16 BP 91/61 11/24/23 11:16 Pulse Ox 97 11/24/23 11:16 O2 Del Method Room Air 11/24/23 11:16 O2 Flow Rate 3 11/22/23 16:30 11/23/23 11/24/23 11/24/23 22:59 06:59 14:59 Intake Total 1740 / 2340 915 / 3255 1235 / 1235 Output Total 500 / 500 Balance 1740 / 2340 915 / 3255 735 / 735 Weight last 48 hrs Weight 100.045 kg Weight 99.518 kg Weight 97.522 kg Weight 99.79 kg Physical Exam 2 Narrative: She is alert awake oriented x 3 obese Chest clear to auscultation bilaterally Cardiovascular normal heart sounds no murmurs Abdomen soft nontender mildly distended. Hyperactive bowel sounds Extremities no edema noted bilaterally Data 11/23/23 03:20 11/24/23 11:08 A&P Assessment and plan (1) Dehydration: (2) Colitis: (3) Diabetes: (4) Diarrhea: Qualifiers: Diarrhea type: unspecified type Qualified Code(s): R19.7 - Diarrhea, unspecified (5) Acute hypokalemia: Plan (1) acute colitis: Stool studies pending. IV ciprofloxacin and Flagyl for now. P.o. potassium 40 mEqx2, 4 hours apart Clear liquid diet. Follow-up CBC and BMP in a.m. Full code Liquid diet carb consistent Protonix for PUD prophylaxis Heparin 5000 every 8 hourly for DVT prophylaxis Attestations 2 Medical Necessity Statement*: She still has watery diarrhea and nausea, will need continued hospitalization for IV fluids and antibiotics and follow-up of stool studies and C. difficile. Time Spent in Patient Care: 20 minutes Coding Level of Care Code Acute Code for Chg Fwd Diagnoses Dehydration E86.0 Colitis K52.9 Diabetes E11.9 Diarrhea R19.7 Diarrhea type: unspecified type Acute hypokalemia E87.6 Time Spent (min) 20
[2023-11-24] MEDS: potassium chloride ER 20 mEq Tablet 40 MEQ PO ×2 (13:58→20:29)
[2023-11-24 16:44] LABS: Glucose Point of Care 127 mg/dL (70-110)
[2023-11-24 16:52] LABS: C.Diff PCR (Lab) NEGATIVE (Negative)
[2023-11-24] MEDS: pantoprazole 40 mg SDV IVP (17:35)
[2023-11-24] MEDS: morphine 4 mg/mL SDV 1 mL 2 MG IVP (17:43)
[2023-11-24] MEDS: ondansetron 2 mg/ML SDV 2 mL 4 MG IVP (17:44)
[2023-11-24 20:14] LABS: Glucose Point of Care 214 mg/dL (70-110)
[2023-11-24] MEDS: insulin glargine 100 units/1 mL 15 UNIT SUBCUT (20:28)
[2023-11-24] MEDS: atorvastatin 40 mg Tablet PO (20:29)
[2023-11-25] VITALS (8 sets, daily range): BP systolic 82–120; BP diastolic 56–81; PULSE 52–79; RESP 15–20; TEMP 36.4–36.9; O2SAT 95–98; BMI 38.7
[2023-11-25] MEDS: sodium chlor 0.9% + KCl 40 mEq 40 MEQ/1,000 ML BAG 100 MEQ IV ×2 (00:02→12:09)
[2023-11-25] MEDS: heparin 5,000 unit/mL INJ 1 mL 5000 UNIT SUBCUT ×3 (02:38→16:23)
[2023-11-25] MEDS: acetaminophen 325 mg Tablet 650 MG PO ×2 (02:42→21:01)
[2023-11-25 04:44] LABS: Basophils % 0.8 %; Eosinophils % 0.8 %; Hematocrit 38.9 % (36-47); Lymphocytes # 1.3 10^3/uL (0.8-4.8); Mean Corpuscular Hemoglobin 29.4 pg (27-33); Mean Corpuscular Volume 84.2 fl (85-98); Mean Platelet Volume 10.3 fL (7.4-10.4); Monocytes # 0.5 10^3/uL (0.2-0.9); Monocytes % 9.4 %; Neutrophils # 3.44 10^3/uL (1.8-7.7); Neutrophils % 64.4 %; Nucleated Red Blood Cells % 0 %; Platelet Count 181 10^3/cmm (157-399); Red Blood Count 4.62 10^6/uL (3.85-5.65); White Blood Count 5.33 10^3/uL (3.29-11.43)
[2023-11-25 05:06] LABS: Slide Review Slide Review Perform
[2023-11-25 05:10] LABS: Anion Gap 11.3 (5-19); Blood Urea Nitrogen 9 mg/dL (6-20); Calcium 8.6 mg/dL (8.5-10.5); Carbon Dioxide 18 mmol/L (22-29); Chloride 112 mmol/L (98-107); Creatinine Clr Calc Pharmacy 117.4675; Glomerular Filtration Rate 103.4 mL/min (90-130); Glucose 103 mg/dL (65-115); Osmolality Calculated 285 mOsm/kg (285-295); Potassium 3.3 mmol/L (3.5-5.1); Sodium 138 mmol/L (136-145)
[2023-11-25] MEDS: venlafaxine ER (24HR) 75 mg Capsule PO (05:42)
[2023-11-25] MEDS: phosphorus 250 mg Tablet PO ×2 (05:42→16:24)
[2023-11-25 06:31] LABS: Glucose Point of Care 109 mg/dL (70-110)
[2023-11-25] MEDS: potassium chloride ER 20 mEq Tablet 40 MEQ PO ×2 (09:01→15:31)
[2023-11-25] MEDS: gabapentin 300 mg Capsule 600 MG PO (09:02)
[2023-11-25] MEDS: loperamide 2 mg Capsule PO ×2 (09:02→16:23)
[2023-11-25] MEDS: tizanidine 4 mg Tablet PO ×2 (09:02→16:23)
[2023-11-25] MEDS: levothyroxine 125 mcg Tablet PO (09:02)
[2023-11-25] MEDS: ciprofloxacin 400 MG/200 ML PREMIX 200 MG IV ×2 (09:03→21:02)
[2023-11-25] MEDS: metroNIDAZOLE IV 500 MG/100 ML PREMIX 100 MG IV ×2 (09:04→15:32)
--- NOTE | 2023-11-25 11:22 | P.PN_ITS ---
Subjective 2 Subjective: Still complaining of green-colored watery diarrhea but no nausea vomiting or fever, she has intermittent abdominal cramping. Denies any chest pain shortness of breath cold or cough Medications: Reviewed: Yes Vitals/I&O/Wt Last Vital Signs Temp 98.4 F 11/25/23 08:00 Pulse 79 11/25/23 08:00 Resp 17 11/25/23 08:00 BP 116/73 11/25/23 08:00 Pulse Ox 97 11/25/23 08:00 O2 Del Method Room Air 11/25/23 08:00 O2 Flow Rate 5 11/24/23 08:00 11/24/23 11/25/23 11/25/23 22:59 06:59 14:59 Intake Total 985 / 2220 811.667 / 3031.667 780 / 780 Balance 985 / 1720 811.667 / 2531.667 780 / 780 Weight last 48 hrs Weight 99.082 kg Weight 98.628 kg Weight 100.045 kg Physical Exam 2 Narrative: She is alert awake oriented x 3 obese Chest clear to auscultation bilaterally Cardiovascular normal heart sounds no murmurs Abdomen soft nontender mildly distended. Hyperactive bowel sounds Extremities no edema noted bilaterally Data 11/25/23 04:08 11/25/23 04:08 A&P Assessment and plan (1) Dehydration: (2) Colitis: (3) Diabetes: (4) Diarrhea: Qualifiers: Diarrhea type: unspecified type Qualified Code(s): R19.7 - Diarrhea, unspecified (5) Acute hypokalemia: Plan (1) acute colitis: Stool studies negative IV ciprofloxacin and Flagyl for now. will add po loperamide tid since stool negative for cdiff. po lactobacillus 1 tab bid P.o. potassium 40 mEqx2, 4 hours apart Clear liquid diet. Full code Liquid diet carb consistent Protonix for PUD prophylaxis Heparin 5000 every 8 hourly for DVT prophylaxis Attestations 2 Medical Necessity Statement*: She needs continued hospitalization for IV antibiotics and fluids. Still has green colored watery diarrhea. Time Spent in Patient Care: 15 minutes Coding Level of Care Code Acute Code for Chg Fwd Diagnoses Dehydration E86.0 Colitis K52.9 Diabetes E11.9 Diarrhea R19.7 Diarrhea type: unspecified type Acute hypokalemia E87.6 Time Spent (min) 15
[2023-11-25 11:30] LABS: Glucose Point of Care 204 mg/dL (70-110)
[2023-11-25] MEDS: insulin lispro 100 unit/1 mL SUBCUT ×2 (12:09→21:02)
[2023-11-25] MEDS: lactobacillus 1 Tablet 1 TAB PO (16:23)
[2023-11-25] MEDS: pantoprazole 40 mg SDV IVP (16:24)
[2023-11-25 17:21] LABS: Glucose Point of Care 134 mg/dL (70-110)
[2023-11-25 20:33] LABS: Glucose Point of Care 225 mg/dL (70-110)
[2023-11-25] MEDS: atorvastatin 40 mg Tablet PO (21:01)
[2023-11-25] MEDS: insulin glargine 100 units/1 mL 15 UNIT SUBCUT (21:03)
[2023-11-26] VITALS (10 sets, daily range): BP systolic 81–150; BP diastolic 53–80; PULSE 48–68; RESP 15–20; TEMP 36.3–36.8; O2SAT 94–97; BMI 39.4
[2023-11-26] MEDS: metroNIDAZOLE IV 500 MG/100 ML PREMIX 100 MG IV ×3 (00:57→16:25)
[2023-11-26] MEDS: heparin 5,000 unit/mL INJ 1 mL 5000 UNIT SUBCUT ×2 (02:47→10:36)
[2023-11-26] MEDS: sodium chlor 0.9% + KCl 40 mEq 40 MEQ/1,000 ML BAG 100 MEQ IV (02:48)
[2023-11-26] MEDS: phosphorus 250 mg Tablet PO ×2 (05:40→17:56)
[2023-11-26] MEDS: morphine 4 mg/mL SDV 1 mL 2 MG IVP (05:41)
[2023-11-26] MEDS: venlafaxine ER (24HR) 75 mg Capsule PO (05:41)
[2023-11-26 06:11] LABS: Blood Urea Nitrogen 5 mg/dL (6-20); Calcium 8.9 mg/dL (8.5-10.5); Carbon Dioxide 19 mmol/L (22-29); Chloride 115 mmol/L (98-107); Creatinine Clr Calc Pharmacy 118.6853; Glomerular Filtration Rate 103.4 mL/min (90-130); Glucose 98 mg/dL (65-115); Osmolality Calculated 291 mOsm/kg (285-295); Sodium 142 mmol/L (136-145)
[2023-11-26 06:25] LABS: Glucose Point of Care 95 mg/dL (70-110)
[2023-11-26] MEDS: tizanidine 4 mg Tablet PO ×2 (08:40→17:56)
[2023-11-26] MEDS: lactobacillus 1 Tablet 1 TAB PO ×2 (08:40→17:56)
[2023-11-26] MEDS: gabapentin 300 mg Capsule 600 MG PO (08:40)
[2023-11-26] MEDS: levothyroxine 125 mcg Tablet PO (08:41)
[2023-11-26] MEDS: loperamide 2 mg Capsule PO ×2 (08:41→17:57)
[2023-11-26] MEDS: ciprofloxacin 400 MG/200 ML PREMIX 200 MG IV ×2 (08:43→20:15)
[2023-11-26 11:53] LABS: Glucose Point of Care 228 mg/dL (70-110)
[2023-11-26] MEDS: insulin lispro 100 unit/1 mL SUBCUT (12:05)
--- NOTE | 2023-11-26 13:25 | P.PN_ITS ---
Subjective 2 Subjective: No acute overnight events noted. She is feeling much better today decreased frequency of diarrhea, denies any nausea or vomiting or fever. Medications: Reviewed: Yes Vitals/I&O/Wt Last Vital Signs Temp 97.8 F 11/26/23 11:45 Pulse 65 11/26/23 11:45 Resp 15 11/26/23 11:45 BP 103/69 11/26/23 11:45 Pulse Ox 94 11/26/23 11:45 O2 Del Method Room Air 11/26/23 11:45 O2 Flow Rate 5 11/24/23 08:00 11/25/23 11/26/23 11/26/23 22:59 06:59 14:59 Intake Total 1180 / 3080 911.667 / 3991.667 660 / 660 Balance 1180 / 3080 911.667 / 3991.667 660 / 660 Weight last 48 hrs Weight 100.924 kg Weight 99.082 kg Weight 99.082 kg Physical Exam 2 Narrative: She is alert awake oriented x 3 obese Chest clear to auscultation bilaterally Cardiovascular normal heart sounds no murmurs Abdomen soft nontender mildly distended. Hyperactive bowel sounds Extremities no edema noted bilaterally Data 11/25/23 04:08 11/26/23 05:30 Micro: Microbiology 11/25/23 23:54 Occult Blood (FIT) - Final Stool Routine Collection 11/22/23 17:42 E. coli Shiga-like Toxin (PCR) - Final Stool Salmonella/Shigella Culture - Final Campylobacter (PCR) - Final A&P Assessment and plan (1) Dehydration: (2) Colitis: (3) Diabetes: (4) Diarrhea: Qualifiers: Diarrhea type: unspecified type Qualified Code(s): R19.7 - Diarrhea, unspecified (5) Acute hypokalemia: resolved Plan (1) acute colitis: Stool studies positive for Salmonella enteritis IV ciprofloxacin and Flagyl for now. Continue po loperamide tid po lactobacillus 1 tab bid advance to soft diet. Full code Protonix for PUD prophylaxis Heparin 5000 every 8 hourly for DVT prophylaxis Attestations 2 Medical Necessity Statement*: She needs continued hospitalization for IV antibiotics and fluids, found to have Salmonella enteritis, responding to IV antibiotics. Time Spent in Patient Care: 20 minutes Coding Level of Care Code Acute Code for [facility] Fwd Diagnoses Dehydration E86.0 Colitis K52.9 Diabetes E11.9 Diarrhea R19.7 Diarrhea type: unspecified type Acute hypokalemia E87.6 Time Spent (min) 20
[2023-11-26] MEDS: sodium chlor 0.9% + KCl 40 mEq 40 MEQ/1,000 ML BAG IV (14:24)
[2023-11-26 16:55] LABS: Glucose Point of Care 131 mg/dL (70-110)
[2023-11-26] MEDS: pantoprazole 40 mg SDV IVP (18:43)
[2023-11-26 20:15] LABS: Glucose Point of Care 140 mg/dL (70-110)
[2023-11-26] MEDS: atorvastatin 40 mg Tablet PO (20:15)
[2023-11-26] MEDS: insulin glargine 100 units/1 mL 15 UNIT SUBCUT (20:15)
[2023-11-27] VITALS (9 sets, daily range): BP systolic 109–134; BP diastolic 55–79; PULSE 50–68; RESP 15–20; TEMP 36.4–36.9; O2SAT 94–97
[2023-11-27] MEDS: lactated ringers 1,000 ML 999 ML IV (00:02)
[2023-11-27] MEDS: metroNIDAZOLE IV 500 MG/100 ML PREMIX 100 MG IV ×3 (00:03→20:51)
[2023-11-27] MEDS: heparin 5,000 unit/mL INJ 1 mL 5000 UNIT SUBCUT ×3 (02:27→17:35)
[2023-11-27 03:06] LABS: Lactate (Lactic Acid level) 1.7 mmol/L (0.5-2.2)
--- NOTE | 2023-11-27 03:13 | ECG_ITS ---
[facility] Test Date: 2023-11-27 Pat Name: Adriana Velasquez Department: Room: 252 Gender: Female Manager Of Training And Development: : 1965 Requested By: Sinan Nayak Order Number: [id number] Menjivar MD: Pancho Vega M.D. Measurements Intervals [place] Rate: 54 P: 42 AL: 178 QRS: 30 QRSD: 105 T: 13 QT: 439 QTc: 418 Interpretive Statements SINUS BRADYCARDIA Compared to ECG 11/22/2023 15:55:44 Sinus tachycardia no longer present ST (T wave) deviation no longer present Electronically Signed On 11-27-2023 17:02:16 CDT by Pancho Vega M.D. [id number]
[2023-11-27] MEDS: acetaminophen 325 mg Tablet 650 MG PO ×2 (04:52→23:39)
[2023-11-27] MEDS: phosphorus 250 mg Tablet PO ×2 (05:43→17:34)
[2023-11-27] MEDS: venlafaxine ER (24HR) 75 mg Capsule PO (05:44)
[2023-11-27 06:24] LABS: Glucose Point of Care 154 mg/dL (70-110)
[2023-11-27] MEDS: levothyroxine 125 mcg Tablet PO (09:38)
[2023-11-27] MEDS: gabapentin 300 mg Capsule 600 MG PO (09:38)
[2023-11-27] MEDS: loperamide 2 mg Capsule PO ×2 (09:38→17:34)
[2023-11-27] MEDS: lactobacillus 1 Tablet 1 TAB PO ×2 (09:38→17:35)
[2023-11-27] MEDS: tizanidine 4 mg Tablet PO ×2 (09:38→17:35)
[2023-11-27] MEDS: ciprofloxacin 400 MG/200 ML PREMIX 200 MG IV (09:40)
--- NOTE | 2023-11-27 09:41 | US_ITS ---
WS: [id number] Complete ABDOMINAL ULTRASOUND HISTORY: Salmonella enteritis with abdominal distention COMPARISON: 07/31/2019, CT 11/22/2023 Liver: 17.3 cm in length. Top normal size liver. No mass. Normal bile ducts. Portal Vein: Normal hepatopetal flow with monophasic waveform. Gallbladder: Contracted. No stones or adjacent inflammation. No wall thickening. CBD: 0.9 cm, common bile duct is mildly enlarged. Common bile duct is normal on the CT from 11/22/2023. Common bile duct at the pancreatic head appears normal. Pancreas: Normal size and echogenicity. Right kidney: 13.0 cm x 4.3 x 5.7 cm. Cortex:1.4 cm. Normal size and echogenicity. No hydronephrosis or mass. Tiny cortical cyst lower pole maximum diamet er of 0.9 cm. Left kidney: 13.6 cm x 5.9 cm x 5.3 cm. Cortex: 1.4 cm. Normal size and echogenicity. No hydronephrosis or mass. Spleen: 13.4 cm. Normal size and echogenicity. Aorta and IVC: Unremarkable abdominal aorta and IVC. Impression: 1. Contracted gallbladder with stones identified. Gallbladder wall is mildly thickened due to contra ction. 2. The common bile duct is measuring 2 mm greater than normal. The common bile duct was normal on e CT from 11/22/2023. No stones identified in the duct. The common bile duct at the pancreatic head is normal. 3. No renal obstruction.
--- NOTE | 2023-11-27 10:04 | ECG_ITS ---
[facility] Test Date: 2023-11-27 Pat Name: Adriana Velasquez Department: Room: 252 Gender: Female Log Clerk: : 1965 Requested By: Bonnie Proctor Order Number: [id number] Tiara MD: Pancho Vega M.D. Measurements Intervals [place] Rate: 50 P: 31 GA: 182 QRS: 22 QRSD: 103 T: 11 QT: 458 QTc: 418 Interpretive Statements SINUS BRADYCARDIA Compared to ECG 11/27/2023 03:23:22 No significant changes Electronically Signed On 11-27-2023 17:00:39 CDT by Pancho Vega M.D. [id number]
[2023-11-27 11:23] LABS: Glucose Point of Care 197 mg/dL (70-110)
--- NOTE | 2023-11-27 11:23 | P.PN_ITS ---
Subjective 2 Subjective: Still complaining of watery diarrhea but now yellow-colored, previously was green-colored. She complains of feeling low this morning and had overnight episode of hypotension and bradycardia. Frequency of diarrhea improved Medications: Reviewed: Yes Vitals/I&O/Wt Last Vital Signs Temp 98.5 F 11/27/23 04:00 Pulse 61 11/27/23 07:43 Resp 16 11/27/23 07:43 BP 134/55 11/27/23 07:43 Pulse Ox 95 11/27/23 07:43 O2 Del Method Room Air 11/27/23 07:43 O2 Flow Rate 5 11/24/23 08:00 11/26/23 11/27/23 11/27/23 22:59 06:59 14:59 Intake Total 1328 / 2988 1580 / 4568 120 / 120 Balance 1328 / 2988 1580 / 4568 120 / 120 Weight last 48 hrs Weight 104.644 kg Weight 100.924 kg Physical Exam 2 Narrative: She is alert awake oriented x 3 obese Chest clear to auscultation bilaterally Cardiovascular normal heart sounds no murmurs Abdomen soft nontender distended. Hyperactive bowel sounds Extremities no edema noted bilaterally Data 11/25/23 04:08 11/26/23 05:30 Micro: Microbiology 11/22/23 17:42 E. coli Shiga-like Toxin (PCR) - Final Stool Salmonella/Shigella Culture - Final Campylobacter (PCR) - Final Ova and Parasite Concentrate Exam - Final A&P Assessment and plan (1) Dehydration: (2) Colitis: (3) Diabetes: (4) Diarrhea: Qualifiers: Diarrhea type: unspecified type Qualified Code(s): R19.7 - Diarrhea, unspecified (5) Acute hypokalemia: resolved (6) Sinus bradycardia: (7) Hypotension: Plan (1) acute colitis: Stool studies positive for Salmonella enteritis IV ciprofloxacin and Flagyl for now. Continue po loperamide tid po lactobacillus 1 tab bid advance to soft diet. Will check USG abdomen to rule out toxic megacolon. Check CBC CMP ` PT/INR and electrolytes in a.m. (2) hypotension and bradycardia likely secondary to dehydration ECG consistent with sinus bradycardia, no acute ST-T changes noted Will give 1 L normal saline bolus And continue IV normal saline at 125 mL/h. Full code Protonix for PUD prophylaxis Heparin 5000 every 8 hourly for DVT prophylaxis Attestations 2 Medical Necessity Statement*: Patient still has watery diarrhea but yellow-colored and improved frequency . she needs continued hospitalization for IV antibiotics and fluids for Salmonella enteritis, also USG abdomen to rule out toxic megacolon. Time Spent in Patient Care: 20 minutes Coding Level of Care Code Acute Code for Chg Fwd Diagnoses Dehydration E86.0 Colitis K52.9 Diabetes E11.9 Diarrhea R19.7 Diarrhea type: unspecified type Acute hypokalemia E87.6 Sinus bradycardia R00.1 Hypotension I95.9 Time Spent (min) 20
[2023-11-27] MEDS: sodium chloride 0.9% 1,000 ML 125 ML IV ×2 (11:38→22:52)
[2023-11-27] MEDS: pantoprazole 40 mg SDV IVP ×2 (13:08→23:36)
[2023-11-27] MEDS: insulin lispro 100 unit/1 mL SUBCUT ×2 (13:08→20:50)
[2023-11-27] MEDS: sodium chloride 0.9% 500 ML IV (13:09)
[2023-11-27 13:27] LABS: Anion Gap 11.5 (5-19); Blood Urea Nitrogen 3 mg/dL (6-20); Calcium 8.5 mg/dL (8.5-10.5); Carbon Dioxide 20 mmol/L (22-29); Chloride 110 mmol/L (98-107); Creatinine Clr Calc Pharmacy 145.3736; Glomerular Filtration Rate 127.6 mL/min (90-130); Glucose 173 mg/dL (65-115); Osmolality Calculated 287 mOsm/kg (285-295); Potassium 3.5 mmol/L (3.5-5.1); Sodium 138 mmol/L (136-145)
[2023-11-27 16:57] LABS: Glucose Point of Care 112 mg/dL (70-110)
--- NOTE | 2023-11-27 16:58 | USCV_ITS ---
Adriana Velasquez Age: 58 Gender: F : 1965 Exam Date: 11/27/2023 17:34 Ordering Phys: Bonnie Proctor MD Technologist: Osman Goldman Exam Location: [facility] [place] Indication: bradycardia BP: 144 / 85 HR: 53 Rhythm: Sinus Technical Quality: Adequate MEASUREMENTS (Male / Female) Normal Values 2D ECHO LVOT Diameter 2.1 cm LA Diameter 3.4 cm RA Systolic Volume 4C AL 28.6 ml RA Systolic Volume 4C MOD 28.1 ml LA Sys Volume AL 58.1 cm cubed LA Sys Volume Index AL 26.3 cm cubed/m squared Aorta at Sinotubular Diameter 2.8 cm IVC Diameter 2.5 cm M-MODE LA Ao Ratio MM 1.4 MV E Point Septal Separation 0.4 cm AV Cusp Separation MM 2.1 cm DOPPLER AV Peak Velocity 136.7 cm/s AV Area Cont Eq vti 2.3 cm squared AV Area Cont Eq pk 2.6 cm squared MV Peak Velocity 115.0 cm/s MV Area PHT 5.6 cm squared Mitral E to A Ratio 1.3 TV Peak Velocity 233.0 cm/s TR Peak Velocity 361.0 cm/s TR Peak Gradient 52.1 mmHg TR Mean Velocity 272.0 cm/s TR Mean Gradient 32.3 mmHg TR Velocity Time Integral 130.8 cm PV Peak Velocity 94.0 cm/s RV Ejection Time 0.4 s FINDINGS Left Ventricle Normal left ventricular size and systolic function, EF 63%.mild left ventricular hypertrophy. No regional wall motion abnormalities. Right Ventricle The right ventricle is normal in size and function. Right Atrium The right atrium is normal in size. Left Atrium Mildly increased left atrial size. Mitral Valve No gross abnormalities noted Aortic Valve No gross abnormalities noted Tricuspid Valve Trace tricuspid valve regurgitation. Pulmonic Valve No gross abnormalities noted Pericardium Normal pericardium without effusion. Aorta Normal ascending aorta dimension. IVC Normal inferior vena cava. CONCLUSIONS Normal left ventricular size and systolic function, EF 63%. Mild left ventricular hypertrophy. No regional wall motion abnormalities. Mildly increased left atrial size. Trace there is no pericardial effusion. There are no intracardiac masses. tricuspid valve regurgitation. No previous study is available for comparison. Dr Geri Díaz MD FAC (Electronically Signed) Final Date: 27 November 2023 20:40 S
[2023-11-27 20:34] LABS: Glucose Point of Care 153 mg/dL (70-110)
[2023-11-27] MEDS: ciprofloxacin 400 MG/200 ML PREMIX IV (20:50)
[2023-11-27] MEDS: atorvastatin 40 mg Tablet PO (20:50)
[2023-11-27] MEDS: insulin glargine 100 units/1 mL 15 UNIT SUBCUT (20:50)
[2023-11-28] MEDS: heparin 5,000 unit/mL INJ 1 mL 5000 UNIT SUBCUT (01:56)
[2023-11-28 03:40] VITALS: BP 107/63; PULSE 60; RESP 16; TEMP 36.6; O2SAT 95
[2023-11-28 03:46] LABS: Basophils % 0.5 %; Eosinophils # 0.2 10^3/uL (0.0-0.8); Eosinophils % 2.4 %; Hematocrit 35.2 % (36-47); Lymphocytes # 2.1 10^3/uL (0.8-4.8); Lymphocytes % 28.3 %; Mean Corpuscular HGB Conc 34.1 g/dL (30-55); Mean Corpuscular Hemoglobin 29.1 pg (27-33); Mean Corpuscular Volume 85.2 fl (85-98); Mean Platelet Volume 9.5 fL (7.4-10.4); Monocytes # 0.6 10^3/uL (0.2-0.9); Monocytes % 8.1 %; Neutrophils # 3.95 10^3/uL (1.8-7.7); Neutrophils % 52.1 %; Nucleated Red Blood Cells % 0 %; Platelet Count 194 10^3/cmm (157-399); Red Blood Count 4.13 10^6/uL (3.85-5.65); Red Cell Distribution Width 14.1 % (12.1-15.1); White Blood Count 7.57 10^3/uL (3.29-11.43)
[2023-11-28 04:10] LABS: Alanine Aminotransferase 67 U/L (0-33); Albumin Level 3.2 g/dL (3.5-5.2); Alkaline Phosphatase 163 U/L (35-105); Aspartate Amino Transferase 73 U/L (0-32); Blood Urea Nitrogen 3 mg/dL (6-20); Calcium 8.4 mg/dL (8.5-10.5); Carbon Dioxide 23 mmol/L (22-29); Chloride 111 mmol/L (98-107); Creatinine Clr Calc Pharmacy 141.5227; Globulin 2.3 g/dL (1.3-4.6); Glomerular Filtration Rate 127.6 mL/min (90-130); Glucose 108 mg/dL (65-115); Osmolality Calculated 291 mOsm/kg (285-295); Sodium 142 mmol/L (136-145); Total Bilirubin 0.5 mg/dL (0.15-1.2); Total Protein 5.5 g/dL (6.6-8.7)
[2023-11-28 04:14] LABS: Carbon Dioxide 24 mmol/L (22-29); Chloride 111 mmol/L (98-107); Sodium 143 mmol/L (136-145)
[2023-11-28 05:18] VITALS: PULSE 80
[2023-11-28] MEDS: phosphorus 250 mg Tablet PO (05:56)
[2023-11-28] MEDS: venlafaxine ER (24HR) 75 mg Capsule PO (05:56)
[2023-11-28] MEDS: metroNIDAZOLE IV 500 MG/100 ML PREMIX 100 MG IV (05:56)
[2023-11-28] MEDS: acetaminophen 325 mg Tablet 650 MG PO (05:59)
[2023-11-28 06:26] LABS: Glucose Point of Care 110 mg/dL (70-110)
[2023-11-28 07:33] VITALS: BP 120/67; PULSE 50; RESP 18; TEMP 36.6; O2SAT 95
[2023-11-28] MEDS: sodium chloride 0.9% 1,000 ML 125 ML IV (08:22)
[2023-11-28] MEDS: lactobacillus 1 Tablet 1 TAB PO (08:23)
[2023-11-28] MEDS: levothyroxine 125 mcg Tablet PO (08:25)
[2023-11-28] MEDS: potassium chloride ER 20 mEq Tablet 40 MEQ PO (08:26)
[2023-11-28] MEDS: gabapentin 300 mg Capsule 600 MG PO (08:26)
[2023-11-28] MEDS: levofloxacin-dextrose 5 % 750 MG/150 ML PREMIX 100 MG IV (08:27)
[2023-11-28] MEDS: tizanidine 4 mg Tablet PO (08:27)
[2023-11-28] MEDS: loperamide 2 mg Capsule PO (08:41)
--- NOTE | 2023-11-28 09:15 | PM.DCS ---
Discharge Providers Date of Admission: 11/22/23 16:06 Date of Discharge: November 28, 2023 Attending Provider at Admission: Timur Price MD Attending Provider at Discharge: Bonnie Proctor MD Primary Care Provider: RASHAAD Erazo Diagnoses at Discharge Discharge Diagnosis (1) Dehydration: Status: Acute (2) Colitis: Status: Acute (3) Diabetes: Status: Acute (4) Diarrhea: Status: Acute Qualifiers: Diarrhea type: unspecified type Qualified Code(s): R19.7 - Diarrhea, unspecified (5) Acute hypokalemia: Status: Acute (6) Sinus bradycardia: Status: Acute (7) Hypotension: Status: Acute Reason for Visit Reason for Visit: WEAKNESS Brief History: 58 year old female with past medical history of hypothyroidism, hypertension, type 2 diabetes mellitus, COPD, narcolepsy, GERD presented to the ER today because of worsening nausea and diarrhea over the last 3 days associated with weakness and dizziness complicated by unsteadiness on her feet today. As per patient she has had multiple episodes of diarrhea which is watery, foul-smelling not blood-tinged. Hospital Course Hospital Course She was managed conservatively for dehydration and viral gastroenteritis, but had no relief and diarrhea hence was started on IV ciprofloxacin and Flagyl. She was found to have Salmonella enteritis on stool culture which is sensitive to levofloxacin. C. difficile was negative Her diarrhea resolved in the last 48 hours and she is feeling better, able to tolerate diet. During hospital course she was also found to have bradycardia of 45-50, but asymptomatic 2D echo done which showed Normal left ventricular size and systolic function, EF 63%. Mild left ventricular hypertrophy. No regional wall motion abnormalities. Mildly increased left atrial size. Trace there is no pericardial effusion. There are no intracardiac masses. tricuspid valve regurgitation. No previous study is available for comparison. Will discontinue her home medications p.o. metoprolol twice a day. And follow-up with PCP in 1 week. She is ready to be discharged home today with oral antibiotics for 10 days. Physical Exam Narrative: She is alert awake oriented x 3 obese Chest clear to auscultation bilaterally Cardiovascular normal heart sounds no murmurs Abdomen soft nontender distended. Hyperactive bowel sounds Extremities no edema noted bilaterally Discharge Data Studies Completed and Pending Completed Studies During Hospitalization Category Date Time Status CT abdomen pelvis w con* [id number] Stat Cat Scan 11/22/23 15:49 Completed XR chest 1V portable [id number] Routine Exams 11/22/23 16:54 Completed OVA and Parasites, Conc and PE Routine Lab 11/22/23 17:42 Completed Salmonella / Shigella / Campy Routine Lab 11/22/23 17:42 Completed CV. echo complete* [id number] Stat Ultrasound 11/27/23 16:58 Completed US abdomen complete* [id number] Routine Ultrasound 11/27/23 09:41 Completed Pending at discharge Category Date Time Status Salmonella / Shigella / Campy Routine Lab 11/25/23 23:54 Received Radiology Impressions Abdomen/Pelvis CT 11/22/23 15:49 IMPRESSION: Enterocolitis Chest X-Ray 11/22/23 16:54 IMPRESSION: Mild accentuation or prominence of pulmonary vascularity with today's exam in relation to prior exam. Some difference may be related to difference in technique though consider mild pulmonary vascular congestion. No overt pulmonary edema. No consolidation or effusion. Laboratory Results WBC 7.57 10^3/uL (3.29-11.43) 11/28/23 02:36 RBC 4.13 10^6/uL (3.85-5.65) 11/28/23 02:36 Hgb 12.00 g/dL (11.27-16.99) 11/28/23 02:36 Hct 35.2 % (36-47) L 11/28/23 02:36 MCV 85.2 fl (85-98) 11/28/23 02:36 MCH 29.1 pg (27-33) 11/28/23 02:36 MCHC 34.1 g/dL (30-55) 11/28/23 02:36 RDW 14.1 % (12.1-15.1) 11/28/23 02:36 Plt Count 194 10^3/cmm (157-399) 11/28/23 02:36 MPV 9.5 fL (7.4-10.4) 11/28/23 02:36 Neut % (Auto) 52.1 % 11/28/23 02:36 Lymph % (Auto) 28.3 % 11/28/23 02:36 Benzie % (Auto) 8.1 % 11/28/23 02:36 Eos % (Auto) 2.4 % 11/28/23 02:36 Baso % (Auto) 0.5 % 11/28/23 02:36 Neut # (Auto) 3.95 10^3/uL (1.8-7.7) 11/28/23 02:36 Lymph # (Auto) 2.1 10^3/uL (0.8-4.8) 11/28/23 02:36 Benzie # (Auto) 0.6 10^3/uL (0.2-0.9) 11/28/23 02:36 Eos # (Auto) 0.2 10^3/uL (0.0-0.8) 11/28/23 02:36 Baso # (Auto) 0.0 10^3/uL (0.0-0.1) 11/28/23 02:36 Nucleated RBC % (auto) 0 % 11/28/23 02:36 Nucleated RBCs # 0.0 /100WBC 11/28/23 02:36 PT 22.40 SECONDS (12.1-14.9) H 11/28/23 02:36 INR 1.90 (0.8-1.2) H 11/28/23 02:36 Specimen Type Arterial 11/22/23 15:24 Sample Site Radial, right 11/22/23 15:24 ABG pH 7.44 (7.35-7.45) 11/22/23 15:24 ABG pCO2 26.0 mmHg (35-45) L 11/22/23 15:24 ABG pO2 64.8 mmHg (80.0-100.0) L 11/22/23 15:24 ABG PO2/FiO2 Ratio 0 11/22/23 15:24 ABG HCO3 17.7 mmol/L (22-26) L 11/22/23 15:24 ABG O2 Saturation 95.1 11/22/23 15:24 ABG Base Excess -4.1 mmol/L (-2.0-2.0) L 11/22/23 15:24 Tyrese Test Pos 11/22/23 15:24 A-a O2 Gradient 6.5 mmHg (5-10) 11/22/23 15:24 Hematocrit 61.5 % (37-47) H 11/22/23 15:24 Hgb O2 Saturation 94.4 % (95-100) L 11/22/23 15:24 Carboxyhemoglobin 0.6 %THgb (0.4-20.1) 11/22/23 15:24 Methemoglobin 0.1 % (0.4-1.5) L 11/22/23 15:24 Total Hemoglobin 20.1 g/dL (12-16) H 11/22/23 15:24 Sodium 131.0 mmol/L (131-143) 11/22/23 15:24 Potassium 2.2 mmol/L (3.5-5.0) L 11/22/23 15:24 Glucose 234.0 mg/dL (70-115) H 11/22/23 15:24 Ionized Calcium 1.3 mmol/L (1.1-1.4) 11/22/23 15:24 O2 Delivery Device Room air 11/22/23 15:24 FiO2 21.0 % 11/22/23 15:24 Mechanical Maintenance Worker ID glc 11/22/23 15:24 Sodium 142 mmol/L (136-145) 11/28/23 02:36 Sodium 143 mmol/L (136-145) 11/28/23 02:36 Potassium 3.0 mmol/L (3.5-5.1) L 11/28/23 02:36 Potassium 3.0 mmol/L (3.5-5.1) L 11/28/23 02:36 Chloride 111 mmol/L (98-107) H 11/28/23 02:36 Chloride 111 mmol/L (98-107) H 11/28/23 02:36 Carbon Dioxide 23 mmol/L (22-29) 11/28/23 02:36 Carbon Dioxide 24 mmol/L (22-29) 11/28/23 02:36 Anion Gap 11.0 (5-19) 11/28/23 02:36 Anion Gap 11.0 (5-19) 11/28/23 02:36 BUN 3 mg/dL (6-20) L 11/28/23 02:36 Creatinine 0.5 mg/dL (0.5-0.9) 11/28/23 02:36 GFR Calculation 127.6 mL/min (90-130) 11/28/23 02:36 Glucose 108 mg/dL (65-115) 11/28/23 02:36 POC Glucose 110 mg/dL (70-110) 11/28/23 06:19 Estimat Average Glucose 154 11/23/23 03:20 Hemoglobin A1c 7.0 % (4.0-6.0) H 11/23/23 03:20 Calculated Osmolality 291 mOsm/kg (285-295) 11/28/23 02:36 Lactic Acid 3.5 mmol/L (0.5-2.2) H 11/22/23 15:05 Lactic Acid (Sepsis) 2.8 mmol/L (0.5-2.2) H 11/22/23 17:48 Lactate 1.7 mmol/L (0.5-2.2) 11/27/23 02:07 Calcium 8.4 mg/dL (8.5-10.5) L 11/28/23 02:36 Phosphorus 0.8 mg/dL (2.5-4.5) L* 11/23/23 03:20 Magnesium 1.8 mg/dL (1.7-2.3) 11/24/23 11:08 Iron 17 ug/dL (37-145) L 11/22/23 15:05 TIBC 201 mcg/dl 11/22/23 15:05 % Saturation 8.4 % (20-50) L 11/22/23 15:05 Unsat Iron Binding 184 ug/dL (112-347) 11/22/23 15:05 Total Bilirubin 0.5 mg/dL (0.15-1.2) 11/28/23 02:36 AST 73 U/L (0-32) H 11/28/23 02:36 ALT 67 U/L (0-33) H 11/28/23 02:36 Alkaline Phosphatase 163 U/L (35-105) H 11/28/23 02:36 Creatine Kinase 81 U/L (26-192) 11/22/23 15:05 Total Protein 5.5 g/dL (6.6-8.7) L 11/28/23 02:36 Albumin 3.2 g/dL (3.5-5.2) L 11/28/23 02:36 Globulin 2.3 g/dL (1.3-4.6) 11/28/23 02:36 Triglycerides 183 mg/dL (0-150) H 11/23/23 03:20 Cholesterol 148 mg/dL (0-200) 11/23/23 03:20 LDL Cholesterol, Calc 89 mg/dL (50-129) 11/23/23 03:20 HDL Cholesterol 22 mg/dL (60-100) L 11/23/23 03:20 LDL/HDL Ratio 4.05 RATIO (0.00-3.22) H 11/23/23 03:20 Cholesterol/HDL Ratio 6.73 mg/dL (0.0-4.40) H 11/23/23 03:20 Lipase 25 U/L (13-60) 11/22/23 15:05 Vitamin B12 405 pg/mL (232-1245) 11/22/23 15:05 Folate 18.7 ng/mL (4.8-37.3) 11/23/23 03:20 Procalcitonin 0.88 ng/mL (0-0.5) H 11/22/23 15:05 TSH 0.65 uIU/mL (0.27-4.20) 11/22/23 15:05 Urine Color Dark yellow (Yellow) 11/22/23 14:51 Urine Appearance Hazy (CLEAR) A 11/22/23 14:51 Urine pH 6 (5-7) 11/22/23 14:51 Ur Specific Kennard 1.025 (1.005-1.030) 11/22/23 14:51 Urine Protein 3+ (Negative) H 11/22/23 14:51 Urine Glucose (UA) 1+ (Normal) H 11/22/23 14:51 Urine Ketones 2+ (Negative) H 11/22/23 14:51 Urine Blood 3+ (Negative) H 11/22/23 14:51 Urine Nitrate Negative (Negative) 11/22/23 14:51 Urine Bilirubin 1+ (Negative) H 11/22/23 14:51 Urine Urobilinogen Norm mg/dL (Negative) 11/22/23 14:51 Ur Leukocyte Esterase Trace (Negative) H 11/22/23 14:51 Urine RBC 5-10 /hpf (0-2) H 11/22/23 14:51 Urine WBC 5-10 /hpf (0-5) H 11/22/23 14:51 Ur Squamous Epith Cells 10-15 /hpf (0-5) H 11/22/23 14:51 Amorphous Sediment 1+ /hpf 11/22/23 14:51 Urine Bacteria 2+ /hpf (NONE) H 11/22/23 14:51 Coarse Granular Casts 15-25 /lpf H 11/22/23 14:51 Urine Mucus Trace /hpf 11/22/23 14:51 Urine Opiates Screen Negative ng/mL (Negative) 11/22/23 14:51 Ur Barbiturates Screen Negative ng/mL (Negative) 11/22/23 14:51 Ur Phencyclidine Scrn Negative ng/mL (Negative) 11/22/23 14:51 Ur Amphetamines Screen Positive ng/mL (Negative) H 11/22/23 14:51 U Benzodiazepines Scrn Negative ng/mL (Negative) 11/22/23 14:51 Urine Cocaine Screen Negative ng/mL (Negative) 11/22/23 14:51 U Marijuana (THC) Screen Negative ng/mL (Negative) 11/22/23 14:51 Serum Ketones Negative (Negative) 11/22/23 15:05 Adenovirus (PCR) Not detected (NOT DETECT) 11/22/23 16:10 C. pneumoniae DNA (PCR) Not detected (NOT DETECT) 11/22/23 16:10 C. difficile (PCR) Negative (Negative) 11/24/23 15:55 Coronavirus 229E (PCR) Not detected (NOT DETECT) 11/22/23 16:10 Human Metapneumovir PCR Not detected (NOT DETECT) 11/22/23 16:10 Influenza A (H1) PCR Not detected (NOT DETECT) 11/22/23 16:10 Influ A (H1/09) PCR Not detected (NOT DETECT) 11/22/23 16:10 Influenza A (H3) PCR Not detected (NOT DETECT) 11/22/23 16:10 Influenza Type A (PCR) Not detected (NOT DETECT) 11/22/23 16:10 Influenza Type B (PCR) Not detected (NOT DETECT) 11/22/23 16:10 M. pneumoniae (PCR) Not detected (NOT DETECT) 11/22/23 16:10 Parainfluenza 1 (PCR) Not detected (NOT DETECT) 11/22/23 16:10 Parainfluenza 2 (PCR) Not detected (NOT DETECT) 11/22/23 16:10 Parainfluenza 3 (PCR) Not detected (NOT DETECT) 11/22/23 16:10 Parainfluenza 4 (PCR) Not detected (NOT DETECT) 11/22/23 16:10 RSV Type A (PCR) Not detected (NOT DETECT) 11/22/23 16:10 RSV Type B (PCR) Not detected (NOT DETECT) 11/22/23 16:10 Entero/Rhino (PCR) Not detected (NOT DETECT) 11/22/23 16:10 SARS-CoV-2 (PCR) Not detected (NOT DETECT) 11/22/23 16:10 Vitals Last Vital Signs Temp 97.8 F 11/28/23 07:33 Pulse 50 L 11/28/23 07:33 Resp 18 11/28/23 07:33 BP 120/67 11/28/23 07:33 Pulse Ox 95 11/28/23 07:33 O2 Del Method Room Air 11/28/23 07:33 O2 Flow Rate 5 11/24/23 08:00 Discharge Plan Discharge Patient Disposition: Home Condition: Stable Prescriptions: New Lactobacillus acidoph-L.bulgar 1 million cell Tablet 1 tab PO BID 7 Days Qty: 14 0RF loperamide 2 mg Capsule 2 mg PO BID PRN (Reason: Diarrhea) 5 Days Qty: 10 0RF levofloxacin 750 mg tablet 750 mg PO DAILY 10 Days Qty: 10 0RF Continued acarbose 50 mg tablet 50 mg PO TID Qty: 90 2RF Rx Instructions: take before food atorvastatin 40 mg tablet 40 mg PO BEDTIME Qty: 90 1RF gabapentin 600 mg tablet See Rx Instructions .ROUTE .COMPLEX Qty: 90 2RF Rx Instructions: TAKE 600 MG IN THE MORNING/ 1200 MG IN THE EVENING; levothyroxine 125 mcg tablet See Rx Instructions PO DAILY@08 Qty: 34 2RF Rx Instructions: Take 1 tablet by mouth 1 day per week and 1 tablet on the other 6 days DAILY@08; tizanidine [Zanaflex] 4 mg tablet 4 mg PO BID Qty: 60 2RF Rx Instructions: muscle pain venlafaxine [Effexor XR] 75 mg capsule,extended release 24hr 75 mg PO QAM Qty: 30 2RF Farxiga 10 mg tablet 10 mg PO QAM Qty: 30 2RF Hold Instructions: Yeast meloxicam 15 mg tablet 15 mg PO DAILY Qty: 90 0RF pantoprazole [Protonix] 40 mg tablet,delayed release (DR/EC) 40 mg PO DAILY Qty: 30 0RF sucralfate [Carafate] 1 gram tablet 1 g PO TID Qty: 90 2RF Trulicity 0.75 mg/0.5 mL pen injector 0.75 mg SUBCUT .weekly Qty: 2 0RF rizatriptan [Maxalt] 10 mg tablet See Rx Instructions PO .COMPLEX Qty: 8 2RF Rx Instructions: take 1 tab at onset of headache; if no relief may repeat 1 tab after at least 2 hrs; max = 3 tabs/24 hr PO nitroglycerin 0.4 mg Tablet, Sublingual 0.4 mg sublingual Q5M PRN (Reason: Chest Pain) Qty: 25 0RF Victoza 3-Marco 0.6 mg/0.1 mL (18 mg/3 mL) pen injector See Rx Instructions .ROUTE .COMPLEX Rx Instructions: INJECT 0.6mg SUBCUTANEOUSLY EVERY DAY FOR SEVEN DAYS, THEN INCREASE TO 1.2mg SUBCUTANEOUSLY DAILY FOR SEVEN DAYS, not TO exceed 1.8mg DAILY Discontinued (DME) pen needle, diabetic 33 gauge x 5/32 needle See Rx Instructions .ROUTE .MEDSUPPLY Qty: 100 5RF Rx Instructions: 4 time day (DME) blood-glucose meter [OneTouch Ultra2 Meter] Kit See Rx Instructions .Route Qty: 1 0RF Rx Instructions: As directed ([facility] [place]) Diabetic Shoes with 3 pairs of inserts See Rx Instructions .Route .MEDSUPPLY Qty: 1 0RF Rx Instructions: As directed by [facility] ([facility] [place]) OneTouch Ultra Test Strip See Rx Instructions .Route Qty: 100 0RF Rx Instructions: use 3 times day (DME) Hinged knee brace See Rx Instructions .Route .MEDSUPPLY Qty: 1 0RF Rx Instructions: As directed metoprolol tartrate 25 mg tablet 25 mg PO Q12H Qty: 60 2RF Rx Instructions: at 0800,2000 (DME) hinged knee brace See Rx Instructions .Route .MEDSUPPLY Qty: 1 0RF Rx Instructions: As directed Discharge Orders: Discharge Order (Routine); Ordered 11/28/23 Ordered By: Bonnie Proctor Referrals: Miguel Andrade DPM [Physician] - 12/16/23 2:00 pm Christina Arnold, WORSHIP DIRECTOR-C [Primary Care Provider] - (We have notified your physician's clinic of the need for a follow-up appointment to be scheduled. If you have not heard from them within the next 2 business days, please call them directly. ) Sinan Gregg PA [Physician Recycling Tech] - 01/27/24 2:00 pm Discharge Diet: Advance as tolerated Discharge Activity: Increase activity as tolerated and May return to work/school without restrictions Patient Instructions: Loperamide (By mouth), Levofloxacin (By mouth) (Levaquin, Levaquin Leva-marco), Probiotic (By mouth), Salmonella Infection (GEN), Opioid Safety Activity Restrictions/Additional Instructions: Follow-up PCP in 1 week. Can Return to work on Thursday /30/11/23 Discharge Attestations Time Spent in Discharge Care*: less than 30 min Quality Metrics Clinical Quality Measures [ No reported AMI, CVA or VTE this stay] Coding Level of Care Code Acute Code for Chg Fwd Diagnoses Dehydration E86.0 Colitis K52.9 Diabetes E11.9 Diarrhea R19.7 Diarrhea type: unspecified type Acute hypokalemia E87.6 Sinus bradycardia R00.1 Hypotension I95.9 Time Spent (min) 15
[2023-11-28 11:18] VITALS: BP 120/67; PULSE 50; RESP 18; TEMP 36.6; O2SAT 95
== END 2023-11-28 11:19 | disposition home or self-care (01) | DRG 373 ==
LOC: ER 15:55 → MEDSURG 17:02
PROVIDERS: Internal Medicine; Admitting Provider Student in an Organized Health Care Education/Training Program; Emergency Provider Physician Assistant; PCP Nurse Practitioner; Visit Provider Internal Medicine
DX: A02.0 Salmonella enteritis (principal); E86.0 Dehydration; E87.6 Hypokalemia; R00.1 Bradycardia, unspecified; I95.9 Hypotension, unspecified; F17.210 Nicotine dependence, cigarettes, uncomplicated; Z79.4 Long term (current) use of insulin; E03.9 Hypothyroidism, unspecified; I10 Essential (primary) hypertension; E11.9 Type 2 diabetes mellitus without complications; F32.A Depression, unspecified; F41.9 Anxiety disorder, unspecified; K21.9 Gastro-esophageal reflux disease without esophagitis; E78.5 Hyperlipidemia, unspecified
CPT/HCPCS: 36415; 36416; 36600; 71045; 74177; 76700; 80048; 80051; 80053; 80061; 80306; 81001; 82009; 82274; 82330; 82550; 82607; 82746; 82805; 82962; 83036; 83540; 83550; 83605; 83630; 83690; 83735; 84100; 84145; 84443; 85025; 85610; 87045; 87177; 87209; 87427; 87449; 87486; 87493; 87581; 87633; 93005; 93306; 94664; 96365; 96372; 99285; C9113; J0744; J1644; J1815; J1956; J2270; J2405; J3480; J3490; J7030; J7040; J7120; Q9967

== ENCOUNTER → 2023-12-08 15:45 | Outpatient (BNVA) | payer OTHER, MEDICAID, SELFPAY | PROVIDERS: PCP Nurse Practitioner; Visit Provider Nurse Practitioner | DX: E11.22 Type 2 diabetes mellitus with diabetic chronic kidney disease (principal); N18.2 Chronic kidney disease, stage 2 (mild); Z79.4 Long term (current) use of insulin; J44.9 Chronic obstructive pulmonary disease, unspecified | CPT/HCPCS: 80048; 83735 ==

== ENCOUNTER 2024-02-04 08:05 | Outpatient (CLI) | payer OTHER, MEDICAID, SELFPAY ==
--- NOTE | 2024-02-04 08:00 | NM_ITS ---
WS: [id number] NUCLEAR MEDICINE BONE SCAN 3 PHASE Radiopharmaceutical: 24.7 Tc-99m MDP mCi IV Injection site: Antecubital Postinjection imaging delay: 2 hr CLINICAL INFORMATION: pain post total knee replacement COMPARISON: None. FINDINGS: Prior postoperative changes LEFT TKA. Normal blood flow and blood pool images about the LEFT TKA. Increased delayed bony uptake about the medial plate of the tibial prosthesis. Normal periarticular uptake about the femoral component. Moderate degenerative uptake about the RIGHT knee. Degenerative type uptake about both shoulders and both ankles. Soft tissue contours: Normal. Kidneys: Normal. Other findings: None. NM/NM bone 3 phase [id number] IMPRESSION: 1. Normal blood flow and blood pool images bilaterally. No evidence of infecti on. 2. Increased delayed bony uptake about the medial tibial plate suspicious for loosening of the medial tibial component 3. Normal postoperative periarticular uptake about the femoral component. 4. Moderate degenerative uptake RIGHT knee.
== END 2024-02-04 08:06 | disposition home or self-care (01) ==
PROVIDERS: PCP Nurse Practitioner; Visit Provider Specialist
DX: M17.11 Unilateral primary osteoarthritis, right knee (principal); M25.562 Pain in left knee; Z96.652 Presence of left artificial knee joint
CPT/HCPCS: 78315; A9561

== ENCOUNTER → 2024-02-16 15:50 | Outpatient (BNVA) | payer OTHER, MEDICAID, SELFPAY | PROVIDERS: PCP Nurse Practitioner; Visit Provider Nurse Practitioner | DX: E03.9 Hypothyroidism, unspecified (principal); R74.01 Elevation of levels of liver transaminase levels | CPT/HCPCS: 80053; 80061; 81000; 83036; 84443; 86705; 86706; 86709; 86803; 87340 ==

== ENCOUNTER → 2024-05-03 15:49 | Outpatient (BNVA) | payer MEDICAID, SELFPAY | PROVIDERS: PCP Nurse Practitioner; Visit Provider Nurse Practitioner | DX: E11.9 Type 2 diabetes mellitus without complications (principal); E03.9 Hypothyroidism, unspecified | CPT/HCPCS: 80053; 81000; 83036; 84443 ==

== ENCOUNTER → 2024-07-19 14:54 | Outpatient (BNVA) | payer MEDICAID, SELFPAY | PROVIDERS: PCP Nurse Practitioner; Visit Provider Nurse Practitioner | DX: E11.9 Type 2 diabetes mellitus without complications (principal) | CPT/HCPCS: 80053; 80061; 83036; 83721 ==

== ENCOUNTER → 2024-08-02 16:06 | Outpatient (BNVA) | payer MEDICAID, SELFPAY | PROVIDERS: PCP Nurse Practitioner; Visit Provider Nurse Practitioner | DX: M25.532 Pain in left wrist (principal) | CPT/HCPCS: 73110; 73130 ==

== ENCOUNTER 2024-08-18 14:17 | Outpatient (CLI) | payer MEDICAID, SELFPAY ==
--- NOTE | 2024-08-18 14:22 | MM_ITS ---
WS: [id number] BILATERAL SCREENING DIGITAL TOMOSYNTHESIS MAMMOGRAM WITH CAD HISTORY: SCREENING COMPARISON: 04/07/2022, 03/29/2021 Bilateral CC and MLO views with tomosynthesis and synthetic mammography submitted. Computer aided det ection analyzed. Breast composition: There are scattered areas of fibroglandular density. No suspicious masses, microc alcifications or architectural distortion. MM/MM scr BI tomosynthesis [id number] IMPRESSION: BI-RADS: 1 - Negative. FOLLOW UP: 1 Year Follow-up
== END 2024-08-18 14:18 | disposition home or self-care (01) ==
PROVIDERS: PCP Nurse Practitioner; Visit Provider Nurse Practitioner
DX: Z12.31 Encounter for screening mammogram for malignant neoplasm of breast (principal); R92.323 Mammographic fibroglandular density, bilateral breasts
CPT/HCPCS: 77063; 77067

== ENCOUNTER → 2024-10-11 16:11 | Outpatient (BNVA) | payer MEDICAID, SELFPAY | PROVIDERS: PCP Nurse Practitioner; Visit Provider Nurse Practitioner | DX: E11.65 Type 2 diabetes mellitus with hyperglycemia (principal); Z79.4 Long term (current) use of insulin | CPT/HCPCS: 80053; 80061; 81000; 82607; 83036 ==

== ENCOUNTER 2024-11-09 10:06 | Emergency (ER) | payer MEDICAID, SELFPAY ==
[2024-11-09 10:20] VITALS: BP 113/72; PULSE 76; RESP 16; TEMP 36.7; O2SAT 98; BMI 38.6
--- NOTE | 2024-11-09 10:30 | CT_ITS ---
WS: [id number] CT HEAD TECHNIQUE: Noncontrast CT of the head obtained from the skullbase to the vertex. CLINICAL INFORMATION: dizzy, ataxic COMPARISON: 10/09/2020 DLP: 1097.[address] scans at [facility] use at least one of these dose optimization techniques: automated exposure control; mA and/or kV adjustment per patient size (includes targeted exams where dose is matched to clinical indication); or iterative reconstruction. FINDINGS: No evidence of intracranial hemorrhage or mass effect. Ventricular system and basal cisterns are patent. No extra-axial fluid collections. No evidence of mass or mass effect. Paranasal sinuses and mastoid air cells are well aerated. .Normal visualized soft tissues. Stable Chiari I malformation/cerebellar tonsillar ectopia. No hydrocephalus. CT/CT head wo con* [id number] IMPRESSION: 1. No evidence of intracranial hemorrhage or mass effect. 2. Stable Chiari I malformation. 3. No acute intracranial findings.
--- NOTE | 2024-11-09 10:37 | ED_ITS ---
HPI - General Adult 2 General: Chief complaint: General Medical Stated complaint: aches, stiff, dizzy, off balance, nausea Time Seen by Provider: 11/09/24 10:28 History of Present Illness: 59-year-old female presents emergency ro om complaining of feeling achy dizzy nauseous. She said general sensation of not feeling well for last 2 days denies any fever sweats or chills. Denies any vomiting or diarrhea.. Associated symptoms: Deny chest pain, dyspnea or rash Related Data Previous Rx's ?Medication ?Instructions ?Recorded nitroglycerin 0.4 mg sublingual 0.4 mg sublingual Q5M PRN Chest 07/22/21 tablet Pain #25 tabs rizatriptan 10 mg tablet (Maxalt) See Rx Instructions PO .COMPLEX #8 06/08/23 tabs Diabetic shoes #1 ea 12/16/23 albuterol sulfate 90 mcg/actuation 2 puff inhalation Q 4H PRN 05/03/24 aerosol inhaler Shortness Of Breath #8.5 gra ms atorvastatin 40 mg tablet 40 mg PO BEDTIME #90 tabs nystatin 100,000 unit/gram topical 1 applic topical BI D #30 grams 07/19/24 cream blood-glucose meter (OneTouch #1 ea 08/02/24 Ultra2 Meter) insulin glargine 100 unit/mL (3 See Rx Instructions WRIGHT BCUT QAM #15 08/02/24 mL) subcutaneous pen (Lantus mL Solostar U-100 Insulin) pen needle, diabetic 33 gauge x #100 ea 08/02/24 blood sugar diagnostic (OneTouch #100 ea 09/16/24 Ultra Test strips) doxepin 10 mg capsule 10 mg PO BID PRN anxiety #6 0 caps 09/16/24 acarbose 100 mg tablet 100 mg PO TID #90 tabs 10/11 dapagliflozin propanediol 10 mg 10 mg PO QAM #30 tabs 10/11/24 tablet (Farxiga) dulaglutide 4.5 mg/0.5 mL 4.5 mg (0.5 mL) SUBCUT .week ly #2 10/11/24 subcutaneous pen injector mL (Trulicity) fluconazole 100 mg tablet 100 mg PO DAILY #10 tabs (Diflucan) gabapentin 600 mg tablet See Rx Instructions .Route 0 10/11/24 .COMPLEX #90 tabs levothyroxine 112 mcg tablet 112 mcg PO DAILY #30 tabs 10/11/24 sucralfate 1 gram tablet (Carafate) 1 g PO TID #90 tab s 10/11/24 tizanidine 4 mg tablet (Zanaflex) 4 mg PO BID muscle s pasticity #60 10/11/24 tabs venlafaxine 75 mg capsule,extended 75 mg PO QAM #30 ca ps 10/11/24 release 24 hr (Effexor XR) ciprofloxacin HCl 250 mg tablet 250 mg PO BID #14 tabs 11/09/24 (Cipro) Allergies Allergy/AdvReac Type Severity Reaction Status Date / Time aspirin Allergy Unknown Verified 10/11/24 15:35 codeine Allergy ADR-Itching Verified 10/11/24 15:35 oxycodone Allergy Unknown Verified 10/11/24 15:35 tetracycline Allergy Unknown Verified 10/11/24 15:35 topiramate (From Topamax) Allergy ADR-Itching Verified 10/11/24 15:35 tramadol (From Ultram) Allergy Unknown Verified 10/11/24 15:35 metformin AdvReac Severe ADR-Gastrointestinal Verified 10/11/24 15:35 Upset Review of Systems 2 Const: Denies: fever(s) or chills Card: Denies: chest pain Resp: Denies: dyspnea GI: Denies: abdominal pain : Denies: dysuria, urinary frequency or urinary urgency Musc: Denies: neck pain or back pain Skin/Breast: Denies: rash PFSH ED 2 PFSH: Medical History Diabetes mellitus with hyperglycemia, with long-term current use of insulin Diabetic peripheral neuropathy associated with type 2 diabetes mellitus Adult hypothyroidism Hypertension Diabetes Chronic pain of left knee 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 Duncan Hx of hysterectomy Hx of tonsillectomy Hx of hernia repair History of back surgery Hx of hemorrhoidectomy Family History Other Diabetes Hypertension Social History Smoking and tobacco/nicotine status: current every day tobacco/nicotine user cigarettes Packs smoked per day: 1 Years cigarettes smoked: 35 Second hand smoke exposure: No Alcohol intake: unknown Substance/Drug Use: unknown Adopted: No Caregiver/support person: No Lives independently: Yes Household members: family Marital status: Number of children: 5 service: No Current occupational status: unemployed Current occupational exposures/hazards: No Pets and animals: Yes Do you think of yourself as: Straight/Heterosexual Current gender identity: Female Physical Exam 2 Const: COMMON NORMALS: no acute distress GENERAL APPEARANCE: cooperative and comfortable ORIENTATION/CONSCIOUSNESS: Yes awake, Yes oriented to person, Yes oriented to place and Yes oriented to time HENMT: COMMON NORMALS: normocephalic, atraumatic and hearing grossly normal bilaterally HEAD & SCALP: normocephalic and atraumatic Resp: COMMON NORMALS: normal respiratory effort, No retractions, No use of accessory muscles and clear to auscultation bilaterally AUSCULTATION: clear to auscultation bilaterally Cardio: COMMON NORMALS: regular rate, regular rhythm and No murmurs present (Cardio) RATE: regular rate RHYTHM: regular rhythm GI: COMMON NORMALS: Soft to palpation and No hepatosplenomegaly present A USCULTATION: Yes normoactive bowel sounds PALPATION: Yes Soft to palpation, No Tenderness to palpation present (GI), No Guarding due to palpation present (GI) and Yes No hepatosplenomegaly present Extremity: COMMON NORMALS: normal to inspection, capillary refill normal, no clubbing, cyanosis or edema, no calf tenderness and no pedal edema Neuro: SENSORIUM/ORIENTATION: Yes oriented to person, Yes oriented to place and Yes oriented to time Skin: COMMON NORMALS: no rashes or lesions noted GENERAL SKIN EXAM: no rashes or lesions noted Course 2 Vital Signs: Vital signs: Vital Signs Temperature 98.0 F 11/09/24 10:20 Pulse Rate 83 03/26/25 13:18 Respiratory Rate 16 11/09/24 10:20 Blood Pressure 135/53 11/09/24 13:18 Pulse Oximetry 95 11/09/24 13:18 Oxygen Delivery Me thod Room Air 11/09/24 11:00 MDM - General Adult Medical Decision Making No significant findings on exam white count normal patient does have a mild cystitis with 11-20 white blood cells per high-power field. Will start her on oral antibiotics. Have her follow-up with primary care. Increase fluids. Medical Records I reviewed the patient's medical records. Lab Data 11/09/24 10:50 11/09/24 10:[address] 11/09/24 10:30 IMPRESSION: 1. No evidence of intracranial hemorrhage or mass effect. 2. Stable Chiari I malformation. 3. No acute intracranial findings. Laboratory Results WBC 8.81 10^3/uL (3.29-11.43) 11/09/24 10:50 RBC 5.37 10^6/uL (3.85-5.65) 11/09/24 10:50 Hgb 15.90 g/dL (11.27-16.99) 11/09/24 10:50 Hct 47.4 % (36-47) H 11/09/24 10:50 MCV 88.3 fl (85-98) 11/09/24 10:50 MCH 29.6 pg (27-33) 11/09/24 10:50 MCHC 33.5 g/dL (30-55) 11/09/24 10:50 RDW 12.9 % (12.1-15.1) 11/09/24 10:50 Plt Count 216 10^3/cmm (157-399) 11/09/24 10:50 MPV 9.7 fL (7.4-10.4) 11/09/24 10:50 Neut % (Auto) 66.9 % 11/09/24 10:50 Lymph % (Auto) 26.0 % 11/09/24 10:50 Steele % (Auto) 4.9 % 11/09/24 10:50 Eos % (Auto) 1.4 % 11/09/24 10:50 Baso % (Auto) 0.6 % 11/09/24 10:50 Neut # (Auto) 5.90 10^3/uL (1.8-7.7) 11/09/24 10:50 Lymph # (Auto) 2.3 10^3/uL (0.8-4.8) 11/09/24 10:50 Steele # (Auto) 0.4 10^3/uL (0.2-0.9) 11/09/24 10:50 Eos # (Auto) 0.1 10^3/uL (0.0-0.8) 11/09/24 10:50 Baso # (Auto) 0.1 10^3/uL (0.0-0.1) 11/09/24 10:50 Nucleated RBC % (auto) 0 % 11/09/24 10:50 Nucleated RBCs # 0.0 /100WBC 11/09/24 10:50 ESR 6 mm/hr (0-15) 11/09/24 10:50 Sodium 139 mmol/L (136-145) 11/09/24 10:50 Potassium 3.9 mmol/L (3.5-5.1) 11/09/24 10:50 Chloride 102 mmol/L (98-107) 11/09/24 10:50 Carbon Dioxide 26 mmol/L (22-29) 11/09/24 10:50 Anion Gap 14.9 (5-19) 11/09/24 10:50 BUN 10 mg/dL (6-20) 11/09/24 10:50 Creatinine 0.6 mg/dL (0.5-0.9) 11/09/24 10:50 GFR Calculation 103.0 mL/min (90-130) 11/09/24 10:50 Glucose 279 mg/dL (65-115) H 11/09/24 10:50 Calculated Osmolality 297 mOsm/kg (285-295) H 11/09/24 10:50 Calcium 9.1 mg/dL (8.5-10.5) 11/09/24 10:50 Total Bilirubin 0.7 mg/dL (0.15-1.2) 11/09/24 10:50 AST 21 U/L (0-32) 11/09/24 10:50 ALT 22 U/L (0-33) 11/09/24 10:50 Alkaline Phosphatase 95 U/L (35-105) 11/09/24 10:50 C-Reactive Protein 3.0 mg/L (0.0-4.9) 11/09/24 10:50 Total Protein 7.1 g/dL (6.6-8.7) 11/09/24 10:50 Albumin 4.3 g/dL (3.5-5.2) 11/09/24 10:50 Globulin 2.8 g/dL (1.3-4.6) 11/09/24 10:50 Urine Color Yellow (Yellow) 11/09/24 11:28 Urine Appearance Clear (CLEAR) 11/09/24 11:28 Urine pH 5.0 (5-7) 11/09/24 11:28 Ur Specific [place] 1.034 (1.005-1.030) H 11/09/24 11:28 Urine Protein Negative (Negative) 11/09/24 11:28 Urine Glucose (UA) 3+ (Normal) H 11/09/24 11:28 Urine Ketones Negative (Negative) 11/09/24 11:28 Urine Blood Negative (Negative) 11/09/24 11:28 Urine Nitrate Negative (Negative) 11/09/24 11:28 Urine Bilirubin Negative (Negative) 11/09/24 11:28 Urine Urobilinogen 0.2 mg/dL (Negative) 11/09/24 11:28 Ur Leukocyte Esterase Negative (Negative) 11/09/24 11:28 Urine RBC 0-2 /hpf (0-2) 11/09/24 11:28 Urine WBC 11-20 /hpf (0-5) H 11/09/24 11:28 Ur Squamous Epith Cells 0-5 /hpf (0-5) 11/09/24 11:28 Amorphous Sediment Not Reportable 11/09/24 11:28 Urine Bacteria Trace /hpf (NONE) 11/09/24 11:28 Hyaline Casts 0-4 /lpf H 11/09/24 11:28 Influenza A (PCR) Negative (Negative) 11/09/24 10:38 Influenza Type B (PCR) Negative (Negative) 11/09/24 10:38 RSV (PCR) Negative (Negative) 11/09/24 10:38 SARS-CoV-2 (PCR) Negative (Negative) 11/09/24 10:38 All radiology interpretation(s) finalized by discharge Discharge Plan Discharge Patient Disposition: Home Clinical Impression: Cystitis Condition: Stable Prescriptions: New ciprofloxacin HCl [Cipro] 250 mg tablet 250 mg PO BID Qty: 14 0RF No Action atorvastatin 40 mg tablet 40 mg PO BEDTIME Qty: 90 1RF nystatin 100,000 unit/gram cream 1 applic topical BID Qty: 30 2RF acarbose 100 mg tablet 100 mg PO TID Qty: 90 2RF Rx Instructions: take before food Farxiga 10 mg tablet 10 mg PO QAM Qty: 30 2RF Trulicity 4.5 mg/0.5 mL pen injector 4.5 mg SUBCUT .weekly Qty: 2 2RF gabapentin 600 mg tablet See Rx Instructions .ROUTE .COMPLEX Qty: 90 2RF Rx Instructions: TAKE 600 MG IN THE MORNING/ 1200 MG IN THE EVENING; levothyroxine 112 mcg tablet 112 mcg PO DAILY Qty: 30 2RF sucralfate [Carafate] 1 gram tablet 1 g PO TID Qty: 90 2RF tizanidine [Zanaflex] 4 mg tablet 4 mg PO BID Qty: 60 2RF Rx Instructions: muscle pain venlafaxine [Effexor XR] 75 mg capsule,extended release 24hr 75 mg PO QAM Qty: 30 2RF fluconazole [Diflucan] 100 mg tablet 100 mg PO DAILY Qty: 10 0RF (DME) blood-glucose meter [OneTouch Ultra2 Meter] Misc See Rx Instructions .Route Qty: 1 0RF Rx Instructions: As directed insulin glargine [Lantus Solostar U-100 Insulin] 100 unit/mL (3 mL) insulin pen See Rx Instructions SUBCUT QAM Qty: 15 1RF Rx Instructions: up to 50 subcutaneously every morning; (DME) pen needle, diabetic 33 gauge x 5/32 needle See Rx Instructions .ROUTE .MEDSUPPLY Qty: 100 5RF Rx Instructions: 1 time day (DME) Diabetic shoes See Rx Instructions .ROUTE .MEDSUPPLY Qty: 1 0RF Rx Instructions: With 3 pairs of inserts albuterol sulfate 90 mcg/actuation HFA aerosol inhaler 2 puff INHALATION Q4H PRN (Reason: Shortness Of Breath) Qty: 8.5 0RF rizatriptan [Maxalt] 10 mg tablet See Rx Instructions PO .COMPLEX Qty: 8 2RF Rx Instructions: take 1 tab at onset of headache; if no relief may repeat 1 tab after at least 2 hrs; max = 3 tabs/24 hr PO doxepin 10 mg capsule 10 mg PO BID PRN (Reason: anxiety ) Qty: 60 0RF (DME) OneTouch Ultra Test Strip See Rx Instructions .Route Qty: 100 0RF Rx Instructions: up to 3 times day nitroglycerin 0.4 mg Tablet, Sublingual 0.4 mg sublingual Q5M PRN (Reason: Chest Pain) Qty: 25 0RF Discharge Orders: Discharge ED (Routine); Ordered 11/09/24 Ordered By: Ulysses Peguero Referrals: Christina Arnold, [facility] [Primary Care Provider] - Discharge Diet: Usual diet Discharge Activity: Resume usual activity Patient Instructions: Urinary Tract Infection in Women (ED), Opioid Safety, Pain Management Activity Restrictions/Additional Instructions: Thank you for choosing [facility] for your healthcare needs today. It is very important that you follow up as instructed or that you return to the Emergency Department should you have concerns or if your condition changes or worsens in any way. You were seen in the emergency room with complaint of generally not feeling well for the last couple of days. Your white count is normal you did have signs of a bladder infection. Will recommend that you start on oral antibiotics 1 pill twice a day for 7 days maintain adequate fluid intake. Print Language: Andorran Coding Level of Care Code ED Manager Income Tax for Maddison Martinez
[2024-11-09 10:57] LABS: Basophils # 0.1 10^3/uL (0.0-0.1); Basophils % 0.6 %; Eosinophils # 0.1 10^3/uL (0.0-0.8); Eosinophils % 1.4 %; Hematocrit 47.4 % (36-47); Lymphocytes # 2.3 10^3/uL (0.8-4.8); Mean Corpuscular HGB Conc 33.5 g/dL (30-55); Mean Corpuscular Hemoglobin 29.6 pg (27-33); Mean Corpuscular Volume 88.3 fl (85-98); Mean Platelet Volume 9.7 fL (7.4-10.4); Monocytes # 0.4 10^3/uL (0.2-0.9); Monocytes % 4.9 %; Neutrophils % 66.9 %; Nucleated Red Blood Cells % 0 %; Platelet Count 216 10^3/cmm (157-399); Red Blood Count 5.37 10^6/uL (3.85-5.65); Red Cell Distribution Width 12.9 % (12.1-15.1); White Blood Count 8.81 10^3/uL (3.29-11.43)
[2024-11-09 11:00] VITALS: BP 130/82; PULSE 62; O2SAT 93
[2024-11-09 11:17] LABS: Alanine Aminotransferase 22 U/L (0-33); Albumin Level 4.3 g/dL (3.5-5.2); Alkaline Phosphatase 95 U/L (35-105); Anion Gap 14.9 (5-19); Aspartate Amino Transferase 21 U/L (0-32); Blood Urea Nitrogen 10 mg/dL (6-20); Calcium 9.1 mg/dL (8.5-10.5); Carbon Dioxide 26 mmol/L (22-29); Chloride 102 mmol/L (98-107); Creatinine Clr Calc Pharmacy 115.9391; Erythrocyte Sedimentation Rate 6 mm/hr (0-15); Globulin 2.8 g/dL (1.3-4.6); Glucose 279 mg/dL (65-115); Osmolality Calculated 297 mOsm/kg (285-295); Potassium 3.9 mmol/L (3.5-5.1); Sodium 139 mmol/L (136-145); Total Bilirubin 0.7 mg/dL (0.15-1.2); Total Protein 7.1 g/dL (6.6-8.7)
[2024-11-09] MEDS: ketorolac 60 mg/2 mL INJ IM (11:19)
[2024-11-09 11:39] LABS: Influenza A NEGATIVE (Negative); Influenza B NEGATIVE (Negative); Respiratory Syncytial Virus Ce NEGATIVE (Negative); SARS-CoV-2 PCR NEGATIVE (Negative)
[2024-11-09 11:46] LABS: Bilirubin Urine Negative (Negative); Blood Urine Negative (Negative); Glucose Urine UA 3+ (Normal); Ketones Urine Negative (Negative); Leukocyte Esterase Urine Negative (Negative); Nitrate Urine Negative (Negative); Protein Urine Negative (Negative); Urine Appearance Clear (CLEAR); Urine Color Yellow (Yellow); Urobilinogen Urine 0.2 mg/dL (Negative)
[2024-11-09 11:52] LABS: Add Urine Microscopic? YES; Bacteria Urine Trace /hpf; Hyaline Casts Urine 0-4 /lpf; RBC Urine 0-2 /hpf (0-2); Squamous Epithelial Cell Urine 0-5 /hpf (0-5)
[2024-11-09 12:03] LABS: Add Urine Culture? No; Specific Gravity, Urine 1.034 (1.005-1.030)
[2024-11-09 13:18] VITALS: BP 135/53; PULSE 83; O2SAT 95
== END 2024-11-09 13:15 | disposition home or self-care (01) ==
PROVIDERS: Emergency Provider Family Medicine; PCP Nurse Practitioner
DX: N30.90 Cystitis, unspecified without hematuria (principal); Z11.52 Encounter for screening for COVID-19; Z79.4 Long term (current) use of insulin; F17.210 Nicotine dependence, cigarettes, uncomplicated; J44.9 Chronic obstructive pulmonary disease, unspecified; E11.22 Type 2 diabetes mellitus with diabetic chronic kidney disease; I12.9 Hypertensive chronic kidney disease with stage 1 through stage 4 chronic kidney disease, or unspecified chronic kidney disease; N18.2 Chronic kidney disease, stage 2 (mild)
CPT/HCPCS: 36415; 70450; 80053; 81001; 85025; 85651; 86140; 87637; 96372; 99284; J1885

== ENCOUNTER → 2024-11-15 13:24 | Outpatient (BNVA) | payer MEDICAID, SELFPAY | PROVIDERS: PCP Nurse Practitioner; Visit Provider Nurse Practitioner | DX: E11.65 Type 2 diabetes mellitus with hyperglycemia (principal); Z79.4 Long term (current) use of insulin | CPT/HCPCS: 81000 ==

== ENCOUNTER 2024-12-12 17:13 | Emergency (ER) | payer MEDICAID, SELFPAY ==
[2024-12-12 17:21] VITALS: BP 108/65; PULSE 81; RESP 22; TEMP 36.8; O2SAT 95; BMI 38.9
[2024-12-12 18:59] LABS: Basophils % 0.4 %; Eosinophils # 0.1 10^3/uL (0.0-0.8); Eosinophils % 1.6 %; Hematocrit 43.9 % (36-47); Lymphocytes # 1.6 10^3/uL (0.8-4.8); Lymphocytes % 32.4 %; Mean Corpuscular HGB Conc 32.3 g/dL (30-55); Mean Corpuscular Volume 89.6 fl (85-98); Mean Platelet Volume 9.9 fL (7.4-10.4); Monocytes # 0.5 10^3/uL (0.2-0.9); Monocytes % 8.9 %; Neutrophils # 2.84 10^3/uL (1.8-7.7); Neutrophils % 56.5 %; Nucleated Red Blood Cells % 0 %; Platelet Count 139 10^3/cmm (157-399); Red Cell Distribution Width 12.9 % (12.1-15.1); White Blood Count 5.03 10^3/uL (3.29-11.43)
[2024-12-12 19:15] LABS: Alanine Aminotransferase 27 U/L (0-33); Alkaline Phosphatase 95 U/L (35-105); Anion Gap 13.7 (5-19); Aspartate Amino Transferase 23 U/L (0-32); Blood Urea Nitrogen 6 mg/dL (6-20); Calcium 8.6 mg/dL (8.5-10.5); Carbon Dioxide 25 mmol/L (22-29); Chloride 107 mmol/L (98-107); Creatinine Clr Calc Pharmacy 116.5316; Globulin 2.2 g/dL (1.3-4.6); Glucose 138 mg/dL (65-115); Osmolality Calculated 294 mOsm/kg (285-295); Potassium 3.7 mmol/L (3.5-5.1); Sodium 142 mmol/L (136-145); Total Bilirubin 0.4 mg/dL (0.15-1.2); Total Protein 6.2 g/dL (6.6-8.7)
--- NOTE | 2024-12-12 19:19 | W.ED.BACK ---
HPI - Back Pain/Injury General: Chief Complaint: Back Pain/Injury Stated Complaint: pain in lower back, hip, both legs Time Seen by Provider: 12/12/24 18:31 Source: patient Mode of arrival: ambulatory Limitations: no limitations History of Present Illness: Patient is a 59-year-old female presents the emergency department complaining of bilateral low back pain radiating down to her legs for the past few days. States she has been told she has sciatica before, but has never received an official diagnosis. Has been taking ibuprofen and Tylenol for the pain, states it still hurts when she walks. On entry to [facility], she is notably sleeping comfortably, complains of pain as soon as she wakes up. States she had a fusion surgery performed back in 2002. She is not having any loss of bowel or bladder function. No saddle anesthesia. Does not report any fevers, trauma, unexplained weight loss, neurological symptoms, IVDU, steroid use, or history of cancer. MD elicited complaint: back pain Pertinent past history: other (Sciatica) Onset (ago): day(s) Timing: constant Severity: severe Similar Symptoms Previously: Yes Location: right lower back and left lower back Radiation: left leg below the knee and right leg below the knee Exacerbating factors: movement and walking Relieving factors: immobilization Associated symptoms: Deny abdominal pain, difficulty walking, fecal incontinence, fever(s) or syncope Related Data Previous Rx's ?Medication ?Instructions ?Recorded nitroglycerin 0.4 mg sublingual 0.4 mg sublingual Q5M PRN Chest 07/22/21 tablet Pain #25 tabs rizatriptan 10 mg tablet (Maxalt) See Rx Instructions PO .COMPLEX #8 06/08/23 tabs Diabetic shoes #1 ea 12/16/23 albuterol sulfate 90 mcg/actuation 2 puff inhalation Q4H PRN 05/03/24 aerosol inhaler Shortness Of Breath #8.5 grams atorvastatin 40 mg tablet 40 mg PO BEDTIME #90 tabs 07/19/24 nystatin 100,000 unit/gram topical 1 applic topical BID #30 grams 07/19/24 cream blood-glucose meter (OneTouch #1 ea 08/02/24 Ultra2 Meter) insulin glargine 100 unit/mL (3 See Rx Instructions SUBCUT QAM #15 12/17/24 mL) subcutaneous pen (Lantus mL Solostar U-100 Insulin) pen needle, diabetic 33 gauge x #100 ea 08/02/24 blood sugar diagnostic (OneTouch #100 ea 09/16/24 Ultra Test strips) acarbose 100 mg tablet 100 mg PO TID #90 tabs 10/11/24 dapagliflozin propanediol 10 mg 10 mg PO QAM #30 tabs 10/11/24 tablet (Farxiga) dulaglutide 4.5 mg/0.5 mL 4.5 mg (0.5 mL) SUBCUT .weekly #2 10/11/24 subcutaneous pen injector mL (Trulicity) fluconazole 100 mg tablet 100 mg PO DAILY #10 tabs 10/11/24 (Diflucan) gabapentin 600 mg tablet See Rx Instructions .Route 10/11/24 .COMPLEX #90 tabs levothyroxine 112 mcg tablet 112 mcg PO DAILY #30 tabs 10/11/24 sucralfate 1 gram tablet (Carafate) 1 g PO TID #90 tabs 10/11/24 tizanidine 4 mg tablet (Zanaflex) 4 mg PO BID muscle spasticity #60 10/11/24 tabs venlafaxine 75 mg capsule,extended 75 mg PO QAM #30 caps 10/11/24 release 24 hr (Effexor XR) ciprofloxacin HCl 250 mg tablet 250 mg PO BID #14 tabs 11/09/24 (Cipro) atogepant 60 mg tablet (Qulipta) 60 mg PO DAILY #30 tabs 11/15/24 doxepin 10 mg capsule 10 mg PO BID #60 caps 11/15/24 ketorolac 10 mg tablet 10 mg PO Q8H PRN pain #15 tabs 12/12/24 methocarbamol 750 mg tablet 750 mg PO Q8H 5 days #15 tabs 12/12/24 nitrofurantoin 100 mg PO BID 5 days #10 caps 12/12/24 monohydrate/macrocrystals 100 mg capsule (Macrobid) Allergies Allergy/AdvReac Type Severity Reaction Status Date / Time aspirin Allergy Unknown Verified 12/12/24 17:30 codeine Allergy ADR-Itching Verified 12/12/24 17:30 oxycodone Allergy Unknown Verified 12/12/24 17:30 tetracycline Allergy Unknown Verified 12/12/24 17:30 topiramate (From Topamax) Allergy ADR-Itching Verified 12/12/24 17:30 tramadol (From Ultram) Allergy Unknown Verified 12/12/24 17:30 metformin AdvReac Severe ADR-Gastrointestinal Verified 12/12/24 17:30 Upset Review of Systems General: Reports: 10 or more systems reviewed and unremarkable except in HPI and below Const: Denies: fever(s) Card: Denies: syncope Resp: Denies: dyspnea GI: Denies: abdominal pain or fecal incontinence : Denies: urinary incontinence Musc: Reports: back pain and extremity pain (Bilateral lower extremities); Denies: neck pain Skin/Breast: Denies: rash or skin pain Neuro: Denies: difficulty walking PFSH ED PFSH: Medical History Diabetes mellitus with hyperglycemia, with long-term current use of insulin Diabetic peripheral neuropathy associated with type 2 diabetes mellitus Adult hypothyroidism Hypertension Diabetes Chronic pain of left knee 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 Duncan Hx of hysterectomy Hx of tonsillectomy Hx of hernia repair History of back surgery Hx of hemorrhoidectomy Family History Other Diabetes Hypertension Social History Smoking and tobacco/nicotine status: current every day tobacco/nicotine user cigarettes Packs smoked per day: 1 Years cigarettes smoked: 35 Second hand smoke exposure: No Alcohol intake: unknown Substance/Drug Use: unknown Adopted: No Caregiver/support person: No Lives independently: Yes Household members: family Marital status: Number of children: 5 service: No Current occupational status: unemployed Current occupational exposures/hazards: No Pets and animals: Yes Do you think of yourself as: Straight/Heterosexual Current gender identity: Female Physical Exam Const: COMMON NORMALS: no acute distress, patient oriented x3, no limitations, healthy appearing and alert OTHER: Sleeping comfortably at time of exam, complains of pain upon awaking Resp: COMMON NORMALS: normal respiratory effort, No retractions, No use of accessory muscles and clear to auscultation bilaterally AUSCULTATION: clear to auscultation bilaterally Cardio: COMMON NORMALS: regular rate, regular rhythm, S1 normal heart sound present and S2 normal heart sound present RATE: regular rate RHYTHM: regular rhythm HEART SOUNDS: S1 normal heart sound present and S2 normal heart sound present Back/Pelvis: OTHER: Normal visual examination. No spinous process tenderness. Full range of motion. Tenderness to palpation to bilateral paralumbar muscles. Postoperative scar. Extremity: COMMON NORMALS: normal to inspection and full ROM Neuro: COMMON NORMALS: patient oriented x3, moves all extremities, no focal motor deficits, no sensory deficits noted, deep tendon reflexes 2+ bilaterally and gait normal SENSORIUM/ORIENTATION: Yes alert OTHER: L3, L4, L5, and S1 nerve sensations intact. Normal knee jerk and ankle jerk reflexes. Skin: COMMON NORMALS: no rashes or lesions noted GENERAL SKIN EXAM: no rashes or lesions noted Course Vital Signs: Vital signs: Vital Signs Temperature 98.3 F 12/12/24 17:21 Pulse Rate 81 12/12/24 17:21 Respiratory Rate 22 H 12/12/24 17:21 Blood Pressure 108/65 12/12/24 17:21 Pulse Oximetry 95 12/12/24 17:21 Oxygen Delivery Me thod Room Air 12/12/24 17:21 MDM - Back Pain/Injury Medical Decision Making Patient presented for lower back pain radiating to both legs, for the past few days. History of sciatica reported. No red flag symptoms on history or exam. No trauma was reported, not warranting imaging at this time. She was treated medically and notes improvement of her symptoms. Noted be sleeping comfortably every time on recheck. Her urine does show questionable urinary tract infection without symptoms, we will go ahead and treat for simple uncomplicated UTI with Macrobid in case this is contributing to her lower back pain. Also will treat with Toradol and Robaxin at home and have her see her regular doctor if she continues to have pain. Stable for discharge at this time. Labs 12/12/24 18:50 04/28/25 18:50 Laboratory Results WBC 5.03 10^3/uL (3.29-11.43) 12/12/24 18:50 RBC 4.90 10^6/uL (3.85-5.65) 12/12/24 18:50 Hgb 14.20 g/dL (11.27-16.99) 12/12/24 18:50 Hct 43.9 % (36-47) 12/12/24 18:50 MCV 89.6 fl (85-98) 12/12/24 18:50 MCH 29.0 pg (27-33) 12/12/24 18:50 MCHC 32.3 g/dL (30-55) 12/12/24 18:50 RDW 12.9 % (12.1-15.1) 12/12/24 18:50 Plt Count 139 10^3/cmm (157-399) L 12/12/24 18:50 MPV 9.9 fL (7.4-10.4) 12/12/24 18:50 Neut % (Auto) 56.5 % 12/12/24 18:50 Lymph % (Auto) 32.4 % 12/12/24 18:50 Carbon % (Auto) 8.9 % 12/12/24 18:50 Eos % (Auto) 1.6 % 12/12/24 18:50 Baso % (Auto) 0.4 % 12/12/24 18:50 Neut # (Auto) 2.84 10^3/uL (1.8-7.7) 12/12/24 18:50 Lymph # (Auto) 1.6 10^3/uL (0.8-4.8) 12/12/24 18:50 Carbon # (Auto) 0.5 10^3/uL (0.2-0.9) 12/12/24 18:50 Eos # (Auto) 0.1 10^3/uL (0.0-0.8) 12/12/24 18:50 Baso # (Auto) 0.0 10^3/uL (0.0-0.1) 12/12/24 18:50 Nucleated RBC % (auto) 0 % 12/12/24 18:50 Nucleated RBCs # 0.0 /100WBC 12/12/24 18:50 Sodium 142 mmol/L (136-145) 12/12/24 18:50 Potassium 3.7 mmol/L (3.5-5.1) 12/12/24 18:50 Chloride 107 mmol/L (98-107) 12/12/24 18:50 Carbon Dioxide 25 mmol/L (22-29) 12/12/24 18:50 Anion Gap 13.7 (5-19) 12/12/24 18:50 BUN 6 mg/dL (6-20) 12/12/24 18:50 Creatinine 0.6 mg/dL (0.5-0.9) 12/12/24 18:50 GFR Calculation 103.0 mL/min (90-130) 12/12/24 18:50 Glucose 138 mg/dL (65-115) H 12/12/24 18:50 Calculated Osmolality 294 mOsm/kg (285-295) 12/12/24 18:50 Calcium 8.6 mg/dL (8.5-10.5) 12/12/24 18:50 Total Bilirubin 0.4 mg/dL (0.15-1.2) 12/12/24 18:50 AST 23 U/L (0-32) 12/12/24 18:50 ALT 27 U/L (0-33) 12/12/24 18:50 Alkaline Phosphatase 95 U/L (35-105) 12/12/24 18:50 Total Protein 6.2 g/dL (6.6-8.7) L 12/12/24 18:50 Albumin 4.0 g/dL (3.5-5.2) 12/12/24 18:50 Globulin 2.2 g/dL (1.3-4.6) 12/12/24 18:50 Urine Color Yellow (Yellow) 12/12/24 19:27 Urine Appearance Clear (CLEAR) 12/12/24: Urine pH 5.0 (5-7) 12/12/24: Ur Specific [place] 1.043 (1.005-1.030) H 12/12/24 19:27 Urine Protein Trace (Negative) A 12/12/24 19:27 Urine Glucose (UA) 2+ (Normal) H 12/12/24 19:27 Urine Ketones Negative (Negative) 12/12/24 19:27 Urine Blood Negative (Negative) 12/12/24 19:27 Urine Nitrate Negative (Negative) 12/12/24 19:27 Urine Bilirubin Negative (Negative) 12/12/24 19:27 Urine Urobilinogen 0.2 mg/dL (Negative) 12/12/24 19:27 Ur Leukocyte Esterase Negative (Negative) 12/12/24 19:27 Urine RBC 0-2 /hpf (0-2) 12/12/24 19:27 Urine WBC 11-20 /hpf (0-5) H 12/12/24 19:27 Ur Squamous Epith Cells 6-10 /hpf (0-5) 12/12/24 19:27 Amorphous Sediment Not Reportable 12/12/24 19:27 Urine Bacteria 1+ /hpf (NONE) H 12/12/24 19:27 Hyaline Casts 0.40 /lpf 12/12/24 19:27 No radiology studies performed this visit Discharge Plan Discharge Patient Disposition: Home Clinical Impression: Chronic lumbar radiculopathy, Urinary tract infection Condition: Stable Prescriptions: New nitrofurantoin monohyd/m-cryst [Macrobid] 100 mg capsule 100 mg PO BID 5 Days Qty: 10 0RF Rx Instructions: must administer with a meal/food ketorolac 10 mg tablet 10 mg PO Q8H PRN (Reason: pain) Qty: 15 0RF methocarbamol 750 mg tablet 750 mg PO Q8H 5 Days Qty: 15 0RF No Action atorvastatin 40 mg tablet 40 mg PO BEDTIME Qty: 90 1RF nystatin 100,000 unit/gram cream 1 applic topical BID Qty: 30 2RF acarbose 100 mg tablet 100 mg PO TID Qty: 90 2RF Rx Instructions: take before food Farxiga 10 mg tablet 10 mg PO QAM Qty: 30 2RF Trulicity 4.5 mg/0.5 mL pen injector 4.5 mg SUBCUT .weekly Qty: 2 2RF gabapentin 600 mg tablet See Rx Instructions .ROUTE .COMPLEX Qty: 90 2RF Rx Instructions: TAKE 600 MG IN THE MORNING/ 1200 MG IN THE EVENING; levothyroxine 112 mcg tablet 112 mcg PO DAILY Qty: 30 2RF sucralfate [Carafate] 1 gram tablet 1 g PO TID Qty: 90 2RF tizanidine [Zanaflex] 4 mg tablet 4 mg PO BID Qty: 60 2RF Rx Instructions: muscle pain venlafaxine [Effexor XR] 75 mg capsule,extended release 24hr 75 mg PO QAM Qty: 30 2RF fluconazole [Diflucan] 100 mg tablet 100 mg PO DAILY Qty: 10 0RF (DME) blood-glucose meter [OneTouch Ultra2 Meter] [facility] See Rx Instructions .Route Qty: 1 0RF Rx Instructions: As directed insulin glargine [Lantus Solostar U-100 Insulin] 100 unit/mL (3 mL) insulin pen See Rx Instructions SUBCUT QAM Qty: 15 1RF Rx Instructions: up to 50 subcutaneously every morning; (DME) pen needle, diabetic 33 gauge x 5/32 needle See Rx Instructions .ROUTE .MEDSUPPLY Qty: 100 5RF Rx Instructions: 1 time day doxepin 10 mg capsule 10 mg PO BID Qty: 60 2RF Qulipta 60 mg tablet 60 mg PO DAILY Qty: 30 1RF (DME) Diabetic shoes See Rx Instructions .ROUTE .MEDSUPPLY Qty: 1 0RF Rx Instructions: With 3 pairs of inserts albuterol sulfate 90 mcg/actuation HFA aerosol inhaler 2 puff INHALATION Q4H PRN (Reason: Shortness Of Breath) Qty: 8.5 0RF rizatriptan [Maxalt] 10 mg tablet See Rx Instructions PO .COMPLEX Qty: 8 2RF Rx Instructions: take 1 tab at onset of headache; if no relief may repeat 1 tab after at least 2 hrs; max = 3 tabs/24 hr PO (DME) OneTouch Ultra Test Strip See Rx Instructions .Route Qty: 100 0RF Rx Instructions: up to 3 times day nitroglycerin 0.4 mg Tablet, Sublingual 0.4 mg sublingual Q5M PRN (Reason: Chest Pain) Qty: 25 0RF ciprofloxacin HCl [Cipro] 250 mg tablet 250 mg PO BID Qty: 14 0RF Discharge Orders: Discharge ED (Routine); Ordered 12/12/24 Ordered By: Joseph Nova Referrals: Christina Arnold, MEDICAL ENGINEER-C [Primary Care Provider] - Patient Instructions: Urinary Tract Infection in Women (ED), Sciatica (ED), Lumbar Radiculopathy (ED) Activity Restrictions/Additional Instructions: Robaxin and Toradol for your back pain. Range of motion exercises. Ice/heat. For your urinary tract infection, take Macrobid and follow-up with your regular doctor. Drink plenty of fluids. Return with any new or worsening. Print Language: Spanish Coding Level of Care Code ED Pan Pusher for Maddison Martinez
[2024-12-12] MEDS: ketorolac 60 mg/2 mL INJ IM (19:37)
[2024-12-12] MEDS: orphenadrine 30 mg/mL Inj 2 mL 60 MG IM (19:37)
[2024-12-12] MEDS: dexamethasone 10 mg/mL INJ IM (19:37)
[2024-12-12] MEDS: HYDROcodone-acetaminophen 5-325 mg Tablet 1 TAB PO (19:38)
[2024-12-12 19:48] LABS: Bilirubin Urine Negative (Negative); Blood Urine Negative (Negative); Glucose Urine UA 2+ (Normal); Ketones Urine Negative (Negative); Leukocyte Esterase Urine Negative (Negative); Nitrate Urine Negative (Negative); Protein Urine Trace (Negative); Urine Appearance Clear (CLEAR); Urine Color Yellow (Yellow); Urobilinogen Urine 0.2 mg/dL (Negative)
[2024-12-12 19:53] LABS: Add Urine Microscopic? YES; Bacteria Urine 1+ /hpf; RBC Urine 0-2 /hpf (0-2)
[2024-12-12 19:56] LABS: Add Urine Culture? No; Specific Gravity, Urine 1.043 (1.005-1.030)
== END 2024-12-12 20:33 | disposition home or self-care (01) ==
PROVIDERS: Family Medicine; Emergency Provider Physician Assistant; PCP Nurse Practitioner
DX: M54.16 Radiculopathy, lumbar region (principal); N39.0 Urinary tract infection, site not specified; Z79.4 Long term (current) use of insulin; F17.210 Nicotine dependence, cigarettes, uncomplicated; E78.5 Hyperlipidemia, unspecified; J44.9 Chronic obstructive pulmonary disease, unspecified; E11.22 Type 2 diabetes mellitus with diabetic chronic kidney disease; I12.9 Hypertensive chronic kidney disease with stage 1 through stage 4 chronic kidney disease, or unspecified chronic kidney disease; N18.2 Chronic kidney disease, stage 2 (mild)
CPT/HCPCS: 36415; 80053; 81001; 85025; 96372; 99284; J1100; J1885; J2360; J9999

== ENCOUNTER → 2024-12-29 15:07 | Outpatient (BNVA) | payer MEDICAID, SELFPAY | PROVIDERS: PCP Nurse Practitioner; Visit Provider Nurse Practitioner | DX: E11.65 Type 2 diabetes mellitus with hyperglycemia (principal); Z79.4 Long term (current) use of insulin | CPT/HCPCS: 80053; 81000; 83036; 84443 ==

== ENCOUNTER 2025-01-16 08:20 | Emergency (ER) | payer MEDICAID, SELFPAY ==
[2025-01-16 08:39] VITALS: BP 113/66; PULSE 82; RESP 18; TEMP 36.6; O2SAT 92
--- NOTE | 2025-01-16 08:48 | XR_ITS ---
WS: [id number] XR hip LT 2-3V wo/w pel* [id number] REASON FOR EXAM: pain FINDINGS: Normal alignment of the hip joint. No fracture or focal bone lesion identified. Mild narrowing of the posterior inferior joint space with mild subchondral sclerosis and osteophytosis. Mild narrowing of the anterior superior joint space with moderate subchondral sclerosis and osteophytosis. Normal proximal left femoral shaft. XR/XR hip LT 2-3V wo/w pel* [id number] IMPRESSION: No acute abnormality. Mild osteoarthritis.
--- NOTE | 2025-01-16 08:48 | XR_ITS ---
WS: [id number] XR hip RT 2-3V wo/w pel* [id number] REASON FOR EXAM: pain FINDINGS: Normal alignment of the hip joint. No fracture or focal bone lesion. Mild narrowing of the posterior inferior joint space with minimal subchondral sclerosis and osteophytosis mild narrowing of the superior anterior joint space with moderate subchondral sclerosis and osteophytosis of the acetabulum. Proximal right humeral shaft is unremarkable. XR/XR hip RT 2-3V wo/w pel* [id number] IMPRESSION: No acute abnormality. Mild osteoarthritis.
--- NOTE | 2025-01-16 08:48 | XR_ITS ---
WS: [id number] XR lumbar spine 2-3V* [id number] REASON FOR EXAM: pain/hx lumbar fusion FINDINGS: The examination is unchanged compared to 10/29/2018. Mild biconcave chronic compression deformities T11-L3. Mild to moderate vertebral body osteophytosis L3-S1. Moderate narrowing of the L5-S1 disc space with endplate sclerosis and osteophytosis. No significant listhesis. XR/XR lumbar spine 2-3V* [id number] IMPRESSION: Stable degenerative spondylosis as above. No acute abnormality.
[2025-01-16 08:49] LABS: Basophils # 0.1 10^3/uL (0.0-0.1); Basophils % 0.6 %; Eosinophils # 0.1 10^3/uL (0.0-0.8); Eosinophils % 1.1 %; Hematocrit 42.9 % (36-47); Lymphocytes # 1.9 10^3/uL (0.8-4.8); Mean Corpuscular HGB Conc 33.3 g/dL (30-55); Mean Corpuscular Hemoglobin 29.8 pg (27-33); Mean Corpuscular Volume 89.4 fl (85-98); Mean Platelet Volume 9.5 fL (7.4-10.4); Monocytes # 0.5 10^3/uL (0.2-0.9); Monocytes % 5.4 %; Neutrophils # 5.81 10^3/uL (1.8-7.7); Neutrophils % 69.7 %; Nucleated Red Blood Cells % 0 %; Platelet Count 185 10^3/cmm (157-399); Red Cell Distribution Width 13.2 % (12.1-15.1); White Blood Count 8.34 10^3/uL (3.29-11.43)
--- NOTE | 2025-01-16 08:50 | ED_ITS ---
HPI - Extremity Problem 2 General: Chief complaint: Extremity Problem,Nontraumatic Stated complaint: hip and leg pain both sides Time Seen by Provider: 01/16/25 08:25 History of Present Illness: 59-year-old [facility] with complaint of bilateral hip and leg pain some mild low back pain. Patient is ambulatory. She previously had a lumbar laminectomy and fusion nearly 20 years ago. She is diabetic no history of DVT or PE no recent trauma or fall she has had a left knee arthroplasty no previous hip surgeries. No bowel or bladder complaints. She has not had any urinary retention or fecal incontinence Associated symptoms: Deny chest pain, fever(s) or rash Related Data Home Medications ?Medication ?Instructions ?Recorded ?Confirmed acarbose 100 mg tablet 100 mg PO BID 01/16/2501/16 levothyroxine 112 mcg tablet 112 mcg PO QAM 01/16/25 0 01/16/25 sucralfate 1 gram tablet (Carafate) 1 g PO BID 5 01/16/25 Previous Rx's ?Medication ?Instructions ?Recorded Diabetic shoes #1 ea 12/16/23 albuterol sulfate 90 mcg/actuation 2 puff inhalation Q 4H PRN 05/03/24 aerosol inhaler Shortness Of Breath #8.5 gra ms blood-glucose meter (OneTouch #1 ea 08/02/24 Ultra2 Meter) pen needle, diabetic 33 gauge x #100 ea 08/02/24 atorvastatin 40 mg tablet 40 mg PO BEDTIME #90 tabs blood sugar diagnostic (OneTouch #100 ea 12/29/24 Ultra Test strips) dapagliflozin propanediol 10 mg 10 mg PO QAM #30 tabs 12/29/24 tablet (Farxiga) doxepin 10 mg capsule 10 mg PO BID #60 caps gabapentin 600 mg tablet See Rx Instructions .Route 0 12/29/24 .COMPLEX #90 tabs insulin glargine 100 unit/mL (3 See Rx Instructions WRIGHT BCUT QAM #15 12/29/24 mL) subcutaneous pen (Lantus mL Solostar U-100 Insulin) promethazine-DM 6.25 mg-15 mg/5 mL 5 ml PO Q6H PRN cou gh #120 mL 12/29/24 oral syrup tizanidine 4 mg tablet (Zanaflex) 4 mg PO BID muscle s pasticity #60 12/29/24 tabs venlafaxine 75 mg capsule,extended 75 mg PO QAM #30 ca ps 12/29/24 release 24 hr (Effexor XR) tirzepatide 7.5 mg/0.5 mL 7.5 mg (0.5 mL) SUBCUT .week ly #2 01/01/25 subcutaneous pen injector mL (Mounjaro) diclofenac sodium 75 mg 75 mg PO Q12H PRN pain #20 t abs 01/16/25 tablet,delayed release sulfamethoxazole 800 1 tab PO BID 7 days #14 tabs 01/16/25 mg-trimethoprim 160 mg tablet (Bactrim DS) Allergies Allergy/AdvReac Type Severity Reaction Status Date / Time aspirin Allergy Unknown Verified 12/29/24 14:27 codeine Allergy ADR-Itching Verified 12/29/24 14:27 oxycodone Allergy Unknown Verified 12/29/24 14:27 tetracycline Allergy Unknown Verified 12/29/24 14:27 topiramate (From Topamax) Allergy ADR-Itching Verified 12/29/24 14:27 tramadol (From Ultram) Allergy Unknown Verified 12/29/24 14:27 metformin AdvReac Severe ADR-Gastrointestinal Verified 12/29/24 14:27 Upset Review of Systems 2 Const: Denies: fever(s) or chills Card: Denies: chest pain Resp: Denies: dyspnea GI: Denies: abdominal pain : Denies: dysuria, urinary frequency or urinary urgency Musc: Reports: back pain and joint pain; Denies: neck pain Skin/Breast: Denies: rash PFSH ED 2 PFSH: Medical History Diabetes mellitus with hyperglycemia, with long-term current use of insulin Diabetic peripheral neuropathy associated with type 2 diabetes mellitus Adult hypothyroidism Hypertension Diabetes Chronic pain of left knee 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 Duncan Hx of hysterectomy Hx of tonsillectomy Hx of hernia repair History of back surgery Hx of hemorrhoidectomy Family History Other Diabetes Hypertension Social History Smoking and tobacco/nicotine status: current every day tobacco/nicotine user cigarettes Packs smoked per day: 1 Years cigarettes smoked: 35 Second hand smoke exposure: No Alcohol intake: unknown Substance/Drug Use: unknown Adopted: No Caregiver/support person: No Lives independently: Yes Household members: family Marital status: Number of children: 5 service: No Current occupational status: unemployed Current occupational exposures/hazards: No Pets and animals: Yes Do you think of yourself as: Straight/Heterosexual Current gender identity: Female Physical Exam 2 Const: COMMON NORMALS: no acute distress GENERAL APPEARANCE: cooperative and comfortable ORIENTATION/CONSCIOUSNESS: Yes awake, Yes oriented to person, Yes oriented to place and Yes oriented to time HENMT: COMMON NORMALS: normocephalic, atraumatic and hearing grossly normal bilaterally HEAD & SCALP: normocephalic and atraumatic Resp: COMMON NORMALS: normal respiratory effort, No retractions, No use of accessory muscles and clear to auscultation bilaterally AUSCULTATION: clear to auscultation bilaterally Cardio: COMMON NORMALS: regular rate, regular rhythm and No murmurs present (Cardio) RATE: regular rate RHYTHM: regular rhythm GI: COMMON NORMALS: Soft to palpation and No hepatosplenomegaly present A USCULTATION: Yes normoactive bowel sounds PALPATION: Yes Soft to palpation, No Tenderness to palpation present (GI), No Guarding due to palpation present (GI) and Yes No hepatosplenomegaly present Extremity: COMMON NORMALS: normal to inspection, capillary refill normal, no clubbing, cyanosis or edema, no calf tenderness and no pedal edema Neuro: SENSORIUM/ORIENTATION: Yes oriented to person, Yes oriented to place and Yes oriented to time Skin: COMMON NORMALS: no rashes or lesions noted GENERAL SKIN EXAM: no rashes or lesions noted Course 2 Vital Signs: Vital signs: Vital Signs Temperature 97.8 F 01/16/25 08:39 Pulse Rate 68 01/16/25 11:44 Respiratory Rate 18 01/16/25 08:39 Blood Pressure 110/78 01/16/25 11:44 Pulse Oximetry 93 01/16/25 11:44 Oxygen Delivery Me thod Nasal Cannula 01/16/25 09:36 Oxygen Flow Rate 2 01/16/25 09:36 MDM - Extremity (Nontraumatic) Medical Decision Making Patient has chronic osteoarthritic pain nothing finding new on imaging done. Will start on anti-inflammatories. Recommend that she follow-up with her primary care doctor or orthopedics. Patient does occasionally wear oxygen at home she was given oxygen here when she dozed off her oxygen sats decreased. Incidental finding of bladder infection patient given Rocephin here will discharge home on Bactrim DS 1 p.o. twice daily Medical Records I reviewed the patient's medical records. Lab Data I reviewed the patient's lab results. 01/16/25 08:43 01/16/25 08:43 Radiology Impressions Hip/Pelvis X-Ray 01/16/25 08:48 IMPRESSION: No acute abnormality. Mild osteoarthritis. Lumbar Spine X-Ray 01/16/25 08:48 IMPRESSION: Stable degenerative spondylosis as above. No acute abnormality. Chest X-Ray 01/16/25 11:05 IMPRESSION: Stable chest without acute abnormality. Laboratory Results WBC 8.34 10^3/uL (3.29-11.43) 01/16/25 08:43 RBC 4.80 10^6/uL (3.85-5.65) 01/16/25 08:43 Hgb 14.30 g/dL (11.27-16.99) 01/16/25 08:43 Hct 42.9 % (36-47) 01/16/25 08:43 MCV 89.4 fl (85-98) 01/16/25 08:43 MCH 29.8 pg (27-33) 01/16/25 08:43 MCHC 33.3 g/dL (30-55) 01/16/25 08:43 RDW 13.2 % (12.1-15.1) 01/16/25 08:43 Plt Count 185 10^3/cmm (157-399) 01/16/25 08:43 MPV 9.5 fL (7.4-10.4) 01/16/25 08:43 Neut % (Auto) 69.7 % 01/16/25 08:43 Lymph % (Auto) 23.0 % 01/16/25 08:43 Bates % (Auto) 5.4 % 01/16/25 08:43 Eos % (Auto) 1.1 % 01/16/25 08:43 Baso % (Auto) 0.6 % 01/16/25 08:43 Neut # (Auto) 5.81 10^3/uL (1.8-7.7) 01/16/25 08:43 Lymph # (Auto) 1.9 10^3/uL (0.8-4.8) 01/16/25 08:43 Bates # (Auto) 0.5 10^3/uL (0.2-0.9) 01/16/25 08:43 Eos # (Auto) 0.1 10^3/uL (0.0-0.8) 01/16/25 08:43 Baso # (Auto) 0.1 10^3/uL (0.0-0.1) 01/16/25 08:43 Nucleated RBC % (auto) 0 % 01/16/25 08:43 Nucleated RBCs # 0.0 /100WBC 01/16/25 08:43 Sodium 139 mmol/L (136-145) 01/16/25 08:43 Potassium 3.8 mmol/L (3.5-5.1) 01/16/25 08:43 Chloride 105 mmol/L (98-107) 01/16/25 08:43 Carbon Dioxide 25 mmol/L (22-29) 01/16/25 08:43 Anion Gap 12.8 (5-19) 01/16/25 08:43 BUN 3 mg/dL (6-20) L 01/16/25 08:43 Creatinine 0.6 mg/dL (0.5-0.9) 01/16/25 08:43 GFR Calculation 103.0 mL/min (90-130) 01/16/25 08:43 Glucose 276 mg/dL (65-115) H 01/16/25 08:43 Calculated Osmolality 294 mOsm/kg (285-295) 01/16/25 08:43 Lactic Acid 1.1 mmol/L (0.5-2.2) 01/16/25 11:07 Calcium 8.7 mg/dL (8.5-10.5) 01/16/25 08:43 Total Bilirubin 0.5 mg/dL (0.15-1.2) 01/16/25 08:43 AST 13 U/L (0-32) 01/16/25 08:43 ALT 12 U/L (0-33) 01/16/25 08:43 Alkaline Phosphatase 106 U/L (35-105) H 01/16/25 08:43 Total Protein 6.4 g/dL (6.6-8.7) L 01/16/25 08:43 Albumin 4.0 g/dL (3.5-5.2) 01/16/25 08:43 Globulin 2.4 g/dL (1.3-4.6) 01/16/25 08:43 Urine Color Yellow (Yellow) 01/16/25 10:12 Urine Appearance Clear (CLEAR) 01/16/25 10:12 Urine pH 5.5 (5-7) 01/16/25 10:12 Ur Specific Mckenzie 1.046 (1.005-1.030) H 01/16/25 10:12 Urine Protein Negative (Negative) 01/16/25 10:12 Urine Glucose (UA) 3+ (Normal) H 01/16/25 10:12 Urine Ketones Negative (Negative) 01/16/25 10:12 Urine Blood Negative (Negative) 01/16/25 10:12 Urine Nitrate Negative (Negative) 01/16/25 10:12 Urine Bilirubin Negative (Negative) 01/16/25 10:12 Urine Urobilinogen 0.2 mg/dL (Negative) 01/16/25 10:12 Ur Leukocyte Esterase Negative (Negative) 01/16/25 10:12 Urine RBC 0-2 /hpf (0-2) 01/16/25 10:12 Urine WBC 21-50 /hpf (0-5) H 01/16/25 10:12 Ur Squamous Epith Cells 0-5 /hpf (0-5) 01/16/25 10:12 Amorphous Sediment Not Reportable 01/16/25 10:12 Urine Bacteria 1+ /hpf (NONE) H 01/16/25 10:12 Hyaline Casts 0-4 /lpf H 01/16/25 10:12 All radiology interpretation(s) finalized by discharge Discharge Plan Discharge Patient Disposition: Home Clinical Impression: Osteoarthritis involving multiple joints on both sides of body, Cystitis Condition: Stable Prescriptions: New diclofenac sodium 75 mg tablet,delayed release (DR/EC) 75 mg PO Q12H PRN (Reason: pain) Qty: 20 0RF sulfamethoxazole-trimethoprim [Bactrim DS] 800-160 mg tablet 1 tab PO BID 7 Days Qty: 14 0RF No Action (DME) blood-glucose meter [OneTouch Ultra2 Meter] [place] See Rx Instructions .Route Qty: 1 0RF Rx Instructions: As directed (DME) pen needle, diabetic 33 gauge x 5/32 needle See Rx Instructions .ROUTE .MEDSUPPLY Qty: 100 5RF Rx Instructions: 1 time day atorvastatin 40 mg tablet 40 mg PO BEDTIME Qty: 90 1RF (DME) OneTouch Ultra Test Strip See Rx Instructions .Route Qty: 100 0RF Rx Instructions: up to 3 times day Farxiga 10 mg tablet 10 mg PO QAM Qty: 30 2RF doxepin 10 mg capsule 10 mg PO BID Qty: 60 2RF gabapentin 600 mg tablet See Rx Instructions .ROUTE .COMPLEX Qty: 90 2RF Rx Instructions: TAKE 600 MG IN THE MORNING AND 1200 MG IN THE EVENING. insulin glargine [Lantus Solostar U-100 Insulin] 100 unit/mL (3 mL) insulin pen See Rx Instructions SUBCUT QAM Qty: 15 1RF Rx Instructions: Inject up to 50 subcutaneously every morning. tizanidine [Zanaflex] 4 mg tablet 4 mg PO BID Qty: 60 2RF Rx Instructions: muscle pain venlafaxine [Effexor XR] 75 mg capsule,extended release 24hr 75 mg PO QAM Qty: 30 2RF promethazine-DM 6.25-15 mg/5 mL syrup 5 ml PO Q6H PRN (Reason: cough) Qty: 120 0RF (DME) Diabetic shoes See Rx Instructions .ROUTE .MEDSUPPLY Qty: 1 0RF Rx Instructions: With 3 pairs of inserts albuterol sulfate 90 mcg/actuation HFA aerosol inhaler 2 puff INHALATION Q4H PRN (Reason: Shortness Of Breath) Qty: 8.5 0RF Mounjaro 7.5 mg/0.5 mL pen injector 7.5 mg SUBCUT .weekly Qty: 2 0RF Rx Instructions: on Thursday sucralfate [Carafate] 1 gram tablet 1 g PO BID acarbose 100 mg tablet 100 mg PO BID Rx Instructions: take before food levothyroxine 112 mcg tablet 112 mcg PO QAM Discharge Orders: Discharge ED (Routine); Ordered 01/16/25 Ordered By: Ulysses Peguero Referrals: Christina Arnold, ASHLYNC [Primary Care Provider, Family Practice] Discharge Diet: Usual diet Discharge Activity: Increase activity as tolerated Patient Instructions: Opioid Safety, Pain Management Activity Restrictions/Additional Instructions: Thank you for choosing [facility] for your healthcare needs today. It is very important that you follow up as instructed or that you return to the Emergency Department should you have concerns or if your condition changes or worsens in any way. You were seen in the emergency room with complaints of hip and knee pain. X-ray does not show any acute fractures. Will discharge you home pain is likely due to chronic osteoarthritis will start him diclofenac 1 tablet every 12 hours as needed follow-up with primary care doctor or orthopedist for long-term management. Print Language: Kazakh Coding Level of Care Code ED Cyanide Furnace Operator for Maddison Martinez
[2025-01-16] MEDS: dexamethasone 10 mg/mL INJ IVP (09:04)
[2025-01-16] MEDS: orphenadrine 30 mg/mL Inj 2 mL 60 MG IVP (09:04)
[2025-01-16] MEDS: ketorolac 30 mg/mL INJ IVP (09:04)
[2025-01-16 09:14] LABS: Alanine Aminotransferase 12 U/L (0-33); Alkaline Phosphatase 106 U/L (35-105); Anion Gap 12.8 (5-19); Aspartate Amino Transferase 13 U/L (0-32); Blood Urea Nitrogen 3 mg/dL (6-20); Calcium 8.7 mg/dL (8.5-10.5); Carbon Dioxide 25 mmol/L (22-29); Chloride 105 mmol/L (98-107); Globulin 2.4 g/dL (1.3-4.6); Glucose 276 mg/dL (65-115); Osmolality Calculated 294 mOsm/kg (285-295); Potassium 3.8 mmol/L (3.5-5.1); Sodium 139 mmol/L (136-145); Total Bilirubin 0.5 mg/dL (0.15-1.2); Total Protein 6.4 g/dL (6.6-8.7)
[2025-01-16 09:36] VITALS: BP 93/56; PULSE 71; O2SAT 92
[2025-01-16 09:44] VITALS: BP 90/50
[2025-01-16] MEDS: sodium chloride 0.9% 1,000 ML 999 ML IV (10:21)
[2025-01-16 10:22] LABS: Bilirubin Urine Negative (Negative); Blood Urine Negative (Negative); Glucose Urine UA 3+ (Normal); Ketones Urine Negative (Negative); Leukocyte Esterase Urine Negative (Negative); Nitrate Urine Negative (Negative); Protein Urine Negative (Negative); Urine Appearance Clear (CLEAR); Urine Color Yellow (Yellow); Urobilinogen Urine 0.2 mg/dL (Negative); pH Urine 5.5 (5-7)
[2025-01-16 10:27] LABS: Add Urine Microscopic? YES; Bacteria Urine 1+ /hpf; Hyaline Casts Urine 0-4 /lpf; RBC Urine 0-2 /hpf (0-2); Squamous Epithelial Cell Urine 0-5 /hpf (0-5); WBC Urine 21-50 /hpf (0-5)
[2025-01-16 10:28] LABS: Specific Gravity, Urine 1.046 (1.005-1.030); UA Slide Review UA Slide Review Perf
[2025-01-16 10:29] LABS: Add Urine Culture? No
[2025-01-16] MEDS: cefTRIAXone 1,000 mg SDV 1000 MG IVP (11:05)
--- NOTE | 2025-01-16 11:05 | XR_ITS ---
WS: [id number] XR chest 1V portable [id number] REASON FOR EXAM: dyspnea/cough FINDINGS: Chest is unchanged compared to previous examination of 08/07/2022. The heart and the mediastinum are within normal limits. Calcified granulomatous disease bilaterally. No acute pulmonary parenchymal or pleural abnormality. XR/XR chest 1V portable [id number] IMPRESSION: Stable chest without acute abnormality.
[2025-01-16 11:44] VITALS: BP 110/78; PULSE 68; O2SAT 93
[2025-01-16 11:47] LABS: Lactic Sepsis W/Reflex 1.1 mmol/L (0.5-2.2)
== END 2025-01-16 11:45 | disposition home or self-care (01) ==
PROVIDERS: Emergency Provider Family Medicine; PCP Nurse Practitioner
DX: M15.8 Other polyosteoarthritis (principal); N30.00 Acute cystitis without hematuria; Z98.1 Arthrodesis status; Z79.4 Long term (current) use of insulin; F17.210 Nicotine dependence, cigarettes, uncomplicated; J44.9 Chronic obstructive pulmonary disease, unspecified; I12.9 Hypertensive chronic kidney disease with stage 1 through stage 4 chronic kidney disease, or unspecified chronic kidney disease; E11.22 Type 2 diabetes mellitus with diabetic chronic kidney disease; N18.2 Chronic kidney disease, stage 2 (mild); E78.5 Hyperlipidemia, unspecified
CPT/HCPCS: 36415; 71045; 72100; 73502; 80053; 81001; 83605; 85025; 87040; 96374; 96375; 99284; J0696; J1100; J1885; J2360; J7030

== ENCOUNTER → 2025-03-23 15:41 | Outpatient (BNVA) | payer MEDICAID, SELFPAY | PROVIDERS: PCP Nurse Practitioner; Visit Provider Nurse Practitioner | DX: E11.9 Type 2 diabetes mellitus without complications (principal) | CPT/HCPCS: 80053; 81000; 83036 ==

== ENCOUNTER 2025-04-06 19:12 | Emergency (ER) | payer MEDICAID, SELFPAY ==
[2025-04-06 19:17] VITALS: BP 111/74; PULSE 84; RESP 16; TEMP 36.7; O2SAT 93; BMI 38.6
--- NOTE | 2025-04-06 20:02 | ED_ITS ---
HPI - General Adult General: Chief complaint: General Medical Stated complaint: shoulder/back pain. hip to ankle Time Seen by Provider: 04/06/25 20:02 History of Present Illness: 59-year-old female presents the emergenc y room with shoulder back hip and ankle pain. She has been dealing with this for a while. She says about every 3 months she gets into an issue with it. She says she is talk to her primary provider who has not really done anything so far. Related Data Previous Rx's ?Medication ?Instructions ?Recorded Diabetic shoes #1 ea 12/16/23 albuterol sulfate 90 mcg/actuation 2 puff inhalation Q 4H PRN 05/03/24 aerosol inhaler Shortness Of Breath #8.5 gra ms blood-glucose meter (OneTouch #1 ea 08/02/24 Ultra2 Meter) pen needle, diabetic 33 gauge x #100 ea 08/02/24 atorvastatin 40 mg tablet 40 mg PO BEDTIME #90 tabs blood sugar diagnostic (OneTouch #100 ea 12/29/24 Ultra Test strips) cholecalciferol (vitamin D3) 125 250 mcg (2 x 125 mcg (5,000 unit)) 03/23/25 mcg (5,000 unit) capsule PO DAILY #60 caps dapagliflozin propanediol 10 mg 10 mg PO QAM #30 tabs 03/23/25 tablet (Farxiga) doxepin 10 mg capsule 10 mg PO BID #60 caps fluconazole 150 mg tablet 150 mg PO DAILY #1 tab 03/23 gabapentin 600 mg tablet See Rx Instructions .Route 0 03/23/25 .COMPLEX #90 tabs insulin glargine 100 unit/mL (3 See Rx Instructions WRIGHT BCUT QAM #15 03/23/25 mL) subcutaneous pen (Lantus mL Solostar U-100 Insulin) levothyroxine 112 mcg tablet 112 mcg PO QAM #30 tabs 0 03/23/25 tirzepatide 15 mg/0.5 mL 15 mg (0.5 mL) SUBCUT .weekl y #2 mL 03/23/25 subcutaneous pen injector (Hernandez) tizanidine 4 mg tablet (Zanaflex) 4 mg PO BID muscle s pasticity #60 03/23/25 tabs valsartan 80 mg tablet (Diovan) 80 mg PO DAILY #30 tab s 03/23/25 venlafaxine 75 mg capsule,extended 75 mg PO QAM #30 ca ps 03/23/25 release 24 hr (Effexor XR) sucralfate 1 gram tablet (Carafate) 1 g PO BID #60 tab s 03/30/25 dexamethasone 6 mg tablet 6 mg PO DAILY 5 days #5 tabs 04/06/25 diclofenac sodium 50 mg 50 mg PO BID PRN pain #14 ta bs 04/06/25 tablet,delayed release Allergies Allergy/AdvReac Type Severity Reaction Status Date / Time aspirin Allergy Unknown Verified 03/23/25 15:06 codeine Allergy ADR-Itching Verified 03/23/25 15:06 oxycodone Allergy Unknown Verified 03/23/25 15:06 tetracycline Allergy Unknown Verified 03/23/25 15:06 topiramate (From Topamax) Allergy ADR-Itching Verified 03/23/25 15:06 tramadol (From Ultram) Allergy Unknown Verified 03/23/25 15:06 metformin AdvReac Severe ADR-Gastrointestinal Verified 03/23/25 15:06 Upset Review of Systems Narrative: Constitutional symptoms: Negative except as documented in HPI. Skin symptoms: Negative except as documented in HPI. Eye symptoms: Negative except as documented in HPI. ENMT symptoms: Negative except as documented in HPI. Respiratory symptoms: Negative except as documented in HPI. Cardiovascular symptoms: Negative except as documented in HPI. Gastrointestinal symptoms: Negative except as documented in HPI. Genitourinary symptoms: Negative except as documented in HPI. Musculoskeletal symptoms: Negative except as documented in HPI. Neurologic symptoms: Negative except as documented in HPI. Psychiatric symptoms: Negative except as documented in HPI. Endocrine symptoms: Negative except as documented in HPI. 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 Duncan Hx of hysterectomy Hx of tonsillectomy Hx of hernia repair History of back surgery Hx of hemorrhoidectomy Family History Other Diabetes Hypertension Social History Smoking and tobacco/nicotine status: current every day tobacco/nicotine user cigarettes Packs smoked per day: 1 Years cigarettes smoked: 35 Second hand smoke exposure: No Alcohol intake: unknown Substance/Drug Use: unknown Adopted: No Caregiver/support person: No Lives independently: Yes Household members: family Marital status: Number of children: 5 service: No Current occupational status: unemployed Current occupational exposures/hazards: No Pets and animals: Yes Do you think of yourself as: Straight/Heterosexual Current gender identity: Female Physical Exam Narrative: EXAM NARRATIVE: General: Alert, no acute distress. Skin: warm and dry Head: Normocephalic Neck: Trachea midline Eye: Extraocular movements are intact. Ears, nose, mouth and throat: Oral mucosa moist Respiratory: Respirations are non-labored Musculoskeletal: Normal ROM Gastrointestinal: Abdomen does not appear distended Neurological: Alert and oriented, No focal neurological deficit observed. Psychiatric: Cooperative, appropriate mood & affect. Course Vital Signs: Vital signs: Vital Signs Temperature 98.1 F 04/06/25 19:17 Pulse Rate 84 04/06/25 19:17 Respiratory Rate 16 04/06/25 19:17 Blood Pressure 111/74 04/06/25 19:17 Pulse Oximetry 93 04/06/25 19:17 Oxygen Delivery Me thod Room Air 04/06/25 19:17 MDM - General Adult Medical Decision Making Assessment and plan: Arthritis exacerbation ?IM Decadron and p.o. [place] in the emergency room. - Discharged home - Discussed plan with patient. Answered any questions. - Evaluation and treatment of this problem were appropriate in the emergency setting. No radiology studies performed this visit Discharge Plan Discharge Patient Disposition: Home Clinical Impression: Arthritis pain Condition: Stable Prescriptions: New dexamethasone 6 mg tablet 6 mg PO DAILY 5 Days Qty: 5 0RF diclofenac sodium 50 mg tablet,delayed release (DR/EC) 50 mg PO BID PRN (Reason: pain) Qty: 14 0RF No Action (DME) blood-glucose [place]Touch [place]2 M[place] [facility] [place] Instructions .Route Qty: 1 0RF Rx Instructions: As directed (DME) pen needle, diabetic 33 gauge x 5/32 needle See Rx Instructions .ROUTE .MEDSUPPLY Qty: 100 5RF Rx Instructions: 1 time day atorvastatin 40 mg tablet 40 mg PO BEDTIME Qty: 90 1RF (DME) OneTouch Ultra Test Strip See Rx Instructions .Route Qty: 100 0RF Rx Instructions: up to 3 times day Mounjaro 15 mg/0.5 mL pen injector 15 mg SUBCUT .weekly Qty: 2 2RF Farxiga 10 mg tablet 10 mg PO QAM Qty: 30 2RF doxepin 10 mg capsule 10 mg PO BID Qty: 60 2RF gabapentin 600 mg tablet See Rx Instructions .ROUTE .COMPLEX Qty: 90 2RF Rx Instructions: TAKE 600 MG IN THE MORNING AND 1200 MG IN THE EVENING. insulin glargine [Lantus Solostar U-100 Insulin] 100 unit/mL (3 mL) insulin pen See Rx Instructions SUBCUT QAM Qty: 15 1RF Rx Instructions: Inject up to 50 subcutaneously every morning. venlafaxine [Effexor XR] 75 mg capsule,extended release 24hr 75 mg PO QAM Qty: 30 2RF tizanidine [Zanaflex] 4 mg tablet 4 mg PO BID Qty: 60 2RF Rx Instructions: muscle pain levothyroxine 112 mcg tablet 112 mcg PO QAM Qty: 30 2RF cholecalciferol (vitamin D3) 125 mcg (5,000 unit) capsule 250 mcg PO DAILY Qty: 60 2RF fluconazole 150 mg tablet 150 mg PO DAILY Qty: 1 0RF valsartan [Diovan] 80 mg tablet 80 mg PO DAILY Qty: 30 2RF (DME) Diabetic shoes See Rx Instructions .ROUTE .MEDSUPPLY Qty: 1 0RF Rx Instructions: With 3 pairs of inserts albuterol sulfate 90 mcg/actuation HFA aerosol inhaler 2 puff INHALATION Q4H PRN (Reason: Shortness Of Breath) Qty: 8.5 0RF sucralfate [Carafate] 1 gram tablet 1 g PO BID Qty: 60 2RF Discharge Orders: Discharge ED (Routine); Ordered 04/06/25 Ordered By: Amber Licona Referrals: Christina Arnold, ASHLYNC [Primary Care Provider, Family Practice] Discharge Diet: Usual diet Discharge Activity: Increase activity as tolerated Patient Instructions: Opioid Safety, Pain Management, Patient Portal & Danny Instructions Activity Restrictions/Additional Instructions: Thank you for choosing [facility] for your healthcare needs today. You have been screened and evaluated and felt safe for discharge. Health conditions do change or evolve sometimes and as such it is important that you follow up with your Primary Doctor to be re checked, 3-5 days is a general good time frame for follow up. You are always welcome to return to the ED for re assessment if your symptoms are worsening or you have new concerns Print Language: Serbian Coding Level of Care Code ED Flight Reservations Manager for Maddison Martinez
[2025-04-06 20:27] VITALS: BP 130/75; PULSE 76; RESP 18; O2SAT 99
[2025-04-06] MEDS: HYDROcodone-acetaminophen 10-325 mg Tablet 2 TAB PO (20:27)
== END 2025-04-06 20:28 | disposition home or self-care (01) ==
PROVIDERS: Emergency Provider Emergency Medicine; PCP Nurse Practitioner
DX: M13.80 Other specified arthritis, unspecified site (principal); Z79.4 Long term (current) use of insulin; F17.210 Nicotine dependence, cigarettes, uncomplicated; J44.9 Chronic obstructive pulmonary disease, unspecified; E78.5 Hyperlipidemia, unspecified; E11.22 Type 2 diabetes mellitus with diabetic chronic kidney disease; I12.9 Hypertensive chronic kidney disease with stage 1 through stage 4 chronic kidney disease, or unspecified chronic kidney disease; N18.9 Chronic kidney disease, unspecified
CPT/HCPCS: 96372; 99284; J1100; J9999

== ENCOUNTER → 2025-06-06 14:02 | Outpatient (BNVA) | payer MEDICAID, SELFPAY | PROVIDERS: PCP Nurse Practitioner; Visit Provider Nurse Practitioner | DX: E11.65 Type 2 diabetes mellitus with hyperglycemia (principal); E03.9 Hypothyroidism, unspecified; E55.9 Vitamin D deficiency, unspecified; Z79.4 Long term (current) use of insulin | CPT/HCPCS: 80053; 80061; 81000; 82043; 82306; 83036; 84439; 84443; 84481; 85025 ==

== ENCOUNTER 2025-06-26 07:48 | Outpatient (CLI) | payer MEDICAID, SELFPAY ==
--- NOTE | 2025-06-26 07:30 | US_ITS ---
WS: [id number] Complete ABDOMINAL ULTRASOUND HISTORY: R10.10 - Upper abdominal pain, unspecified COMPARISON: 11/27/2023 Liver: 18.6 cm in length. Liver is slightly enlarged. Coarse echotexture and increased attenuation. Progression of hepatic steatosis since the prior study from 11/27/2023. No mass identified. Portal Vein: Normal hepatopetal flow with monophasic waveform. Gallbladder: Normal gallbladder. No stones identified or wall thickening. CBD: 0.3 cm Pancreas: Obscured. Right kidney: 12.2 cm x 5.2 x 4.9 cm. Cortex:1.3 cm. Normal size and echogenicity. No hydronephrosis or mass. Left kidney: 12.7 cm x 5.5 cm x 5.0 cm. Cortex: 1.3 cm. Normal size and echogenicity. No hydronephrosis or mass. Spleen: 11.5 cm. Normal size and echogenicity. Aorta and IVC: Unremarkable abdominal aorta and IVC. US/US abdomen complete* [id number] Impression: 1. Mild hepatomegaly with moderate hepatic steatosis. Hepatic steatosis has pr ogressed since 11/27/2023. 2. Normal gallbladder. 3. No renal obstruction.
== END 2025-06-26 07:49 | disposition home or self-care (01) ==
LOC: RAD 07:49
PROVIDERS: PCP Nurse Practitioner; Visit Provider Nurse Practitioner
DX: R10.10 Upper abdominal pain, unspecified (principal); R16.0 Hepatomegaly, not elsewhere classified; I51.7 Cardiomegaly
CPT/HCPCS: 76700

== ENCOUNTER 2025-08-08 14:06 | Outpatient (CLI) | payer MEDICAID, SELFPAY ==
--- NOTE | 2025-08-08 14:00 | MM_ITS ---
WS: [id number]NO[facility] BILATERAL DIGITAL BREAST TOMOSYNTHESIS MAMMOGRAPHY WITH CAD Bilateral breast ultrasound, limited. HISTORY: N64.4 - Mastodynia, bilateral breast pain. COMPARISON: 08/18/2024, 04/07/2022 TECHNIQUE: Bilateral craniocaudad, mediolateral oblique, and mediolateral views are submitted with tomosynthesis and SM. Computer aided detection utilized. Breast composition: There are scattered areas of fibroglandular density. There are a few benign calcifications. No mass or distortion noted in the lateral breasts along the area of pain. No nipple retraction. Bilateral breast ultrasound, limited. Bilateral breast ultrasound is performed in the areas of pain as directed by the patient. No masses or shadowing identified. Normal ultrasound of each breast. MM/MM diag BI tomosynthesis [id number] IMPRESSION: BI-RADS: 2 - Benign. FOLLOW UP: 1 Year Follow-up No mammographic or ultrasound abnormality within either breast to correlate to the areas of pain.
--- NOTE | 2025-08-08 14:30 | US_ITS ---
WS: [id number] DIAGNOSTIC BILATERAL DIGITAL BREAST TOMOSYNTHESIS MAMMOGRAPHY WITH CAD Bilateral breast ultrasound, limited. HISTORY: N64.4 - Mastodynia, bilateral breast pain. COMPARISON: 08/18/2024, 04/07/2022 TECHNIQUE: Bilateral craniocaudad, mediolateral oblique, and mediolateral views are submitted with tomosynthesis and SM. Computer aided detection utilized. Breast composition: There are scattered areas of fibroglandular density. There are a few benign calcifications. No mass or distortion noted in the lateral breasts along the area of pain. No nipple retraction. Bilateral breast ultrasound, limited. Bilateral breast ultrasound is performed in the areas of pain as directed by the patient. No masses or shadowing identified. Normal ultrasound of each breast. US/US breast BI limited* [id number] IMPRESSION: BI-RADS: 2 - Benign. FOLLOW UP: 1 Year Follow-up No mammographic or ultrasound abnormality within either breast to correlate to the areas of pain.
== END 2025-08-08 14:07 | disposition home or self-care (01) ==
LOC: RAD 14:07
PROVIDERS: PCP Nurse Practitioner; Visit Provider Nurse Practitioner
DX: N64.4 Mastodynia (principal); Z80.3 Family history of malignant neoplasm of breast; R92.1 Mammographic calcification found on diagnostic imaging of breast; R92.323 Mammographic fibroglandular density, bilateral breasts
CPT/HCPCS: 76642; 77062; G0279